=== PATIENT | male | born 1950 | race Caucasian/White ===

== ENCOUNTER → 2017-12-13 | Outpatient (CLI) | payer MEDICARE, OTHER ==
[~2017-12-13] MED LIST: LIDOCAINE 2% MDV 20 ML VIAL As Ordered
== END | disposition home or self-care (01) ==
LOC: M IRPRO 10:59
DX: Z45.2 Encounter for adjustment and management of vascular access device (principal); N18.6 End stage renal disease; Z99.2 Dependence on renal dialysis
CPT/HCPCS: 36589

== ENCOUNTER 2018-02-22 09:45 | Emergency (ER) | payer MEDICARE, OTHER ==
[2018-02-22] MEDS: DERMABOND TOPICAL SKIN ADHESIVE TOP (10:54)
== END 2018-02-22 11:12 | disposition home or self-care (01) ==
LOC: M ED 09:45
DX: S61.215A Laceration without foreign body of left ring finger without damage to nail, initial encounter (principal); W26.8XXA Contact with other sharp object(s), not elsewhere classified, initial encounter; Y92.018 Other place in single-family (private) house as the place of occurrence of the external cause; E11.9 Type 2 diabetes mellitus without complications; I12.0 Hypertensive chronic kidney disease with stage 5 chronic kidney disease or end stage renal disease; N18.6 End stage renal disease; Z99.2 Dependence on renal dialysis; Z79.899 Other long term (current) drug therapy; Z88.5 Allergy status to narcotic agent
CPT/HCPCS: 12001

== ENCOUNTER → 2018-03-11 | Outpatient (CLI) | payer MEDICARE, OTHER | LOC: M RAD 13:13 | DX: Z01.818 Encounter for other preprocedural examination (principal); N18.6 End stage renal disease | CPT/HCPCS: G0365 ==

== ENCOUNTER → 2018-07-11 | Outpatient (REF) | payer MEDICARE ==
[2018-07-11 19:22] LABS: BASO % 0.4 % (0.0-1.0); EOS # 0.4 10^3/uL (0.0-0.50); EOS % 3.5 % (0.0-3.0); HEMATOCRIT 25.4 % (42.0-52.0); HEMOGLOBIN 8.6 g/dl (13.5-17.5); IMMATURE GRANULOCYTE % 1.1 % (0-3.0); LYMPH # 0.9 10^3/uL (1.5-4.5); LYMPH % 8.2 % (24.0-44.0); MEAN CORPUSCULAR HEMOGLOBIN 30.4 pg (27.0-33.0); MEAN CORPUSCULAR HGB CONC 33.9 g/dl (32.0-36.5); MEAN CORPUSCULAR VOLUME 89.8 fl (80.0-96.0); NEUTROPHILS # 8.3 10^3/uL (1.8-7.7); NEUTROPHILS % 77.8 % (36.0-66.0); PLATELET COUNT, AUTOMATED 261 10^3/uL (150-450); RED BLOOD COUNT 2.83 10^6/uL (4.30-6.10); RED CELL DISTRIBUTION WIDTH 14.6 % (11.5-14.5); WHITE BLOOD COUNT 10.6 10^3/uL (4.0-10.0)
[2018-07-11 20:12] LABS: ESTIMATED AVERAGE GLUCOSE 192 MG/DL (60-110); HEMOGLOBIN A1c 8.3 %
[2018-07-11 20:25] LABS: ALBUMIN/GLOBULIN RATIO 1.03 (1.00-1.93); ALKALINE PHOSPHATASE 66 U/L (45-117); ALT/SGPT 24 U/L (12-78); ANION GAP 11 MEQ/L (8-16); AST/SGOT 9 U/L (7-37); BILIRUBIN,TOTAL 0.3 MG/DL (0.2-1.0); BLOOD UREA NITROGEN 96 MG/DL (7-18); CARBON DIOXIDE LEVEL 29 MEQ/L (21-32); CHLORIDE LEVEL 92 MEQ/L (98-107); CHOLESTEROL LEVEL 155 MG/DL (<200); CHOLESTEROL RISK RATIO 5.535 (<5); GLOMERULAR FILTRATION RATE 3.6 (>49); GLUCOSE, FASTING 192 MG/DL (70-100); HDL CHOLESTEROL 28 MG/DL (>40); NON-HDL-C 127 MG/DL; POTASSIUM SERUM 4.2 MEQ/L (3.5-5.1); SODIUM LEVEL 132 MEQ/L (136-145); TOTAL PROTEIN 5.9 GM/DL (6.4-8.2); TRIGLYCERIDES LEVEL 442 MG/DL (<150)
== END ==
LOC: M SFHCADAM 15:45
DX: I11.9 Hypertensive heart disease without heart failure (principal); N18.6 End stage renal disease; E11.22 Type 2 diabetes mellitus with diabetic chronic kidney disease; Z79.4 Long term (current) use of insulin; R11.2 Nausea with vomiting, unspecified; R63.4 Abnormal weight loss
CPT/HCPCS: 84443

== ENCOUNTER → 2018-09-26 | Outpatient (CLI) | payer MEDICARE ==
[~2018-09-26] MED LIST changes: +AURY1TAB; +CARV12.5; +FURO40TA2; +GLIM2TAB; +HYDR-3911; +ISOS30TA4; +LANTINJ4; -LIDOCAINE 2% MDV 20 ML VIAL As Ordered; +LOSA100T50; +NITR0.4S14; +RENATAB5; +RENV2TAB; +SIMV20TA2; +VITA50005; +[UNRECOGNIZED DRUG - CODE]
--- NOTE | 2018-09-26 18:00 | REP ---
LIMITED ABDOMINAL ULTRASOUND: 09/26/2018. Clinical history: Nausea and vomiting, evaluate biliary tree. Findings: No prior study. The liver shows mild coarsening of echotexture but is otherwise homogeneous. There is no hepatic mass or cyst. No gross intrahepatic biliary dilatation. There is no perihepatic ascites. The gallbladder is adequately filled measuring 8.2 x 5.8 x 4.9 cm. Some mild cholesterolosis suggested. I do not see pericholecystic fluid and wall thickness is 1.8 mm, normal. No stone or sludge. No sonographic Elaine's sign was defined. Common duct is 2.3 mm without filling defect in its visible portion, somewhat limited evaluation. The pancreas also was limited in evaluation due to bowel gas shadowing. Those segments seen were unremarkable. The right kidney is 12.7 x 6.4 x 5.7 cm. Cortex is echogenic compared to the liver representing some medical renal disease. There is a lower pole cyst laterally measuring 5.8 x 5.3 x 5 cm. There is no hydronephrosis. Calcified vessels in the hilus. There is trace amount of ascites around the liver. Impression: 1. Mild coarsening of the hepatic echotexture and trace fluid adjacent to the liver that may reflect evidence of chronic liver disease. 2. No hepatic mass, definite intrahepatic biliary dilatation or cyst. 3. Common duct 2.3 and mm and intact. Limited evaluation of the pancreas. 4. The gallbladder shows some cholesterolosis and normal wall thickness of 1.8 mm No stone, sludge or pericholecystic fluid. No sonographic Elaine sign. 5. Chronic renal disease noted involving the right kidney without hydronephrosis. Echogenic calcified vessels in the hilum and a lower pole lateral cyst 5.8 x 5.3 cm. Electronically Signed by Thony Dao MD 09/26/2018 06:44 P
== END ==
LOC: M RAD 09:53
PROVIDERS: ATTEND Internal Medicine Gastroenterology
DX: R11.2 Nausea with vomiting, unspecified (principal); K76.89 Other specified diseases of liver; K82.4 Cholesterolosis of gallbladder; N18.9 Chronic kidney disease, unspecified

== ENCOUNTER → 2018-09-29 | Outpatient (REF) | payer MEDICARE, OTHER | LOC: M SFHCPLAZ 19:40 | PROVIDERS: ATTEND Dermatology | DX: L57.8 Other skin changes due to chronic exposure to nonionizing radiation (principal); L82.1 Other seborrheic keratosis ==

== ENCOUNTER → 2018-11-24 | Outpatient (CLI) | payer MEDICARE, OTHER ==
--- NOTE | 2018-11-27 12:19 | SLEEPHOME ---
DATE OF PROCEDURE: 11/24/2018 ORDERED BY: Dr. Andre Diagnostic home sleep testing was performed due to concern for the obstructive sleep apnea syndrome. For testing a nocturnal T3 respiratory monitoring device was used. Continuous record was made of pulse, oxygen saturation, airflow, chest and abdominal strain and body position. 9 hours and 59 minutes of data were reviewed. There were 7 hours and 26 minutes marked as time in bed. During the interval marked time in bed, there were 568 respiratory events identified of 10 seconds in duration or greater for a respiratory event index of 76.3. The events were primarily obstructive. Baseline pulse rate 79. Pulse rate ranged 42-93. Baseline saturation 90%. Lowest oxygen saturation 69%. Testing was performed in both the supine and nonsupine positions. IMPRESSION: Abnormal home sleep testing with repetitive respiratory events and oxygen desaturations to 69% with a respiratory event index of 76.3 is consistent with the obstructive sleep apnea syndrome. RECOMMENDATIONS: The patient should be encouraged to undergo formal sleep evaluation and in laboratory pressure titration.
== END ==
LOC: M SLEEP HO 11-20 10:51
PROVIDERS: ATTEND Internal Medicine Cardiovascular Disease
DX: R06.83 Snoring (principal)

== ENCOUNTER → 2018-11-25 | Outpatient (REF) | payer MEDICARE, OTHER ==
[2018-11-25 20:25] LABS: BASO % 0.4 % (0.0-1.0); EOS # 0.4 10^3/uL (0.0-0.50); EOS % 5.2 % (0.0-3.0); HEMATOCRIT 25.3 % (42.0-52.0); HEMOGLOBIN 8.5 g/dl (13.5-17.5); LYMPH # 1.1 10^3/uL (1.5-4.5); LYMPH % 15.8 % (24.0-44.0); MEAN CORPUSCULAR HEMOGLOBIN 29.6 pg (27.0-33.0); MEAN CORPUSCULAR HGB CONC 33.6 g/dl (32.0-36.5); MEAN CORPUSCULAR VOLUME 88.2 fl (80.0-96.0); MONO % 13.4 % (0.0-5.0); NEUTROPHILS # 4.6 10^3/uL (1.8-7.7); NEUTROPHILS % 64.8 % (36.0-66.0); PLATELET COUNT, AUTOMATED 278 10^3/uL (150-450); RED BLOOD COUNT 2.87 10^6/uL (4.30-6.10); WHITE BLOOD COUNT 7.1 10^3/uL (4.0-10.0)
[2018-11-25 20:43] LABS: HEMOGLOBIN A1c 8.7 %
[2018-11-25 21:33] LABS: ALBUMIN 3.3 GM/DL (3.2-5.2); ALT/SGPT 24 U/L (12-78); BILIRUBIN,TOTAL 0.3 MG/DL (0.2-1.0); BLOOD UREA NITROGEN 92 MG/DL (7-18); CALCIUM LEVEL 8.8 MG/DL (8.8-10.2); CARBON DIOXIDE LEVEL 30 MEQ/L (21-32); CHLORIDE LEVEL 94 MEQ/L (98-107); CHOLESTEROL LEVEL 171 MG/DL (<200); CHOLESTEROL RISK RATIO 5.516 (<5); FREE T4 0.74 NG/DL (0.76-1.46); GLOMERULAR FILTRATION RATE 3.7 (>49); GLUCOSE, FASTING 207 MG/DL (70-100); HDL CHOLESTEROL 31 MG/DL (>40); NON-HDL-C 140 MG/DL; POTASSIUM SERUM 4.9 MEQ/L (3.5-5.1); SODIUM LEVEL 135 MEQ/L (136-145); TOTAL PROTEIN 6.2 GM/DL (6.4-8.2); TRIGLYCERIDES LEVEL 463 MG/DL (<150)
== END ==
LOC: M SFHCADAM 16:15
PROVIDERS: ATTEND Physician Assistant Medical
DX: E11.22 Type 2 diabetes mellitus with diabetic chronic kidney disease (principal); I11.9 Hypertensive heart disease without heart failure; R97.20 Elevated prostate specific antigen [PSA]

== ENCOUNTER → 2018-11-25 | Outpatient (CLI) | payer MEDICARE, OTHER ==
--- NOTE | 2018-11-25 16:56 | REP ---
Right hip two views: There is mild joint space narrowing. There is no osteophytic formation. There is no femoral head deformity. There is no fracture or dislocation. Localization is normal. Impression: Mild joint space narrowing compatible with early osteoarthritis. If symptoms persist or worsen, consider MRI follow up. Left hip two views: There is mild joint space narrowing. There is no osteophytic formation. Mineralization is normal. There is no fracture or dislocation. There is a calcification lateral to the acetabular roof, likely a degenerative ligamentous calcification. Impression: Mild joint space narrowing compatible with early osteoarthritis. Ligamentous degenerative calcification lateral to the acetabular roof. If symptoms persist or worsen, consider MRI follow up. Electronically Signed by Robert Chowdary MD 11/25/2018 04:48 P
== END ==
LOC: M ADAMS 16:19
PROVIDERS: ATTEND Physician Assistant Medical
DX: M16.0 Bilateral primary osteoarthritis of hip (principal); E11.22 Type 2 diabetes mellitus with diabetic chronic kidney disease; I11.9 Hypertensive heart disease without heart failure; R97.20 Elevated prostate specific antigen [PSA]; M25.551 Pain in right hip; M25.552 Pain in left hip
CPT/HCPCS: 73502; 80053; 80061; 83036; 84154; 84439; 84443; 85025; G0463

== ENCOUNTER → 2019-01-20 | Outpatient (REF) | payer MEDICARE, OTHER | LOC: M LAB REF 13:06 | PROVIDERS: ATTEND Internal Medicine Nephrology | DX: D64.9 Anemia, unspecified (principal) ==

== ENCOUNTER → 2019-03-09 | Outpatient (REF) | payer MEDICARE, OTHER ==
[~2019-03-09] MED LIST changes: +CHLO125TA PO; +IRBE300T10 PO; +LANT1000 PO; +LOPR1TAB7 PO; +ONDA4TAB6 PO; +RANI15TA PO
[2019-03-09 14:26] LABS: HEMOGLOBIN A1c 6.9 %
== END ==
LOC: M SFHCADAM 11:15
PROVIDERS: ATTEND Physician Assistant Medical
DX: E11.22 Type 2 diabetes mellitus with diabetic chronic kidney disease (principal)
CPT/HCPCS: 83036; G0463

== ENCOUNTER → 2019-03-13 | Outpatient (REF) | payer MEDICARE, OTHER | LOC: M SMT 17:05 | PROVIDERS: ATTEND Nurse Practitioner Family | DX: R97.20 Elevated prostate specific antigen [PSA] (principal) | CPT/HCPCS: 87086; G0463 ==

== ENCOUNTER 2019-03-31 12:28 | Day surgery (SDC) | payer MEDICARE, OTHER ==
[~2019-03-31] VITALS: Ht 172.7 cm; Wt 92.5 kg
[2019-03-31] MEDS: NS 1,000 ML IV ONE (12:43)
[2019-03-31] MEDS ORDERED: LIDOCAINE 2% INJ 100 MG/5 ML SDV (FOR ANES.) As Ordered ONE (14:23)
[2019-03-31] MEDS ORDERED: PROPOFOL 500 MG/50 ML VIAL As Ordered ONE (14:23)
[2019-03-31] MEDS ORDERED: fentaNYL 100 MCG/2 ML INJECTION (J3010) As Ordered ONE (14:23)
--- NOTE | 2019-03-31 14:54 | ROOR ---
Patient Name: Isidro Dooley Procedure Date: 03/31/2019 2:10 PM Date of : 1950 Age: 68 Room: [facility] Gender: Male Note Status: Finalized Procedure: Upper GI endoscopy Indications: Persistent vomiting Providers: Paulie Schaffer MD Referring MD: EVONNE Carrasquillo Requesting Provider: Medicines: Monitored Anesthesia Care Complications: No immediate complications. Procedure: Pre-Anesthesia Assessment: - Prior to the procedure, a History and Physical was performed, and patient medications and allergies were reviewed. The patient is competent. The risks and benefits of the procedure and the sedation options and risks were discussed with the patient. All questions were answered and informed consent was obtained. Patient identification and proposed procedure were verified by the physician, the nurse and the anesthesiologist in the procedure room. Mental Status Examination: alert and oriented. Airway Examination: normal oropharyngeal airway and neck mobility. Respiratory Examination: clear to auscultation. CV Examination: normal. Prophylactic Antibiotics: The patient does not require prophylactic antibiotics. Prior Anticoagulants: The patient has taken no previous anticoagulant or antiplatelet agents. ASA Grade Assessment: II - A patient with mild systemic disease. After reviewing the risks and benefits, the patient was deemed in satisfactory condition to undergo the procedure. The anesthesia plan was to use monitored anesthesia care (MAC). Immediately prior to administration of medications, the patient was re-assessed for adequacy to receive sedatives. The heart rate, respiratory rate, oxygen saturations, blood pressure, adequacy of pulmonary ventilation, and response to care were monitored throughout the procedure. The physical status of the patient was re-assessed after the procedure. The Endoscope was introduced through the mouth, and advanced to the second part of duodenum. The upper GI endoscopy was accomplished without difficulty. The patient tolerated the procedure well. Findings: The examined esophagus was normal. The Z-line was regular and was found 43 cm from the incisors. One non-bleeding superficial gastric ulcer was found in the prepyloric region of the stomach. The lesion was 20 mm in largest dimension. Biopsies were taken with a cold forceps for histology. Verification of patient identification for the specimen was done by the physician and nurse using the patient's name, date and medical record number. Estimated blood loss was minimal. Scattered moderate inflammation characterized by congestion (edema), erythema and granularity was found in the gastric antrum. Biopsies were taken with a cold forceps for Helicobacter pylori testing. No gross lesions were noted in the duodenal bulb and in the second portion of the duodenum. Biopsies for histology were taken with a cold forceps for evaluation of celiac disease. Impression: - Normal esophagus. - Z-line regular, 43 cm from the incisors. - Non-bleeding gastric ulcer. Biopsied. - Gastritis. Biopsied. - No gross lesions in the duodenal bulb and in the second portion of the duodenum. Biopsied. Recommendation: - Patient has a contact number available for emergencies. The signs and symptoms of potential delayed complications were discussed with the patient. Return to normal activities tomorrow. Written discharge instructions were provided to the patient. - Resume previous diet. - Continue present medications. - Use a proton pump inhibitor PO daily for 8 weeks. - Return to GI clinic in [facility] (address [address], [address], [place] [address]) in 4 -- 6 weeks. Please call GI clinic @ [phone] for apppointment date and time. - Return to primary care physician. Paulie Schaffer MD Paulie Schaffer MD 03/31/2019 2:54:08 PM Electronically signed by Paulie Schaffer MD Number of Addenda: 0 Note Initiated On: 03/31/2019 2:10 PM Estimated Blood Loss: Estimated blood loss was minimal.
[2019-03-31 15:00] VITALS: BP 176/79
== END 2019-03-31 15:21 | disposition home or self-care (01) ==
LOC: M OPP 12:28
PROVIDERS: ATTEND Internal Medicine Gastroenterology
DX: K25.9 Gastric ulcer, unspecified as acute or chronic, without hemorrhage or perforation (principal); K29.70 Gastritis, unspecified, without bleeding; R11.10 Vomiting, unspecified; G47.30 Sleep apnea, unspecified; E11.9 Type 2 diabetes mellitus without complications; N18.9 Chronic kidney disease, unspecified; Z99.2 Dependence on renal dialysis; Z79.4 Long term (current) use of insulin; Z79.899 Other long term (current) drug therapy; Z88.5 Allergy status to narcotic agent
CPT/HCPCS: 43239; 88305; J3010

== ENCOUNTER → 2019-04-09 | Outpatient (CLI) | payer MEDICARE, OTHER | LOC: M RAD 09:41 | PROVIDERS: ATTEND Internal Medicine Nephrology | DX: Z01.818 Encounter for other preprocedural examination (principal) ==

== ENCOUNTER 2019-10-27 15:11 | Emergency (ER) | payer MEDICARE, OTHER ==
[~2019-10-27] VITALS: Ht 172.7 cm; Wt 87.7 kg
[~2019-10-27 15:11] MED LIST changes: +Areds PO; +CVS50CAP PO; -FURO40TA2; +FURO40TA2 PO; -GLIM2TAB; +GLIM2TAB4 PO; -IRBE300T10 PO; +IRBE300T7 PO; -ISOS30TA4; +ISOS30TA4 PO; +MINO2.5T PO; -NITR0.4S14; +NITR0.4S14 SL; -RENV2TAB; +RENV2TAB PO; -SIMV20TA2; +SIMV20TA22 PO; +VELP5CHW PO; +VITA200028 PO
[2019-10-27] MEDS ORDERED: NS 1,000 ML IV ONE (15:45)
[2019-10-27] MEDS ORDERED: ONDANSETRON 4MG/2ML VIAL IV ONE (15:45)
[2019-10-27 15:51] LABS: BASO % 0.2 % (0.0-1.0); EOS # 0.1 10^3/uL (0.0-0.5); EOS % 0.8 % (0.0-3.0); HEMATOCRIT 25.8 % (42.0-52.0); HEMOGLOBIN 8.9 g/dl (13.5-17.5); LYMPH # 0.3 10^3/uL (1.5-5.0); LYMPH % 2.3 % (24.0-44.0); MEAN CORPUSCULAR HEMOGLOBIN 31.3 pg (27.0-33.0); MEAN CORPUSCULAR HGB CONC 34.5 g/dl (32.0-36.5); MEAN CORPUSCULAR VOLUME 90.8 fl (80.0-96.0); MONO # 1.2 10^3/uL (0.0-0.8); MONO % 8.5 % (0.0-5.0); NEUTROPHILS # 12.7 10^3/uL (1.5-8.5); PLATELET COUNT, AUTOMATED 220 10^3/uL (150-450); RED BLOOD COUNT 2.84 10^6/uL (4.30-6.10); WHITE BLOOD COUNT 14.6 10^3/uL (4.0-10.0)
[2019-10-27 15:55] LABS: INR 1.1; PROTHROMBIN TIME 13.9 SECONDS (11.8-14.0)
[2019-10-27 15:56] LABS: PARTIAL THROMBOPLASTIN TIME 30.7 SECONDS (25.0-38.4)
[2019-10-27 16:05] LABS: ALBUMIN 3.4 GM/DL (3.2-5.2); ALT/SGPT 21 U/L (12-78); BILIRUBIN,DIRECT 0.1 MG/DL (0.0-0.2); BILIRUBIN,TOTAL 0.4 MG/DL (0.2-1.0); C REACTIVE PROTEIN QUANTITATIV 3.13 MG/DL (0.00-0.30); CK-MB VALUE MASS 2.8 NG/ML (<3.6); CPK CREATINE PHOSPHOKINASE 70 U/L (39-308); LIPASE 129 U/L (73-393); TOTAL PROTEIN 6.6 GM/DL (6.4-8.2); TROPONIN I < 0.02 NG/ML (< 0.10)
[2019-10-27] MEDS ORDERED: ISOVUE-370 76% 100ML VIAL As Ordered ONE (16:24)
--- NOTE | 2019-10-27 16:39 | REP ---
HISTORY: Abdominal pain. The frontal view of the chest shows chronic fibrotic changes and lung field hypoexpansion. There is no free subdiaphragmatic air. There are no abnormal patchy opacities or pleural effusions. The intestinal gas pattern is nonspecific. There is no evidence of intestinal obstruction. IMPRESSION: No evidence of acute disease. Findings as described above. Electronically Signed by Patrice Mistry DO 10/27/2019 04:42 P
[2019-10-27] MEDS ORDERED: FAMO1TAB11 PO (17:07)
--- NOTE | 2019-10-27 17:21 | REPVR ---
PROCEDURE INFORMATION: Exam: CT Abdomen And Pelvis With Contrast Exam date and time: 10/27/2019 4:45 PM Age: 69 years old Clinical indication: Vomiting and other: Jaundice; Patient HX: Peritoneal dialysis, creat 12.5; Additional info: Vomiting, jaundice, eval for pancreatic mass, (+pd patient) TECHNIQUE: Imaging protocol: Computed tomography of the abdomen and pelvis with intravenous contrast. Axial, coronal and sagittal reformatted images were created and reviewed. Radiation optimization: All CT scans at this facility use at least one of these dose optimization techniques: automated exposure control; mA and/or kV adjustment per patient size (includes targeted exams where dose is matched to clinical indication); or iterative reconstruction. Contrast material: ISOVUE 370; Contrast volume: 100 ml; Contrast route: IV; COMPARISON: CT GUIDE RENAL BIOPSY, RIGHT - OUTSIDE PRIOR 09/15/2015 10:12 AM FINDINGS: Tubes, catheters and devices: Peritoneal dialysis catheter in place. Lungs: Mild linear stranding and groundglass at the lung bases, likely due to atelectasis and/or scarring. Liver: Unremarkable. Gallbladder and bile ducts: No radiodense gallstones. No biliary ductal dilatation. Pancreas: Unremarkable. Spleen: Unremarkable. Adrenals: Unremarkable. Kidneys and ureters: Bilateral renal atrophy. Bilateral simple renal cysts, measuring up to 5.4 x 5.2 cm on the right and 4.6 x 3.8 cm on the left. Indeterminate, mildly hypodense right renal lesion, measuring approximately 2.1 x 1.7 cm. No radiodense calculi. No hydronephrosis. Stomach and bowel: Scattered colonic diverticula without evidence of diverticulitis. No obstruction. No bowel wall thickening. No pneumatosis. Appendix: Findings suggestive of prior appendectomy. Intraperitoneal space: Small to moderate ascites. Vasculature: Moderate atherosclerotic disease. No aneurysm or dissection. Lymph nodes: No pathologically enlarged lymph nodes. Bladder: Mild circumferential urinary bladder wall thickening, likely secondary to underdistention and/or chronic bladder outlet obstruction. Reproductive: Enlarged prostate. Bones/joints: No acute osseous abnormality. Osteopenia. Mild degenerative changes. Soft tissues: Small, fat containing umbilical hernia. IMPRESSION: 1. No pancreatic mass identified. 2. Small to moderate ascites. 3. Indeterminate, mildly hypodense right renal lesion, measuring approximately 2.1 x 1.7 cm. Follow-up ultrasound is recommended to exclude a solid mass. 4. Enlarged prostate. Correlate with clinical exam and PSA levels. 5. Additional findings, as above. COMMENTS: Consistent with the [employer]'s Incidental Findings Committee white paper (J Am Marium Radiol 2018): Any incidental cystic renal lesion classified in this report as too small to characterize or simple appearing is likely a benign cyst. No follow-up imaging is recommended for these lesions per consensus recommendations based on imaging criteria. Electronically signed by: Romaine Camejo On 10/27/2019 17:21:33 PM
[2019-10-27] MEDS ORDERED: ONDA4TAB6 PO (17:34)
[2019-10-27 17:45] VITALS: BP 138/76
--- NOTE | 2019-10-28 14:58 | ECGEPIP ---
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
--- NOTE | 2019-10-30 06:39 | ED PDOC ---
Post-Departure Follow-Up olive siddiqui faxed formal report of ct abd/pf or fu carlosg Javed Friedman MD Oct 30, 2019 06:39
== END 2019-10-27 18:30 | disposition home or self-care (01) ==
LOC: M ED 15:11
DX: R53.1 Weakness (principal); R11.10 Vomiting, unspecified; I45.19 Other right bundle-branch block; N40.0 Benign prostatic hyperplasia without lower urinary tract symptoms; E11.9 Type 2 diabetes mellitus without complications; I10 Essential (primary) hypertension; E78.5 Hyperlipidemia, unspecified; Z79.899 Other long term (current) drug therapy; Z79.84 Long term (current) use of oral hypoglycemic drugs; Z88.5 Allergy status to narcotic agent; Z79.01 Long term (current) use of anticoagulants
CPT/HCPCS: 36415; 74021; 74177; 80047; 80076; 82550; 82553; 83605; 83690; 84484; 85025; 85610; 85730; 86140; 93005; 93041; 96361; 96374; 99285; G0463; J2405; Q9967; U0002

== ENCOUNTER → 2019-12-22 | Outpatient (REF) | payer MEDICARE, OTHER ==
[~2019-12-22] MED LIST changes: +ATOR1TAB21 PO; +DEBR6.5S4 OTIC; +FAMO1TAB11 PO; -LANTINJ4; +LANTINJ4 SC; +MECL1TAB31 PO; +METO1TAB33 PO; +PRESCAP PO; +VELT1POW PO; +VITA50005 PO; -[UNRECOGNIZED DRUG - CODE]; +[UNRECOGNIZED DRUG - CODE] PO
== END ==
LOC: M LAB REF 17:43
PROVIDERS: ATTEND Dermatology
DX: L57.0 Actinic keratosis (principal)

== ENCOUNTER 2020-01-11 10:01 | Emergency (ER) | payer MEDICARE, OTHER ==
[~2020-01-11] VITALS: Ht 172.7 cm; Wt 92.2 kg
[~2020-01-11 10:01] MED LIST changes: -DEBR6.5S4 OTIC; -MECL1TAB31 PO
[2020-01-11 10:37] LABS: BASO # 0.1 10^3/uL (0.0-0.2); BASO % 0.6 % (0.0-1.0); EOS # 0.2 10^3/uL (0.0-0.5); EOS % 2.5 % (0.0-3.0); HEMATOCRIT 32.2 % (42.0-52.0); HEMOGLOBIN 11.1 g/dl (13.5-17.5); LYMPH # 0.9 10^3/uL (1.5-5.0); LYMPH % 11.2 % (24.0-44.0); MEAN CORPUSCULAR HEMOGLOBIN 30.7 pg (27.0-33.0); MEAN CORPUSCULAR HGB CONC 34.5 g/dl (32.0-36.5); MEAN CORPUSCULAR VOLUME 89.2 fl (80.0-96.0); NEUTROPHILS # 5.6 10^3/uL (1.5-8.5); NEUTROPHILS % 72.2 % (36.0-66.0); PLATELET COUNT, AUTOMATED 278 10^3/uL (150-450); RED BLOOD COUNT 3.61 10^6/uL (4.30-6.10); WHITE BLOOD COUNT 7.7 10^3/uL (4.0-10.0)
--- NOTE | 2020-01-11 10:39 | REP ---
Clinical: Chest pain. Comparison: 12/06/2019, 10/27/2019 . Findings: Mediastinum and cardiac silhouette are normal. Trace bibasilar fibro atelectatic changes are appreciated similar to prior examinations through 10/27/2019. No further consolidation, obvious effusion, or pneumothorax. Skeletal structures are intact. Impression: Bibasilar fibroatelectatic changes similar to prior examination. Subtle superimposed acute atelectasis cannot be excluded. Electronically Signed by Manuel Sampson MD 01/11/2020 10:30 A
[2020-01-11 10:48] LABS: INR 0.96; PROTHROMBIN TIME 12.5 SECONDS (11.8-14.0)
[2020-01-11 11:21] LABS: ALBUMIN 3.4 GM/DL (3.2-5.2); ALT/SGPT 19 U/L (12-78); BILIRUBIN,DIRECT < 0.1 MG/DL (0.0-0.2); BILIRUBIN,TOTAL 0.3 MG/DL (0.2-1.0); BLOOD UREA NITROGEN 54 MG/DL (7-18); CALCIUM LEVEL 9.7 MG/DL (8.8-10.2); CARBON DIOXIDE LEVEL 30 MEQ/L (21-32); CHLORIDE LEVEL 89 MEQ/L (98-107); CK-MB VALUE MASS 3.7 NG/ML (<3.6); CPK CREATINE PHOSPHOKINASE 114 U/L (39-308); FREE T4 1.03 NG/DL (0.76-1.46); GLOMERULAR FILTRATION RATE 4.5 (>49); GLUCOSE, FASTING 145 MG/DL (70-100); LIPASE 223 U/L (73-393); MB/CK RELATIVE INDEX 3.25 (< OR =4); POTASSIUM SERUM 3.8 MEQ/L (3.5-5.1); SODIUM LEVEL 131 MEQ/L (136-145); TOTAL PROTEIN 6.2 GM/DL (6.4-8.2)
--- NOTE | 2020-01-11 11:40 | REP ---
Clinical: Dizziness. Comparison: 12/06/2019 . Findings: Age-related atrophy and microvascular ischemic changes are appreciated. The ventricles and sulci are symmetric. Adames-white differentiation is maintained. There is no evidence for acute intracranial hemorrhage, mass/mass effect, pathology or infarction. No extra-axial fluid collection. Calvarium is intact. Paranasal sinuses and mastoid air cells are clear. Impression: Age related atrophy and microvascular ischemic changes. No acute intracranial hemorrhage, infarction, or mass/mass effect. Electronically Signed by Manuel Sampson MD 01/11/2020 11:32 A
[2020-01-11] MEDS ORDERED: MECL1TAB31 PO (12:33)
[2020-01-11] MEDS ORDERED: DEBR6.5S4 OTIC (12:33)
[2020-01-11 13:17] VITALS: BP 164/74
--- NOTE | 2020-01-11 16:53 | ECGEPIP ---
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
== END 2020-01-11 13:19 | disposition home or self-care (01) ==
LOC: M ED 10:01
DX: R42 Dizziness and giddiness (principal); H61.21 Impacted cerumen, right ear; I45.19 Other right bundle-branch block; I10 Essential (primary) hypertension; N18.6 End stage renal disease; Z99.2 Dependence on renal dialysis; E78.5 Hyperlipidemia, unspecified; Z79.899 Other long term (current) drug therapy; Z79.4 Long term (current) use of insulin; Z88.5 Allergy status to narcotic agent

== ENCOUNTER → 2020-03-13 | Outpatient (CLI) | payer MEDICARE, OTHER ==
[~2020-03-13] MED LIST changes: +DEBR6.5S4 OTIC; +MECL1TAB31 PO
== END ==
LOC: M LABSMTC 10:55
PROVIDERS: ATTEND Anesthesiology
DX: Z01.812 Encounter for preprocedural laboratory examination (principal); Z20.828 Contact with and (suspected) exposure to other viral communicable diseases
CPT/HCPCS: C9803; U0003

== ENCOUNTER 2020-03-18 08:45 | Day surgery (SDC) | payer MEDICARE, OTHER ==
[~2020-03-18] VITALS: Ht 172.7 cm; Wt 89.4 kg
[~2020-03-18 08:45] MED LIST changes: +NS 1,000 ML IV ONE
[2020-03-18] MEDS ORDERED: propofoL 200 MG/20 ML VIAL As Ordered ONE (10:02)
[2020-03-18] MEDS ORDERED: LIDOCAINE 2% 100MG/5ML SDV (FOR ANES.) As Ordered ONE (10:02)
[2020-03-18] MEDS ORDERED: fentaNYL 100 MCG/2 ML INJECTION (J3010) As Ordered ONE (11:56)
[2020-03-18] MEDS ORDERED: CIPROFLOXACIN 500MG TABLET PO ONE (12:45)
[2020-03-18 12:59] VITALS: BP 147/76
--- NOTE | 2020-03-23 11:38 | ROOR ---
" Patient Name: Isidro Dooley Procedure Date: 03/18/2020 11:46 AM Date of : 1950 Age: 69 Room: [facility] Gender: Male Note Status: Finalized Procedure: Small bowel enteroscopy Indications: Acute post hemorrhagic anemia, Iron deficiency anemia secondary to chronic blood loss Providers: Paulie Schaffer MD Referring MD: EVONNE Carrasquillo Requesting Provider: Medicines: Monitored Anesthesia Care Complications: No immediate complications. Procedure: Pre-Anesthesia Assessment: - Prior to the procedure, a History and Physical was performed, and patient medications and allergies were reviewed. The patient is competent. The risks and benefits of the procedure and the sedation options and risks were discussed with the patient. All questions were answered and informed consent was obtained. Patient identification and proposed procedure were verified by the physician, the nurse and the anesthesiologist in the procedure room. Mental Status Examination: alert and oriented. Airway Examination: normal oropharyngeal airway and neck mobility. Respiratory Examination: clear to auscultation. CV Examination: normal. Prophylactic Antibiotics: The patient does not require prophylactic antibiotics. Prior Anticoagulants: The patient has taken no previous anticoagulant or antiplatelet agents. ASA Grade Assessment: III - A patient with severe systemic disease. After reviewing the risks and benefits, the patient was deemed in satisfactory condition to undergo the procedure. The anesthesia plan was to use monitored anesthesia care (MAC). Immediately prior to administration of medications, the patient was re-assessed for adequacy to receive sedatives. The heart rate, respiratory rate, oxygen saturations, blood pressure, adequacy of pulmonary ventilation, and response to care were monitored throughout the procedure. The physical status of the patient was re-assessed after the procedure. The Enteroscope was introduced through the mouth, and advanced to the second part of duodenum. The upper GI endoscopy was accomplished without difficulty. The patient tolerated the procedure well. Findings: The examined esophagus was normal. Scattered mild inflammation characterized by erythema, friability and linear erosions was found in the gastric antrum. There is no endoscopic evidence of ulceration in the gastric antrum. The examined duodenum was normal. Normal mucosa was found in the jejunum. Impression: - Normal esophagus. - Gastritis. - Normal examined duodenum. - Normal mucosa was found in the jejunum. - No specimens collected. Recommendation: - Patient has a contact number available for emergencies. The signs and symptoms of potential delayed complications were discussed with the patient. Return to normal activities tomorrow. Written discharge instructions were provided to the patient. - High fiber diet. - Continue present medications. - Recommend an oral antibiotic Ciprofloxacin 500 mg one dose today. - Check recent Lab work up done in Renal clinic ( CBC, Iron studies) |in 2 weeks|. - Telephone GI clinic in 2 weeks to review the labs done in renal clinic. - Return to primary care physician. - To visualize the small bowel, perform video capsule endoscopy if persistent symptoms or new symptoms. Paulie Schaffer MD Paulie Schaffer MD 03/18/2020 12:50:34 PM Electronically signed by Paulie Schaffer MD Number of Addenda: 0 Note Initiated On: 03/18/2020 11:46 AM Estimated Blood Loss: Estimated blood loss was minimal."
== END 2020-03-18 13:10 | disposition home or self-care (01) ==
LOC: M OPP 08:45
PROVIDERS: ATTEND Internal Medicine Gastroenterology
DX: K29.70 Gastritis, unspecified, without bleeding (principal); D62 Acute posthemorrhagic anemia; E11.9 Type 2 diabetes mellitus without complications; Z79.4 Long term (current) use of insulin; Z79.899 Other long term (current) drug therapy; Z88.5 Allergy status to narcotic agent; Z87.891 Personal history of nicotine dependence
CPT/HCPCS: 36415; 43235; 84132; J3010

== ENCOUNTER → 2020-07-14 | Outpatient (REF) | payer MEDICARE, OTHER ==
[~2020-07-14] MED LIST changes: -NS 1,000 ML IV ONE
== END ==
LOC: M LABDRWAD 15:35
PROVIDERS: ATTEND Internal Medicine Cardiovascular Disease
DX: R97.20 Elevated prostate specific antigen [PSA] (principal)

== ENCOUNTER 2020-08-25 08:11 | Emergency (ER) | payer MEDICARE, OTHER ==
[~2020-08-25] VITALS: Ht 172.7 cm; Wt 84.1 kg
[~2020-08-25 08:11] MED LIST changes: +ISOS1TAB35 PO; -ISOS30TA4 PO
--- NOTE | 2020-08-25 09:14 | REP ---
INDICATION: CHEST PAIN. COMPARISON: Comparison portable chest x-ray January 11, 2020. TECHNIQUE: Portable upright AP chest radiograph. FINDINGS: The lungs are well inflated and free of infiltrate. There is some mild linear fibrosis in the left base. Heart is not enlarged. The thoracic aorta is tortuous and calcific as before. Pulmonary vasculature is not increased.. IMPRESSION: No active disease. <Electronically signed by [place] > 08/25/20 [id number]
--- OUTSIDE RECORDS SUMMARY | 2020-08-25 09:19 | CCD ---
Author Author [facility] Organization [facility] Address Unknown Phone Unavailable Care Team Providers Care Can Stacker Name Role Phone Laureen Hutchinson Unavailable PROBLEMS Type Condition ICD9-CM Code [id number] Code Onset Dates Condition S tatus SNOMED Code Notes Problem End stage renal disease N18.6 Active 48356532 4 Problem Type 2 diabetes mellitus with diabetic chronic kidney disease E11.22 Active 77211471 Problem Dermatofibroma D23.9 Active 420974229 Problem Hypertensive heart disease, unspecified whether heart failure present I11.9 Active 68618632 Problem Elevated prostate specific antigen (PSA) R97.20 Active 779893525 Problem Dependence on renal dialysis Z99.2 Active 105 973704 Problem Hearing loss of right ear, unspecified hearing loss type H91.91 Active 272270314 Problem alf current use of insulin Z79.4 Active 773799406 Problem Seborrheic keratoses L82.1 Active 319124768 Problem 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 Active 003748639 Problem Anemia of chronic disease D63.8 Active 072865 009 Problem Tremor R25.1 Active 22824426 ALLERGIES Allergen (clinical drug ingredient) Drug/Non Drug Allergy do cumented on EMR Reaction Allergy Type Onset Date Status Codeine Phosphate(NDC Code:[address]-54) Skin crawl feeli ngs Drug Allergy Active amlodipine AmLODIPine Besylate(NDC Code:[address]-98) edema Adis g Allergy Active ENCOUNTERS from 1950 to 2020-08-02 Encounter Location Date Provider Diagnosis [address] [place] [address] 15 Jul, 2020 Mar grzegorz Talleycea Type 2 diabetes mellitus with diabetic chronic kidney disease E11.22 ; End stage renal disease N18.6 ; Hypertensive heart disease, unspecified whether heart failure present I11.9 ; Anemia of chronic disease D63.8 ; 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 and Elevated prostate specific antigen [PSA] R97.20 IMMUNIZATIONS No Information SOCIAL HISTORY Tobacco Use: Social History Observation Description Date Details (start date - stop date) Former Smoker Sex Assigned At : Social History Observation Description Sex Assigned At Unknown Education: Question Answer Notes Level of Education: Not Finished College Audit Question Answer Notes Total Score: 0 Interpretation: Alcohol Education Language: Question Answer Notes Languages spoken: Tamazight Sabianism: Question Answer Notes Sabianism 33 None Sexual Hx: Question Answer Notes Had sex in the last 12 months (vaginal, oral, or anal)? No Drug and Alcohol Question Answer Notes Total Score: 0 Interpretation: No problems reported Alcohol Screening: Question Answer Notes Did you have a drink containing alcohol in the past year? No Points 0 Interpretation Negative BMI Care Goal Follow-Up Question Answer Notes Above Normal BMI Follow-Up Dietary management educatio n, guidance, and counseling Tobacco Use: Question Answer Notes Are you a: former smoker Smoking Cessation Information Given 02/28/2018 How long has it been since you last smoked? > 10 years REASON FOR REFERRAL No Information VITAL SIGNS Weight 193 lbs Jul, Height 5'8.5" in Jul, BMI 28.92 kg/m2 Jul, Heart Rate 76 /min Jul, Respiratory Rate 18 /min Jul, Temperature 97.2 degrees Fahrenheit Jul, Oximetry 98 Jul, Blood pressure systolic 130 mm Hg Jul, Blood pressure diastolic 70 mm Hg Jul, MEDICATIONS Medication SIG (Take, Route, Frequency, Duration) Notes Start Da te End Date Status Claritin 10 MG 1 tablet Orally Once a day for 30 day(s) Oct, Active Famotidine 20 MG 1 tablet at bedtime as needed Orally Once a day for 90 days Active Renvela 800 MG 3 tablet with meals Orally Three times a day Active Lantus SoloStar 100 UNIT/ML 18 units Subcutaneous before bedtime for 30 Days Dec, Active Vitamin D (Ergocalciferol) 85117 UNIT 1 capsule Orally twice a month Active Lancets - One Touch Ultrasoft Lancets As needed Active Atorvastatin Calcium 40 MG 1 tablet Orally Once a day Active Metoprolol Succinate ER 100 MG 1 tablet Orally Once a day Active Isosorbide Mononitrate ER 30 MG 2 tablets Orally twice daily Active OneTouch Verio - In Vitro Active BD Pen Needle Jewels U/F 32G X 4 MM Active Folate 400 MCG 1 tablet Orally Once a day for 90 Active Accu-Chek FastClix Lancets - Active Irbesartan 300 MG 1 tablet Orally Once a day Active Minoxidil 10 MG 1 tablet Orally Once a day for 30 day(s) Active Velphoro 500 MG 2 tablets Orally Before meals Active Glimepiride 2 MG 2 tablets with breakfast or the first main meal of the day Orally Once a day Active PROCEDURES No Information RESULTS No Results REASON FOR VISIT 6 month/labs [id number] MEDICAL (GENERAL) HISTORY Type Description Date Medical History HTN, renovascular Medical History Hyperlipidemia Medical History DM Type 2 with CKD Medical History ESRD ? Agent [place] related per pt, started dialysis 09/01, peritoneal dialysis Medical History anemia of chronic disease Medical History VIt D def Medical History macular degeneration Medical History moderate nonprol Diabetic, r etinopathy OS>OD, Dry AMD, neovascular AMD, hypertensive retinopathy OS>OD, nuclear sclerosis OD, pseudophakia OS Medical History L shoulder OA - NCOG Medical History elevated PSA Medical History agent orange exposure Medical History 11/26/18 MMSE Medical History EZEQUIEL - Neuro Surgical History Appendectomy 2008 Surgical History Hiatal hernia repair 2013 Surgical History Temp Catheter for Hemodialysis 2017 Surgical History Catheter for in-home dialysis 2017 Surgical History tonsillectomy 1961 Surgical History EGD - gastic bx with mucosa demontrating chr inflaamation and slight surface hyperplastic features 20170830 Surgical History colonoscopy - tubular ademoma 69588262 Hospitalization History Acute anemia per pt d/t ESRD , dialysis started at that tme. 2017 Hospitalization History mumps - sterilization as a result Hospitalization History anemia 12/01 Goals Section No Information Health Concerns No Information MEDICAL EQUIPMENT No Information MENTAL STATUS No Information FUNCTIONAL STATUS No Information ASSESSMENTS Encounter Date Diagnosis Assessment Notes Treatment Notes Treatm ent Clinical Notes Jul, Type 2 diabetes mellitus wit h diabetic chronic kidney disease (ICD- 10 - E11.22) Due for repeat BW today. Jul, End stage renal disease (ICD-10 - N18.6) Jul, Hypertensive heart disease, unspecified whether heart failure present (ICD-10 - I11.9) Recent Nuc Stress, normal. Jul, Anemia of chronic disease (ICD-10 - D63.8) Due for repeat BW today. Jul, Anemia secondary to renal failure (ICD-10 - D63. 1) Jul, Elevated prostate specific antigen [PSA] (ICD-10 - R97.20) Follows with [facility]. PLAN OF TREATMENT Treatment Notes Assessment Notes Clinical Notes Type 2 diabetes mellitus with diabetic chronic kidney disease Due for repeat BW today. Hypertensive heart disease, unspecified whether heart failure present Recent Nuc Stress, normal. Anemia of chronic disease Due for repeat BW today. Elevated prostate specific antigen [PSA] Follows [facility]. Treatment Notes Test Name Order Date CBC with Differential 2020-08-02 Comprehensive Metabolic Profile (CMP) 2020-08-02 HEMOGLOBIN A1c 2020-08-02 LIPID PANEL (CARDIAC RISK) 2020-08-02 MICROALBUMIN RANDOM 2020-08-02 VITAMIN D 25-HYDROXY 2020-08-02 VITB12 & FOL 2020-08-02 Next Appt Details f/u in 3 months. Reason: Provider Name:Zan Brown, 2020-09 01:00:00 PM, [address] [facility], [address], [place], [address], Provider Name:Laureen Hutchinson, 2020-11-01 11:30:00 AM, [address], [place], [address], Insurance Providers Payer Name Payer Address Payer Phone Insured Name Patient Relati onship to Insured Coverage Start Date Coverage End Date MEDICARE Part A and B [address] [facility] [phone] KRISTIN MCCOY [facility] [address] [facility] [address] KRISTIN MCCOY
--- OUTSIDE RECORDS SUMMARY | 2020-08-25 09:19 | CCD ---
Author Author [facility] Organization [facility] Address Unknown Phone Unavailable Care Team Providers Care Yard Coordinator Name Role Phone Rubi Brownchary Unavailable PROBLEMS Type Condition ICD9-CM Code PDE23-RX Code Onset Dates Condition S tatus SNOMED Code Notes Problem End stage renal disease N18.6 Active 34446382 4 Problem Type 2 diabetes mellitus with diabetic chronic kidney disease E11.22 Active 01605701 Problem Dermatofibroma D23.9 Active 564955924 Problem Hypertensive heart disease, unspecified whether heart failure present I11.9 Active 41499349 Problem Elevated prostate specific antigen (PSA) R97.20 Active 641172742 Problem Dependence on renal dialysis Z99.2 Active 105 647438 Problem Hearing loss of right ear, unspecified hearing loss type H91.91 Active 322413195 Problem buttermaker current use of insulin Z79.4 Active 806408406 Problem Seborrheic keratoses L82.1 Active 262227071 Problem 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 Active 155631211 Problem Anemia of chronic disease D63.8 Active 858150 009 Problem Tremor R25.1 Active 47602804 ALLERGIES Allergen (clinical drug ingredient) Drug/Non Drug Allergy do cumented on EMR Reaction Allergy Type Onset Date Status Codeine Phosphate(ND Code:[address]-40) Skin crawl feeli ngs Drug Allergy Active amlodipine AmLODIPine Besylate(NDC Code:[address]-08) edema Adis g Allergy Active ENCOUNTERS from 1950 to 2020-06-05 Encounter Location Date Provider Diagnosis [facility] Dermatology [address] [facility] [address] [place] [address] 12 May, 2020 Zan Brown Nevus of back D22.5 and SK ( seborrheic keratosis) L82.1 IMMUNIZATIONS No Information SOCIAL HISTORY Tobacco Use: Social History Observation Description Date Details (start date - stop date) Former Smoker Sex Assigned At : Social History Observation Description Sex Assigned At Unknown Education: Question Answer Notes Level of Education: Not Finished College Audit Question Answer Notes Total Score: 0 Interpretation: Alcohol Education Language: Question Answer Notes Languages spoken: Japanese Protestant: Question Answer Notes Protestant 33 None Sexual Hx: Question Answer Notes [...] FOR REFERRAL No Information VITAL SIGNS Weight 196.0 lbs May, Height 5'8.5" in May, BMI 29.37 kg/m2 May, Blood pressure systolic 146 mm Hg May, Blood pressure diastolic 83 mm Hg May, MEDICATIONS Medication SIG (Take, Route, Frequency, Duration) Notes Start Da te End Date Status Lancets - One Touch Ultrasoft Lancets As needed Active Minoxidil 10 MG 1 tablet Orally Once a day for 30 day(s) Active Famotidine 20 MG 1 tablet at bedtime as needed Orally Once a day for 90 days Active Metoprolol Succinate ER 100 MG 1 tablet Orally Once a day Active OneTouch Verio - In Vitro Active Atorvastatin Calcium 20 MG 1 tablet Orally Once a day for 30 day(s) Active Vitamin D (Ergocalciferol) 37530 UNIT 1 capsule Orally weekly Active Velphoro 500 MG 2 tablets Orally Before meals Active Claritin 10 MG 1 tablet Orally Once a day for 30 day(s) Oct, Active Isosorbide Mononitrate ER 30 MG 2 tablets Orally twice daily Active Accu-Chek FastClix Lancets - Active Glimepiride 2 MG 2 tablets with breakfast or the first main meal of the day Orally Once a day Active Irbesartan 300 MG 1 tablet Orally Once a day Active Folate 400 MCG 1 tablet Orally Once a day for 90 day(s) November, Active BD Pen Needle Jewels U/F 32G X 4 MM Active Renvela 800 MG 3 tablet with meals Orally Three times a day Active Lantus SoloStar 100 UNIT/ML 18 units Subcutaneous before bedtime for 30 Days Dec, Active PROCEDURES No Information RESULTS No Results REASON FOR VISIT HARD BUMPS ,ONE ABOVE LEFT RESTORATIONIST, COUPLE SKIN TAGS MIDDLE BACK AND DIALYSIS STR AP IS IRRITATING HIM MEDICAL (GENERAL) HISTORY Type Description Date Medical History HTN, renovascular Medical History Hyperlipidemia Medical History DM Type 2 with CKD Medical History ESRD ? Agent [place] related per pt, started dialysis 09/01, peritoneal [...] [id number] Surgical History colonoscopy - tubular ademoma Hospitalization History Acute anemia per pt d/t ESRD , dialysis started at that tme. 2017 Hospitalization History mumps - sterilization as a result Hospitalization History anemia 12/01 Goals Section No Information Health Concerns No Information MEDICAL EQUIPMENT No Information MENTAL STATUS No Information FUNCTIONAL STATUS No Information ASSESSMENTS Encounter Date Diagnosis Assessment Notes Treatment Notes Treatm ent Clinical Notes May, Nevus of back (ICD-10 - D22.5) Benign, reassurance, ABCDE, photoprotection, Q 1 Y derm skin check, Q 1 M self skin check May, SK (seborrheic keratosis) (ICD-10 - L82.1) Benign, reassurance PLAN OF TREATMENT Treatment Notes Assessment Notes Clinical Notes Nevus of back Benign, reassurance, ABCDE, photoprotection, Q 1 Y derm skin check, Q 1 M self skin check SK (seborrheic keratosis) Benign, reassu varun Next Appt Details As scheduled Reason:FBSE Provider Name:Zan Brown, 2020-09 01:00:00 PM, [address] [facility], [address], [place], [address], Follow Up:As scheduledFBSE Insurance Providers Payer Name Payer Address Payer Phone Insured Name Patient Relati onship to Insured Coverage Start Date Coverage End Date MEDICARE Part A and B [address] [facility] [phone] [phone] KRISTIN MCCOY [facility] [address] [facility] [address] KRISTIN MCCOY
--- OUTSIDE RECORDS SUMMARY | 2020-08-25 09:19 | CCD ---
Author Author [facility] Organization [facility] Address Unknown Phone Unavailable Care Team Providers Care Cold Press Loader Name Role Phone Maurice BAKER Unavailable Unavailable Paul AGUIAR Unavailable Unavailable Thankachan, Reeba OBSTETRICS/GYNECOLOGY NURSE Unavailable Unavailable Thankachan, Reeba OBSTETRICS/GYNECOLOGY NURSE Unavailable Unavailable Thankachan, Reeba OBSTETRICS/GYNECOLOGY NURSE Unavailable Unavailable Thankachan, Reeba OBSTETRICS/GYNECOLOGY NURSE Unavailable Unavailable Thankachan, Reeba OBSTETRICS/GYNECOLOGY NURSE Unavailable Unavailable Thankachan, Reeba OBSTETRICS/GYNECOLOGY NURSE Unavailable Unavailable Thankachan, Reeba OBSTETRICS/GYNECOLOGY NURSE Unavailable Unavailable Thankachan, Reeba OBSTETRICS/GYNECOLOGY NURSE Unavailable Unavailable Thankachan, Reeba OBSTETRICS/GYNECOLOGY NURSE Unavailable Unavailable Thankachan, Reeba OBSTETRICS/GYNECOLOGY NURSE Unavailable Unavailable Thankachan, Reeba OBSTETRICS/GYNECOLOGY NURSE Unavailable Unavailable Thankachan, Reeba OBSTETRICS/GYNECOLOGY NURSE Unavailable Unavailable Thankachan, Reeba OBSTETRICS/GYNECOLOGY NURSE Unavailable Unavailable Thankachan, Reeba OBSTETRICS/GYNECOLOGY NURSE Unavailable Unavailable Thankachan, Reeba OBSTETRICS/GYNECOLOGY NURSE Unavailable Unavailable Thankachan, Reeba OBSTETRICS/GYNECOLOGY NURSE Unavailable Unavailable Thankachan, Reeba OBSTETRICS/GYNECOLOGY NURSE Unavailable Unavailable Thankachan, Reeba OBSTETRICS/GYNECOLOGY NURSE Unavailable Unavailable Thankachan, Reeba OBSTETRICS/GYNECOLOGY NURSE Unavailable Unavailable Thankachan, Reeba OBSTETRICS/GYNECOLOGY NURSE Unavailable Unavailable Thankachan, Reeba OBSTETRICS/GYNECOLOGY NURSE Unavailable Unavailable Thankachan, Reeba OBSTETRICS/GYNECOLOGY NURSE Unavailable Unavailable Thankachan, Reeba OBSTETRICS/GYNECOLOGY NURSE Unavailable Unavailable Thankachan, Reeba OBSTETRICS/GYNECOLOGY NURSE Unavailable Unavailable Thankachan, Reeba OBSTETRICS/GYNECOLOGY NURSE Unavailable Unavailable Thankachan, Reeba OBSTETRICS/GYNECOLOGY NURSE Unavailable Unavailable Thankachan, Reeba OBSTETRICS/GYNECOLOGY NURSE Unavailable Unavailable Thankachan, Reeba OBSTETRICS/GYNECOLOGY NURSE Unavailable Unavailable Thankachan, Reeba OBSTETRICS/GYNECOLOGY NURSE Unavailable Unavailable Thankachan, Reeba OBSTETRICS/GYNECOLOGY NURSE Unavailable Unavailable Thankachan, Reeba OBSTETRICS/GYNECOLOGY NURSE Unavailable Unavailable Thankachan, Reeba OBSTETRICS/GYNECOLOGY NURSE Unavailable Unavailable Thankachan, Reeba OBSTETRICS/GYNECOLOGY NURSE Unavailable Unavailable Thankachan, Reeba OBSTETRICS/GYNECOLOGY NURSE Unavailable Unavailable Thankachan, Reeba OBSTETRICS/GYNECOLOGY NURSE Unavailable Unavailable Thankachan, Reeba OBSTETRICS/GYNECOLOGY NURSE Unavailable Unavailable Thankachan, Reeba OBSTETRICS/GYNECOLOGY NURSE Unavailable Unavailable Thankachan, Reeba OBSTETRICS/GYNECOLOGY NURSE Unavailable Unavailable Thankachan, Reeba OBSTETRICS/GYNECOLOGY NURSE Unavailable Unavailable Thankachan, Reeba OBSTETRICS/GYNECOLOGY NURSE Unavailable Unavailable Thankachan, Reeba OBSTETRICS/GYNECOLOGY NURSE Unavailable Unavailable Thankachan, Reeba OBSTETRICS/GYNECOLOGY NURSE Unavailable Unavailable Thankachan, Reeba OBSTETRICS/GYNECOLOGY NURSE Unavailable Unavailable Thankachan, Reeba OBSTETRICS/GYNECOLOGY NURSE Unavailable Unavailable STANTON, K CATALINA MD Unavailable Unavailable STANTON, K CATALINA MD Unavailable Unavailable STANTON, K CATALINA MD Unavailable Unavailable SATNTON, K CATALINA MD Unavailable Unavailable STANTON, K CATALINA MD Unavailable Unavailable STANTON, K CATALINA MD Unavailable Unavailable STANTON, K CATALINA MD Unavailable Unavailable STANTON, K CATALINA MD Unavailable Unavailable STANTON, K CAATLINA MD Unavailable Unavailable STANTON, K CATALINA MD Unavailable Unavailable STANTON, K CATALINA MD Unavailable Unavailable STANTON, K CATALINA MD Unavailable Unavailable STANTON, K CATALINA MD Unavailable Unavailable STANTON, K CATALINA MD Unavailable Unavailable STANTON, K CATALINA MD Unavailable Unavailable STANTON, K CATALINA MD Unavailable Unavailable STANTON, K CATALINA MD Unavailable Unavailable STANTON, K CATALINA MD Unavailable Unavailable STANTON, K CATALINA MD Unavailable Unavailable STANTON, K CATALINA MD Unavailable Unavailable STANTON, K CATALINA MD Unavailable Unavailable STANTON, K CATALINA MD Unavailable Unavailable STANTON, K CATALINA MD Unavailable Unavailable STANTON, K CATALINA MD Unavailable Unavailable STANTON, K CATALINA MD Unavailable Unavailable STANTON, K CATALINA MD Unavailable Unavailable STANTON, K CATALINA MD Unavailable Unavailable STANTON, K CATALINA MD Unavailable Unavailable STANTON, K CATALINA MD Unavailable Unavailable STANTON, K CATALINA MD Unavailable Unavailable STANTON, K CATALINA MD Unavailable Unavailable STANTON, K CATALINA MD Unavailable Unavailable STANTON, K CATALINA MD Unavailable Unavailable STANTON, K CATALINA MD Unavailable Unavailable STANTON, K CATALINA MD Unavailable Unavailable STANTON, K CATALINA MD Unavailable Unavailable STANTON, K CATALINA MD Unavailable Unavailable STANTON, K CATALINA MD Unavailable Unavailable STANTON, K CATALINA MD Unavailable Unavailable STANTON, K CATALINA MD Unavailable Unavailable STANTON, K CATALINA MD Unavailable Unavailable STANTON, K CATALINA MD Unavailable Unavailable STANTON, K CATALINA MD Unavailable Unavailable STANTON, K CATALINA MD Unavailable Unavailable STANTON, K CATALINA MD Unavailable Unavailable STANTON, K CATALINA MD Unavailable Unavailable STANTON, K CATALINA MD Unavailable Unavailable STANTON, K CATALINA MD Unavailable Unavailable STANTON, K CATALINA MD Unavailable Unavailable STANTON, K CATALINA MD Unavailable Unavailable STANTON, K CATALINA MD Unavailable Unavailable STANTON, K CATALINA MD Unavailable Unavailable STANTON, K CATALINA MD Unavailable Unavailable STANTON, K CATALINA MD Unavailable Unavailable STANTON, K CATALINA MD Unavailable Unavailable STANTON, K CATALINA MD Unavailable Unavailable Re-disclosure Warning The records that you are about to access may contain information from federally-assisted alcohol or drug abuse programs. If such information is present, then the following federally mandated warning applies: This information has been disclosed to you from records protected by federal confidentiality rules (42 CFR part 2). The federal rules prohibit you from making any further disclosure of this information unless further disclosure is expressly permitted by the written consent of the person to whom it pertains or as otherwise permitted by 42 CFR part 2. A general authorization for the release of medical or other information is NOT sufficient for this purpose. The Federal rules restrict any use of the information to criminally investigate or prosecute any alcohol or drug abuse patient.The records that you are about to access may contain highly sensitive health information, the redisclosure of which is protected by Article 27-F of the [facility] Public Health law. If you continue you may have access to information: Regarding HIV / AIDS; Provided by facilities licensed or operated by the [facility] Office of Mental Health; or Provided by the [facility] Office for People With Developmental Disabilities. If such information is present, then the following [facility] mandated warning applies: This information has been disclosed to you from confidential records which are protected by state law. State law prohibits you from making any further disclosure of this information without the specific written consent of the person to whom it pertains, or as otherwise permitted by law. Any unauthorized further disclosure in violation of state law may result in a fine or senior care sentence or both. A general authorization for the release of medical or other information is NOT sufficient authorization for further disc losure. Allergies and Adverse Reactions Type Description Substance Reaction Status Data Source(s ) Drug allergy Codeine Phosphate Drug allergy Skin crawl feelings Acti ve eCW1 ([facility]) Drug allergy AmLODIPine Besylate Amlodipine edema Active eCW 1 ([facility]) DRUG INGREDI HYDRALAZINE HYDRALAZINE [facility] DRUG INGREDI AMLODIPINE AMLODIPINE [facility] Family History Family Member Name Family Member Gender Family Member Status Date o f Status Description Data Source(s) Unknown Unknown Problem MEDENT ([facility]) Unknown Unknown Problem MEDENT ([facility]) Unknown Male Problem MEDENT ([facility]) Unknown Male Problem MEDENT ([facility]) Encounters Encounter Providers Location Date Indications Data Source(s ) Outpatient Attender: Jl Simmons NP 03/23/2021 12:00: 00 AM [facility] Outpatient Attender: CATALINA EID MD 11/04/2020 12:00:00 AM [facility] Outpatient Attender: CATALINA EID MD 10/27/2020 12:00:00 AM [facility] Outpatient Attender: CATALINA EID MD 10/14/2020 12:00:00 AM [facility] Office Visit, Est Pt., Level [address] [place] [id number] 07/29/2020 12:00:00 AM EST eCW1 ([facility]) Outpatient Attender: CATALINA EID MD 07/20/2020 12:00:00 AM [facility] Outpatient Attender: CATALINA EID MD [id number] 07/19/2020 12:00:00 AM [facility] Outpatient Attender: CATALINA EID MD 06/29/2020 12:00:00 AM [facility] Office Visit, Est Pt., Level 3 PC [address] [place] [address] 05/26/2020 12:00:00 AM EST eCW1 ([facility]) Outpatient Attender: KARI AGUIAR [id number] 03/17/2020 12:00:00 AM EDT - 03/17/2020 02:43:17 PM EDT Encounter for other preprocedural examination [facility] Encounter for other preprocedural examin ation Office Visit, Est Pt., Level 2 FC [address] [place] [address] 02/01/2020 12:00:00 AM EDT eCW1 ([facility]) Unknown [address] [facility] [address] 02/01/2020 12:00:00 AM EDT eCW1 ([facility]) Unknown [address] [facility] [address] 01/04/2020 12:00:00 AM EDT eCW1 ([facility]) Outpatient Attender: CATALINA EID MD [id number] 12/29/2019 12:00:00 AM [facility] Outpatient Attender: CATALINA EID MD 12/23/2019 12:00:00 AM EDT [facility] Unknown [address] [facility] [address] 12/17/2019 12:00:00 AM EDT eCW1 ([facility]) Unknown [address] [facility] [address] 12/17/2019 12:00:00 AM EDT eCW1 ([facility]) Outpatient 12/16/2019 08:44:00 AM EDT [facility] Outpatient Referrer: JALEN BAKER 12/14/2019 12:00:00 AM E [facility] [address] [facility] [address] 12/11/2019 12:00:00 AM EDT eCW1 ([facility]) [facility] Raciel [address] [facility] [address] 12/09/2019 12:00:00 AM EDT eCW1 ([facility]) Outpatient Attender: JALEN BAKERReferrer: JALEN BAKER 12/04/2019 12:00:00 AM EDT Encounter for other preprocedural examination [facility] Encounter for other preprocedural examin ation [facility] Alex [address] [facility] [address] 12/02/2019 12:00:00 AM EDT [facility]CW1 [facility]) Outpatient 11/18/2019 01:56:00 PM EDT [facility] Alex [address] [facility] [address] 11/11/2019 12:00:00 AM EDT [facility]CW[facility] Raciel [address] [facility] [address] 11/11/2019 12:00:00 AM EDT eCW1 ([facility]) [facility] Alex [address] [facility] [address] 11/09/2019 12:00:00 AM EDT eCW1 ([facility]) [facility] Alex [address] [facility] [address] 11/03/2019 12:00:00 AM EDT [facility]CW[facility] Alex [address] [facility] [address] 11/03/2019 12:00:00 AM EDT eCW1 ([facility]) [facility] Alex [address] [facility] [address] 11/03/2019 12:00:00 AM EDT [facility] Alex [address] [facility] [address] 10/27/2019 12:00:00 AM EDT [facility]CW1 ([facility]) [facility] Alex [address] [facility] [address] 10/27/2019 12:00:00 AM EDT eCW1 ([facility]) Outpatient Attender: CATALINA EID MD 10/14/2019 12:00:00 AM [facility] Alex [address] [facility] [address] 10/06/2019 12:00:00 AM EDT [facility] Raciel [address] [facility] [address] 09/14/2019 12:00:00 AM EST eCW1 ([facility]) [facility] Alex [address] [facility] [address] 08/17/2019 12:00:00 AM EST eCW1 ([facility]) Outpatient Attender: CATALINA EID MDReferrer: JALEN BAKER [id number] 07/16/2019 12:00:00 AM EST - 07/16/2019 01:29:43 PM EST [facility] Alex [address] [facility] [address] 06/30/2019 12:00:00 AM EST eCW1 ([facility]) Medications Medication Brand Name Start Date Product Form Dose Route Admi nistrative Instructions Pharmacy Instructions Status Indications Reaction Description Data Source(s) glimepiride 4 MG Oral Tablet GLIMEPIRIDE 08/03/2020 12:00:00 AM EST t ablet 180 TAKE ONE TABLET BY MOUTH TWICE A DAY TAKE ONE TABLET BY MOUT H TWICE A DAY SOLD: 08/04/2020 [facility] 1,250 mcg (50,000 unit) 07/22/2020 12:00:00 AM EST capsule 6 TAKE 1 CAPSULE BY MOUTH EVERY 2 WEEKS TAKE 1 CAPSULE BY MOUTH EVERY 2 WEEKS SOLD: 07/25/2020 [facility] atorvastatin 40 MG Oral Tablet ATORVASTATIN CALCIUM 07/22/2020 1 2:00:00 AM EST tablet 90 TAKE ONE TABLET BY MOUTH EVERY D AY TAKE ONE TABLET BY MOUTH EVERY DAY SOLD: 07/25/2020 [facility] 400 mcg 06/28/2020 12:00:00 AM EST tablet 90 TAKE ONE TABLET BY MOUTH EVERY DAY TAKE ONE TABLET BY MOUTH EVERY DAY SOLD: 06/28/2020 [facility] 24 HR Isosorbide Mononitrate 30 MG Extended Release Or al Tablet ISOSORBIDE MONONITRATE 05/24/2020 12:00:00 AM EST tablet extended release 24 hr 180 TAKE TWO TABLETS BY MOUTH TWICE A DAY TAKE TWO TABLETS BY MOUTH TWICE A DAY SOLD: 07/06/2020 [facility] 24 HR Isosorbide Mononitrate 30 MG Extended Release Or al Tablet ISOSORBIDE MONONITRATE 05/24/2020 12:00:00 AM EST tablet extended release 24 hr 180 TAKE TWO TABLETS BY MOUTH TWICE A DAY TAKE TWO TABLETS BY MOUTH TWICE A DAY SOLD: 08/17/2020 [facility] 24 HR Isosorbide Mononitrate 30 MG Extended Release Or al Tablet ISOSORBIDE MONONITRATE 05/24/2020 12:00:00 AM EST tablet extended release 24 hr 180 TAKE TWO TABLETS BY MOUTH TWICE A DAY TAKE TWO TABLETS BY MOUTH TWICE A DAY SOLD: 05/25/2020 [facility] BLOOD SUGAR DIAGNOSTIC 05/03/2020 12:00:00 AM EDT strip 350 TEST FOUR TIMES A DAY TEST FOUR TIMES A DAY SOLD: 05/05/2020 [facility] BLOOD SUGAR DIAGNOSTIC 04/30/2020 12:00:00 AM EDT strip 100 TEST FOUR TIMES A DAY TEST FOUR TIMES A DAY SOLD: 04/30/2020 [facility] 20 mg 03/29/2020 12:00:00 AM EDT tablet 180 TAKE ONE TABLET BY MOUTH TWICE A DAY TAKE ONE TABLET BY MOUTH TWICE A DAY SOLD: 03/29/2020 [facility] 20 mg 03/29/2020 12:00:00 AM EDT tablet 180 TAKE ONE TABLET BY MOUTH TWICE A DAY TAKE ONE TABLET BY MOUTH TWICE A DAY SOLD: 07/06/2020 [facility] 100 mg 03/29/2020 12:00:00 AM EDT tablet extended release 24 hr 90 TAKE 1 TABLET BY MOUTH ONCE DAILY TAKE 1 TABLET BY MOUTH ONCE DAILY SOLD: 06/28/2020 [facility] 100 mg 03/29/2020 12:00:00 AM EDT tablet extended release 24 hr 90 TAKE 1 TABLET BY MOUTH ONCE DAILY TAKE 1 TABLET BY MOUTH ONCE DAILY SOLD: 03/29/2020 [facility] glimepiride 4 MG Oral Tablet GLIMEPIRIDE 02/18/2020 12:00:00 AM EDT ta blet 90 TAKE ONE TABLET BY MOUTH EVERY DAY TAKE ONE TABLET BY MOUTH EVERY DAY SOLD: 06/03/2020 [facility] glimepiride 4 MG Oral Tablet GLIMEPIRIDE 02/18/2020 12:00:00 AM EDT ta blet 90 TAKE ONE TABLET BY MOUTH EVERY DAY TAKE ONE TABLET BY MOUTH EVERY DAY SOLD: 02/22/2020 [facility] Famotidine 20 MG Oral Tablet FAMOTIDINE 02/02/2020 12:00:00 AM EDT tab let 90 TAKE 1 TABLET BY MOUTH AT BEDTIME NEEDED ONCE DAILY TAKE 1 TABLET BY MOUTH AT BEDTIME NEEDED ONCE DAILY SOLD: 02/03/2020 [facility] 1,250 mcg (50,000 unit) 01/30/2020 12:00:00 AM EDT capsule 12 TAKE ONE CAPSULE BY MOUTH ONCE WEEKLY TAKE ONE CAPSULE BY MOUTH ONCE WEEKLY SOLD: 05/05/2020 [facility] 1,250 mcg (50,000 unit) 01/30/2020 12:00:00 AM EDT capsule 12 TAKE ONE CAPSULE BY MOUTH ONCE WEEKLY TAKE ONE CAPSULE BY MOUTH ONCE WEEKLY SOLD: 02/03/2020 [facility] glimepiride 2 MG Oral Tablet GLIMEPIRIDE 01/26/2020 12:00:00 AM EDT t ablet 180 TAKE TWO TABLETS BY MOUTH EVERY DAY TAKE TWO TABLETS BY MOUT H EVERY DAY SOLD: 01/26/2020 [facility] atorvastatin 20 MG Oral Tablet ATORVASTATIN CALCIUM 01/25/2020 1 2:00:00 AM EDT tablet 90 TAKE ONE TABLET BY MOUTH EVERY D AY TAKE ONE TABLET BY MOUTH EVERY DAY SOLD: 01/25/2020 [facility] atorvastatin 20 MG Oral Tablet ATORVASTATIN CALCIUM 01/25/2020 1 2:00:00 AM EDT tablet 90 TAKE ONE TABLET BY MOUTH EVERY D AY TAKE ONE TABLET BY MOUTH EVERY DAY SOLD: 04/30/2020 [facility] 80 mg 01/21/2020 12:00:00 AM EDT tablet 90 TAKE ONE TABLET BY MOUTH EVERY DAY TAKE ONE TABLET BY MOUTH EVERY DAY SOLD: 05/16/2020 [facility] 80 mg 01/21/2020 12:00:00 AM EDT tablet 90 TAKE ONE TABLET BY MOUTH EVERY DAY TAKE ONE TABLET BY MOUTH EVERY DAY SOLD: 01/23/2020 [facility] 80 mg 01/21/2020 12:00:00 AM EDT tablet 90 TAKE ONE TABLET BY MOUTH EVERY DAY TAKE ONE TABLET BY MOUTH EVERY DAY SOLD: 08/17/2020 [facility] 25 mg 01/11/2020 12:00:00 AM EDT tablet 30 TAKE ONE TABLET BY MOUTH EVERY 8 HOURS TAKE ONE TABLET BY MOUTH EVERY 8 HOURS SOLD: 01/11/2020 [facility] 100 unit/mL (3 mL) 01/04/2020 12:00:00 AM EDT insulin pen 15 USE 18 UNITS BEFORE BEDTIME USE 18 UNITS BEFORE BEDTIME SOLD: 01/04/2020 [facility] 3 ML Insulin Glargine 100 UNT/ML Pen Inj eugene [Lantus] Lantus SoloStar 100 UNIT/ML Lantus SoloStar 100 UNIT/ML 01/04/2020 12:00:00 AM EDT active Lantus SoloStar 100 UNIT/ML eCW1 ([facility]) 3 ML Insulin Glargine 100 UNT/ML Pen Inj eugene [Lantus] Lantus SoloStar 100 UNIT/ML Lantus SoloStar 100 UNIT/ML 01/04/2020 12:00:00 AM EDT active Lantus SoloStar 100 UNIT/ML eCW1 ([facility]) 3 ML Insulin Glargine 100 UNT/ML Pen Inj eugene [Lantus] Lantus SoloStar 100 UNIT/ML Lantus SoloStar 100 UNIT/ML 01/04/2020 12:00:00 AM EDT active Lantus SoloStar 100 UNIT/ML eCW1 ([facility]) 3 ML Insulin Glargine 100 UNT/ML Pen Inj eugene [Lantus] Lantus SoloStar 100 UNIT/ML Lantus SoloStar 100 UNIT/ML 01/04/2020 12:00:00 AM EDT active Lantus SoloStar 100 UNIT/ML eCW1 ([facility]) 3 ML Insulin Glargine 100 UNT/ML Pen Inj eugene [Lantus] Lantus SoloStar 100 UNIT/ML Lantus SoloStar 100 UNIT/ML 01/04/2020 12:00:00 AM EDT active Lantus SoloStar 100 UNIT/ML eCW1 ([facility]) 2 % 01/01/2020 12:00:00 AM EDT ointment 22 APPLY TO DIALYSIS CATH SITE DAILY DIRECTED APPLY TO DIALYSIS CATH SITE DAILY DIRECTED SOLD: 04/19/2020 [facility] 2 % 01/01/2020 12:00:00 AM EDT ointment 22 APPLY TO DIALYSIS CATH SITE DAILY DIRECTED APPLY TO DIALYSIS CATH SITE DAILY DIRECTED SOLD: 01/02/2020 [facility] 2 % 01/01/2020 12:00:00 AM EDT ointment 22 APPLY TO DIALYSIS CATH SITE DAILY DIRECTED APPLY TO DIALYSIS CATH SITE DAILY DIRECTED SOLD: 08/04/2020 [facility] 2 % 01/01/2020 12:00:00 AM EDT ointment 22 APPLY TO DIALYSIS CATH SITE DAILY DIRECTED APPLY TO DIALYSIS CATH SITE DAILY DIRECTED SOLD: 06/13/2020 [facility] 400 mcg 12/19/2019 12:00:00 AM EDT tablet 90 TAKE ONE TABLET BY MOUTH EVERY DAY TAKE ONE TABLET BY MOUTH EVERY DAY SOLD: 03/29/2020 [facility] 400 mcg 12/19/2019 12:00:00 AM EDT tablet 90 TAKE ONE TABLET BY MOUTH EVERY DAY TAKE ONE TABLET BY MOUTH EVERY DAY SOLD: 12/19/2019 [facility] Folic Acid 0.4 MG Oral Tablet Folic Acid 400 MCG Oral Tablet (FOLVITE) Folic Acid 400 MCG Oral Tablet (FOLVITE) 12/17/2019 12:00:00 AM EDT active [facility] 2 % 12/15/2019 12:00:00 AM EDT ointment 22 APPLY TO P.D. EXIT SITE DAILY NEEDED APPLY TO P.D. EXIT SITE DAILY NEEDED SOLD: 12/16/2019 [facility] 400 mcg 12/12/2019 12:00:00 AM EDT tablet 5 TAKE ONE TABLET BY MOUTH EVERY DAY TAKE ONE TABLET BY MOUTH EVERY DAY SOLD: 12/12/2019 [facility] Folate 400 MCG Folate 400 MCG 12/11/2019 12:00:00 AM EDT 1.0 {ta blet} active Folate 400 MCG eCW1 ([facility]) Folate 400 MCG Folate 400 MCG 12/11/2019 12:00:00 AM EDT 1.0 {ta blet} active Folate 400 MCG eCW1 ([facility]) Folate 400 MCG Folate 400 MCG 12/11/2019 12:00:00 AM EDT active 1 tablet eCW1 ([facility]) Folate 400 MCG Folate 400 MCG 12/11/2019 12:00:00 AM EDT 1.0 {ta blet} active Folate 400 MCG eCW1 ([facility]) Folate 400 MCG Folate 400 MCG 12/11/2019 12:00:00 AM EDT 1.0 {ta blet} active Folate 400 MCG eCW1 ([facility]) Folate 400 MCG Folate 400 MCG 12/11/2019 12:00:00 AM EDT 1.0 {ta blet} active Folate 400 MCG eCW1 ([facility]) Folate 400 MCG Folate 400 MCG 12/11/2019 12:00:00 AM EDT 1.0 {ta blet} active Folate 400 MCG eCW1 ([facility]) 4 mg 12/10/2019 12:00:00 AM EDT tablet,disintegrating 9 0 DISSOLVE 1 TABLET UNDER THE TONGUE EVERY 6 HOURS NEEDED FOR NAUSEA DISSOLVE 1 TABLET UNDER THE TONGUE EVERY 6 HOURS NEEDED FOR NAUSEA SOLD: 12/12/2019 [facility] atorvastatin 20 MG Oral Tablet ATORVASTATIN CALCIUM 12/08/2019 1 2:00:00 AM EDT tablet 30 TAKE ONE TABLET BY MOUTH EVERY D AY TAKE ONE TABLET BY MOUTH EVERY DAY SOLD: 12/09/2019 [facility] 300 mg 11/20/2019 12:00:00 AM EDT tablet 90 TAKE ONE TABLET BY MOUTH EVERY DAY TAKE ONE TABLET BY MOUTH EVERY DAY SOLD: 03/03/2020 [facility] 300 mg 11/20/2019 12:00:00 AM EDT tablet 90 TAKE ONE TABLET BY MOUTH EVERY DAY TAKE ONE TABLET BY MOUTH EVERY DAY SOLD: 06/13/2020 [facility] 300 mg 11/20/2019 12:00:00 AM EDT tablet 90 TAKE ONE TABLET BY MOUTH EVERY DAY TAKE ONE TABLET BY MOUTH EVERY DAY SOLD: 11/21/2019 [facility] Famotidine 20 MG Oral Tablet Famotidine 20 MG Oral Tab let (PEPCID) Famotidine 20 MG Oral Tablet (PEPCID) 11/16/2019 12:00:00 AM EDT [facility] glimepiride 2 MG Oral Tablet GLIMEPIRIDE 11/10/2019 12:00:00 AM EDT ta blet 60 TAKE TWO TABLETS BY MOUTH EVERY DAY IN THE MORNING TAKE TWO TABLETS BY MOUTH EVERY DAY IN THE MORNING SOLD: 11/10/2019 [facility] 4 mg 11/05/2019 12:00:00 AM EDT tablet,disintegrating 9 0 DISSOLVE ONE TABLET ON TONGUE EVERY 6 HOURS NEEDED FOR NAUSEA DISSOLVE ONE TABLET ON TONGUE EVERY 6 HOURS NEEDED FOR NAUSEA SOLD: 11/05/2019 [facility] Loratadine 10 MG Oral Tablet [Claritin] Claritin 10 MG Samia tin 10 MG 11/03/2019 12:00:00 AM EDT 1.0 {tablet} active C laritin 10 MG eCW1 ([facility]) Loratadine 10 MG Oral Tablet [Claritin] Claritin 10 MG Samia tin 10 MG 11/03/2019 12:00:00 AM EDT 1.0 {tablet} active C laritin 10 MG eCW1 ([facility]) Loratadine 10 MG Oral Tablet [Claritin] Claritin 10 MG Samia tin 10 MG 11/03/2019 12:00:00 AM EDT active 1 table t eCW1 ([facility]) Loratadine 10 MG Oral Tablet [Claritin] Claritin 10 MG Samia tin 10 MG 11/03/2019 12:00:00 AM EDT active 1 table t eCW1 ([facility]) Loratadine 10 MG Oral Tablet [Claritin] Claritin 10 MG Samia tin 10 MG 11/03/2019 12:00:00 AM EDT 1.0 {tablet} active C laritin 10 MG eCW1 ([facility]) Loratadine 10 MG Oral Tablet [Claritin] Claritin 10 MG Samia tin 10 MG 11/03/2019 12:00:00 AM EDT 1.0 {tablet} active C laritin 10 MG eCW1 ([facility]) Loratadine 10 MG Oral Tablet [Claritin] Claritin 10 MG Samia tin 10 MG 11/03/2019 12:00:00 AM EDT 1.0 {tablet} active C laritin 10 MG eCW1 ([facility]) Loratadine 10 MG Oral Tablet [Claritin] Claritin 10 MG Samia tin 10 MG 11/03/2019 12:00:00 AM EDT 1.0 {tablet} active C laritin 10 MG eCW1 ([facility]) Loratadine 10 MG Oral Tablet [Claritin] Claritin 10 MG Samia tin 10 MG 11/03/2019 12:00:00 AM EDT 1.0 {tablet} active C laritin 10 MG eCW1 ([facility]) 4 mg 10/27/2019 12:00:00 AM EDT tablet,disintegrating 8 DISSOLVE ONE TABLET ON TONGUE EVERY 6 TO 8 HOURS NEEDED FOR NAUSEA/VOMITING DISSOLVE ONE TABLET ON TONGUE EVERY 6 TO 8 HOURS NEEDED FOR NAUSEA/VOMITING SOLD: 10/27/2019 [facility] 24 HR Isosorbide Mononitrate 30 MG Extended Release Or al Tablet ISOSORBIDE MONONITRATE 10/27/2019 12:00:00 AM EDT tablet extended release 24 hr 180 TAKE TWO TABLETS BY MOUTH TWICE A DAY TAKE TWO TABLETS BY MOUTH TWICE A DAY SOLD: 12/18/2019 [facility] 24 HR Isosorbide Mononitrate 30 MG Extended Release Or al Tablet ISOSORBIDE MONONITRATE 10/27/2019 12:00:00 AM EDT tablet extended release 24 hr 180 TAKE TWO TABLETS BY MOUTH TWICE A DAY TAKE TWO TABLETS BY MOUTH TWICE A DAY SOLD: 03/29/2020 [facility] 24 HR Isosorbide Mononitrate 30 MG Extended Release Or al Tablet ISOSORBIDE MONONITRATE 10/27/2019 12:00:00 AM EDT tablet extended release 24 hr 180 TAKE TWO TABLETS BY MOUTH TWICE A DAY TAKE TWO TABLETS BY MOUTH TWICE A DAY SOLD: 10/27/2019 [facility] 24 HR Isosorbide Mononitrate 30 MG Extended Release Or al Tablet ISOSORBIDE MONONITRATE 10/27/2019 12:00:00 AM EDT tablet extended release 24 hr 180 TAKE TWO TABLETS BY MOUTH TWICE A DAY TAKE TWO TABLETS BY MOUTH TWICE A DAY SOLD: 02/08/2020 [facility] glimepiride 2 MG Oral Tablet GLIMEPIRIDE 09/25/2019 12:00:00 AM EDT ta blet 90 TAKE ONE TABLET BY MOUTH EVERY DAY TAKE ONE TABLET BY MOUTH EVERY DAY SOLD: 09/26/2019 [facility] 2 % 09/25/2019 12:00:00 AM EDT ointment 22 APPLY TO DIALYSIS CATH SITE DAILY DIRECTED APPLY TO DIALYSIS CATH SITE DAILY DIRECTED SOLD: 09/26/2019 [facility] 2.5 mg 08/24/2019 12:00:00 AM EST tablet 120 TAKE TWO TABLETS BY MOUTH TWICE A DAY TAKE TWO TABLETS BY MOUTH TWICE A DAY SOLD: 02/08/2020 [facility] 2.5 mg 08/24/2019 12:00:00 AM EST tablet 120 TAKE TWO TABLETS BY MOUTH TWICE A DAY TAKE TWO TABLETS BY MOUTH TWICE A DAY SOLD: 05/05/2020 [facility] 2.5 mg 08/24/2019 12:00:00 AM EST tablet 120 TAKE TWO TABLETS BY MOUTH TWICE A DAY TAKE TWO TABLETS BY MOUTH TWICE A DAY SOLD: 08/07/2020 [facility] 2.5 mg 08/24/2019 12:00:00 AM EST tablet 120 TAKE TWO TABLETS BY MOUTH TWICE A DAY TAKE TWO TABLETS BY MOUTH TWICE A DAY SOLD: 08/25/2019 [facility] 2.5 mg 08/24/2019 12:00:00 AM EST tablet 120 TAKE TWO TABLETS BY MOUTH TWICE A DAY TAKE TWO TABLETS BY MOUTH TWICE A DAY SOLD: 11/21/2019 [facility] 20 mg 08/17/2019 12:00:00 AM EST tablet 90 TAKE ONE TABLET BY MOUTH AT BEDTIME NEEDED TAKE ONE TABLET BY MOUTH AT BEDTIME NEEDED SOLD: [facility] Famotidine 20 MG Oral Tablet FAMOTIDINE 08/17/2019 12:00:00 AM EST tab let 90 TAKE ONE TABLET BY MOUTH AT BEDTIME NEEDED TAKE ONE TABLET BY MOUTH AT BEDTIME NEEDED SOLD: 11/18/2019 [facility] Famotidine 20 MG Oral Tablet [Pepcid] Pepcid 20 MG Pepcid 20 MG 08/17/2019 12:00:00 AM EST active 1 tablet at bedtime as needed [facility] ([facility]) Famotidine 20 MG Oral Tablet [Pepcid] Pepcid 20 MG Pepcid 20 MG 08/17/2019 12:00:00 AM EST active 1 tablet at bedtime as needed [facility] ([facility]) 100 mg 08/15/2019 12:00:00 AM EST tablet extended release 24 hr 90 TAKE ONE TABLET BY MOUTH EVERY DAY TAKE ONE TABLET BY MOUTH EVERY DAY SOLD: 12/18/2019 [facility] 100 mg 08/15/2019 12:00:00 AM EST tablet extended release 24 hr 90 TAKE ONE TABLET BY MOUTH EVERY DAY TAKE ONE TABLET BY MOUTH EVERY DAY SOLD: 08/17/2019 [facility] 4 mg 07/01/2019 12:00:00 AM EST tablet 324 TAKE ONE TABLET BY MOUTH EVERY 6 HOURS NEEDED FOR NAUSEA TAKE ONE TABLET BY MOUTH EVERY 6 HOURS A S NEEDED FOR NAUSEA SOLD: 07/03/2019 [facility] BLOOD SUGAR DIAGNOSTIC 06/26/2019 12:00:00 AM EST strip 350 TEST FOUR TIMES A DAY TEST FOUR TIMES A DAY SOLD: 11/13/2019 [facility] BLOOD SUGAR DIAGNOSTIC 06/26/2019 12:00:00 AM EST strip 350 TEST FOUR TIMES A DAY TEST FOUR TIMES A DAY SOLD: 06/27/2019 [facility] 2 % 05/20/2019 12:00:00 AM EST ointment 22 APPL Y TO PD EXIT SITE NEEDED APPLY TO PD EXIT SITE NEEDED SOLD: 07/28/2019 [facility] 1,250 mcg (50,000 unit) 05/19/2019 12:00:00 AM EST capsule 12 TAKE ONE CAPSULE BY MOUTH ONCE WEEKLY TAKE ONE CAPSULE BY MOUTH ONCE WEEKLY SOLD: 11/18/2019 [facility] 1,250 mcg (50,000 unit) 05/19/2019 12:00:00 AM EST capsule 12 TAKE ONE CAPSULE BY MOUTH ONCE WEEKLY TAKE ONE CAPSULE BY MOUTH ONCE WEEKLY SOLD: 08/08/2019 [facility] 24 HR Isosorbide Mononitrate 30 MG Extended Release Or al Tablet ISOSORBIDE MONONITRATE 03/04/2019 12:00:00 AM EDT tablet extended release 24 hr 180 TAKE TWO TABLETS BY MOUTH TWICE A DAY TAKE TWO TABLETS BY MOUTH TWICE A DAY SOLD: 09/06/2019 [facility] 24 HR Isosorbide Mononitrate 30 MG Extended Release Or al Tablet ISOSORBIDE MONONITRATE 03/04/2019 12:00:00 AM EDT tablet extended release 24 hr 180 TAKE TWO TABLETS BY MOUTH TWICE A DAY TAKE TWO TABLETS BY MOUTH TWICE A DAY SOLD: 07/16/2019 [facility] 150 mg 01/31/2019 12:00:00 AM EDT tablet 60 TAKE ONE TABLET BY MOUTH TWICE A DAY TAKE ONE TABLET BY MOUTH TWICE A DAY SOLD: 07/01/2019 [facility] 80 mg 12/22/2018 12:00:00 AM EDT tablet 90 TAKE ONE TABLET BY MOUTH EVERY DAY TAKE ONE TABLET BY MOUTH EVERY DAY SOLD: 07/24/2019 [facility] 80 mg 12/22/2018 12:00:00 AM EDT tablet 90 TAKE ONE TABLET BY MOUTH EVERY DAY TAKE ONE TABLET BY MOUTH EVERY DAY SOLD: 10/27/2019 [facility] 2 mg 11/17/2018 12:00:00 AM EDT tablet 90 TAKE ONE TABLET BY MOUTH EVERY DAY TAKE ONE TABLET BY MOUTH EVERY DAY SOLD: 07/10/2019 [facility] 20 mg 10/27/2018 12:00:00 AM EDT tablet 90 TAKE ONE TABLET BY MOUTH EVERY DAY TAKE ONE TABLET BY MOUTH EVERY DAY SOLD: 09/06/2019 [facility] 300 mg 10/25/2018 12:00:00 AM EDT tablet 90 TAKE ONE TABLET BY MOUTH EVERY DAY TAKE ONE TABLET BY MOUTH EVERY DAY SOLD: 08/09/2019 [facility] Insurance Providers Payer name Policy type / Coverage type Policy ID Covered green party ID Covered green party's relationship to fernandez Policy Fernandez Plan Information MEDICARE [id number] SP [id number] CIGNA HE[employer]CARE [id number] SP [id number] MEDICARE A [id number] Self [id number] CIGNA U [id number] Self [id number] 501 OTHER B TRANSPLANT Self TRANSPLAN T CIGNA HEALTHCARE [id number] SP [id number] CIGNA/MVP/CONN GEN/PREFE O [id number] S [id number] MEDICARE C [id number] S [id number] OTHER B TRANSPLANT APPLICATION CONSULTANT Self TRANSPLANT APPLICATION CONSULTANT CIGNA/MVP/CONN GEN/PREFE O [id number] S [id number] CIGNA HEALTHCARE [id number] SP [id number] MEDICARE [id number] SP [id number] C62 Cigna/Conn Gen/Equicor Medigap Part B [id number] Self [id number] Medicare Natl Gov't Servi Medicare Primary [id number] Self [id number] ESRD PROGRAM [id number] SP [id number] ANSI-Commercial [id number] ANSI-Medicare Part B [id number] ANSI-Medicare Part B [id number] ANSI-Commercial [id number] ANSI-Medicare Part B [id number] ANSI-Commercial [id number] ANSI-Commercial [id number] ANSI-Medicare Part B [id number] [facility] Medicare Advantage Commercial [id number] Self [id number] [place] Primary [id number] Self [id number] [facility] [id number] SP [id number] MEDICARE [id number] SP [id number] A [facility] MEDICARE ACCESS [id number] SP [id number] ANSIMedicare Part B [id number] ANSI-Commercial [id number] [facility] Part B [id number] Self [id number] Medicare (Part B) Medicare Primary [id number] Self [id number] [facility] [employer] Commercial [id number] Self [id number] ANSI-Commercial [id number] ANSI-Medicare Part B [id number] MEDICARE [id number] A Cig Medicare Advantage Commercial [id number] Self [id number] [place] Medicare Primary [id number] Self [id number] ANSI-Commercial [id number] ANSI-Medicare Part B [id number] [facility] Ppo Medigap Part B [id number] Self [id number] Medicare (Part B) Medicare Primary [id number] Self [id number] [facility] Part B [id number] Self [id number] Medicare (Part B) Medicare Primary [id number] Self [id number] ANSI-Medicare Part B [id number] ANSI-Commercial [id number] ANSI-Commercial [id number] ANSI-Medicare Part B [id number] CIGNA HEALTHCARE [id number] SP [id number] ANSI-Commercial [id number] ANSI-Medicare Part B [id number] CIGNA HEALTHCARE [id number] SP [id number] MEDICARE [id number] SP [id number] A [employer] (pr) [facility] Part B [id number] Self [id number] [place] Primary [id number] Self [id number] ANSI-Commercial [id number] ANSI-Medicare Part B [id number] CIGNA HEALTHCARE [id number] SP [id number] CIGNA MEDICARE ACCESS [id number] SP [id number] CIGNA HEALTHCARE [id number] SP [id number] CIGNA MEDICARE ACCESS [id number] SP [id number] CIGNA HEALTHCARE [id number] SP [id number] Medicare Natl Gov't Servi Medicare Primary [id number] Self [id number] CIGNA INSURANCE [employer] [id number] SP [id number] Problems, Conditions, and Diagnoses Code Display Name Description Problem Type Effective Dates Data Source(s) Z01.818 Encounter for other preprocedural examin ation Encounter for other preprocedural examination Diagnosis 03/17/2020 09:55:27 AM T [facility] Surgeries/Procedures Procedure Description Date Indications Data Source(s) MYOCARDIAL SPECT MULTIPLE STUDIES 07/12/2020 12:00:00 AM EST CAROLYN ([facility]) CV STRS TST XERS&/OR RX CONT ECG PHYS SI&R 07/12/2020 12:00:00 AM EST CAROLYN ([facility]) TRANS CARE MGMT 7 DAY DISCH 12/11/2019 12:00:00 AM EDT eCW1 ([facility]) US ABDOMINAL REAL TIME W/IMAGE DOCUMENTATION US ABDOMEN COMPLET E [id number] Routine 12/04/2019 9:39 AM EDT Pre-transplant evaluation for kidney transplant 12/04/2019 0 1:39:41 PM EDT Pre-transplant evaluation for kidney transplant [facility] Pre-transplant evaluation for kidney tra nsplant Office Visit, Est Pt., Level 4 PC 09/14/2019 12:00:00 AM EST eCW1 ([facility]) Results ID Date Data Source [id number] 07/19/2020 10:57:52 AM EST [facility] Name Value Range Interpretation Code Description Data Josee rce(s) Supporting Document(s) Progress Note [facility] DJTLDe6oFiDAZkZh96/KQAckEREzn9OhNGbyPMd9EQajSDQgW3QtLXZ3uR2kEUU8WSpCFuYePxRiNLI2 lbm PmZwfVRxAqDNBqIjiGOsRvAYxxAcplsUYsSE6AtUQ8ACIgB07bWVNjHIDtU2GxNVPxOue+Zg2YOTXweX KhNT1DQlaL2H2bo0kROs8zvK/PZeu9fLDBigOuYFq8b0kCl63UbYcNCF6WB8HySf+Skh3/N/1Tj+JD8o uKPhPuDwjclcwz8d45q/VwiU0gjUe/91/VCzzLstT6 k05oDuESKPi++Kl3vaoCn8j6o5XYzTcwWn4ihTX/07Efv/Cyr45/tEBPHqSs05aRMd6HQCDSl/Mariaelena+/n [file] DQo= ID Date Data Source [id number] 03/17/2020 02:38:12 PM EDT [facility] Name Value Range Interpretation Code Description Data Josee rce(s) Supporting Document(s) Progress Note [facility] HNDUNm0zMmARHuZh52/ZBIsyHWUvr7KrAOnjPZp1AZyuFXLfO7HfFON1nI6rLJQ0PRnDNoFaRgPiLZGk lbm [file] RsG9WkVtPPY+TY1bPEl+Qt4Ln7UaadW7nfCxMTm2DuedYZ7SBSBUR9UOIr== ID Date Data Source [id number] 03/17/2020 02:34:00 PM EDT [facility] ([facility] Name Value Range Interpretation Code Description Data Josee rce(s) Supporting Document(s) Magnesium Level 2.6 [facility] ID Date Data Source [id number] 03/17/2020 02:34:00 PM EDT [facility] Name Value Range Interpretation Code Description Data Josee rce(s) Supporting Document(s) White Blood Count 5.5 4.3-10.9 [facility] ([facility] Platelets 223 130-400 [facility] ([facility] Hemoglobin 13.6 13.0-17.0 [facility] ([facility]) ID Date Data Source [id number] 03/17/2020 02:34:00 PM EDT [facility] ([facility] Name Value Range Interpretation Code Description Data Josee rce(s) Supporting Document(s) Calcium [Mass/volume] in Serum or Plasma 10.3 [facility] ([facility]) Chloride [Moles/volume] in Serum or Plasma 90 [facility] ([facility]) Carbon dioxide, total [Moles/volume] in Serum or Plasma 29 [facility] ([facility]) Sodium 139 [facility] ([facility] Glucose 116 70-100 [facility] Potassium [Moles/volume] in Serum or Plasma 4.8 [facility] ([facility]) Blood Urea Nitrogen 66 5-21 [facility] ([facility] Glomerular filtration rate/1.73 sq M.pre dicted [Volume Rate/Area] in Serum or Plasma by Creatinine-based formula (MDRD) Laboratory test result [facility] ([facility]) Creatinine 12.91 0.6-1.5 [facility] ([facility]) ID Date Data Source [id number] 03/13/2020 10:00:00 AM EDT [facility] Name Value Range Interpretation Code Description Data Josee rce(s) Supporting Document(s) SARS coronavirus 2 RNA [facility] This lab was ordered by [facility] and reported by [facility]. ID Date Data Source [id number] 12/29/2019 11:24:32 AM EDT [facility] Name Value Range Interpretation Code Description Data Josee rce(s) Supporting Document(s) Progress Note [facility] DADQAo4vSbQUHdGj61/AJMjgHLFrb6OzLLyxQMe6ENhdLTJrO1BvFYA5nL3dOME4NEiAQeAfWyGqCpK8 lbm [file] AgICAgICAgICAgICAgICAgICAgICAgICAgICAgICAgICAgICAgICAgICAgICAgICAgICAgICAgICANCi AgICAgICAgICAgICAgICAgICAgICAgICAgICAgICAg ICAgICAgICAgICAgICAgICAgICAgICAgICAgICAgICAgICAgICAgICAgICAgICAgICAgICAgICAgICAg ICAgICAgICANCiAgICAgICAgICAgICAgICAgICAgICAgICAgICAgICAgICAgICAgICAgICAgICAgICAg ICAgICAgICAgICAgICAgICAgICAgICAgICAgICAgIC AgICAgICAgICAgICAgICAgICANCiAgICAgICAgICAgICAgICAgICAgICAgICAgICAgICAgICAgICAgIC AgICAgICAgICAgICAgICAgICAgICAgICAgICAgICAgICAgICAgICAgICAgICAgICAgICAgICAgICAgIC ANCiAgICAgICAgICAgICAgICAgICAgICAgICAgICAg ICAgICAgICAgICAgICAgICAgICAgICAgICAgICAgICAgICAgICAgICAgICAgICAgICAgICAgICAgICAg ICAgICAgICAgICANCiAgICAgICAgICAgICAgICAgICAgICAgICAgICAgICAgICAgICAgICAgICAgICAg ICAgICAgICAgICAgICAgICAgICAgICAgICAgICAgIC AgICAgICAgICAgICAgICAgICAgICANCiAgICAgICAgICAgICAgICAgICAgICAgICAgICAgICAgICAgIC AgICAgICAgICAgICAgICAgICAgICAgICAgICAgICAgICAgICAgICAgICAgICAgICAgICAgICAgICAgIC AgICANCiAgICAgICAgICAgICAgICAgICAgICAgICAg ICAgICAgICAgICAgICAgICAgICAgICAgICAgICAgICAgICAgICAgICAgICAgICAgICAgICAgICAgICAg ICAgICAgICAgICAgICANCiAgICAgICAgICAgICAgICAgICAgICAgICAgICAgICAgICAgICAgICAgICAg ICAgICAgICAgICAgICAgICAgICAgICAgICAgICAgIC AgICAgICAgICAgICAgICAgICAgICAgICANCiAgICAgICAgICAgICAgICAgICAgICAgICAgICAgICAgIC AgICAgICAgICAgICAgICAgICAgICAgICAgICAgICAgICAgICAgICAgICAgICAgICAgICAgICAgICAgIC AgICAgICANCjw/iXRqZ4sujDYcktQ3Q5dtJp7WAg9F PG6ha7CjNRXcNMcystXfMuqOAeXeQBBiLoiOEok3KYhfJB8OhYCwB9LzQ3NdZBpvVA9CFMZbLGTuhXTo CRXcTXJeYlP8IDRtWHvvXS9QdWYvMJqbPVYqULBjQhWdJMQkIE6IBSFfE535ywSuBu9BYv0OAcSqGE3c oy0RFuEzKTTqYfgZIus3PBunVG1MmPAfpTNgIMFzXW JORaIvX5ptl5MwRkYdBIPLNIqzLR8Wc9PpxNXhOOo+Yl7NUJ4gp0IuKQanXSFmZE6zhm6KDXrYFwVgO5 UriZgsCUPrk1zyAYGmHF8llSWfTZR0UCGmoU08kLatXqRWcTdodzmcIISfTCQbLj5hKg3vSQCqARI6Va ZcMJATZI2YWPBjUQAzhNRhHRLtSSOFLH5ASWbnVAH6 STYfxxTyhZZeXAzuKZ9VQWQvpyNnJgZzFVHFKLb+Dt4MXN9rh9BmZVniDiUcEJ9xpc6BAAjCVdEaR2V3 zFQyU1K3KFjxHs0HNCNzHIJgXuEyGUTGBHrhQL2LSK0vmaW9IG8XaBLsCQKpTIFmyPLhRLl2A79eiRZl HWwpKY2VOPX+Sergey+Jf0LKIXrLLAlBVDiIhBiLNGEIa GpC6DxI8QDj7MaX2GmZM92cZypzvZbCWewEX9XLP1oLJAmXEMYYO8CzNRsrM9figReOFPzKCSVUxEaT0 5jqCRxURUvQSCkKOCwAi8PNBYuF8OlceLmvMyshzDvHUPsDQEZTK3KAEexpfDpjTXmdNydCR25wUvlTG 5GUr0HOzAyPB5lsr7IkCBsHu3VYALbTf7SPPOeLIMv BVMdDHD4NSYaIaSxWIfoATIgOJRjRPP4THGiYLCcFM5TZkDyOVSwIuH2RxGeMJZmTXWojt6YQELwLVZu WCJ5OSSpHUXtYEQfNBfiMTQaFYPaMBZ4JCYoTOGfFO1OKaBiBXYoLWG6ESRzGPEiFJWijm6OKLPjTRKc BpE2ACFfFDRrWCDwUHudOQFdWWS4QHYtOBGeBMNkCL 3GIzHpZLGgTZRhDCZaQBYwKLGrtz9OOYAeELBtOzZoODEeZEWhHSUhGYrhNATdFYX5TKBySCCzVZIcYI 7DBiHrJNArOHy0XZGdDONwGOXtjv2XZYIcXKYzQPQ4PNWyQVQlQFTfXVptLPCmVTW6BgXhNEXsLQQtVI 1IMkQcQPUsKSw6UVNlWYVlMXRlco5WNRLxZEGpMAI1 JHZaLJJzUZIqYZbtZASgNCXrBbNkDAExPVLkAY2FLkHiETSqUpK3KuNoEPWrGGFvam4HJUSuDDZtUDR3 MZWuXZAkWKEbELciEDRwIOJzJuD8ORWzWBGcJD6RXvEpWLKuYmRaWKQwZAKgXYUyzc8XVRWqBOTeQfQy TDNaQTZwLOHbQBlwTDZlUODiRROqFWNvQOTjTQ3LFu UcCZRaXmX0FHelRCPwILHabu8JRDKhRELjPUP2TfDwUNYhIGHbDQlxRTUmEXX8SOX0DIMeNQEoCP1VOz UkTBUzZhK8FLSrLWIuNQXbcn2IfJVkzExngz9UIKxZNe4AsQqhLOM4GThfTy5nlJOfHpHdLJGQBn9Qmt CaOJZzWELWXHcxUMAgVNI9GzMvEMRyGeD1YJxyQaIc LmOdXID4ObjcH7HmDYFsZbQ6YnHqWkR2SZEzQSD5S3S6TpC6QFQzVoSpZQVqY5Z8RLJ+BV6vQVf+Pg0K q9BcgsF1veOpQIsaCIpsRU2TDEZTR9LDNh== ID Date Data Source [id number] 12/04/2019 10:25:33 AM [facility] US ABDOMEN COMPLETE [id number] RESULTInt erpreted by:Andi Burton, [place] Rivas MDINDICATION: 69-year-old male with end-stage renal disease, who presents for pre-transplant sonographic evaluation.TECHNIQUE: Multiple real-time sonographic images of the abdomen were obtained. COMPARISON: There are no prior studies available for comparison.FINDINGS: The liver is normal in size, measuring 10.7 cm in craniocaudal dimension, and demonstrates homogenous echotexture, without focal mass lesions. There is no intrahepatic biliary ductal dilatation. The common duct measures 4.2 mm in diameter, which is within normal limits. There is physiologic hepatopedal flow of the main portal vein.There is a small amount of ascites.The gallbladder is without evidence of stones or sludge. The gallbladder wall measures 1.6 mm, which is within normal limits. No pericholecystic fluid is seen. The patient did not exhibit a sonographic Elaine's sign per the online communications specialist.The right kidney measures 8.9 cm , slightly atrophic in size. There is cortical thinning and diffusely increased echogenicity compatible with the known end-stage renal disease. A 1.3 x 1.4 x 1.2 cm simple cyst is present in the upper pole, and a 5.2 x 4.9 x 5.0 cm simple cyst is present in the lower pole. Other subcentimeter hypoechoic lesions are too small to adequately characterize. There is no hydronephrosis.The left kidney measures 9.2 cm, within normal limits of size. There is cortical thinning and diffusely increased echogenicity compatible with the known end-stage renal disease. A 3.7 x 3.8 x 4.6 cm simple cyst is present in the lower pole. Other subcentimeter hypoechoic lesions are too small to adequately characterize. There is no hydronephrosis.The spleen measures 11.4 cm, which is within normal limits. The echogenicity is within normal limits.The pancreas is obscured by overlying bowel gas.IMPRESSION:1. There is a small amount of ascites, primarily in the left and right upper quadrants of the abdomen.2. There are sonographic findings compatible with the known end-stage renal disease. Several simple renal cysts are present, the largest measuring 5.2 cm on the right and 4.6 cm on the left. Other subcentimeter hypoechoic lesions are too small to adequately characterize.3. No hydronephrosis.4. No evidence of cholelithiasis or acute cholecystitis.5. No evidence of biliary duct obstruction.This document has been electronically signed by Andi Burton MD on 12/04/2019 10:23 AM Name Value Range Interpretation Code Description Data Josee rce(s) Supporting Document(s) ID Date Data Source [id number] 10/27/2019 05:40:00 PM EDT [facility] Name Value Range Interpretation Code Description Data Josee rce(s) Supporting Document(s) SARS CORONAVIRUS 2 RNA [facility] This lab was ordered by [facility] and reported by [facility]. ID Date Data Source [id number] 07/16/2019 03:10:20 PM [facility] Name Value Range Interpretation Code Description Data Josee rce(s) Supporting Document(s) Progress Note [facility] [id number] [file] [id number]+LXhKnGY49K/wood milling machine operator [file] [id number]/CBB7AHmuDlddlnUqN/wood milling machine operator+4ayaOubyqZ/XYK8/WY6AGUHIGVoWQhMfAxGTfAi6edvYVMz [file] Procedure Social History Code Duration Value Status Description Data Source(s ) Smoking 07/29/2020 12:00:00 AM EST Former Smoker completed Former Smoker eCW1 ([facility]) Alcohol intake 07/19/2020 12:00:00 AM EST Lifetime non-drinker (finding) completed Lifetime non-drinker (finding) [facility] Tobacco use and exposure 07/19/2020 12:00:00 AM EST Never used co mpleted Never used [facility] Smoking 07/19/2020 12:00:00 AM EST Never smoker completed Never s [facility] Smoking 05/26/2020 12:00:00 AM EST Former Smoker completed Former Smoker eCW1 ([facility]) Smoking 02/01/2020 12:00:00 AM EDT Former Smoker completed Former Smoker eCW1 ([facility]) Smoking 02/01/2020 12:00:00 AM EDT Former Smoker completed Former Smoker eCW1 ([facility]) Alcohol intake 12/29/2019 12:00:00 AM EDT Lifetime non-drinker (finding) completed Lifetime non-drinker (finding) [facility] Smoking 12/29/2019 12:00:00 AM EDT Never smoker completed Never s [facility] Smoking 12/22/2019 12:00:00 AM EDT Former Smoker completed Former Smoker eCW1 ([facility]) Smoking 12/11/2019 12:00:00 AM EDT Former Smoker completed Former Smoker eCW1 ([facility]) Smoking 12/11/2019 12:00:00 AM EDT Former Smoker completed Former Smoker eCW1 ([facility]) Alcohol intake 07/16/2019 12:00:00 AM EST Lifetime non-drinker (finding) completed Lifetime non-drinker (finding) [facility] Smoking 07/16/2019 12:00:00 AM EST Never smoker completed Never [facility] Hospital Vital Signs ID Date Data Source UNK Name Value Range Interpretation Code Description Data Source(s) Diastolic blood pressure 70 mm[Hg] 70 mm[Hg] eCW1 ([facility]) Systolic blood pressure 130 mm[Hg] 130 mm[Hg] e CW1 ([facility]) Body temperature 97.2 [degF] 97.2 [degF] eCW1 ( [facility]) Respiratory rate 18 /min 18 /min eCW1 ([facility]) Heart rate 76 /min 76 /min eCW1 ([facility]) Body mass index (BMI) [Ratio] 28.92 kg/m2 28.92 kg/m2 W1 ([facility]) Body height [in_i] eCW1 ([facility]) Body weight 193 [lb_av] 193 [lb_av] eCW1 ([facility]) Diastolic blood pressure 83 mm[Hg] 83 mm[Hg] eCW1 ([facility]) Systolic blood pressure 146 mm[Hg] 146 mm[Hg] e CW1 ([facility]) Body mass index (BMI) [Ratio] 29.37 kg/m2 29.37 kg/m2 eCW1 ([facility]) Body height [in_i] eCW1 ([facility]) Body weight 196.0 [lb_av] 196.0 [lb_av] eCW1 (On license of [facility]) Diastolic blood pressure 80 mm[Hg] 80 mm[Hg] eCW1 ([facility]) Systolic blood pressure 138 mm[Hg] 138 mm[Hg] e CW1 ([facility]) Body temperature 97.0 [degF] 97.0 [degF] eCW1 ( [facility]) Respiratory rate 18 /min 18 /min eCW1 ([facility]) Heart rate 62 /min 62 /min eCW1 ([facility]) Body mass index (BMI) [Ratio] 31.04 kg/m2 31.04 kg/m2 eCW1 ([facility]) Body height [in_i] eCW1 ([facility]) Body weight 207.2 [lb_av] 207.2 [lb_av] eCW1 (On license of [facility]) Body weight 94.349 kg 94.349 kg [facility], [facility] Body mass index (BMI) [Ratio] 32.6 kg/m2 32.6 k g/m2 MEDENT ([facility], ) Body weight 208.00 [lb_av] 208.00 [lb_av] MEDEN T ([facility], ) Body height 67 [in_i] 67 [in_i] MEDENT ([facility], ) 5'7" Diastolic blood pressure 84 mm[Hg] 84 mm[Hg] MEDENT ([facility], ) Systolic blood pressure 168 mm[Hg] 168 mm[Hg] M EDENT ([facility], ) Diastolic blood pressure 74 mm[Hg] 74 mm[Hg] eCW1 ([facility]) Systolic blood pressure 148 mm[Hg] 148 mm[Hg] e CW1 ([facility]) Body temperature 97.3 [degF] 97.3 [degF] eCW1 ( [facility]) Respiratory rate 20 /min 20 /min eCW1 ([facility]) Heart rate 109 /min 109 /min eCW1 ([facility]) Body mass index (BMI) [Ratio] 30.86 kg/m2 30.86 kg/m2 eCW1 ([facility]) Body height [in_us] eCW1 ([facility]) Body weight Measured 206 [lb_av] 206 [lb_av] eC W1 ([facility]) Diastolic blood pressure 64 mm[Hg] 64 mm[Hg] eCW1 ([facility]) Systolic blood pressure 144 mm[Hg] 144 mm[Hg] e CW1 ([facility]) Body mass index (BMI) [Ratio] 31.55 kg/m2 31.55 kg/m2 eCW1 ([facility]) Body height [in_us] eCW1 ([facility]) Body weight Measured 210.6 [lb_av] 210.6 [lb_av ] eCW1 ([facility]) ID Date Data Source [id number] 07/16/2019 03:10:20 PM [facility] Name Value Range Interpretation Code Description Data Source(s) WEIGHT RECORDED 207 lb 207 lb [facility] Body height Measured 67.[address] [facility] Patient Treatment Plan of Care Planned Activity Planned Date Details Description Data Source (s) 3 ML Insulin Glargine 100 UNT/ML Pen Injector [Lantus] 01/04/2020 12:00:00 AM EDT eCW1 ([facility]) Folic Acid 0.4 MG Oral Tablet 12/17/2019 12:00:00 AM [facility] Folate 400 MCG 12/11/2019 12:00:00 AM EDT eCW1 ([facility]) Folate 400 MCG 12/11/2019 12:00:00 AM EDT eCW1 ([facility]) Folate 400 MCG 12/11/2019 12:00:00 AM EDT eCW1 ([facility]) Famotidine 20 MG Oral Tablet 11/16/2019 12:00:00 AM [facility] Famotidine 20 MG Oral Tablet [Pepcid] 08/17/2019 12:00:00 AM CAROL eCW1 ([facility])
--- OUTSIDE RECORDS SUMMARY | 2020-08-25 09:19 | CCD | Continuity of Care Document ---
Author Author Stress Nuclear/Reg Isidro Burton Organization Unknown Address [address], [place] [address] Phone [phone] Care Team Providers Care Operations Plant Attendant Name Role Phone Laureen Hutchinson PA-C AUTM [phone] Paulie Schaffer MD AUTM [phone] David Ortiz MD AUTM [phone] Freddy Talley MD AUTM [phone] Patrice Sanchez MD AUTM [phone] Mahamed Wilhelm MD AUTM [phone] Problems Description No Information Available Social History Type Date Description Comments Sex Unknown Tobacco Use Start: Unknown Light tobacco smoker (10 or fewe r cig/day) Started smoking in his 30's, Stopped in 2011 Smoking Status Reviewed: 10/08/18 Light tobacco smoker (10 or f ewer cig/day) Started smoking in his 30's, Stopped in 2011 ETOH Use Has consumed alcohol in the past Tobacco Use Start: Unknown Patient has never smoked Exercise Type/Frequency Snow Blows/Shovels Exercise Type/Frequency Swims twice a week Exercise Limitations Orthopedic Problem leg and hip pain Allergies, Adverse Reactions, Alerts Active Allergies Reaction Severity Comments Date Codeine skin crawls 08/26/2018 Amlodipine swelling of joints 9 Hydralazine itchy 10/08/2018 Medications Active Medications SIG Qnty Indications Ordering Provide r Date Za Allergy 180mg Tablets 1 by mouth once a day when needed Patrice Sanchez MD 04/27 Velphoro 500mg Chewtabs 2 by mouth three times a day Patrice Sanchez MD 04/27/2019 Isosorbide Mononitrate ER 30mg Tablets ER 24HR 2 by mouth twice every day David Ortiz MD 04/27/2019 Minoxidil 2.5mg Tablets 2 by mouth twice daily David Ortiz MD 04/27/2019 Renvela 2.4gm Packet 1 packet by mouth three times every day with meals David Ortiz MD 04/27/2019 Sensipar 30mg Tablets 1 by mouth daily as directed David Ortiz MD 04/27/2019 Furosemide 80mg Tablets 1 by mouth once daily 30tabs I10 Tyler Andre MD 08/26/2018 Preservision Areds Tablets 1 by mouth twice every day Unknown 08/25/2018 Vitamin D (Ergocalciferol) [id number] Capsules 1 by mouth every weekly Unknown 08/15 Simvastatin 20mg Tablets 1 by mouth every day at bedtime Unknown 08/25/2018 Ranitidine HCL 150mg Capsules 1 by mouth twice a day Unknown 08/25/2018 Ondansetron 4mg Tablets Dispers as needed no more than 4 times a day Unknown 08/25 Nitroglycerin 0.4mg Tablets Sub 1 tab sl every 5 min times 3 doses as needed chest disc U nknown 08/25/2018 Metoprolol Succinate ER 100mg Tablets ER 24HR 1 by mouth every day Unknown 019 Lantus Solostar 100U nit/ML Solution Pen-Inject as directed by primary Unknown 08/25 Irbesartan 300mg Tablets 1 by mouth every night at bedtime Unknown 08/25/2018 Glimepiride 2mg Tablets 1 by mouth every day Unknown 08/25/2018 Immunizations Description No Information Available Vital Signs Date Vital Result Comment 04/28/2019 12:14pm Weight 204.00 lb Height 67.5 inches 5'7.50" BMI (Body Mass Index) 31.5 kg/m2 10/08/2018 11:41am Weight 209.00 lb Home Weight 198lb Height 67.5 inches 5'7.50" BMI (Body Mass Index) 32.2 kg/m2 Heart Rate 76 /min BP Systolic Sitting 145 mmHg CBP Adult Cuff, Ra BP Diastolic Sitting 74 mmHg CBP Adult Cuff, Ra Results Test Acquired Date Facility Test Result H/L Range Note BMP 03/17/2020 [facility] - Calcium Ser/Plasma Mass/Vol 10.3 Sodium 139 Carbon Dioxide Ser/Plasm 29 Chloride Serum/Plasma 90 Potassium 4.8 Glucose 116 High 70-100 Blood Urea Nitrogen 66 High 5-21 Creatinine 12.91 High 0.6-1.5 G F R n/a CBC without Differential 03/17/2020 [facility] - White Blood Count 5.5 4.3-10.9 Platelets 223 130-400 Hemoglobin 13.6 13.0-17.0 Laboratory test finding 03/17/2020 [facility] ([facility])- - Magnesium Level 2.6 Procedures Date Code Description Status 07/12/2020 22669 Treadmill/Pharmacological Monito ring Completed 07/12/2020 74053 Myocardial Perfusion Spect Multi ple Completed Medical Devices Description No Information Available Encounters Description No Information Available Assessments Date Code Description Provider 07/12/2020 Z01.818 Encounter for other preprocedura l examination Stress Nuclear/Reg Treadmill 07/12/2020 R94.31 Abnormal electrocardiogram [ECG] [EKG] Stress Nuclear/Reg Treadmill Plan of Treatment 10/08/2018 - Tyler Andre MD* I10 Essential (primary) hypertension* Recommendations:* Continue irbesartan, metoprolol succinate, chlorthalidone, furosemide, isosorbide mononitrate, minoxidil at the current dosages. * I11.9 Hypertensive heart disease without heart failure* Recommendations:* Evaluation/management of systemic hypertension as above. * R06.83 Snoring* Recommendations:* Home sleep study was ordered. * All * Follow up:* Further follow-up, if any, depending upon results of cardiac testing. Functional Status Functional Condition Comment Date Status Independent with all ADL's Activ e Mental Status Description No Information Available Referrals Description No Information Available
--- OUTSIDE RECORDS SUMMARY | 2020-08-25 09:19 | CCD | Summary of Care ---
Author Author [facility] Organization [facility] Address Unknown Phone Unavailable Care Team Providers Care Management Recruiter Name Role Phone Laureen Hutchinson PCP Reason for Visit * Reason Comments Follow-up 6 month PSA Encounter Details Care Team Description Date Type Department Corey Breen MD [address] [place] [id number] Elevated PSA (Primary Dx) 07/19/2020 Telemedicine [facility] [address] [place] [phone] Allergies Comments Active Allergy Reactions Severity Noted Date Amlodipine 07/16/2019 itchy Codeine 03/10/2019 Hydralazine 07/16/2019 documented as of this encounter (statuses as of 07/19/2020) Medications End Date Status Medication Sig Dispensed Refills Start Date Active lanthanum (FOSRENOL) 1000 Chew 1,000 mg 0 MG chewable tablet by Mouth Two times daily with meals Active chlorthalidone (HYGROTON) Take 25 mg by 0 25 MG tablet mouth daily Active furosemide (LASIX) 80 MG Take 80 mg by 0 tablet mouth Two Times Daily Active glimepiride (AMARYL) 2 MG Take 2 mg by 0 tablet mouth every morning before breakfast Active irbesartan (AVAPRO) 300 Take 300 mg 0 MG tablet by mouth nightly Active isosorbide mononitrate Take 30 mg by 0 (IMDUR) 30 MG 24 hr mouth Two tablet Times Daily Active metoprolol (LOPRESSOR) Take 100 mg 0 100 MG tablet by mouth Two Times Daily Active minoxidil (LONITEN) 10 MG Take 10 mg by 0 tablet mouth Two Times Daily Active nitroglycerin (NITRODUR) Place 1 patch 0 0.4 MG/HR onto the skin daily Active ondansetron (ZOFRAN) 4 MG Take 4 mg by 0 tablet mouth every 8 (eight) hours as needed for Nausea Active ranitidine (ZANTAC) 150 Take 150 mg 0 MG tablet by mouth Two Times Daily Active Sevelamer Carbonate Take 2.4 g by 0 (RENVELA PO) mouth Three times daily Active simvastatin (ZOCOR) 20 MG Take 20 mg by 0 tablet mouth nightly Active Ergocalciferol (VITAMIN Take by mouth 0 D2 PO) Active B Nxycssm-F-Dedkq Acid Take by mouth 0 (RENAL-SHERIF PO) Active Fexofenadine HCl (WAL-FEX Take by mouth 0 ALLERGY PO) Active metoprolol (TOPROL-XL) 50 Take 100 mg 0 MG 24 hr tablet by mouth daily Active insulin glargine (LANTUS) Inject into 0 100 UNIT/ML the skin vialIndications: 6, 8, or nightly 10 units pending on BS Indications: 6, 8, or 10 units pending on BS Active Sucroferric Oxyhydroxide Chew by Mouth 0 04/27 500 MG Oral Tablet 9 Chewable (VELPHORO) Active Multiple PreserVision 0 Vitamins-Minerals AREDS-2 (OCUVITE-LUTEIN PO) Active Fexofenadine HCl 180 MG Take by mouth 0 Oral Tablet (AUGUSTO) 9 Active Insulin Glargine 100 Lantus 0 UNIT/ML Subcutaneous Solostar 9 Solution Pen-injector U-100 Insulin (LANTUS SOLOSTAR) 100 unit/mL (3 mL) subcutaneous pen Inject 30 units every day by sub-q route. Active Atorvastatin Calcium 20 Take 20 mg by 0 MG Oral Tablet (LIPITOR) mouth daily Active Famotidine 20 MG Oral 0 Tablet (PEPCID) 0 Active Folic Acid 400 MCG Oral 0 Tablet (FOLVITE) 0 documented as of this encounter (statuses as of 07/19/2020) Active Problems Problem Noted Date ESRD (end stage renal disease) Hypertension Diabetes mellitus Anemia of chronic disease Macular degeneration Elevated PSA documented as of this encounter (statuses as of 07/19/2020) Social History Date Tobacco Use Types Packs/Day Years Used Never Smoker Smokeless Tobacco: Never Used Drinks/Week oz/Week Comments Alcohol Use Never Alcohol Habits Answer Date Recorded How often do you have a drink containing alcohol? Never 07/16/2019 How many drinks containing alcohol do you have on No t asked a typical day when you are drinking? How often do you have six or more drinks on one Not asked occasion? Sex Assigned at Date Recorded Not on file Date Recorded COVID-19 Exposure Response 07/19/2020 1:03 AM EST In the last month, have you been in contact with No / Unsure someone who was confirmed or suspected to have Coronavirus / COVID-19? documented as of this encounter Last Filed Vital Signs Reading Time Taken Comments Vital Sign - - Blood Pressure - - Pulse - - Temperature - - Respiratory Rate - - Oxygen Saturation - - Inhaled Oxygen Concentration - - Weight 172.7 cm (5' 7.99") 07/19/2020 9:40 AM EST Height - - Body Mass Index documented in this encounter Progress Notes * Corey Breen MD - 07/19/2020 10:45 AM EST This is a telemedical visit. The patient was informed of the risks including sec urity breech, technological failure, inability to perform a comprehensive physic al exam which could delay or prevent an accurate diagnosis, and potential compli cations from treatment decisions rendered over a telemedical platform. The patie nt understands and consented to the use of tele-health services. CC: Elevated PSA HPI: 70 y.o. who I have been following for elevated PSA for a year now. He has had a fluctuating PSA in the 4-5 range for at least 2 to 3 years. He has elect ed to hold off on biopsies given other psychosocial stressors. He is currently undergoing dialysis for kidney failure and considering a transpl ant. He also has agent orange exposure while in the and is concerned a bout prostate cancer. PSA trend 09/2017 4.2 10/2018 5.2 11/2018 4.7 12/2019 4.2 06/2020 4.45 The past medical, surgical, allergies, social and family history were reviewed. The medication list was updated. No significant changes were appreciated from p revious visits. Physical Exam Constitutional : No distress, Awake Eyes : extraocular motions intact, no scleral icterus Cardiovascular : no cyanosis Respiratory : Breathing comfortable on room air at normal rate Musculoskeletal : normal motion of all four extremities Skin : no obvious rashes or erythema Neuro : Alert, oriented x 3, normal speech Psych : Normal mood and affect Labs: PSA trend as above Assessment: 70-year-old with elevated PSA outlined above in the setting of consi deration of transplantation and Agent [place] exposure Plan: I personally reviewed the patient's past medical, surgical, medication, a llergy, family, and social histories as well as pertinent referral/outside recor ds, documentation collected by others or provided by the patient. All objective data noted above was independently interpreted by me. Medical Decision Making: T he number and complexity of problems addressed was one stable chronic ilness. Th e amount and complexity of data reviewed and analyzed included: review of prior notes, review of test results and ordering tests. The risk of complications and/ or morbidity/mortality of patient management was L4 - Rx drug, cysto, biopsy, thayer rgery. During the course of this consultation I did review his PSA trend, transplant no faye and we elected to proceed with a biopsy. We discussed the role of transperi griffin biopsy in his situation. Given the ongoing Covid pandemic he would like to wait. Ultimately he does need a transperineal prostate biopsy and he fully is aware of this. He would like to proceed in 2 September or October pending the pandemic status. I think the best way to proceed with this is to schedule a biopsy in October with a telemed 2 weeks before to see if he wants to go through with the biopsy or not. The possibility of prostate cancer will preclude his transplant status and we will need to resolve this. This note was dictated using WineMeNow software and an attempt was made to correct any pearl restorer concerns. Please excuse any typos. This visit was done using [employer] for combined live video and audio. This is a telemedical visit. The patient was informed of the risks including sec urity breech, technological failure, inability to perform a comprehensive physic al exam which could delay or prevent an accurate diagnosis, and potential compli cations from treatment decisions rendered over a telemedical platform. The patie nt understands and consented to the use of tele-health services. documented in this encounter Plan of Treatment Care Team Description Date Type Specialty Jl Simmons, BELLO [address] [facility] [address] [place] [address] [phone] 03/23/2021 Office Visit Transplant Health Maintenance Due Date Last Done Comments MMR Vaccines (1 of 1 - 1951 Standard series) Varicella Vaccines (1 of 1951 2 - 2-dose childhood series) Pneumococcal Vaccine: 1956 Pediatrics (0 to 5 Years) and At-Risk Patients (6 to 64 Years) (1 of 3 - PCV13) DTaP,Tdap,and Td Vaccines 1959 (1 - Tdap) Hepatitis B Vaccines (1 1971 of 3 - Risk 3-dose series) Zoster Vaccines (1 of 2) 2002 Pneumococcal Vaccine: 65+ 2017 Years (1 of 1 - PPSV23) Influenza Vaccine 04/14/2020 Colon Cancer Screening 10 08/30/2027 08/30/2017 yrs Hepatitis C Screening (B. Completed 03/10/2019 [id number]) HIB Vaccines Aged Out No longer eligible based on patient's age to complete this topic Hepatitis A Vaccines Aged Out No longer eligibl e based on patient's age to complete this topic IPV Vaccines Aged Out No longer eligible based on patient's age to complete this topic documented as of this encounter Results Not on filedocumented in this encounter Visit Diagnoses Diagnosis Elevated PSA - Primary Elevated prostate specific antigen (PSA ) documented in this encounter
[2020-08-25 09:37] LABS: BASO # 0.1 10^3/uL (0.0-0.2); BASO % 0.7 % (0.0-1.0); EOS # 0.3 10^3/uL (0.0-0.5); EOS % 4.7 % (0.0-3.0); HEMATOCRIT 25.2 % (42.0-52.0); HEMOGLOBIN 8.5 g/dl (13.5-17.5); LYMPH # 0.9 10^3/uL (1.5-5.0); LYMPH % 12.9 % (24.0-44.0); MEAN CORPUSCULAR HEMOGLOBIN 31.1 pg (27.0-33.0); MEAN CORPUSCULAR HGB CONC 33.7 g/dl (32.0-36.5); MEAN CORPUSCULAR VOLUME 92.3 fl (80.0-96.0); MONO # 0.7 10^3/uL (0.0-0.8); MONO % 10.8 % (0.0-5.0); NEUTROPHILS # 4.7 10^3/uL (1.5-8.5); NEUTROPHILS % 70.2 % (36.0-66.0); PLATELET COUNT, AUTOMATED 257 10^3/uL (150-450); RED BLOOD COUNT 2.73 10^6/uL (4.30-6.10); WHITE BLOOD COUNT 6.8 10^3/uL (4.0-10.0)
[2020-08-25 09:47] LABS: INR 0.97; PROTHROMBIN TIME 13.1 SECONDS (12.5-14.3)
[2020-08-25 09:48] LABS: PARTIAL THROMBOPLASTIN TIME 30.1 SECONDS (24.2-38.5)
[2020-08-25 09:55] LABS: ERYTHROCYTE SEDIMENTATION RATE 65 mm/hr (0-20)
[2020-08-25 10:23] LABS: ALBUMIN 3.5 GM/DL (3.2-5.2); BILIRUBIN,DIRECT 0.1 MG/DL (0.0-0.2); BILIRUBIN,TOTAL 0.3 MG/DL (0.2-1.0); C REACTIVE PROTEIN QUANTITATIV 0.3 MG/DL (0.00-0.30); CALCIUM LEVEL 9.4 MG/DL (8.8-10.2); CK-MB VALUE MASS 2.3 NG/ML (<3.6); CREATININE FOR GFR 11.5 MG/DL (0.70-1.30); FREE T4 0.78 NG/DL (0.76-1.46); GLOMERULAR FILTRATION RATE 4.7 (>49); MB/CK RELATIVE INDEX 2.99 (< OR =4); POTASSIUM SERUM 4.7 MEQ/L (3.5-5.1); THYROID STIMULATING HORMONE 2.34 uIU/ML (0.358-3.740); TOTAL PROTEIN 6.3 GM/DL (6.4-8.2); TROPONIN I 0.05 NG/ML (< 0.10)
[2020-08-25 13:11] LABS: CK-MB VALUE MASS 2.9 NG/ML (<3.6); MB/CK RELATIVE INDEX 3.54 (< OR =4); TROPONIN I 0.15 NG/ML (< 0.10)
[2020-08-25] MEDS ORDERED: minoxidiL 2.5 MG TAB PO STA (15:23)
[2020-08-25] MEDS ORDERED: ISOSORBIDE MON. (IMDUR) 60 MG XR TAB PO ONE (15:45)
[2020-08-25] MEDS ORDERED: IRBESARTAN 150MG TAB PO ONE (15:45)
[2020-08-25] MEDS ORDERED: ISOSORBIDE MONONITRATE 10MG TABLET PO ONE (15:45)
[2020-08-25 16:16] LABS: CK-MB VALUE MASS 4.1 NG/ML (<3.6); TROPONIN I 0.38 NG/ML (< 0.10)
[2020-08-25 16:56] VITALS: BP 154/74
[2020-08-25] MEDS ORDERED: HEPARIN DRIP 25,000 UNITS in IV 1 EA IV SCH (16:59)
[2020-08-25] MEDS ORDERED: HEPARIN SOD (PORCINE) 5000UNITS/ML 1ML VIAL/SYRINGE IV ONE (17:00)
[2020-08-25] MEDS ORDERED: ASPIRIN 81 MG CHEW TABLET PO ONE (17:00)
[2020-08-25 17:48] LABS: RSV AMPLIFICATION NEGATIVE (NEGATIVE)
--- NOTE | 2020-08-25 19:20 | ECGEPIP ---
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
--- NOTE | 2020-08-25 19:37 | ECGEPIP ---
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
[2020-08-25 19:41] VITALS: BP 114/64
== END 2020-08-25 20:00 | disposition short-term general hospital (02) ==
LOC: EDBD 08:11 → M ED 08:11
DX: I21.4 Non-ST elevation (NSTEMI) myocardial infarction (principal); I45.19 Other right bundle-branch block; E11.9 Type 2 diabetes mellitus without complications; N18.6 End stage renal disease; E78.5 Hyperlipidemia, unspecified; K21.9 Gastro-esophageal reflux disease without esophagitis; G47.33 Obstructive sleep apnea (adult) (pediatric); Z99.2 Dependence on renal dialysis; Z79.899 Other long term (current) drug therapy; Z79.4 Long term (current) use of insulin; Z88.5 Allergy status to narcotic agent; Z87.891 Personal history of nicotine dependence
CPT/HCPCS: 36415; 71045; 80048; 80076; 82550; 82553; 84439; 84443; 84484; 85025; 85610; 85652; 85730; 86140; 87040; 87631; 93005; 93041; 94760; 96365; 96366; 99285; J1644

== ENCOUNTER 2020-09-18 16:30 | Inpatient (IN) | payer MEDICARE, OTHER ==
[~2020-09-18] VITALS: Ht 172.7 cm; Wt 92.2 kg
[2020-09-18] MEDS: LEVEMIR (INSULIN DETEMIR) 1 UNITS/0.01ML SC SCH (00:53)
[2020-09-18] MEDS: HumaLOG INSULIN (NovoLOG) PER UNIT SC SCH (00:53)
[2020-09-18] MEDS: FERROUS GLUCONATE 324 MG TAB PO SCH (02:55)
[2020-09-18] MEDS ORDERED: VELP5CHW PO (16:43)
[2020-09-18] MEDS ORDERED: CINA30TA4 PO (16:43)
[2020-09-18] MEDS ORDERED: ASPI-1 PO (16:43)
[2020-09-18] MEDS ORDERED: VELT1POW PO (16:43)
[2020-09-18] MEDS ORDERED: LOPR1TAB6 PO (16:43)
[2020-09-18] MEDS ORDERED: HEPA100I26 SQ (16:43)
--- NOTE | 2020-09-18 17:37 | REP ---
INDICATION: CHEST PAIN COMPARISON: 08/25/2020 TECHNIQUE: Portable AP view of the chest FINDINGS: Patient appears to be status post sternotomy. The cardiac silhouette is relatively normal for portable examination. Left lower lobe consolidation with scattered bilateral foci of linear platelike atelectasis (left greater than right). No obvious effusion. No pneumothorax. Free air is identified below the diaphragms and requires correlation with surgical history. Pneumomediastinum cannot be excluded. IMPRESSION: 1. Pneumomediastinum suggesting bowel perforation is suspected and correlation with possible history of recent surgery is required. 2. Scattered linear atelectasis and left lower lobe consolidation. <Electronically signed by Manuel Sampson > 09/18/20 [id number]
[2020-09-18 17:50] LABS: SPEC. GRAVITY BODY FLUIDS 1.014 (NOT ESTABLISHED)
[2020-09-18 17:50] LABS: BASO % 0.2 % (0.0-1.0); EOS # 0.1 10^3/uL (0.0-0.5); EOS % 0.5 % (0.0-3.0); HEMATOCRIT 27.7 % (42.0-52.0); HEMOGLOBIN 9.2 g/dl (13.5-17.5); LYMPH # 0.3 10^3/uL (1.5-5.0); LYMPH % 2.2 % (24.0-44.0); MEAN CORPUSCULAR HEMOGLOBIN 29.6 pg (27.0-33.0); MEAN CORPUSCULAR HGB CONC 33.2 g/dl (32.0-36.5); MEAN CORPUSCULAR VOLUME 89.1 fl (80.0-96.0); MONO # 0.8 10^3/uL (0.0-0.8); NEUTROPHILS % 91.1 % (36.0-66.0); PLATELET COUNT, AUTOMATED 285 10^3/uL (150-450); RED BLOOD COUNT 3.11 10^6/uL (4.30-6.10); WHITE BLOOD COUNT 15.3 10^3/uL (4.0-10.0)
[2020-09-18 17:59] LABS: INR 1.27; PROTHROMBIN TIME 16.2 SECONDS (12.5-14.3)
[2020-09-18 18:00] LABS: PARTIAL THROMBOPLASTIN TIME 46.5 SECONDS (24.2-38.5)
[2020-09-18 18:03] LABS: SOURCE, BODY FLUID ALBUMIN PERITONEAL
--- NOTE | 2020-09-18 18:06 | REPVR ---
PROCEDURE INFORMATION: Exam: CT Abdomen And Pelvis Without Contrast Exam date and time: 09/18/2020 5:40 PM Age: 70 years old Clinical indication: Abdominal pain; Additional info: Gen abd pain TECHNIQUE: Imaging protocol: Computed tomography of the abdomen and pelvis without contrast. Radiation optimization: All CT scans at this facility use at least one of these dose optimization techniques: automated exposure control; mA and/or kV adjustment per patient size (includes targeted exams where dose is matched to clinical indication); or iterative reconstruction. COMPARISON: CT ABD/PEL W/IV CONTRAST ONLY 10/27/2019 4:40 PM FINDINGS: Tubes, catheters and devices: Peritoneal dialysis catheter demonstrated. Lungs: Bibasilar atelectasis. Pleural spaces: Pleural thickening right lower lobe. Small left pleural effusion. Liver: There is enlargement of the left and caudate lobes of the liver as well as a lobular surface contour of the liver. Findings may indicate the presence of cirrhosis in this patient with no reported history of chronic liver disease. No focal abnormality demonstrated. Gallbladder and bile ducts: Normal. No calcified stones. No ductal dilation. Pancreas: Normal. No ductal dilation. Spleen: There is mild 3rd splenomegaly with a maximum span of 13 centimeters. No focal abnormalities demonstrated. Adrenal glands: Normal. No mass. Kidneys and ureters: Multiple bilateral simple renal cysts measuring up to 5.8 cm in the right kidney. Bilateral renal parenchymal atrophy. Stomach and bowel: There is increased feces throughout the colon consistent with constipation. Mild colonic diverticulosis with minimal pericolonic inflammation at the junction of the descending and sigmoid colon, finding which may indicate mild diverticulitis. No obvious perforation demonstrated. Appendix: No evidence of appendicitis. Intraperitoneal space: Pneumoperitoneum. Scant ascites. Vasculature: The aortoiliac vessels demonstrate moderate atherosclerotic calcification. Lymph nodes: Unremarkable. No enlarged lymph nodes. Urinary bladder: Contracted thick-walled urinary bladder. Reproductive: The prostate gland demonstrates moderate hyperplasia. Bones/joints: Moderate central spinal stenosis L2-L3, severe central spinal stenosis L3-L4 and L4-L5. Bulging annulus L5-S1. Soft tissues: There is a small air containing umbilical hernia. There is no evidence of incarceration. IMPRESSION: 1. There is enlargement of the left and caudate lobes of the liver as well as a lobular surface contour of the liver. Findings may indicate the presence of cirrhosis in this patient with no reported history of chronic liver disease. No focal abnormality demonstrated. 2. There is mild 3rd splenomegaly with a maximum span of 13 centimeters. No focal abnormalities demonstrated. 3. Multiple bilateral simple renal cysts measuring up to 5.8 cm in the right kidney. Bilateral renal parenchymal atrophy. 4. Moderate prostatic hyperplasia. 5. Pneumoperitoneum. Scant ascites. 6. There is increased feces throughout the colon consistent with constipation. 7. Mild colonic diverticulosis with minimal pericolonic inflammation at the junction of the descending and sigmoid colon, finding which may indicate mild diverticulitis. No obvious perforation demonstrated. COMMENTS: Consistent with the [employer]'s Incidental Findings Committee white paper (J [employer]iol 2018): Any incidental renal lesion less than 1 cm or classified as too small to characterize, or any incidental cystic renal lesion characterized as simple-appearing, is likely benign. No follow-up imaging is recommended for these lesions per consensus recommendations based on imaging criteria. Electronically signed by: Donny Arita On 09/18/2020 18:06:26 PM
[2020-09-18 18:14] LABS: APPEARANCE, BODY FLUID TURBID (CLEAR); SOURCE, BODY FLUID PERITONEAL
[2020-09-18 18:21] LABS: SOURCE, BODY FLUID TOT PROTEIN PERITONEAL; TOTAL PROTEIN, BODY FLUID 0.7 G/DL (NOT ESTABLISHED)
[2020-09-18 18:24] LABS: SOURCE, BODY FLUID GLUCOSE PERITONEAL
[2020-09-18 18:27] LABS: ALBUMIN 2.1 GM/DL (3.2-5.2); BILIRUBIN,DIRECT 0.1 MG/DL (0.0-0.2); BILIRUBIN,TOTAL 0.3 MG/DL (0.2-1.0); CALCIUM LEVEL 8.7 MG/DL (8.8-10.2); CREATININE FOR GFR 10.5 MG/DL (0.70-1.30); FREE T4 1.12 NG/DL (0.76-1.46); GLOMERULAR FILTRATION RATE 5.2 (>49); MB/CK RELATIVE INDEX 1.89 (< OR =4); POTASSIUM SERUM 5.4 MEQ/L (3.5-5.1); THYROID STIMULATING HORMONE 2.98 uIU/ML (0.358-3.740); TOTAL PROTEIN 5.3 GM/DL (6.4-8.2); TROPONIN I 0.04 NG/ML (< 0.10)
[2020-09-18] MEDS ORDERED: DEXTROSE 50% 50 ML SYRINGE IV PRN (19:35)
[2020-09-18] MEDS ORDERED: GLUCOSE 4GM CHEW TABLET PO PRN (19:35)
[2020-09-18] MEDS ORDERED: GLUCAGON INJ 1MG VIAL SC PRN (19:35)
[2020-09-18] MEDS ORDERED: ATOR80TA59 PO (19:36)
[2020-09-18] MEDS ORDERED: GLIM4TAB5 PO (19:36)
[2020-09-18] MEDS ORDERED: LORA-674 PO (19:38)
[2020-09-18] MEDS ORDERED: DOK1CAP7 PO (19:38)
[2020-09-18] MEDS ORDERED: FERR32TA PO (19:38)
[2020-09-18] MEDS ORDERED: OXYC1TAB23 PO (19:48)
[2020-09-18] MEDS ORDERED: MEROPENEM INJ 500 MG in IV 1 EA IV SCH (19:55)
--- NOTE | 2020-09-18 19:55 | HPEPDOC ---
[facility] Medical History & Physical Date of Admission Sep 18, 2020 Date of Service: Sep 18, 2020 History and Physical CHIEF COMPLAINT: Abdominal pain since Saturday HISTORY OF PRESENT ILLNESS: 70-year-old male with history of CAD, CABG 5 vessels recently discharged from [facility] last Saturday, presents to emergency room with acute onset of diffuse abdominal pain described as achy, not sharp without radiation, without accompanying nausea, vomiting, fever or chills, diarrhea. Patient has been constipated for the past 4 days despite being on stool softener and MiraLAX. He complains of increasing abdominal distention, bloating, and he comes for the past 3-4 days with decrease in appetite. All the eating about 25% of his food. Patient complains of a cough occasionally with white scant sputum production and increasing shortness of breath. He had taken Tylenol Extra Strength 2 tablets about 2 times a day since this pain rated at 5 out of 10, as well as OxyContin with some relief. In the emergency room, patient was afebrile but had leukocytosis of 15,000. Dialysate fluid shows leukocytosis. CT abdomen and pelvis shows. Pneumomediastinum but no signs of bowel perforation, possible mild diverticulitis. Patient was hemodynamically stable but had hyperkalemia and hyponatremia without mental status changes, headache, confusion or changes in vision. Hospitalist was asked to admit the patient for acute peritonitis secondary to peritoneal dialysis and evaluation for possible left lower lobe healthcare associated pneumonia since he was recently discharged from [facility] last Saturday. PAST MEDICAL HISTORY: End-stage renal disease on peritoneal dialysis, type 2 diabetes, gastroesophageal reflux disease, hypertension, hyperlipidemia, obstructive sleep apnea on chronic CPAP, lobular liver. mild 3rd splenomegaly with a maximum span of 13 centimeters.bilateral simple renal cysts measuring up to 5.8 cm in the right kidney. Bilateral renal parenchymal atrophy. Moderate prostatic hyperplasia. Pneumoperitoneum.constipation. colonic diverticulosis.Moderate central spinal stenosis L2-L3, severe central spinal stenosis L3-L4 and L4-L5. Bulging annulus L5-S1. umbilical hernia. PAST SURGICAL HISTORY: Hernia repair, appendectomy, peritoneal dialysis catheter SOCIAL HISTORY: Prior smoker, uses cigars for more than 15 years, quit 10 years ago. Social alcohol use. Denies recreational drug use. Lives alone primary care provider is Laureen Figueroa quality assurance qa lab analyst is Dr. Diana trujillo at [facility] renal transplant team FAMILY HISTORY: Mother in her 70. Breast cancer ALLERGIES: Please see below. REVIEW OF SYSTEMS: 10 point review of systems negative aside from positive findings on HPI HOME MEDICATIONS: Please see below. PHYSICAL EXAMINATION: VITAL SIGNS: See below GENERAL APPEARANCE: Awake, alert, oriented 3, answering questions appropriately. No pallor, icterus, use of respiratory accessory muscles. Able to speak in full sentences HEENT: Face is symmetric. Tongue is midline. No expressive or receptive aphasia. No JVD, thyromegaly, cervical lymphadenopathy, carotid bruits, stridor, moist mucous membranes CARDIOVASCULAR: S1, S2 regular rate rhythm, no murmurs, rubs or gallops. Nondisplaced point of maximal impulse no S3 LUNGS: Air entry is equal bilaterally. No scoliosis. bronchial breath sounds throughout, but Diminished breath sounds at the bases. Slight egophony at the left base. Able to speak in full sentences without conversational dyspnea. No use of respiratory accessory muscles. ABDOMEN: Positive bowel sounds, soft, diffusely tender, No rebound, guarding. Mild splenomegaly. No fluid wave peritoneal dialysis in place, without erythema, induration, crepitus around the surrounding skin. EXTREMITIES:No cyanosis, clubbing or pitting edema SKIN: Warm, dry, well perfused, pink in color LABORATORY DATA: See below. IMAGING: Exam: CT Abdomen And Pelvis Without Contrast Exam date and time: 09/18/2020 5:40 PM Age: 70 years old Clinical indication: Abdominal pain; Additional info: Gen abd pain TECHNIQUE: Imaging protocol: Computed tomography of the abdomen and pelvis without contrast. Radiation optimization: All CT scans at this facility use at least one of these dose optimization techniques: automated exposure control; mA and/or kV adjustment per patient size (includes targeted exams where dose is matched to clinical indication); or iterative reconstruction. COMPARISON: CT ABD/PEL W/IV CONTRAST ONLY 10/27/2019 4:40 PM FINDINGS: Tubes, catheters and devices: Peritoneal dialysis catheter demonstrated. Lungs: Bibasilar atelectasis. Pleural spaces: Pleural thickening right lower lobe. Small left pleural effusion. Liver: There is enlargement of the left and caudate lobes of the liver as well as a lobular surface contour of the liver. Findings may indicate the presence of cirrhosis in this patient with no reported history of chronic liver disease. No focal abnormality demonstrated. Gallbladder and bile ducts: Normal. No calcified stones. No ductal dilation. Pancreas: Normal. No ductal dilation. Spleen: There is mild 3rd splenomegaly with a maximum span of 13 centimeters. No focal abnormalities demonstrated. Adrenal glands: Normal. No mass. Kidneys and ureters: Multiple bilateral simple renal cysts measuring up to 5.8 cm in the right kidney. Bilateral renal parenchymal atrophy. Stomach and bowel: There is increased feces throughout the colon consistent with constipation. Mild colonic diverticulosis with minimal pericolonic inflammation at the junction of the descending and sigmoid colon, finding which may indicate mild diverticulitis. No obvious perforation demonstrated. Appendix: No evidence of appendicitis. Intraperitoneal space: Pneumoperitoneum. Scant ascites. Vasculature: The aortoiliac vessels demonstrate moderate atherosclerotic calcification. Lymph nodes: Unremarkable. No enlarged lymph nodes. Urinary bladder: Contracted thick-walled urinary bladder. Reproductive: The prostate gland demonstrates moderate hyperplasia. Bones/joints: Moderate central spinal stenosis L2-L3, severe central spinal stenosis L3-L4 and L4-L5. Bulging annulus L5-S1. Soft tissues: There is a small air containing umbilical hernia. There is no evidence of incarceration. IMPRESSION: 1. There is enlargement of the left and caudate lobes of the liver as well as a lobular surface contour of the liver. Findings may indicate the presence of cirrhosis in this patient with no reported history of chronic liver disease. No focal abnormality demonstrated. 2. There is mild 3rd splenomegaly with a maximum span of 13 centimeters. No focal abnormalities demonstrated. 3. Multiple bilateral simple renal cysts measuring up to 5.8 cm in the right kidney. Bilateral renal parenchymal atrophy. 4. Moderate prostatic hyperplasia. 5. Pneumoperitoneum. Scant ascites. 6. There is increased feces throughout the colon consistent with constipation. 7. Mild colonic diverticulosis with minimal pericolonic inflammation at the junction of the descending and sigmoid colon, finding which may indicate mild diverticulitis. No obvious perforation demonstrated. Portable AP view of the chest FINDINGS: Patient appears to be status post sternotomy. The cardiac silhouette is relatively normal for portable examination. Left lower lobe consolidation with scattered bilateral foci of linear platelike atelectasis (left greater than right). No obvious effusion. No pneumothorax. Free air is identified below the diaphragms and requires correlation with surgical history. Pneumomediastinum cannot be excluded. IMPRESSION: 1. Pneumomediastinum suggesting bowel perforation is suspected and correlation with possible history of recent surgery is required. 2. Scattered linear atelectasis and left lower lobe consolidation. <Electronically signed by Manuel Sampson > 09/18/20 [id number] MICROBIOLOGY: Please see below. ASSESSMENT/PLAN: 70-year-old male with history of CAD, CABG 5 vessels recently discharged from [facility] last Saturday, presents to emergency room with acute onset of diffuse abdominal pain described as achy, not sharp without radiation, without accompanying nausea, vomiting, fever or chills, diarrhea. Patient has been constipated for the past 4 days despite being on stool softener and MiraLAX. He complains of increasing abdominal distention, bloating, and he comes for the past 3-4 days with decrease in appetite. All the eating about 25% of his food. Patient complains of a cough occasionally with white scant sputum production and increasing shortness of breath. He had taken Tylenol Extra Strength 2 tablets about 2 times a day since this pain rated at 5 out of 10, as well as OxyContin with some relief. In the emergency room, patient was afebrile but had leukocytosis of 15,000. Dialysate fluid shows leukocytosis. CT abdomen and pelvis shows. Pneumomediastinum but no signs of bowel perforation, possible mild diverticulitis. Patient was hemodynamically stable but had hyperkalemia and hyponatremia without mental status changes, headache, confusion or changes in vision. Hospitalist was asked to admit the patient for acute peritonitis secondary to peritoneal dialysis and evaluation for possible left lower lobe healthcare associated pneumonia since he was recently discharged from [facility] last Saturday. Acute peritonitis secondary to peritoneal dialysis -Nephrology consulted for intraperitoneal antibiotic management. -Intraperitoneal vancomycin, gentamicin, to be managed by nephrology -Monitor for recurrent fevers, worsening abdominal pain and leukocytosis. End-stage renal disease on peritoneal dialysis -Plastics Design Engineer has been consulted for peritoneal dialysis and electrolyte management -Strict I's and O's, daily weights Pneumoperitoneum -secondary to peritoneal dialysis. -Unlikely to be bowel perforation -General surgeon, Dr. Bruno consulted Left lower lobe consolidation -rule out healthcare Associated pneumonia since the patient was recently discharged from [facility] last Saturday for CABG 5 vessels -Check CT chest without contrast. -If CT chest is convincing for a left lower lobe consolidation. Patient will be started on IV meropenem renally dosed and will check MRSA screen. -Check sputum culture, urine Legionella and urine streptococcal antigen. Blood cultures 2 -Awaiting respiratory panel results CAD, CABG 5 vessels -Discharge from [facility] on Saturday. -Obtain records -currently does not have any acute cardiac ischemic symptoms Hypertensive urgency -Secondary to abdominal pain. When necessary pain medications -Resumed on home medications. -Nitroglycerin topically if needed to control blood pressure less than 1 30 mmHg Type 2 diabetes -On consistent carbohydrate renal diet. -Insulin sliding scale with coverage. Fingersticks every before meals at bedtime and hypoglycemic protocol -Check A1c in the morning Gastroesophageal reflux disease -Asymptomatic -Resume home meds Obstructive sleep apnea on chronic CPAP -Resume CPAP at home settings Hyperkalemia -secondary to end-stage renal disease on peritoneal dialysis -Nephrology managing peritoneal dialysis needs Hyponatremia -Secondary to end-stage renal disease on peritoneal dialysis -Nephrology managing peritoneal dialysis needs -Asymptomatic without confusion, headache, changes in vision or altered mental status Anemia of chronic disease -No acute indication for RBC transfusion -Defer to nephrology for IV Venofer needed hyperlipidemia -Check lipid profile in the morning -Resume home medications lobular liver -No documented history of liver cirrhosis mild splenomegaly with a maximum span of 13 centimeters. -Chronic bilateral simple renal cysts measuring up to 5.8 cm in the right kidney. -No intervention Moderate prostatic hyperplasia. -No acute symptoms of difficulty starting or maintaining urinary stream constipation. -As needed bowel regimen colonic diverticulosis -Chronic -asymptomatic Moderate central spinal stenosis L2-L3, severe central spinal stenosis L3-L4 and L4-L5. Bulging annulus L5-S1. -Avoid nonsteroidal anti-inflammatories -No neurologic deficits umbilical hernia. -Reducible -CT abdomen and pelvis shows no incarceration -Asymptomatic Diet: Consistent carbohydrate renal diet CODE STATUS: Full code DVT prophylaxis: Compression stockings. Heparin subcutaneous. Vital Signs Vital Signs Date Time Temp Pulse Resp B/P (MAP) Pulse Ox O2 Delivery O2 Flow Rate FiO2 09/18/20 16:30 99.1 89 26 164/73 (103) 95 Room Air Laboratory Data Labs 24H Laboratory Tests 2 09/18/20 17:22: Body Fluid Specific [place] 1.014, Body Fluid WBC (Auto) 92548L, Body Fluid RBC (Auto) 10, Body Fluid Mononuclear Cells % Auto 8.0H, Fluid Polymorphonuclear Cell % Auto 92.0H, Body Fluid Glucose Source PERITONEAL, Body Fluid Glucose 1452, Body Fluid Protein Source PERITONEAL, Body Fluid Total Protein 0.7, Body Fluid Albumin Source PERITONEAL, Body Fluid Albumin 0.3, Peritoneal Fluid Source PERITONEAL, Peritoneal Fluid Color WHITE, Peritoneal Fluid Appearance TURBID 09/18/20 17:36: Immature Granulocyte % (Auto) 1.0, Neutrophils (%) (Auto) 91.1H, Lymphocytes (%) (Auto) 2.2L, Monocytes (%) (Auto) 5.0, Eosinophils (%) (Auto) 0.5, Basophils (%) (Auto) 0.2, Neutrophils # (Auto) 14.0H, Lymphocytes # (Auto) 0.3L, Monocytes # (Auto) 0.8, Eosinophils # (Auto) 0.1, Basophils # (Auto) 0.0, Nucleated Red Blood Cells % (auto) 0.0, Prothrombin Time 16.2H, Prothromb Time International Ratio 1.27, Activated Partial Thromboplast Time 46.5H, Anion Gap 11, Glomerular Filtration Rate 5.2L, Calcium Level 8.7L, Total Bilirubin 0.3, Direct Bilirubin 0.1, Aspartate Amino Transf (AST/SGOT) 19, Alanine Aminotransferase (ALT/SGPT) 6L, Alkaline Phosphatase 90, Total Creatine Kinase 53, Creatine Kinase MB 1.0, Creatine Kinase MB Relative Index 1.89, Troponin I 0.04, Total Protein 5.3L, Alb umin 2.1L, Albumin/Globulin Ratio 0.7, Lipase 41L, Thyroid Stimulating Hormone (TSH) 2.980, Free Thyroxine 1.12 CBC/BMP Laboratory Tests 09/18/20 17:36 Microbiology Microbiology 09/18/20 Gram Stain, Received Pending 09/18/20 Body Fluid Culture, Received Pending Home Medications Scheduled Aspirin (Aspirin) 325 Mg Tablet, 325 MG PO DAILY Atorvastatin Calcium (Atorvastatin Calcium) 80 Mg Tablet, 80 MG PO DAILY Cinacalcet (Sensipar) 30 Mg Tablet, 30 MG PO DAILY Docusate Sodium (Dok) 100 Mg Capsule, 100 MG PO BID Ergocalciferol (Vitamin D2) (Vitamin D2) 50,000 Units Cap, 50,000 UNITS PO Q2WK TAKES ON FRIDAYS Ferrous Gluconate (Ferrous Gluconate) 324 Mg Tablet, 324 MG PO BID Glimepiride (Glimepiride) 4 Mg Tablet, 4 MG PO BID Insulin Glargine,Hum.rec.anlog (Lantus Solostar) 100 Unit/Ml Inj, 18 UNITS SC QHS IF NEEDED DUE TO DIALYSIS Irbesartan (Irbesartan) 300 Mg Tablet, 300 MG PO DAILY Loratadine (Loratadine) 10 Mg Tablet, 10 MG PO Q2D Metoprolol Tartrate (Lopressor) 50 Mg Tablet, 50 MG PO BID Minoxidil (Minoxidil) 2.5 Mg Tablet, 5 MG PO DAILY Patiromer Calcium Sorbitex (Veltassa) 8.4 Gm Powd.pack, 8.4 GM PO DAILY Sevelamer Carbonate (Renvela) 800 Mg Tab, 800 MG PO TID WITH MEALS Sucroferric Oxyhydroxide (Velphoro) 500 Mg Tab.chew, 500 MG PO TID Vit A/Vit C/Vit E/Zinc/Copper (Preservision Areds Softgel) 1 Each Capsule, 1 CAP PO DAILY Scheduled PRN Ondansetron (Ondansetron Odt) 4 Mg Tab.rapdis, 4 MG PO Q8H PRN for nausea/vomiting Oxycodone HCl/Acetaminophen (Oxycodone-Acetaminophen 5-325) 1 Each Tablet, 1 TAB PO Q4H PRN for PAIN Miscellaneous Medications Heparin Sodium,Porcine/Pf (Heparin 1,000 Unit/10 (100/ml)) 1,000 Unit/10 Ml Syr salo, 1,000 UNIT SQ Allergies Coded Allergies: codeine (Verified Adverse Reaction, Mild, SKIN CRAWLS, 07/03/19) A-FIB/CHADSVASC A-FIB History Current/History of A-Fib/PAF?: No Current PO Anticoag Therapy: No Age/Risk Factor Scoring CHADSVASC: CHADSVASC Response (Comments) Value Age Risk Factor Age 65-74 years old 1 Gender Risk Factor Male 0 Hx of CHF No 0 Hx of HTN Yes 1 Hx of Stroke/TIA/or VTE No 0 Hx of Diabetes Yes 1 Hx of Vascular Disease No 0 Total 3 Treatment Treatment ordered: NONE HARMONY ENCISO MD Sep 18, 2020 19:19
[2020-09-18 19:56] LABS: RSV AMPLIFICATION NEGATIVE (NEGATIVE)
--- NOTE | 2020-09-18 19:59 | REPVR ---
PROCEDURE INFORMATION: Exam: CT Chest Without Contrast; Diagnostic Exam date and time: 09/18/2020 7:35 PM Age: 70 years old Clinical indication: Chest pain; Additional info: ? Lll consolidation pneumoperitoneum? TECHNIQUE: Imaging protocol: Diagnostic computed tomography of the chest without contrast. 3D rendering (Not supervised by radiologist): MIP and/or 3D reconstructed images were created by the technologist. Radiation optimization: All CT scans at this facility use at least one of these dose optimization techniques: automated exposure control; mA and/or kV adjustment per patient size (includes targeted exams where dose is matched to clinical indication); or iterative reconstruction. COMPARISON: CT Chest without contrast 04/09/2019 10:00 AM FINDINGS: Lungs: Infiltrate left lung base may represent atelectasis although an infectious etiology to be excluded clinically. Pleural spaces: Pleural thickening and minimal pleural effusion right lower lobe. Small left pleural effusion. Heart: There is severe atherosclerotic calcification of the coronary arteries. Status post CABG. Aorta: There is fusiform dilatation of the ascending thoracic aorta which measures 3.7 cm. maximally. There is no dissection or saccular component. There is moderate atherosclerosis in the thoracic aorta. Lymph nodes: Unremarkable. No enlarged lymph nodes. Intraperitoneal space: Pneumoperitoneum. Please refer to accompanying CT abdomen pelvis report. Bones/joints: Status post sternotomy. The spine demonstrates moderate degenerative changes. Soft tissues: Bilateral gynecomastia. IMPRESSION: 1. Pleural thickening and minimal pleural effusion right lower lobe. Small left pleural effusion. 2. Infiltrate left lung base may represent atelectasis although an infectious etiology to be excluded clinically. 3. There is fusiform dilatation of the ascending thoracic aorta which measures 3.7 cm. maximally. There is no dissection or saccular component. 4. Status post CABG. 5. Bilateral gynecomastia. Electronically signed by: Donny Arita On 09/18/2020 19:59:30 PM
[2020-09-18] MEDS ORDERED: MIRALAX *UNIT DOSE* 17GM PACKET PO PRN (20:00)
[2020-09-18] MEDS ORDERED: NITROGLYCERIN 2% OINT 1 GM *U/D* PKT TOP SCH (20:00)
[2020-09-18] MEDS ORDERED: ONDANSETRON 4 MG ORAL DISINTEGRATING TAB PO PRN (20:00)
[2020-09-18] MEDS: NS 1,000 ML IV SCH (20:12)
[2020-09-18] MEDS: DOCUSATE SODIUM 100MG CAPSULE PO SCH (20:20)
[2020-09-18] MEDS: PERCOCET 5MG/325MG TAB PO PRN (20:21)
[2020-09-18] MEDS: LACTOBACILLUS ACIDOPHILUS CAP (BACID) PO SCH (20:21)
[2020-09-18] MEDS: METOPROLOL TART 50 MG TAB PO SCH (20:21)
[2020-09-18] MEDS ORDERED: SUCROFERRIC OXYHYDROXIDE 500MG CHEW TAB (VELPHORO) PO SCH (21:00)
[2020-09-18] MEDS ORDERED: cloNIDine 0.1MG TABLET PO ONE (21:40)
[2020-09-18] MEDS ORDERED: minoxidiL 2.5 MG TAB PO ONE (21:40)
[2020-09-18] MEDS: HEPARIN SOD (PORCINE) 5000UNITS/ML 1ML VIAL/SYRINGE SQ SCH (22:00)
[2020-09-18] MEDS ORDERED: VANCOMYCIN 1000MG/20ML VIAL IP ONE (22:00)
[2020-09-18] MEDS ORDERED: GENTAMICIN SULF 80MG/2ML VIAL IP ONE (22:00)
[2020-09-19] VITALS (7 sets, daily range): BP systolic 122–160; BP diastolic 60–90
[2020-09-19] MEDS ORDERED: minoxidiL 2.5 MG TAB PO ONE
[2020-09-19] MEDS ORDERED: METOPROLOL TART 50 MG TAB PO ONE
[2020-09-19] MEDS ORDERED: cloNIDine 0.1MG TABLET PO ONE
[2020-09-19] MEDS: NITROGLYCERIN 2% OINT 1 GM *U/D* PKT TOP SCH ×6 (00:34→21:33)
[2020-09-19] MEDS: MEROPENEM INJ 1 GM in IV 1 EA IV SCH ×2 (02:58→21:30)
[2020-09-19] MEDS: HEPARIN SOD (PORCINE) 5000UNITS/ML 1ML VIAL/SYRINGE SQ SCH ×3 (04:55→21:32)
[2020-09-19] MEDS: PERCOCET 5MG/325MG TAB PO PRN ×2 (05:03→22:39)
[2020-09-19] MEDS: NS 1,000 ML IV SCH ×2 (05:23→16:49)
[2020-09-19 05:41] LABS: BASO % 0.3 % (0.0-1.0); EOS # 0.1 10^3/uL (0.0-0.5); EOS % 0.8 % (0.0-3.0); HEMATOCRIT 27.3 % (42.0-52.0); HEMOGLOBIN 8.8 g/dl (13.5-17.5); LYMPH # 0.4 10^3/uL (1.5-5.0); MEAN CORPUSCULAR HEMOGLOBIN 28.7 pg (27.0-33.0); MEAN CORPUSCULAR HGB CONC 32.2 g/dl (32.0-36.5); MEAN CORPUSCULAR VOLUME 88.9 fl (80.0-96.0); MONO # 0.6 10^3/uL (0.0-0.8); MONO % 4.3 % (2.0-8.0); NEUTROPHILS # 13.1 10^3/uL (1.5-8.5); NEUTROPHILS % 90.2 % (36.0-66.0); PLATELET COUNT, AUTOMATED 302 10^3/uL (150-450); RED BLOOD COUNT 3.07 10^6/uL (4.30-6.10); WHITE BLOOD COUNT 14.5 10^3/uL (4.0-10.0)
[2020-09-19 06:15] LABS: CALCIUM LEVEL 8.8 MG/DL (8.8-10.2); CHOLESTEROL RISK RATIO 4.526 (<5); CREATININE FOR GFR 10.6 MG/DL (0.70-1.30); GLOMERULAR FILTRATION RATE 5.2 (>49); MAGNESIUM LEVEL 2.5 MG/DL (1.8-2.4); POTASSIUM SERUM 5.3 MEQ/L (3.5-5.1)
[2020-09-19] MEDS: HumaLOG INSULIN (NovoLOG) PER UNIT SC SCH ×4 (07:30→21:31)
[2020-09-19 08:45] LABS: PHOSPHORUS LEVEL 6.9 MG/DL (2.5-4.9)
[2020-09-19] MEDS: METOPROLOL TART 50 MG TAB PO SCH ×2 (09:00→21:31)
[2020-09-19] MEDS: minoxidiL 2.5 MG TAB PO SCH (09:00)
[2020-09-19] MEDS: IRBESARTAN 150MG TAB PO SCH (09:00)
[2020-09-19] MEDS: LACTOBACILLUS ACIDOPHILUS CAP (BACID) PO SCH ×2 (09:07→17:40)
[2020-09-19] MEDS: SUCROFERRIC OXYHYDROXIDE 500MG CHEW TAB (VELPHORO) PO SCH ×3 (09:07→17:40)
[2020-09-19] MEDS: ASPIRIN 325 MG TAB PO SCH (09:07)
[2020-09-19] MEDS: LORATADINE 10 MG TAB PO SCH (09:07)
[2020-09-19] MEDS: OCUVITE 1 TAB PO SCH (09:07)
[2020-09-19] MEDS: PATIROMER SORBITEX CALCIUM 8.4 GM POWDER PACKET (VELTASSA) PO SCH (09:07)
[2020-09-19] MEDS: (RENVELA) SEVELAMER **CARBONate** 800 MG TAB PO SCH ×3 (09:07→17:40)
[2020-09-19] MEDS: CINACALCET 30 MG TAB (SENSIPAR) PO SCH (09:07)
[2020-09-19] MEDS: ATORVASTATIN 20 MG TAB PO SCH (09:07)
[2020-09-19] MEDS: DOCUSATE SODIUM 100MG CAPSULE PO SCH ×2 (09:08→21:31)
[2020-09-19] MEDS: FERROUS GLUCONATE 324 MG TAB PO SCH ×2 (09:08→21:31)
[2020-09-19 12:03] LABS: AMYLASE, BODY FLUID 3 U/L (NOT ESTABLISHED); SOURCE, BODY FLUID AMYLASE PERITONEAL; SOURCE, BODY FLUID LIPASE PERITONEAL
[2020-09-19] MEDS ORDERED: PIPERACILLIN/TAZOBACTAM SOD 2.25 GM in D5W MINI-BAG PLUS 50 ML IV SCH (12:35)
--- NOTE | 2020-09-19 13:19 | CR.PDOC ---
General Date of Consultation: Sep 19, [address] Mccarthy. HISTORY OF PRESENT ILLNESS: The patient is a 70-year-old male with history of CAD, CABG 5 recently discharged from [facility] 09/16/20. Patient reported to emergency department on the day of admission with some diffuse abdominal discomfort achy in nature. Denies nausea, vomiting, fevers, chills or diarrhea. He had been noticing some constipation and had been taking a stool softener and MiraLAX. He had also noticed when he did a peritoneal dialysis exchange that the peritoneal fluid was very cloudy and yellowish. After evaluation in the emergency department the patient was admitted with acute peritonitis, imaging indicated pneumoperitoneum and Gen. surgery was consulted for opinion. This morning, nursing states that with his last exchange it still appeared to be cloudy and dark yellow. ALLERGIES: Please see below. HOME MEDICATIONS: Please see below. PAST MEDICAL HISTORY: End-stage renal disease on peritoneal dialysis, type 2 diabetes, gastroesophageal reflux disease, hypertension, hyperlipidemia, obstructive sleep apnea on chronic CPAP, bilateral simple renal cysts measuring up to 5.8 cm in the right kidney. Bilateral renal parenchymal atrophy. BPH colonic diverticulosis. spinal stenosis L2-L3, severe central spinal stenosis L3-L4 and L4-L5. Bulging annulus L5-S1. umbilical hernia. PAST SURGICAL HISTORY: Hernia repair, appendectomy, peritoneal dialysis catheter CABG x 5 FAMILY HISTORY: Mother in her 70. Breast cancer SOCIAL HISTORY: former smoker REVIEW OF SYSTEMS: As noted in HPI otherwise 10 point review systems unremarkable. PHYSICAL EXAMINATION: VITAL SIGNS: Please see below. GENERAL APPEARANCE: Sitting in chair, very tired and dozing off during exam. HEENT: MMM. RESPIRATORY: Clear to auscultation. CARDIOVASCULAR: RRR ABDOMEN: Mildly distended but soft, peritoneal dialysis catheter in place with dressing. No guarding, rebound, grimacing. EXTREMITIES: No edema LABORATORY DATA: Please see below. ASSESSMENT/PLAN: Pneumoperitoneum. Antibiotics and Management of peritonitis as per nephrology. The patient is reviewed and examined as per Dr. Mccarthy. Pneumoperitonitis is possibly related to his recent surgery and peritoneal dialysis catheter. The patient has not had any bilious drainage noted with PD catheter exchanges. Will add amylase and lipase to peritoneal fluid with next exchange. No surgical prevention recommended at this time, continue to monitor. Vital Signs/I&O Vital Signs Date Time Temp Pulse Resp B/P (MAP) Pulse Ox O2 Delivery O2 Flow Rate FiO2 09/19/20 12:20 139/60 09/19/20 08:00 98.1 69 18 92 Room Air I&O- Last 24 Hours up to 6 AM 09/19/20 06:00 Intake Total 3800 ml Output Total 1305 ml Balance 2495 ml Laboratory Data Labs 24H Laboratory Tests 2 09/18/20 17:22: Body Fluid Specific [place] 1.014, Body Fluid WBC (Auto) 23720B, Body Fluid RBC (Auto) 10, Body Fluid Mononuclear Cells % Auto 8.0H, Fluid Polymorphonuclear Cell % Auto 92.0H, Body Fluid Glucose Source PERITONEAL, Body Fluid Glucose 1452, Body Fluid Protein Source PERITONEAL, Body Fluid Total Protein 0.7, Body Fluid Albumin Source PERITONEAL, Body Fluid Albumin 0.3, Peritoneal Fluid Source PERITONEAL, Peritoneal Fluid Color WHITE, Peritoneal Fluid Appearance TURBID 09/18/20 17:36: Immature Granulocyte % (Auto) 1.0, Neutrophils (%) (Auto) 91.1H, Lymphocytes (%) (Auto) 2.2L, Monocytes (%) (Auto) 5.0, Eosinophils (%) (Auto) 0.5, Basophils (%) (Auto) 0.2, Neutrophils # (Auto) 14.0H, Lymphocytes # (Auto) 0.3L, Monocytes # (Auto) 0.8, Eosinophils # (Auto) 0.1, Basophils # (Auto) 0.0, Nucleated Red Blood Cells % (auto) 0.0, Prothrombin Time 16.2H, Prothromb Time International Ratio 1.27, Activated Partial Thromboplast Time 46.5H, Anion Gap 11, Glomerular Filtration Rate 5.2L, Calcium Level 8.7L, Total Bilirubin 0.3, Direct Bilirubin 0.1, Aspartate Amino Transf (AST/SGOT) 19, Alanine Aminotransferase (ALT/SGPT) 6L, Alkaline Phosphatase 90, Total Creatine Kinase 53, Creatine Kinase MB 1.0, Creatine Kinase MB Relative Index 1.89, Troponin I 0.04, Total Protein 5.3L, Albumin 2.1L, Albumin/Globulin Ratio 0.7, Lipase 41L, Thyroid Stimulating Hormone (TSH) 2.980, Free Thyroxine 1.12 09/18/20 19:08: Coronavirus (COVID-19)(PCR) NEGATIVE, Influenza Type A (RT-PCR) NEGATIVE, Influenza Type B (RT-PCR) NEGATIVE, Respiratory Syncytial Virus (PCR) NEGATIVE 09/19/20 01:18: Bedside Glucose (Misc Panel) 80 09/19/20 05:19: Immature Granulocyte % (Auto) 1.4, Neutrophils (%) (Auto) 90.2H, Lymphocytes (%) (Auto) 3.0L, Monocytes (%) (Auto) 4.3, Eosinophils (%) (Auto) 0.8, Basophils (%) (Auto) 0.3, Neutrophils # (Auto) 13.1H, Lymphocytes # (Auto) 0.4L, Monocytes # (Auto) 0.6, Eosinophils # (Auto) 0.1, Basophils # (Auto) 0.0, Nucleated Red Blood Cells % (auto) 0.0, Anion Gap 9, Glomerular Filtration Rate 5.2L, Estimated Mean Plasma Glucose 154H, Hemoglobin A1c 7.0, Calcium Level 8.8, Phosphorus Level 6.9H, Magnesium Level 2.5H, Triglycerides Level 163H, Total Cholesterol 86, LDL Cholesterol 34, Non-HDL Cholesterol (LDL + VLDL) 67, Total HDL Cholesterol 19L, Cholesterol/HDL Ratio 4.526 09/19/20 05:30: Methicillin-Resist S.aureus DNA PCR NOT DETECTED 09/19/20 11:03: Body Fluid Amylase Source PERITONEAL, Body Fluid Amylase 3, Body Fluid Lipase Source PERITONEAL, Body Fluid Lipase < 10 09/19/20 11:33: Bedside Glucose (Misc Panel) 213H CBC/BMP Laboratory Tests 09/18/20 17:36 09/19/20 05:19 Microbiology Microbiology 09/19/20 Gram Stain - Final, Complete 09/19/20 Sputum Culture - Final, Complete 09/18/20 Blood Culture, Received Pending 09/18/20 Blood Culture, Received Pending 09/18/20 Gram Stain - Final, Resulted 09/18/20 Body Fluid Culture, Resulted Pending Allergies Coded Allergies: codeine (Verified Adverse Reaction, Mild, SKIN CRAWLS, 07/03/19) Home Medications Scheduled Amlodipine Besylate (Amlodipine Besylate) 10 Mg Tablet, 10 MG PO DAILY, (Reported) Aspirin (Aspirin EC) 81 Mg Tablet.dr, 81 MG PO DAILY, (Reported) Atorvastatin Calcium (Atorvastatin Calcium) 80 Mg Tablet, 80 MG PO DAILY, (Reported) Cinacalcet (Sensipar) 30 Mg Tablet, 30 MG PO DAILY, (Reported) Docusate Sodium (Dok) 100 Mg Capsule, 100 MG PO BID, (Reported) Ergocalciferol (Vitamin D2) (Vitamin D2) 50,000 Units Cap, 50,000 UNITS PO Q2WK, (Reported) TAKES ON FRIDAYS Ferrous Gluconate (Ferrous Gluconate) 324 Mg Tablet, 324 MG PO BID, (Reported) Glimepiride (Glimepiride) 4 Mg Tablet, 4 MG PO BID, (Reported) Insulin Glargine,Hum.rec.anlog (Lantus Solostar) 100 Unit/Ml Inj, 18 UNITS SC QHS, (Reported) IF NEEDED DUE TO DIALYSIS Irbesartan (Irbesartan) 300 Mg Tablet, 300 MG PO DAILY, (Reported) Isosorbide Mononitrate (Isosorbide Mononitrate ER) 30 Mg Tab.er.24h, 60 MG PO BID, (Reported) L.acidoph/L.bulg/B.bif/S.therm (Ave-Bid Caplet) 1 Each Tablet, 1 TAB PO BIDWM, (Reported) Levofloxacin (Levofloxacin) 500 Mg Tablet, 500 MG PO Q2D, (Reported) Linezolid (Linezolid) 600 Mg Tablet, 600 MG PO BID, (Reported) Loratadine (Loratadine) 10 Mg Tablet, 10 MG PO Q2D, (Reported) Metoprolol Tartrate (Lopressor) 50 Mg Tablet, 50 MG PO BID, (Reported) Metronidazole (Metronidazole) 500 Mg Tablet, 500 MG PO TID, (Reported) Minoxidil (Minoxidil) 2.5 Mg Tablet, 5 MG PO DAILY, (Reported) Pantoprazole Sodium (Pantoprazole Sodium) 40 Mg Tablet.dr, 40 MG PO DAILY, (Reported) Patiromer Calcium Sorbitex (Veltassa) 8.4 Gm Powd.pack, 8.4 GM PO DAILY, (Reported) Sevelamer Carbonate (Renvela) 800 Mg Tab, 800 MG PO TID, (Reported) WITH MEALS Sucralfate (Sucralfate) 1 Gm Tablet, 1 GM PO ACHS, (Reported) Vit A/Vit C/Vit E/Zinc/Copper (Preservision Areds Softgel) 1 Each Capsule, 1 CAP PO DAILY, (Reported) Scheduled PRN Oxycodone HCl/Acetaminophen (Oxycodone-Acetaminophen 5-325) 1 Each Tablet, 1 TAB PO Q4H PRN for PAIN, (Reported) Polyethylene Glycol 3350 (Polyethylene Glycol 3350) 17 Gm Powd.pack, 17 GM PO BID PRN for CONSTIPATION, (Reported) Sennosides/Docusate Sodium (Senna Plus Tablet) 1 Each Tablet, 2 TAB PO BID PRN for CONSTIPATION, (Reported) Attending Note Attending Note Patient seen and examined independently and with my physician neurology physician assistant. He was admitted overnight for peritoneal dialysis infection. Notably he just had an emergent CABG for a myocardial infarction and he has been sent home from [facility]. He also tells me that prior to having the CABG done, while he was admitted he was noted to have peritoneal dialysis infection which was treated with both IV antibiotics and peritoneal dialysis antibiotics and eventually cleared this off. I corroborated this with his daughter who is his healthcare proxy. At home he was noted to be sleepy. It was so that he forgot to drain his peritoneal dialysis for a day and when he drained this he noted this to be purulent. He is denying any abdominal pain or discomfort, nausea or vomiting. No fevers or chills being reported. On examination a separate from the fact that he falls asleep on mid sentence, he looks comfortable. He wakes up he is slightly disoriented to time but seems to be aware of his overall general condition and what has happened the past 2 or so weeks. He does not seem to be in any kind of distress. Lung sounds are relatively clear but slight shallow breathing Regular heart rate and rhythm Abdomen is round, very protuberant and distended and tympanitic to percussion. He has a PD catheter in place. No skin erythema. No incisional herniations or umbilical or groin herniations. He is nontender on palpation throughout the abdomen. Impression and plan Peritoneal dialysis infection I was asked to evaluate the patient to the fact that he had lots of pneumoperitoneum on CT on the patient with a PD catheter likewise was noted to have purulent drainage from his PT catheter. He is not exhibiting signs of severe inflammatory response syndrome nor any signs of peritonitis on my examination. There doesn't seem to be any clear focus of any abscess or inflamed bowel inside. His daughter is denying any prior history of ulcers no prior history of diverticulitis. At this point I would send some fluid sample for amylase and lipase. We can use the PD catheter as a window inside of the abdomen. No grossly bilious drainage like to proceed nor any drainage of stool- like material. If the PD fluid is negative for significant amylase or lipase probably don't have any full in the stomach or on the upper abdomen. It'll be hard to tell any holes from the colon that I would think he'll be symptomatic if he does have a perforation at the distal small bowel or the colon or the drains will eventually show some bilious material or stool-like material. I will watch him closely for now. Safia Dumont Sep 19, 2020 13:10 ANIL MCCARTHY MD Oct 10, 2020 00:39
[2020-09-19] MEDS: BISACODYL 5 MG TAB PO PRN (13:39)
[2020-09-19] MEDS: SENOKOT S TAB PO PRN (13:39)
--- NOTE | 2020-09-19 13:52 | CR ---
NEPHROLOGY CONSULTATION DATE: 09/19/2020 REQUESTING PHYSICIAN: Dr. Brielle Escalante REASON FOR CONSULTATION: Acute peritonitis in this gentleman with end-stage renal disease on peritoneal dialysis. HISTORY OF PRESENT ILLNESS: Mr. Dooley is a 70-year-old gentleman with a known history of coronary artery disease, recent CABG for 5 vessels, history of end-stage renal disease, hypertension, and diabetes. He was admitted to [facility] where he had his coronary artery bypass surgery. He continued with peritoneal dialysis during his hospital stay and was treated for a peritonitis while in the hospital. According to the Discharge Summary, his peritonitis had cleared prior to discharge. He was discharged on Saturday without our knowledge. The patient came home and he did not perform dialysis on Saturday or Saturday. On Saturday when he tried to do dialysis he drained his fluid which was very cloudy due to which he called the dialysis nurse customer service sales consultant. He was advised to come to the Emergency Room, which he did. In the Emergency Room his chest x-ray and CAT scan of abdomen and pelvis was done which did show free air in the peritoneal cavity. It was felt that this was related to his peritoneal dialysis and the director medical surgical did not feel that the patient had a perforated viscus. His peritoneal fluid showed almost 94,000 white blood cells and he had generalized abdominal pain. He was admitted last evening and treated with one dose of intraperitoneal Vancomycin, 2 grams and Gentamicin 80 mg. I have seen the patient this morning. PAST MEDICAL HISTORY: The patient's past medical history is significant for: 1. Longstanding type 2 diabetes. 2. Hypertension. 3. End-stage renal disease - currently on peritoneal dialysis. 4. History of hyperlipidemia. 5. Obstructive sleep apnea. 6. History of coronary artery disease, status post 5 vessel CABG recently. 7. History of benign prostatic hypertrophy. 8. History of spinal stenosis. 9. History of anemia. 10. Gastroesophageal reflux disease. 11. Secondary hyperparathyroidism. SURGICAL HISTORY: The patient's past surgical history is significant for: 1. Hernia repair. 2. Appendectomy. 3. Peritoneal dialysis catheter placement. 4. Now a recent CABG. FAMILY HISTORY: The patient's family history is unremarkable for this admission. PERSONAL AND SOCIAL HISTORY: The patient is . He is a reformed smoker. His alcohol intake is only social and denies any recreational drug use. HOME MEDICATIONS: 1. Aspirin 325 mg daily. 2. Atorvastatin 80 mg daily. 3. Sensipar 30 mg daily. 4. Colace 100 mg twice daily. 5. Vitamin D 50,000 units every 2 weeks. 6. Ferrous Gluconate 324 mg twice daily. 7. Glimepiride 4 mg twice daily. 8. Lantus insulin 18 units daily. 9. Irbesartan 300 mg daily. 10. Metoprolol 50 mg twice daily. 11. Minoxidil 5 mg daily. 12. Veltassa 8.4 grams daily. 13. Renvela 800 mg three times daily with meals. 14. Velphoro 500 mg three times daily. 15. Multivitamin one tablet daily. ALLERGIES: The patient has an allergy to Codeine. REVIEW OF SYSTEMS: The patient is sleepy but arousable. He falls asleep even during the conversation. He denies any fevers or chills. Ears, nose and throat are unremarkable. Cardiovascular system is significant for recent CABG. He has a known history of difficult to control hypertension. Respiratory system is significant for obstructive sleep apnea. GI system is significant for gastroesophageal reflux disease. He reports generalized abdominal pain and poor oral intake. Genitourinary system is significant for benign prostatic hypertrophy. Endocrine system is significant for secondary hyperparathyroidism in addition to diabetes. Musculoskeletal system is significant for chronic spinal stenosis and arthritis. Hematological system is significant for anemia of chronic kidney disease. Neurological system is negative for seizures or stroke. Psychosocial system is significant for some mild depression since his . PHYSICAL EXAMINATION: VITAL SIGNS: Temperature is 98 degrees Fahrenheit, heart rate is 70 per minute and respiratory rate 18 per minute, blood pressure 139/60 mm of mercury and oxygen saturation is 92% on room air. HEENT: His head is atraumatic. NECK: Supple and JVD is not abnormally elevated. Sternotomy incision is clean and the lower part is covered with a dressing. HEART: Regular. LUNGS: Clear to auscultation. ABDOMEN: Soft with generalized tenderness and bowel sounds are hypoactive. Peritoneal dialysis catheter is intact. EXTREMITIES: Without any cyanosis or clubbing. Lower extremity edema is 1+. NEUROLOGICAL: He is arousable but very sleepy. There are no focal neurological deficits. LABORATORY STUDIES: His peritoneal dialysis fluid last evening showed a white blood cell count of 93,580 with 92% neutrophils. Culture is still pending. His chemistries last evening showed sodium of 122, potassium 5.4, chloride 82, CO2 29, BUN 73 and creatinine 10.5. Glucose 146 and calcium 8.7. This morning sodium is 123 and potassium 5.3. The rest of his chemistries are essentially unchanged. PROBLEMS: 1. End-stage renal disease - The patient has been on peritoneal dialysis as an outpatient and will continue with the same for now. Five exchanges per day with 2 liters fluid will be done. 2. Peritonitis The patient seems to have severe peritonitis with very cloudy fluid and very high number of white blood cells. He was given Vancomycin and Gentamicin intraperitoneally last night and will continue with daily dose of Gentamicin 40 mg pending final culture results. I am also going to add intravenous Zosyn 2.25 grams every 8 hours pending cultures. 3. Hyponatremia probably he got discharged from the hospital with hyponatremia. He is slightly volume overloaded and we are going to change his peritoneal dialysis fluid to 2.5%. He is being treated with IV normal saline due to decreased oral intake. 4. Hyperkalemia mild hyperkalemia is likely to improve as dialysis has been resumed. He did not do any dialysis on Saturday or Saturday and even Saturday all day. 5. Hyperphosphatemia we will continue with phosphate binder and phosphorous is like to improve over the next few days with dialysis. 6. Anemia his anemia is related to recent coronary artery surgery and hospitalization. We will check his iron studies and consider giving him intravenous iron and also start with Aranesp. 7. Hypertension - The patient has difficult to control hypertension as an outpatient, however his blood pressure is somewhat low now. We will monitor closely and adjust his medications as needed. Thank you for involving me in the care of Mr. Dooley. I will follow him along with you.
--- NOTE | 2020-09-19 15:09 | IPNPDOC ---
Text Note Date of Service The patient was seen on 09/19/20. NOTE Subjective: Pt continues to have abdominal discomfort associated with nausea. No fever or chills Objective: GENERAL APPEARANCE: NAD HEENT: no scleral icterus, no JVD, EOMI CARDIOVASCULAR: S1S2 LUNGS: Diminished lung sounds bilaterally ABDOMEN: soft & mildly tender w palpation MUSCULOSKELETAL: no cyanosis, +1 lower extremity pitting edema INTEGUMENT: no generalized pallor NEUROLOGICAL: cranial nerve function from 2-12 intact intact, follows commands, speech not dysarthric Assessment and plan: Patient is 70 years old male with past history of coronary artery diseases, r ecent CABG, end-stage renal diseases on peritoneal dialysis, hypertension, type 2 diabetes presented to the hospital with abdominal pain. Patient was found to have abdominal peritonitis. Peritoneal fluid showed significant leukocytosis up to 94,000 white blood cells. Treatment with broad-spectrum antibiotics started. Peritonitis Patient developed cloudy fluid with high number of leukocytes of 94,000 Nephrology team started vancomycin and gentamicin intraperitoneally Continue meropenem End-stage renal diseases Continue peritoneal dialysis, nephrology team on board Hyponatremia Management by nephrology team Changed peritoneal dialysis fluid to 2.5% Hyperkalemia Most likely secondary to missed peritoneal dialysis Managed by peritoneal dialysis Hyperphosphatemia Continue with phosphate binder and phosphorous Pneumoperitoneum Most likely secondary to peritoneal dialysis Surgical service on consult. No indication for surgery Left lower lobe consolidation/ HCAP Patient denied cough, sputum production CT showed Pleural thickening and minimal pleural effusion right lower lobe. Small left pleural effusion. Infiltrate left lung base may represent atelectasis although an infectious etiology to be excluded clinically Meropenem empirically started Incentive spirometry CAD, CABG 5 vessels Discharge from [facility] on Saturday Continue cardioprotective medications Hypertensive urgency Resolved Type 2 diabetes Diabetes diet Insulin sliding scale Detemir 18 units daily at bedtime Glucose level under control GERD Continue PPI Obstructive sleep apnea on chronic CPAP Resume CPAP at home settings Anemia of chronic disease Secondary to end-stage renal diseases No acute indication for RBC transfusion Hyperlipidemia Continue statin mild splenomegaly with a maximum span of 13 centimeters. Chronic bilateral simple renal cysts measuring up to 5.8 cm in the right kidney. No intervention Moderate prostatic hyperplasia. No acute symptoms of difficulty starting or maintaining urinary stream constipation. As needed bowel regimen colonic diverticulosis Chronic asymptomatic Moderate central spinal stenosis L2-L3, severe central spinal stenosis L3-L4 and L4-L5. Bulging annulus L5-S1. Avoid nonsteroidal anti-inflammatories No neurologic deficits umbilical hernia. Reducible CT abdomen and pelvis shows no incarceration Asymptomatic VS,Fishbone, I+O VS, Fishbone, I+O Laboratory Tests 09/18/20 17:36 09/19/20 05:19 Vital Signs Date Time Temp Pulse Resp B/P (MAP) Pulse Ox O2 Delivery O2 Flow Rate FiO2 09/19/20 12:20 139/60 09/19/20 12:00 98.2 77 21 91 Room Air I&O- Last 24 Hours up to 6 AM 09/19/20 06:00 Intake Total 3800 ml Output Total 1305 ml Balance 2495 ml HALEIGH ORNELAS DO Sep 19, 2020 15:09
--- NOTE | 2020-09-19 15:54 | ECGEPIP ---
[facility] - ED Test Date: 2020-09-18 Pat Name: KRISTIN MCCOY Department: Room: [place] [address] Gender: Male Affiliate Marketing Coordinator: ED : 1950 Requested By: JALEN Buckner Order Number: [id number] Reading MD: Dario Trevino Measurements Intervals [place] Rate: 79 P: 41 CA: 164 QRS: -23 QRSD: 96 T: 61 QT: 358 QTc: 410 Interpretive Statements Normal sinus rhythm INCOMPLETE RIGHT BUNDLE BRANCH BLOCK SIMILAR TO 08/25/20 Electronically Signed on 09-19-2020 15:54:37 EST by Dario Trevino
[2020-09-19] MEDS: LEVEMIR (INSULIN DETEMIR) 1 UNITS/0.01ML SC SCH (21:32)
[2020-09-19] MEDS ORDERED: GENTAMICIN SULF 80MG/2ML VIAL IP ONE (22:00)
[2020-09-20] VITALS (7 sets, daily range): BP systolic 121–164; BP diastolic 56–77
[2020-09-20] MEDS: NS 1,000 ML IV SCH (03:04)
[2020-09-20 05:02] LABS: BASO % 0.2 % (0.0-1.0); EOS # 0.2 10^3/uL (0.0-0.5); HEMATOCRIT 26.9 % (42.0-52.0); HEMOGLOBIN 8.8 g/dl (13.5-17.5); LYMPH # 0.4 10^3/uL (1.5-5.0); LYMPH % 3.9 % (24.0-44.0); MEAN CORPUSCULAR HEMOGLOBIN 29.4 pg (27.0-33.0); MEAN CORPUSCULAR HGB CONC 32.7 g/dl (32.0-36.5); MONO # 0.7 10^3/uL (0.0-0.8); MONO % 6.8 % (2.0-8.0); NEUTROPHILS # 8.8 10^3/uL (1.5-8.5); NEUTROPHILS % 85.8 % (36.0-66.0); PLATELET COUNT, AUTOMATED 301 10^3/uL (150-450); RED BLOOD COUNT 2.99 10^6/uL (4.30-6.10); WHITE BLOOD COUNT 10.2 10^3/uL (4.0-10.0)
[2020-09-20 05:38] LABS: CALCIUM LEVEL 8.8 MG/DL (8.8-10.2); CREATININE FOR GFR 9.71 MG/DL (0.70-1.30); GLOMERULAR FILTRATION RATE 5.7 (>49); MAGNESIUM LEVEL 2.3 MG/DL (1.8-2.4); POTASSIUM SERUM 4.5 MEQ/L (3.5-5.1)
[2020-09-20] MEDS: NITROGLYCERIN 2% OINT 1 GM *U/D* PKT TOP SCH ×6 (06:03→21:25)
[2020-09-20] MEDS: PERCOCET 5MG/325MG TAB PO PRN ×2 (06:03→21:26)
[2020-09-20] MEDS: HEPARIN SOD (PORCINE) 5000UNITS/ML 1ML VIAL/SYRINGE SQ SCH ×3 (06:03→21:24)
[2020-09-20 07:41] LABS: SOURCE, BODY FLUID PERITONEAL DIALYSATE
[2020-09-20 07:42] LABS: APPEARANCE, BODY FLUID CLOUDY (CLEAR)
--- NOTE | 2020-09-20 08:56 | IPNPDOC ---
Text Note Date of Service The patient was seen on 09/20/20. NOTE General Surgery Dr Mccarthy. The patient is a 70-year-old male with history of CAD, CABG 5 recently discharged from [facility] 09/16/20, admitted to [facility] 09/18/20 with acute per itonitis, imaging indicated pneumoperitoneum and Gen. surgery was consulted for opinion. This morning the patient states his abdominal pain has improved. He states with his last exchange it appeared less cloudy. He does not report nausea or vomiting. Denies diarrhea. Reports flatus, has not had a bowel movement yet during admission. VITAL SIGNS: GENERAL APPEARANCE: Sitting in chair, no acute distress. Appears more awake today. HEENT: MMM. RESPIRATORY: Clear to auscultation. CARDIOVASCULAR: RRR ABDOMEN: Still mildly distended but soft, peritoneal dialysis catheter in place with dressing. No guarding, rebound, grimacing. EXTREMITIES: No edema 09/19/20 Peritoneal fluid amylase 3 and lipase less than 10. ASSESSMENT/PLAN: Pneumoperitoneum. Antibiotics and Management of peritonitis as per nephrology. The patient is reviewed and examined as per Dr. Mccarthy this morning. Pneumoperitonitis is possibly related to his recent surgery and peritoneal dialysis catheter. The patient has not had any bilious drainage noted with PD catheter exchanges. Amylase peritoneal fluid was 3 and lipase less than 10. No surgical prevention recommended at this time. General Surgery will sign off for now, reconsult if needed. VS,Fishbone, I+O VS, Fishbone, I+O Laboratory Tests 09/20/20 04:52 Vital Signs Date Time Temp Pulse Resp B/P (MAP) Pulse Ox O2 Delivery O2 Flow Rate FiO2 09/20/20 08:13 124/70 (88) 09/20/20 06:33 18 09/20/20 04:00 97.7 80 93 Room Air I&O- Last 24 Hours up to 6 AM 09/20/20 05:59 Intake Total 81875 ml Output Total 9400 ml Balance 1880 ml Safia Dumont Sep 20, 2020 08:56 ANIL MCCARTHY MD Oct 10, 2020 00:40
[2020-09-20] MEDS: DOCUSATE SODIUM 100MG CAPSULE PO SCH ×2 (09:18→21:25)
[2020-09-20] MEDS: LACTOBACILLUS ACIDOPHILUS CAP (BACID) PO SCH ×2 (09:18→17:34)
[2020-09-20] MEDS: ATORVASTATIN 20 MG TAB PO SCH (09:18)
[2020-09-20] MEDS: METOPROLOL TART 50 MG TAB PO SCH ×2 (09:19→21:25)
[2020-09-20] MEDS: CINACALCET 30 MG TAB (SENSIPAR) PO SCH (09:20)
[2020-09-20] MEDS: ASPIRIN 325 MG TAB PO SCH (09:20)
[2020-09-20] MEDS: (RENVELA) SEVELAMER **CARBONate** 800 MG TAB PO SCH ×3 (09:20→17:33)
[2020-09-20] MEDS: minoxidiL 2.5 MG TAB PO SCH (09:20)
[2020-09-20] MEDS: FERROUS GLUCONATE 324 MG TAB PO SCH ×2 (09:20→21:25)
[2020-09-20] MEDS: IRBESARTAN 150MG TAB PO SCH (09:21)
[2020-09-20] MEDS: SUCROFERRIC OXYHYDROXIDE 500MG CHEW TAB (VELPHORO) PO SCH ×3 (09:21→17:33)
[2020-09-20] MEDS: OCUVITE 1 TAB PO SCH (09:21)
[2020-09-20] MEDS: HumaLOG INSULIN (NovoLOG) PER UNIT SC SCH ×4 (09:22→20:10)
[2020-09-20] MEDS: PATIROMER SORBITEX CALCIUM 8.4 GM POWDER PACKET (VELTASSA) PO SCH (09:22)
[2020-09-20] MEDS ORDERED: HEPARIN SOD (PORCINE) 5000UNITS/ML 1ML VIAL/SYRINGE IP ONE (14:00)
--- NOTE | 2020-09-20 15:57 | IPNPDOC ---
Text Note Date of Service The patient was seen on 09/20/20. NOTE Subjective: No any acute events overnight. Patient stated that he feels better today, less abdominal pain, less cloudy peritoneal fluid. No fever. Objective: GENERAL APPEARANCE: NAD HEENT: no scleral icterus, no JVD, EOMI CARDIOVASCULAR: S1S2 LUNGS: Diminished lung sounds bilaterally ABDOMEN: soft & mildly tender w palpation MUSCULOSKELETAL: no cyanosis, +1 lower extremity pitting edema INTEGUMENT: no generalized pallor NEUROLOGICAL: cranial nerve function from 2-12 intact intact, follows commands, speech not dysarthric Assessment and plan: Patient is 70 years old male with past history of coronary artery diseases, recent CABG, end-stage renal diseases on peritoneal dialysis, hypertension, type 2 diabetes presented to the hospital with abdominal pain. Patient was found to have abdominal peritonitis. Peritoneal fluid showed significant leukocytosis up to 94,000 white blood cells. Treatment with broad-spectrum antibiotics started. Peritonitis Patient developed cloudy fluid with high number of leukocytes of 94,000 on admission Nephrology team started vancomycin and gentamicin intraperitoneally Peritoneal fluid positive for Klebsiella pneumonia Continue meropenem, gentamicin Dc vanco End-stage renal diseases Continue peritoneal dialysis, nephrology team on board Hyponatremia Management by nephrology team Slightly improved today, sodium level 125 Changed peritoneal dialysis fluid to 2.5% Hyperkalemia Most likely secondary to missed peritoneal dialysis Resolved Hyperphosphatemia Continue with phosphate binder and phosphorous Pneumoperitoneum Most likely secondary to peritoneal dialysis Surgical service on consult. No indication for surgery Left lower lobe consolidation/ HCAP Patient denied cough, sputum production CT showed Pleural thickening and minimal pleural effusion right lower lobe. Small left pleural effusion. Infiltrate left lung base may represent atelectasis although an infectious etiology to be excluded clinically Meropenem empirically started Incentive spirometry CAD, CABG 5 vessels Discharge from [facility] on Saturday Continue cardioprotective medications Hypertensive urgency Resolved Type 2 diabetes Diabetes diet Insulin sliding scale Detemir 18 units daily at bedtime Glucose level under control GERD Continue PPI Obstructive sleep apnea on chronic CPAP Resume CPAP at home settings Anemia of chronic disease Secondary to end-stage renal diseases No acute indication for RBC transfusion Hyperlipidemia Continue statin mild splenomegaly with a maximum span of 13 centimeters. Chronic bilateral simple renal cysts measuring up to 5.8 cm in the right kidney. No intervention Moderate prostatic hyperplasia. No acute symptoms of difficulty starting or maintaining urinary stream constipation. As needed bowel regimen colonic diverticulosis Chronic asymptomatic Moderate central spinal stenosis L2-L3, severe central spinal stenosis L3-L4 and L4-L5. Bulging annulus L5-S1. Avoid nonsteroidal anti-inflammatories No neurologic deficits umbilical hernia. Reducible CT abdomen and pelvis shows no incarceration Asymptomatic VS,Fishbone, I+O VS, Fishbone, I+O Laboratory Tests 09/20/20 04:52 Vital Signs Date Time Temp Pulse Resp B/P (MAP) Pulse Ox O2 Delivery O2 Flow Rate FiO2 09/20/20 12:00 98.5 67 19 125/67 (86) 90 Room Air I&O- Last 24 Hours up to 6 AM 09/20/20 06:00 Intake Total 34614 ml Output Total 28144 ml Balance 1930 ml HALEIGH ORNELAS DO Sep 20, 2020 15:57
[2020-09-20 17:24] LABS: PERCENT SATURATION 15.7 % (19.7-50.0)
[2020-09-20] MEDS: BISACODYL 5 MG TAB PO PRN (17:34)
[2020-09-20] MEDS: SENOKOT S TAB PO PRN (17:34)
--- NOTE | 2020-09-20 17:49 | IPN ---
PROGRESS NOTE DATE: 09/20/2020 SUBJECTIVE: Mr. Dooley is seen this morning on his bedside. He is feeling much better today and is sitting in the chair at the time of my visit. Nursing staff reports that peritoneal dialysis fluid is still cloudy, but much better compared to yesterday. He still has some fibrin. Patient is eating much better now and denies any vomiting or diarrhea. He has no dyspnea or chest pain. PHYSICAL EXAMINATION: VITALS: Temperature 97.8 degrees Fahrenheit, heart rate 82 per minute, respiratory rate 20 per minute, blood pressure 124/70 mmHg and oxygen saturation 90% on room air. HEENT: Head is atraumatic. Neck is supple and without JVD or thyroid enlargement. Oral mucosa is moist and healthy. LUNGS: Clear to auscultation. HEART: Sounds are regular. ABDOMEN: Distended with peritoneal dialysis fluid. Peritoneal dialysis catheter is intact and without any signs of infection. EXTREMITIES: Without any cyanosis or clubbing. Lower extremity edema is at least 1+ bilaterally. NEUROLOGIC: He is awake and much alert today compared to yesterday. He has no focal deficit. LABORATORY DATA: Today's labs show WBC 10.2, hemoglobin 8.8, hematocrit 26.9, platelets 301,000. Sodium is up to 125, potassium 4.5, chloride 86, CO2 32, BUN 68 and creatinine 9.71. Calcium level 8.8. Peritoneal fluid cell count is now down to 9,171 today with 96.8% neutrophils. PROBLEMS: 1. Peritonitis: Peritoneal fluid culture has also come back positive for Klebsiella and cell count is down to 9,177, which is significantly improved. We will continue with intravenous Meropenem and intraperitoneal gentamicin. I will not give him Vancomycin anymore. Cell count will be checked again tomorrow morning. 2. End-stage renal disease: Patient continues with peritoneal dialysis, which is functioning well so far. Five exchanges per day will be performed. 3. Hypertension: Blood pressure is well controlled on current antihypertensive medications and no changes are being made today. 4. Anemia: His anemia is multifactorial and stable. He just had open heart surgery a couple of weeks ago. We will check his iron studies and treat him accordingly with Aranesp or intravenous iron. 5. Hyponatremia: Nutritional and related to his peritonitis. Sodium level is gradually improving. His oral intake has improved and I am going to stop the I.V. fluid for now. 6. Hyperkalemia: His potassium level has corrected to normal range and no further intervention will be needed.
[2020-09-20] MEDS ORDERED: BISACODYL 10 MG SUPP PR ONE (21:00)
[2020-09-20] MEDS: LEVEMIR (INSULIN DETEMIR) 1 UNITS/0.01ML SC SCH (21:24)
[2020-09-20] MEDS: MEROPENEM INJ 1 GM in IV 1 EA IV SCH (21:24)
[2020-09-20] MEDS ORDERED: GENTAMICIN SULF 80MG/2ML VIAL IP ONE (22:00)
[2020-09-21] VITALS: BP 116/57
[2020-09-21 04:00] VITALS: BP 148/67
[2020-09-21] MEDS: NITROGLYCERIN 2% OINT 1 GM *U/D* PKT TOP SCH ×7 (04:48→23:28)
[2020-09-21] MEDS: HEPARIN SOD (PORCINE) 5000UNITS/ML 1ML VIAL/SYRINGE SQ SCH ×3 (04:48→20:57)
[2020-09-21] MEDS: PERCOCET 5MG/325MG TAB PO PRN ×3 (04:48→21:38)
[2020-09-21 05:45] LABS: BASO % 0.2 % (0.0-1.0); EOS # 0.5 10^3/uL (0.0-0.5); EOS % 4.5 % (0.0-3.0); HEMATOCRIT 26.5 % (42.0-52.0); HEMOGLOBIN 8.6 g/dl (13.5-17.5); LYMPH # 0.6 10^3/uL (1.5-5.0); LYMPH % 5.4 % (24.0-44.0); MEAN CORPUSCULAR HGB CONC 32.5 g/dl (32.0-36.5); MEAN CORPUSCULAR VOLUME 89.2 fl (80.0-96.0); MONO # 0.8 10^3/uL (0.0-0.8); MONO % 7.6 % (2.0-8.0); NEUTROPHILS # 8.3 10^3/uL (1.5-8.5); NEUTROPHILS % 80.8 % (36.0-66.0); PLATELET COUNT, AUTOMATED 335 10^3/uL (150-450); RED BLOOD COUNT 2.97 10^6/uL (4.30-6.10); WHITE BLOOD COUNT 10.3 10^3/uL (4.0-10.0)
[2020-09-21 05:58] LABS: CALCIUM LEVEL 8.7 MG/DL (8.8-10.2); CREATININE FOR GFR 9.04 MG/DL (0.70-1.30); GLOMERULAR FILTRATION RATE 6.2 (>49); MAGNESIUM LEVEL 2.2 MG/DL (1.8-2.4); POTASSIUM SERUM 4.5 MEQ/L (3.5-5.1)
[2020-09-21 06:56] LABS: APPEARANCE, BODY FLUID HAZY (CLEAR); SOURCE, BODY FLUID PERITONEAL DIALYSATE
[2020-09-21 08:00] VITALS: BP 137/66
[2020-09-21] MEDS: SUCROFERRIC OXYHYDROXIDE 500MG CHEW TAB (VELPHORO) PO SCH ×4 (08:00→18:00)
[2020-09-21] MEDS: HumaLOG INSULIN (NovoLOG) PER UNIT SC SCH ×4 (09:04→19:33)
[2020-09-21] MEDS: PATIROMER SORBITEX CALCIUM 8.4 GM POWDER PACKET (VELTASSA) PO SCH (09:04)
[2020-09-21] MEDS: OCUVITE 1 TAB PO SCH (09:05)
[2020-09-21] MEDS: ASPIRIN 325 MG TAB PO SCH (09:05)
[2020-09-21] MEDS: IRBESARTAN 150MG TAB PO SCH (09:05)
[2020-09-21] MEDS: CINACALCET 30 MG TAB (SENSIPAR) PO SCH (09:05)
[2020-09-21] MEDS: LORATADINE 10 MG TAB PO SCH (09:06)
[2020-09-21] MEDS: (RENVELA) SEVELAMER **CARBONate** 800 MG TAB PO SCH ×3 (09:06→18:00)
[2020-09-21] MEDS: FERROUS GLUCONATE 324 MG TAB PO SCH ×2 (09:06→20:55)
[2020-09-21] MEDS: DOCUSATE SODIUM 100MG CAPSULE PO SCH ×2 (09:06→20:57)
[2020-09-21] MEDS: ATORVASTATIN 20 MG TAB PO SCH (09:06)
[2020-09-21] MEDS: minoxidiL 2.5 MG TAB PO SCH (09:06)
[2020-09-21] MEDS: LACTOBACILLUS ACIDOPHILUS CAP (BACID) PO SCH ×2 (09:06→18:00)
[2020-09-21] MEDS: METOPROLOL TART 50 MG TAB PO SCH ×2 (09:07→20:56)
--- NOTE | 2020-09-21 11:48 | IPNPDOC ---
Text Note Date of Service The patient was seen on 09/21/20. NOTE Subjective: Patient stated that he feels better today, he is more alert, awake. He complains of some chest discomfort, squeezing feeling substernally, lasted for a few minutes Objective: GENERAL APPEARANCE: NAD HEENT: no scleral icterus, no JVD, EOMI CARDIOVASCULAR: S1S2 LUNGS: Diminished lung sounds bilaterally ABDOMEN: soft & mildly tender w palpation MUSCULOSKELETAL: no cyanosis, +1 lower extremity pitting edema INTEGUMENT: no generalized pallor NEUROLOGICAL: cranial nerve function from 2-12 intact intact, follows commands, speech not dysarthric Assessment and plan: Patient is 70 years old male with past history of coronary artery diseases, recent CABG, end-stage renal diseases on peritoneal dialysis, hypertension, type 2 diabetes presented to the hospital with abdominal pain. Patient was found to have abdominal peritonitis. Peritoneal fluid showed significant leukocytosis up to 94,000 white blood cells. Treatment with broad-spectrum antibiotics started. Peritonitis Patient developed cloudy fluid with high number of leukocytes of 94,000 on a dmission Nephrology team started vancomycin and gentamicin intraperitoneally Peritoneal fluid positive for Klebsiella pneumonia and Serratia Continue meropenem, gentamicin Dc vanco End-stage renal diseases Continue peritoneal dialysis, nephrology team on board Hyponatremia Management by nephrology team sodium level 123 Changed peritoneal dialysis fluid to 2.5% Hyperkalemia Most likely secondary to missed peritoneal dialysis Resolved Hyperphosphatemia Continue with phosphate binder and phosphorous Pneumoperitoneum Most likely secondary to peritoneal dialysis Surgical service on consult. No indication for surgery Left lower lobe consolidation/ HCAP Patient denied cough, sputum production CT showed Pleural thickening and minimal pleural effusion right lower lobe. Small left pleural effusion. Infiltrate left lung base may represent atelectasis although an infectious etiology to be excluded clinically Meropenem empirically started Incentive spirometry CAD, CABG 5 vessels Discharge from [facility] on Saturday Continue cardioprotective medications Today patient developed chest discomfort. We will check troponin and EKG. Continue telemetry Hypertensive urgency Resolved Type 2 diabetes Diabetes diet Insulin sliding scale Detemir 18 units daily at bedtime Glucose level under control GERD Continue PPI Obstructive sleep apnea on chronic CPAP Resume CPAP at home settings Anemia of chronic disease Secondary to end-stage renal diseases No acute indication for RBC transfusion Hyperlipidemia Continue statin mild splenomegaly with a maximum span of 13 centimeters. Chronic bilateral simple renal cysts measuring up to 5.8 cm in the right kidney. No intervention Moderate prostatic hyperplasia. No acute symptoms of difficulty starting or maintaining urinary stream constipation. As needed bowel regimen colonic diverticulosis Chronic asymptomatic Moderate central spinal stenosis L2-L3, severe central spinal stenosis L3-L4 and L4-L5. Bulging annulus L5-S1. Avoid nonsteroidal anti-inflammatories No neurologic deficits umbilical hernia. Reducible CT abdomen and pelvis shows no incarceration Asymptomatic VS,Fishbone, I+O VS, Fishbone, I+O Laboratory Tests 09/21/20 05:18 Vital Signs Date Time Temp Pulse Resp B/P (MAP) Pulse Ox O2 Delivery O2 Flow Rate FiO2 09/21/20 11:12 18 Room Air 09/21/20 09:07 77 09/21/20 09:05 137/66 09/21/20 08:00 97.6 93 I&O- Last 24 Hours up to 6 AM 09/21/20 06:00 Intake Total 09427 ml Output Total 27623 ml Balance 2760 ml HALEIGH ORNELAS Sep 21, 2020 11:48
--- NOTE | 2020-09-21 11:51 | ECGEPIP ---
[facility] Test Date: 2020-09-21 Pat Name: KRISTIN MCCOY Department: Room: [place] [address] Gender: Male [employer]: anju : [id number] Requested By: HALEIGH ORNELAS Order Number: [id number] Reading MD: Corinna Hinojosa Measurements Intervals [place] Rate: 71 P: 46 WA: 160 QRS: -14 QRSD: 98 T: 92 QT: 398 QTc: 432 Interpretive Statements Normal sinus rhythm IRBBB Left atrial enlargement Low voltage QRS NEW INLIMB LEADS // COPD PATTERN LEFT AXIS DEVIATION POSSIBLE NEW Q AVF C/W 09/18/20 Electronically Signed on 09-21-2020 11:51:11 EST by Corinna Hinojosa
[2020-09-21 16:00] VITALS: BP 137/69
[2020-09-21] MEDS ORDERED: SODIUM CHLORIDE 1 GM TAB PO ONE (16:55)
--- NOTE | 2020-09-21 17:29 | IPN ---
PROGRESS NOTE DATE: 09/21/2020 Mr. Dooley is seen this morning on his bedside. He is sitting in the chair at the time of my visit. His peritoneal dialysis is in progress. Peritoneal dialysis fluid looks much clearer, though still it is somewhat hazy. Patient denies any fever or chills. He has no vomiting or diarrhea but reports decreased appetite. PHYSICAL EXAMINATION: Temperature is 97.6 degrees Fahrenheit, heart rate 78 per minute, respiratory rate 18 per minute, blood pressure 137/66 mmHg, and oxygen saturation 93% on room air. Head is atraumatic. Neck supple, and jugular venous distention (JVD) or thyroid enlargement. Ears, nose, and throat are unremarkable. Heart exam reveals regular S1 and S2 and lungs clear to auscultation. Abdomen soft, distended with peritoneal dialysis fluid, and bowel sounds are present. Peritoneal dialysis catheter is intact. Extremities have no cyanosis or clubbing. Neurologically, he is awake and without a focal deficit. Today's labs show WBC count 10.3, hemoglobin 8.6, and hematocrit 26.5. Platelets 335. Sodium is 123, potassium 4.5, chloride 86, CO2 of 30, BUN 64, and creatinine 9.04. Glucose 137 and calcium 8.2. PROBLEMS: 1. Klebsiella peritonitis. His peritoneal fluid culture came back positive for klebsiella yesterday. He had been on intravenous meropenem and intraperitoneal gentamicin and will continue with the same. Today peritoneal fluid cell count has come down to 1786. 2. End-stage renal disease. Patient continues with peritoneal dialysis, five exchanges per day. He still seems reasonably well dialyzed. 3. Hyponatremia. His hyponatremia unfortunately is not improving. I am going to add oral sodium chloride tablets and will continue with current peritoneal dialysis prescription. 4. Anemia. His anemia is multifactorial, as patient recently had open heart surgery and probably had blood loss. He does have iron deficiency, and we will give him a dose of intravenous iron in next couple of days. 5. Hypertension. Blood pressure seems reasonably well controlled on current medications, and no changes are being made today.
[2020-09-21 20:00] VITALS: BP 142/76
[2020-09-21] MEDS: SODIUM CHLORIDE 1 GM TAB PO SCH (20:56)
[2020-09-21] MEDS: MEROPENEM INJ 1 GM in IV 1 EA IV SCH (20:57)
[2020-09-21] MEDS: LEVEMIR (INSULIN DETEMIR) 1 UNITS/0.01ML SC SCH (20:57)
[2020-09-21] MEDS ORDERED: GENTAMICIN SULF 80MG/2ML VIAL IP ONE (22:00)
[2020-09-22] VITALS (14 sets, daily range): BP systolic 113–172; BP diastolic 46–88
[2020-09-22] MEDS: NITROGLYCERIN 2% OINT 1 GM *U/D* PKT TOP SCH ×5 (03:42→21:26)
[2020-09-22] MEDS: HEPARIN SOD (PORCINE) 5000UNITS/ML 1ML VIAL/SYRINGE SQ SCH ×3 (05:01→21:26)
[2020-09-22 06:19] LABS: BASO % 0.3 % (0.0-1.0); EOS # 0.5 10^3/uL (0.0-0.5); HEMATOCRIT 31.7 % (42.0-52.0); LYMPH # 0.4 10^3/uL (1.5-5.0); LYMPH % 3.5 % (24.0-44.0); MEAN CORPUSCULAR HGB CONC 33.8 g/dl (32.0-36.5); MEAN CORPUSCULAR VOLUME 88.8 fl (80.0-96.0); MONO # 0.9 10^3/uL (0.0-0.8); MONO % 7.5 % (2.0-8.0); NEUTROPHILS # 10.3 10^3/uL (1.5-8.5); NEUTROPHILS % 83.1 % (36.0-66.0); PLATELET COUNT, AUTOMATED 403 10^3/uL (150-450); RED BLOOD COUNT 3.57 10^6/uL (4.30-6.10); WHITE BLOOD COUNT 12.4 10^3/uL (4.0-10.0)
[2020-09-22 06:25] LABS: HEMOGLOBIN 10.7 g/dl (13.5-17.5)
[2020-09-22 06:41] LABS: SOURCE, BODY FLUID PERITONEAL DIALYSATE
[2020-09-22 06:42] LABS: APPEARANCE, BODY FLUID CLOUDY (CLEAR); PERITONEAL DIALYSATE FL COLOR PALE YELLOW (COLORLESS)
[2020-09-22 06:47] LABS: CALCIUM LEVEL 8.7 MG/DL (8.8-10.2); CREATININE FOR GFR 8.77 MG/DL (0.70-1.30); GLOMERULAR FILTRATION RATE 6.5 (>49); MAGNESIUM LEVEL 2.2 MG/DL (1.8-2.4); POTASSIUM SERUM 4.2 MEQ/L (3.5-5.1)
[2020-09-22] MEDS: HumaLOG INSULIN (NovoLOG) PER UNIT SC SCH ×4 (07:18→21:00)
[2020-09-22] MEDS: SUCROFERRIC OXYHYDROXIDE 500MG CHEW TAB (VELPHORO) PO SCH ×4 (08:00→18:00)
[2020-09-22] MEDS ORDERED: ISOVUE-370 76% 100ML VIAL As Ordered ONE (08:33)
[2020-09-22] MEDS: PATIROMER SORBITEX CALCIUM 8.4 GM POWDER PACKET (VELTASSA) PO SCH (09:14)
[2020-09-22] MEDS: minoxidiL 2.5 MG TAB PO SCH (09:15)
[2020-09-22] MEDS: METOPROLOL TART 50 MG TAB PO SCH ×2 (09:15→21:25)
[2020-09-22] MEDS: ASPIRIN 325 MG TAB PO SCH (09:15)
[2020-09-22] MEDS: IRBESARTAN 150MG TAB PO SCH (09:16)
[2020-09-22] MEDS: ATORVASTATIN 20 MG TAB PO SCH (09:16)
[2020-09-22] MEDS: (RENVELA) SEVELAMER **CARBONate** 800 MG TAB PO SCH ×3 (09:16→18:00)
[2020-09-22] MEDS: CINACALCET 30 MG TAB (SENSIPAR) PO SCH (09:17)
[2020-09-22] MEDS: LACTOBACILLUS ACIDOPHILUS CAP (BACID) PO SCH ×2 (09:17→18:00)
[2020-09-22] MEDS: DOCUSATE SODIUM 100MG CAPSULE PO SCH ×2 (09:17→21:00)
[2020-09-22] MEDS: SODIUM CHLORIDE 1 GM TAB PO SCH ×3 (09:17→21:22)
[2020-09-22] MEDS: FERROUS GLUCONATE 324 MG TAB PO SCH ×2 (09:17→21:00)
[2020-09-22] MEDS: OCUVITE 1 TAB PO SCH (09:17)
[2020-09-22] MEDS ORDERED: ONDANSETRON 4MG/2ML VIAL IV SCH (10:00)
--- NOTE | 2020-09-22 10:14 | REP ---
INDICATION: Perforated viscus? peritonitis, ESRD on CAPD. COMPARISON: Comparison CT study September 18, 2020.. TECHNIQUE: Contrast dose: 100 ML of Isovue [address] technique: Helical scanning is acquired prior to and following intravenous contrast injection. 3 mm axial images re-formatted. Coronal and sagittal MPR images are provided. FINDINGS: Preliminary digital general matcher radiograph demonstrates moderate stool in the right colon and transverse colon segments. A peritoneal dialysis catheter is noted along with EKG monitoring electrodes. Prior median sternotomy. Cardiomegaly. Bilateral pleural effusions. On axial images, there are small bilateral pleural effusions confirmed, left a little larger than right. This is a new finding on the right and slightly increased on the left compared with the September 18, 2020 study. There is some compressive atelectasis in the left lower lobe which is unchanged. Lung bases are otherwise clear. The liver and spleen are normal in size homogeneous in texture. Normal adrenal glands are seen bilaterally. There are multiple bilateral renal cortical cysts. Diffuse renal cortical atrophy is seen. No hydronephrosis is noted. No abnormality is noted in the pancreas or gallbladder. The peritoneal dialysis catheter is unchanged in position coursing to the pelvic reflections. There is more ascites visible in the abdomen than was present on September 18, 2020. In addition, the amount of pneumoperitoneum has increased since the prior CT as well. The free air is predominantly accumulated along the anterior abdominal wall. There are bubbles of noncontained air within the greater omentum and in the left upper quadrant and epigastric and perigastric fat as well. No intrahepatic or portal venous gas is appreciated. There is left colonic diverticulosis. Formed stool is seen in the proximal colon with some distention of the cecum and transverse segments of the colon unchanged. There is more opaque formed stool in the distal colon. There is some mural thickening in a segment of descending colon. Adjacent to this, there is a new collection of fluid and air bubbles in the left flank consistent with a localized perforation and un contained air and fluid. This measures 5.1 x 3.5 by 6.6 cm. There is edema in the pericolonic fat adjacent to the descending colon. No other new finding. IMPRESSION: Increased pneumoperitoneum and ascites. Peritoneal dialysis catheter remains in place. There is a new fluid and air collection in the left flank adjacent to and inflamed segment of descending colon suggesting localized perforation and early abscess formation. The proximal colon remains stool filled and dilated. <Electronically signed by Los Tamez > 09/22/20 [id number]
[2020-09-22] MEDS: ONDANSETRON 4MG/2ML VIAL IV PRN (10:28)
[2020-09-22] MEDS ORDERED: ROCURONIUM BROMIDE 50 MG/5 ML VIAL As Ordered ONE (11:59)
[2020-09-22] MEDS ORDERED: propofoL 200 MG/20 ML VIAL As Ordered ONE (11:59)
[2020-09-22] MEDS ORDERED: fentaNYL 250 MCG/5 ML INJECTION (J3010) As Ordered ONE (11:59)
[2020-09-22] MEDS ORDERED: LIDOCAINE 2% 100MG/5ML SDV (FOR ANES.) As Ordered ONE (11:59)
[2020-09-22] MEDS ORDERED: MIDAZOLAM INJ 2MG/2ML VIAL (J2250 PER 1MG) As Ordered ONE (11:59)
[2020-09-22] MEDS ORDERED: ETOMIDATE INJ 20MG/10ML VIAL As Ordered ONE (11:59)
[2020-09-22] MEDS ORDERED: BUPIVACAINE HCL 0.5% 10ML VIAL As Ordered ONE (12:24)
[2020-09-22] MEDS ORDERED: BUPIVACAINE LIPOSOME/PF 1.3% 20ML VIAL (13.3MG/ML)(EXPAREL)(C9290 PER1MG) As Ordered ONE (12:24)
--- NOTE | 2020-09-22 12:51 | IPNPDOC ---
Text Note Date of Service The patient was seen on 09/22/20. NOTE Subjective: Patient stated he feels abdominal discomfort, he complains of madalyn sea. Patient described that he has been having diffuse abdominal pain 5 out of 10. Objective: GENERAL APPEARANCE: In severe distress HEENT: no scleral icterus, no JVD, EOMI CARDIOVASCULAR: S1S2 LUNGS: Diminished lung sounds bilaterally ABDOMEN: Moderately distended and tender w palpation, rebound sign positive MUSCULOSKELETAL: no cyanosis, +1 lower extremity pitting edema INTEGUMENT: no generalized pallor NEUROLOGICAL: cranial nerve function from 2-12 intact intact, follows commands, speech not dysarthric Assessment and plan: Patient is 70 years old male with past history of coronary artery diseases, recent CABG, end-stage renal diseases on peritoneal dialysis, hypertension, type 2 diabetes presented to the hospital with abdominal pain. Patient was found to have abdominal peritonitis. Peritoneal fluid showed significant leukocytosis up to 94,000 white blood cells. Treatment with broad-spectrum antibiotics started. Abdominal pain/acute abdomen Patient developed acute abdomen CT showed Increased pneumoperitoneum and ascites. Peritoneal dialysis catheter remains in place. There is a new fluid and air collection in the left flank adjacent to and inflamed segment of descending colon suggesting localized perforation and early abscess formation. The proximal colon remains stool filled and dilated. I called to Dr. Leal for evaluation and possible surgical intervention Dr. Ortiz recommended to put on HD catheter Peritonitis Patient developed cloudy fluid with high number of leukocytes of 94,000 on admission Nephrology team started vancomycin and gentamicin intraperitoneally Peritoneal fluid positive for Klebsiella pneumonia and Serratia Continue meropenem, gentamicin Dc vanco End-stage renal diseases Continue peritoneal dialysis, nephrology team on board Hyponatremia Management by nephrology team sodium level 125 Changed peritoneal dialysis fluid to 2.5% Hyperkalemia Most likely secondary to missed peritoneal dialysis Resolved Hyperphosphatemia Continue with phosphate binder and phosphorous Pneumoperitoneum see above Left lower lobe consolidation/ HCAP Patient denied cough, sputum production CT showed Pleural thickening and minimal pleural effusion right lower lobe. Small left pleural effusion. Infiltrate left lung base may represent atelectasis although an infectious etiology to be excluded clinically Meropenem empirically started Incentive spirometry CAD, CABG 5 vessels Discharge from [facility] on Saturday Continue cardioprotective medications Continue telemetry Hypertensive urgency Resolved Type 2 diabetes Diabetes diet Insulin sliding scale Detemir 18 units daily at bedtime Glucose level under control GERD Continue PPI Obstructive sleep apnea on chronic CPAP Resume CPAP at home settings Anemia of chronic disease Secondary to end-stage renal diseases No acute indication for RBC transfusion Hyperlipidemia Continue statin mild splenomegaly with a maximum span of 13 centimeters. Chronic bilateral simple renal cysts measuring up to 5.8 cm in the right kidney. No intervention Moderate prostatic hyperplasia. No acute symptoms of difficulty starting or maintaining urinary stream constipation. As needed bowel regimen colonic diverticulosis Chronic asymptomatic Moderate central spinal stenosis L2-L3, severe central spinal stenosis L3-L4 and L4-L5. Bulging annulus L5-S1. Avoid nonsteroidal anti-inflammatories No neurologic deficits umbilical hernia. Reducible CT abdomen and pelvis shows no incarceration Asymptomatic VS,Fishbone, I+O VS, Fishbone, I+O Laboratory Tests 09/22/20 06:00 Vital Signs Date Time Temp Pulse Resp B/P (MAP) Pulse Ox O2 Delivery O2 Flow Rate FiO2 09/22/20 11:40 98.3 82 18 163/76 (105) 94 Room Air I&O- Last 24 Hours up to 6 AM 09/22/20 05:59 Intake Total 03110 ml Output Total 9700 ml Balance 550 ml HALEIGH ORNELAS DO Sep 22, 2020 12:51
[2020-09-22] MEDS ORDERED: PHENYLephrine 500MCG 5ML (100MCG/ML) SYRINGE As Ordered ONE ×2 (12:52→14:25)
[2020-09-22] MEDS ORDERED: ePHEDrine SULFATE 25 MG/5 ML(5MG/ML) SYRINGE As Ordered ONE ×2 (12:52→15:20)
[2020-09-22] MEDS ORDERED: HYDROmorphone HCL 2 MG/ML 1ML VIAL (J1170) As Ordered ONE (14:10)
[2020-09-22] MEDS ORDERED: PHENYLEPHRINE 10MG/ML 1ML VIAL (J2370 PER 1) As Ordered ONE (14:30)
[2020-09-22] MEDS ORDERED: SUGAMMADEX SODIUM 500 MG/5 ML VIAL (BRIDION) As Ordered ONE (14:58)
[2020-09-22] MEDS ORDERED: ONDANSETRON 4MG/2ML VIAL As Ordered ONE (14:58)
[2020-09-22] MEDS ORDERED: BUPIVACAINE HCL 0.25% 10ML VIAL As Ordered ONE (15:40)
[2020-09-22] MEDS ORDERED: LIDOCAINE W/EPINEPHRINE 1% 20ML VIAL As Ordered ONE (15:40)
[2020-09-22] MEDS ORDERED: HEPARIN SOD (PORCINE) 5000UNITS/ML 1ML VIAL/SYRINGE As Ordered ONE ×2 (15:41→16:39)
[2020-09-22] MEDS ORDERED: METOCLOPRAMIDE INJ 10MG/2ML VIAL (J2765 PER 1) As Ordered ONE (15:44)
[2020-09-22] MEDS ORDERED: ACETAMINOPHEN 1000MG 100ML IV BTL (OFIRMEV) (J0131 PER 10MG) As Ordered ONE (16:29)
--- NOTE | 2020-09-22 16:53 | REP ---
INDICATION: RIGHT IJ PERMACATH INSERTION. COMPARISON: None. TECHNIQUE: Three views. 77.1 seconds of fluoroscopy time is reported. FINDINGS: A sequence of 3 last image hold fluoroscopically obtained spot radiographs of the chest document central venous catheter placement. IMPRESSION: Procedural imaging. <Electronically signed by Los Tamez > 09/22/20 [id number]
[2020-09-22] MEDS ORDERED: LABETALOL 100MG/20ML VIAL As Ordered ONE ×2 (17:05→17:41)
[2020-09-22] MEDS: LABETALOL 100MG/20ML VIAL IV SCH ×4 (17:42→18:37)
[2020-09-22 17:50] LABS: BASO % 0.2 % (0.0-1.0); EOS # 0.3 10^3/uL (0.0-0.5); EOS % 2.1 % (0.0-3.0); HEMATOCRIT 28.4 % (42.0-52.0); HEMOGLOBIN 9.7 g/dl (13.5-17.5); LYMPH # 0.5 10^3/uL (1.5-5.0); LYMPH % 4.2 % (24.0-44.0); MEAN CORPUSCULAR HEMOGLOBIN 29.9 pg (27.0-33.0); MEAN CORPUSCULAR HGB CONC 34.2 g/dl (32.0-36.5); MEAN CORPUSCULAR VOLUME 87.7 fl (80.0-96.0); MONO # 0.7 10^3/uL (0.0-0.8); MONO % 5.7 % (2.0-8.0); NEUTROPHILS # 10.3 10^3/uL (1.5-8.5); NEUTROPHILS % 85.6 % (36.0-66.0); PLATELET COUNT, AUTOMATED 371 10^3/uL (150-450); RED BLOOD COUNT 3.24 10^6/uL (4.30-6.10); WHITE BLOOD COUNT 12.1 10^3/uL (4.0-10.0)
--- NOTE | 2020-09-22 17:50 | REP ---
INDICATION: S/P LINE PLACEMENT COMPARISON: 09/18/2020 TECHNIQUE: Portable AP view of the chest FINDINGS: Right central venous catheter with tip in the SVC. Nasogastric tube below the diaphragm in satisfactory position. The mediastinum and cardiac silhouette are stable. Lung lo demonstrate increased interstitial markings along with small pleural effusions and left basilar atelectasis. No pneumothorax. IMPRESSION: 1. Central line and nasogastric tube in satisfactory position. 2. Left basilar atelectasis and small pleural effusions. <Electronically signed by Manuel Sampson > 09/22/20 [id number]
[2020-09-22] MEDS ORDERED: fentaNYL 100 MCG/2 ML INJECTION (J3010) As Ordered ONE (17:54)
[2020-09-22] MEDS ORDERED: oxyCODONE 5MG TAB PO PRN (17:55)
[2020-09-22] MEDS: fentaNYL 100 MCG/2 ML INJECTION (J3010) IV PRN ×4 (17:55→18:44)
[2020-09-22] MEDS ORDERED: MORPHINE 2 MG/ML 1ML VIAL (J2270) IV PRN (17:55)
[2020-09-22] MEDS ORDERED: LR 1,000 ML IV SCH (17:55)
[2020-09-22] MEDS ORDERED: ONDANSETRON 4MG/2ML VIAL IV PRN (17:55)
[2020-09-22 18:21] LABS: ALBUMIN 1.7 GM/DL (3.2-5.2); BILIRUBIN,TOTAL 0.3 MG/DL (0.2-1.0); CALCIUM LEVEL 8.8 MG/DL (8.8-10.2); CREATININE FOR GFR 8.86 MG/DL (0.70-1.30); GLOMERULAR FILTRATION RATE 6.4 (>49); POTASSIUM SERUM 4.2 MEQ/L (3.5-5.1); TOTAL PROTEIN 5.2 GM/DL (6.4-8.2)
[2020-09-22] MEDS ORDERED: MORPHINE 2 MG/ML 1ML VIAL (J2270) As Ordered ONE (18:54)
[2020-09-22] MEDS: LEVEMIR (INSULIN DETEMIR) 1 UNITS/0.01ML SC SCH (21:00)
[2020-09-22] MEDS: MEROPENEM INJ 1 GM in IV 1 EA IV SCH (21:26)
[2020-09-22] MEDS: MORPHINE 4 MG/ML 1ML VIAL/SYRINGE (J2270) IV PRN (23:22)
[2020-09-23] VITALS (13 sets, daily range): BP systolic 117–178; BP diastolic 47–86
[2020-09-23] MEDS: NITROGLYCERIN 2% OINT 1 GM *U/D* PKT TOP SCH ×6 (00:43→20:00)
[2020-09-23] MEDS: SENOKOT S TAB PO PRN (02:02)
[2020-09-23] MEDS: PERCOCET 5MG/325MG TAB PO PRN ×2 (02:03→02:43)
[2020-09-23] MEDS: MORPHINE 4 MG/ML 1ML VIAL/SYRINGE (J2270) IV PRN (02:39)
[2020-09-23] MEDS ORDERED: hydrALAZINE 20MG/ML 1ML VIAL (J0360 PER 20MG) IV PRN ×2 (03:05→10:25)
--- NOTE | 2020-09-23 04:42 | ROOPDOC ---
[facility] Report Of Operation Report of Operation DATE OF PROCEDURE: 09/22/20 PREPROCEDURE DIAGNOSES: perforated viscus. POSTPROCEDURE DIAGNOSES: perforated diverticulitis at sigmoid colon/descending colon. PROCEDURE: Exploratory Laparotomy, Sigmoid Colectomy, Mike's pouch and formation of end colostomy, removal of peritoneal dialysis catheter, placement of right Internal Jugular tunneled hemodialysis catheter. SURGEON: Domingo Bruno MD INVERTEBRATE PALEONTOLOGIST: ANESTHESIA: General Anesthesia. ESTIMATED BLOOD LOSS: Approximately 100 mL. COMPLICATIONS: none. REMARKS: 70 M about 3 weeks post 5 vessel CABG, admitted for pd catheter infection 4 days ago. On admission had pneumoperitoneum but no signs of peritonitis, initially treated with both peritoneal dialysis antibiotics and IV antibiotics and initially seems to be improving and clearing up the infection, overnight was having more pain localized over the left lower quadrant area and on repeat CT shows what looks like a perforation at the sigmoid colon suspicious for perforated diverticulitis, persistent pneumoperitoneum. On exam most tender with guarding at the left lower quadrant area. The dialysate was not clearly purulent or bilious or stool-appearing and was actually clearing up from initial presentation. With this findings and persistent pneumoperitoneum and using abdominal pain I brought him to the operating room for abdominal exploration. PROCEDURE NOTE: Contained perforation and inflammation of segment of colon involving the junction of the descending colon and sigmoid colon with a small amount of contained stool and purulent fluid in between the wall of the colon and the left abdominal wall. The peritoneal dialysis catheter was removed and the tip sent for culture. Resection of the involved portion of the colon was done. The rectal pouch staple line was sutured with 2-0 Prolene to reinforce it for later identification. End colostomy performed. A new right IJ tunneled hemodialysis catheter was placed under ultrasound guidance and fluoroscopy. Postoperative chest x-ray was checked and no pneumoperitoneum and adequate placement noted.. DESCRIPTION OF PROCEDURE: Patient has been receiving meropenem every 24 hours for the initially presumed PD catheter peritonitis as well as an initially intraperitoneal vancomycin. He was brought to the operating room, placed supine on the procedure table both arms placed on an arm board. TEDs and sequential compression boots placed on both lower extremities were DVT prophylaxis. Gen. endotracheal anesthesia started. Anesthesia placed a nasogastric tube. A Stewart catheter was placed and a small amount of clear urine is noted. His abdomen is then widely prepped and draped in the usual sterile fashion with the peritoneal dialysis catheter included with the prep.We paused for a surgical timeout using both pre- incision safety checklist to verify correct patient, procedure site and additional clinical information prior to beginning the procedure I marked potential colostomy placements observing the patient's abdominal contour on both right and left sides prior to making the abdominal incision. Vertical midline incision was then started above the umbilicus going down towards the pubis. The incision then deepened through to the subcutaneous tissue which has thick on the lower abdomen with some evidence of anasarca. The trans- fascial cuff portion of the peritoneal dialysis catheter was encountered and this was circumferentially released from surrounding tissue. A separate incision from the skin exit site of the peritoneal dialysis catheter which is located above and to the left of the umbilicus is then created and the subcutaneous cuff portion of the peritoneal dialysis catheter was released from surrounding tissue. The PD catheter was then removed. The tip was sent for cultures. We then opened up the fascia under direct vision and entered the abdomen. The fascial incision was enlarged throughout the whole of the skin incision. I subsequently enlarged the incision both superiorly and inferiorly for proper visualization of intra-abdominal structures. On entry to the abdomen, serous sanguinous fluid consistent with the dialysate was encountered and suctioned off. There was no purulent fluid, succus or stool that was encountered. The Bookwalter self-retain ing retractor was placed for adequate exposure. The small bowel was free floating and this was exteriorized. The portion of the left colon towards the descending and sigmoid colon junction was noted to be swollen and thickened covered with exudate. This was initially adhered to the left anterior abdominal wall. I used my hand to break this apart and a small amount of stool and purulent fluid was encountered. This was suctioned off. The distal portion of the sigmoid colon and its course to the upper rectum is not involved. I lifted this portion up and created a window at the mesentery with the LigaSure device. A contour TA stapler was then used to transect the colon at this area. I estimate this to be close to the transition between the sigmoid colon and rectum. There might be a small portion of the sigmoid colon and left. The staple line was examined and noted to be intact. I reinforced the rectal stump staple line with a running suture of 2-0 Prolene leaving long ends behind for later on identification of the stump. I then worked on freeing up the mesentery transecting the mesocolon midway at the mesentery to avoid injury to the ureter. The inflamed portion of the colon mesentery was divided and the lateral and medial attachments of the descending colon mesentery was released with both blunt and sharp dissection. The superior rectal artery was encountered and divided with the LigaSure device. I continued releasing the descending colon retroperitoneal attachments away most of by blunt dissection to allow for e xteriorization of the colon towards the midline. I believe they reached up towards but not fully at the splenic flexure. Once the colon was able to be mobilized towards the midline incision that shows a healthy area of the descending colon to transect. The mesentery was cleared off and a second firing of the contour TA stapler was performed to fully transect the inflow portion of the colon. This was passed off as a specimen. I then tested the length of the colon to the previously marked area for colostomy to the left and just above the umbilicus. I continued the release of the descending colon until I had enough length to go through the area of the colostomy site. Portion of the skin and subcutaneous tissue was then taken at the colostomy site. Rest of the subcutaneous tissue was cleared off. The anterior fascia was opened up vertically, the rectus muscles split with blunt dissection the posterior sheath opened up to create an opening for the colostomy enough to accommodate 2 fingers. The end of the descending colon was passed through the abdominal wall at the colostomy site. This was bulky but seems that the release was enough to create a colostomy without undue tension. The abdomen was then irrigated thoroughly with about 3 L of warm saline. I ran the small bowel from ligament of Treitz to the terminal ileum. There is a small portion of the ileum that had some secondary deposits of exudates where it was close to the involved portion of the colon this was cleared off. Rest of the bowel appears healthy. Patient already had a prior appendectomy. The colon was examined both visually and palpated. The nasogastric tube was positioned at the mid body of the stomach. The upper portions of the abdomen including around the liver and spleen was irrigated. A 19 Hiren drain was threaded through the right lower quadrant abdominal wall and placed behind the rectal stump. The abdominal contents were placed in their anatomic position including the omentum to cover the bowels. The posterior fascia and peritoneum was closed loosely with #1 Vicryl in a running fashion. The anterior fascia was closed with a double loop PDS to close the incision. The subcutaneous tissue was irrigated and then the skin closed loosely with river. The drain was sutured in place with 2-0 silk. Telfa bahman were placed in between the river at the midline skin incision. This was covered with a clean towel and I proceeded with maturing the colostomy. The epiploic appendages were thinned out. The colon wall was actually a bit narrow after cleaning out the thick epiploic fat tissue. The colon stump was opened up along the staple line and matured in a Megan fashion. It was bulky at the antimesenteric portion. The colon appears healthy. I checked the course of the colostomy and this was straight through to the fascia to the fascial opening appears mildly tight. Postoperative gauze dressing stent placed at the incision and around the drain. The ostomy appliance was trimmed to proper size and placed. We used 1-3/4 sized ostomy appliance. We then undraped to prepare him for placement of a hemodialysis catheter. With a new and fresh sterile set up, he was repositioned to access the right neck. The right side of the neck past the midline and the chest was prepped and draped in the usual sterile fashion. I re-scrubbed and donned fresh sterile gown and gloves. I used an ultrasound to locate the internal jugular vein. This seems to compress easily. He was placed on a mild Trendelenburg position. We used the C-arm to tract the proper location and length of the dialysis catheter from the internal jugular vein insertion site. I chose a 19 cm permacath. Under ultrasound guidance to the internal jugular vein was cannulated and guidewire threaded. About 5 cm from the entry I made a separate incision below the clavicle and subcutaneously tunneled the permacath to the skin incision site over the neck. Using modified Seldinger technique the subcutaneous and fascial tract was enlarged with the fascial dilator. The dilator and peel-away sheath was then threaded over the wire under fluoroscopic guidance. The catheter was then threaded as we opened up the peel-away sheath and positioned into the SVC atrial junction. The position of the tip in the course of the catheter was examined. As a small kink between the transition of the neck and the subcutaneous tunnel which was straightened out by pulling on the catheter. The catheter was tested and both ports were noted to be adequately flushing and aspirating. 1.6 mL self heparin 100 units per mL was then left at the hub. The catheter was secured to the skin and a chlorhexidine containing dressing was placed at the exit site. The neck at the neck was closed with 4-0 Vicryl in the subcutaneous subcuticular fashion a Steri-Strip placed. Patient was receiving a small amount of Rc-Synephrine during surgery. On arousal and waking up this was discontinued. He was actually mildly hypertensive on waking up. He was awakened, extubated and brought to recovery room in stable condition. In the recovery room postoperative chest x-ray was checked and no pneumothorax and adequate placement and course of the catheter is noted. DOMINGO BRUNO MD Sep 23, 2020 04:42
[2020-09-23] MEDS: HEPARIN SOD (PORCINE) 5000UNITS/ML 1ML VIAL/SYRINGE SQ SCH ×3 (05:06→22:32)
[2020-09-23 05:45] LABS: BASO # 0.1 10^3/uL (0.0-0.2); BASO % 0.4 % (0.0-1.0); EOS # 0.6 10^3/uL (0.0-0.5); EOS % 4.4 % (0.0-3.0); HEMATOCRIT 27.6 % (42.0-52.0); HEMOGLOBIN 9.3 g/dl (13.5-17.5); LYMPH # 0.5 10^3/uL (1.5-5.0); MEAN CORPUSCULAR HEMOGLOBIN 29.7 pg (27.0-33.0); MEAN CORPUSCULAR HGB CONC 33.7 g/dl (32.0-36.5); MEAN CORPUSCULAR VOLUME 88.2 fl (80.0-96.0); MONO # 0.9 10^3/uL (0.0-0.8); MONO % 6.9 % (2.0-8.0); NEUTROPHILS # 11.2 10^3/uL (1.5-8.5); NEUTROPHILS % 82.2 % (36.0-66.0); PLATELET COUNT, AUTOMATED 360 10^3/uL (150-450); RED BLOOD COUNT 3.13 10^6/uL (4.30-6.10); WHITE BLOOD COUNT 13.6 10^3/uL (4.0-10.0)
[2020-09-23 06:10] LABS: BLOOD UREA NITROGEN 65 MG/DL (7-18); CALCIUM LEVEL 8.3 MG/DL (8.8-10.2); CARBON DIOXIDE LEVEL 32 MEQ/L (21-32); CHLORIDE LEVEL 86 MEQ/L (98-107); CREATININE FOR GFR 9.88 MG/DL (0.70-1.30); GLOMERULAR FILTRATION RATE 5.6 (>49); GLUCOSE, FASTING 120 MG/DL (70-100); MAGNESIUM LEVEL 2.2 MG/DL (1.8-2.4); POTASSIUM SERUM 4.6 MEQ/L (3.5-5.1); SODIUM LEVEL 128 MEQ/L (136-145)
[2020-09-23] MEDS: HumaLOG INSULIN (NovoLOG) PER UNIT SC SCH ×4 (07:30→20:53)
[2020-09-23] MEDS: (RENVELA) SEVELAMER **CARBONate** 800 MG TAB PO SCH (08:00)
--- NOTE | 2020-09-23 08:12 | IPN ---
NEPHROLOGY PROGRESS NOTE DATE: 09/22/2020 SUBJECTIVE: Mr. Dooley is seen this morning at his bedside. I reviewed his lab work leaf blender today, and peritoneal fluid cell count which has been improving went up to 8,231 from 1,786 yesterday. I ordered a stat CAT scan of his abdomen and pelvis without and with IV contrast. I have reviewed the CAT scan and noticed increased free air and suspected perforated viscus. There was also some inflamed segment of descending colon suggesting abscess and diverticulitis. Now I have seen the patient at his bedside. He is complaining of right lower abdominal pain. He has continued with antibiotics and has been afebrile. OBJECTIVE: PHYSICAL EXAMINATION: VITAL SIGNS: Temperature 98.3 degrees Fahrenheit, heart rate 82 per minute, respiratory rate 18 per minute, blood pressure 143/74 mm of mercury and oxygen saturation 94% on room air. HEENT: His head is atraumatic. NECK: Supple and without JVD or thyroid enlargement. HEART: Regular. LUNGS: Clear to auscultation. ABDOMEN: Distended with peritoneal fluid and tenderness has increased. EXTREMITIES: Without any cyanosis or clubbing. NEUROLOGICAL: Without any focal deficits. LABORATORY STUDIES: Today's labs show increase in the peritoneal fluid cell count, up to 8,231. His sodium is 124, potassium 4.2, CO2 30, BUN 56 and creatinine 8.77, glucose 86 and calcium 8.7. White blood cell count is 12.1, hemoglobin 9.7 and hematocrit 28.4. PROBLEMS: 1. Peritonitis with possible perforated viscus I suspect that he has diverticulitis with diverticular abscess. I have discussed with the Hospitalist and recommended an urgent surgical evaluation for possible laparotomy. I have ordered to stop is peritoneal dialysis and drain his peritoneal fluid. I have discussed with the patient and explained to him that he will be switched to hemodialysis, as he will not be able to continue with peritoneal dialysis at this point. 2. Diverticulitis and peritonitis the patient should continue with antibiotics to cover for gram negative rods. He is going to have a laparotomy done for possible diverticular abscess. 3. End-stage renal disease - The patient has been on peritoneal dialysis and will not be able to continue it any further due to ruptured diverticulum and possible diverticular abscess. We will switch him to hemodialysis. I have recommended that surgery should place a permacath today while the patient is in the O.R. 4. Hypertension - blood pressure has been very well controlled on current medications, and his blood pressure will need to be monitored for adjustment in meds. 5. Anemia his anemia has been stable and we will continue to monitor closely. No urgent need for a transfusion at this time. MICHAEL
[2020-09-23 09:07] LABS: ABG BASE EXCESS 6.9 (-2.0-2.0); ABG HCO3 31.9 MEQ/L (22.0-26.0); ABG O2 SATURATION 92.7 % (95.0-99.0); ABG PARTIAL PRESSURE CO2 47.1 mmHg (35.0-45.0); ABG PARTIAL PRESSURE O2 64.2 mmHg (75.0-100.0); ABG STANDARD HCO3 30.6 MEQ/L (22.0-26.0); ABG TOTAL CO2 33.3 MEQ/L (23.0-31.0); ABG pH (ARTERIAL) 7.448 UNITS (7.350-7.450)
[2020-09-23] MEDS: LABETALOL 100MG/20ML VIAL IV SCH (09:19)
[2020-09-23] MEDS: SODIUM CHLORIDE 1 GM TAB PO SCH (09:20)
[2020-09-23] MEDS: ASPIRIN 325 MG TAB PO SCH (09:20)
[2020-09-23] MEDS: FERROUS GLUCONATE 324 MG TAB PO SCH ×2 (09:20→21:02)
[2020-09-23] MEDS: IRBESARTAN 150MG TAB PO SCH (09:21)
[2020-09-23] MEDS: ATORVASTATIN 20 MG TAB PO SCH (09:21)
[2020-09-23] MEDS: minoxidiL 2.5 MG TAB PO SCH (09:22)
[2020-09-23] MEDS: OCUVITE 1 TAB PO SCH (09:22)
[2020-09-23] MEDS: METOPROLOL TART 50 MG TAB PO SCH ×2 (09:22→20:52)
[2020-09-23] MEDS: LACTOBACILLUS ACIDOPHILUS CAP (BACID) PO SCH ×2 (09:22→17:25)
[2020-09-23] MEDS: PATIROMER SORBITEX CALCIUM 8.4 GM POWDER PACKET (VELTASSA) PO SCH (09:23)
[2020-09-23] MEDS: LORATADINE 10 MG TAB PO SCH (09:23)
[2020-09-23] MEDS: DOCUSATE SODIUM 100MG CAPSULE PO SCH ×2 (09:23→21:02)
[2020-09-23] MEDS: SUCROFERRIC OXYHYDROXIDE 500MG CHEW TAB (VELPHORO) PO SCH ×4 (09:28→17:26)
--- NOTE | 2020-09-23 10:36 | IPNPDOC ---
Text Note Date of Service The patient was seen on 09/23/20. NOTE Subjective: Patient of the morning was mildly confused, later in the morning his mental status improved. Patient continues to complain of abdominal pain 11/21, colostomy in place, colostomy bag empty. Objective: GENERAL APPEARANCE: In mild distress HEENT: no scleral icterus, no JVD, EOMI CARDIOVASCULAR: S1S2 LUNGS: Diminished lung sounds bilaterally ABDOMEN: Moderately distended and mildly tender w palpation MUSCULOSKELETAL: no cyanosis, +1 lower extremity pitting edema INTEGUMENT: no generalized pallor NEUROLOGICAL: cranial nerve function from 2-12 intact intact, follows commands, speech not dysarthric Assessment and plan: Patient is 70 years old male with past history of coronary artery diseases, recent CABG, end-stage renal diseases on peritoneal dialysis, hypertension, type 2 diabetes presented to the hospital with abdominal pain. Patient was found to have abdominal peritonitis. Peritoneal fluid showed significant leukocytosis up to 94,000 white blood cells. Treatment with broad-spectrum antibiotics started. Abdominal pain/acute abdomen resolved Patient developed acute abdomen on 09/22/20 CT showed Increased pneumoperitoneum and ascites. Peritoneal dialysis catheter remains in place. There is a new fluid and air collection in the left flank adjacent to and inflamed segment of descending colon suggesting localized perforation and early abscess formation. The proximal colon remains stool filled and dilated. Patient was found to have perforated diverticula Dr. Leal did bowel resection and place colostomy on 09/22/20. Continue nothing by mouth except meds Continue broad-spectrum antibiotics Peritonitis Patient developed cloudy fluid with high number of leukocytes of 94,000 on admission Nephrology team started vancomycin and gentamicin intraperitoneally Peritoneal fluid positive for Klebsiella pneumonia and Serratia Continue meropenem, gentamicin Dc vanco After bowel resection for continue broad spectrum antibiotics End-stage renal diseases peritoneal dialysis has been changed to hemodialysis, nephrology team on board Hyponatremia Management by nephrology team sodium level 128 Hyperkalemia Most likely secondary to missed peritoneal dialysis Resolved Hyperphosphatemia Continue with phosphate binder and phosphorous Pneumoperitoneum see above Left lower lobe consolidation/ HCAP Patient denied cough, sputum production CT showed Pleural thickening and minimal pleural effusion right lower lobe. Small left pleural effusion. Infiltrate left lung base may represent atelectasis although an infectious etiology to be excluded clinically Meropenem empirically started Incentive spirometry Patient does not have cough and sputum production today CAD, CABG 5 vessels Discharge from [facility] on Saturday Continue cardioprotective medications Continue telemetry Hypertensive urgency Resolved Type 2 diabetes Insulin sliding scale Detemir 18 units daily at bedtime Glucose level under control Blood glucose level every 6 hours GERD Continue PPI Obstructive sleep apnea on chronic CPAP Resume CPAP at home settings Anemia of chronic disease Secondary to end-stage renal diseases No acute indication for RBC transfusion Hyperlipidemia Continue statin mild splenomegaly with a maximum span of 13 centimeters. Chronic bilateral simple renal cysts measuring up to 5.8 cm in the right kidney. No intervention Moderate prostatic hyperplasia. No acute symptoms of difficulty starting or maintaining urinary stream constipation. As needed bowel regimen colonic diverticulosis Chronic See above Moderate central spinal stenosis L2-L3, severe central spinal stenosis L3-L4 and L4-L5. Bulging annulus L5-S1. Avoid nonsteroidal anti-inflammatories No neurologic deficits umbilical hernia. Reducible CT abdomen and pelvis shows no incarceration Asymptomatic VS,Fishbone, I+O VS, Fishbone, I+O Laboratory Tests 09/22/20 17:31 09/23/20 04:59 Vital Signs Date Time Temp Pulse Resp B/P (MAP) Pulse Ox O2 Delivery O2 Flow Rate FiO2 09/23/20 09:23 182/78 09/23/20 06:00 95 20 96 09/23/20 04:00 98.3 09/23/20 04:00 2.0 09/23/20 03:20 Nasal Cannula I&O- Last 24 Hours up to 6 AM 09/23/20 06:00 Intake Total 4065 ml Output Total 6145 ml Balance -2080 ml HALEIGH ORNELAS DO Sep 23, 2020 10:35
[2020-09-23] MEDS: CINACALCET 30 MG TAB (SENSIPAR) PO SCH (13:09)
[2020-09-23] MEDS: DARBEPOETIN 100 MCG/0.5 ML *DIALYSIS* SYRINGE (J0882) IV SCH (15:36)
--- NOTE | 2020-09-23 16:19 | IPN ---
NEPHROLOGY PROGRESS NOTE DATE: 09/23/2020 SUBJECTIVE: Mr. Dooley is seen this morning on his bedside in the Intensive Care Unit. He was noticed to have ruptured diverticulum with a lot of free intraperitoneal air yesterday and was taken to OR by Dr. Bruno. His peritoneal dialysis was stopped prior to that and peritoneal fluid was drained. He underwent bowel resection and now has a colostomy in the left lower quadrant. His peritoneal dialysis catheter has been removed and a Permacath was placed yesterday in the right internal jugular vein for hemodialysis. Patient is uncomfortable and he is moaning. PHYSICAL EXAMINATION: Temperature is 98.3 degrees Fahrenheit, heart rate 98 per minute and respiratory rate 20 per minute. Blood pressure 154/47 mmHg earlier this morning and now 182/78 mmHg. Oxygen saturation is 96%. Head: Atraumatic. Neck: Supple and JVD not abnormally elevated. A new Permacath is present in the right internal jugular vein. Heart: Sounds are regular and without a pericardial friction rub. Lungs: Clear to auscultation. Abdomen: With new colostomy in the left lower quadrant. Surgical wound is covered with dressing in the midline. He has a BREE-drain on the right lower quadrant. Bowel sounds are not audible at present. Extremities: Without any cyanosis or clubbing. Neurologically: He is awake, alert and able to answer questions appropriately. LABORATORY DATA: Today's labs show WBC count 13.6, hemoglobin 9.3 and hematocrit 27.6. Sodium 128, potassium 4.6, CO2 32, BUN 65, creatinine 9.88, glucose 120 and calcium 8.3. PROBLEMS/PLAN: 1. Peritonitis due to ruptured diverticulum with diverticular abscess: Patient already had Mike done yesterday with colostomy and bowel resection. He is currently afebrile and continues with intravenous antibiotics including meropenem. Gentamicin that was being given intraperitoneally has been now stopped. 2. End-stage renal disease: Patient was on peritoneal dialysis until yesterday. He is now going to be on hemodialysis due to diverticular rupture and need for abdominal surgery and removal of peritoneal catheter. 3. Hypertension: Blood pressure slightly high due to pain. I recommend to continue with current anti-hypertensive medications. 4. Hyponatremia: His hyponatremia is gradually improving. It is likely to be corrected with hemodialysis now. We were giving him oral sodium chloride tablets when he was on peritoneal dialysis and I am going to stop that. 5. Coronary artery disease status post recent CABG: Patient is doing well from the cardiac standpoint. He remains on beta-brady and aspirin. 6. Anemia: At present his anemia is stable and we will monitor closely. We will manage this with hemodialysis. He will be given Aranesp 100 mcg once a week for now.
[2020-09-23 17:12] LABS: HEPATITIS B SURFACE ANTIGEN NEGATIVE (NEGATIVE)
[2020-09-23] MEDS: ACETAMINOPHEN TAB 650MG DOSE (2X325MG) PO PRN (17:41)
[2020-09-23] MEDS: ONDANSETRON 4MG/2ML VIAL IV PRN (19:17)
[2020-09-23] MEDS: LEVEMIR (INSULIN DETEMIR) 1 UNITS/0.01ML SC SCH (20:52)
[2020-09-23] MEDS: MEROPENEM INJ 1 GM in IV 1 EA IV SCH (22:32)
[2020-09-24] VITALS: BP 127/63
[2020-09-24 04:00] VITALS: BP 116/58
[2020-09-24] MEDS: NITROGLYCERIN 2% OINT 1 GM *U/D* PKT TOP SCH ×6 (04:00→20:00)
[2020-09-24 05:18] LABS: BASO # 0.1 10^3/uL (0.0-0.2); BASO % 0.5 % (0.0-1.0); EOS # 0.3 10^3/uL (0.0-0.5); EOS % 2.1 % (0.0-3.0); HEMATOCRIT 28.8 % (42.0-52.0); HEMOGLOBIN 9.1 g/dl (13.5-17.5); LYMPH # 0.6 10^3/uL (1.5-5.0); MEAN CORPUSCULAR HGB CONC 31.6 g/dl (32.0-36.5); MEAN CORPUSCULAR VOLUME 91.7 fl (80.0-96.0); MONO # 1.1 10^3/uL (0.0-0.8); MONO % 7.7 % (2.0-8.0); NEUTROPHILS % 80.9 % (36.0-66.0); PLATELET COUNT, AUTOMATED 401 10^3/uL (150-450); RED BLOOD COUNT 3.14 10^6/uL (4.30-6.10); WHITE BLOOD COUNT 13.6 10^3/uL (4.0-10.0)
[2020-09-24 05:48] LABS: CALCIUM LEVEL 9.6 MG/DL (8.8-10.2); CREATININE FOR GFR 7.16 MG/DL (0.70-1.30); GLOMERULAR FILTRATION RATE 8.2 (>49); MAGNESIUM LEVEL 2.5 MG/DL (1.8-2.4); POTASSIUM SERUM 4.4 MEQ/L (3.5-5.1)
[2020-09-24] MEDS: HEPARIN SOD (PORCINE) 5000UNITS/ML 1ML VIAL/SYRINGE SQ SCH ×3 (05:54→21:02)
[2020-09-24 08:00] VITALS: BP 136/65
[2020-09-24] MEDS: DOCUSATE SODIUM 100MG CAPSULE PO SCH ×2 (09:00→21:01)
[2020-09-24] MEDS: ASPIRIN 325 MG TAB PO SCH (09:00)
[2020-09-24] MEDS: FERROUS GLUCONATE 324 MG TAB PO SCH ×2 (09:00→21:01)
[2020-09-24] MEDS: SUCROFERRIC OXYHYDROXIDE 500MG CHEW TAB (VELPHORO) PO SCH ×3 (09:00→18:28)
[2020-09-24] MEDS: ATORVASTATIN 20 MG TAB PO SCH (09:00)
[2020-09-24] MEDS: LACTOBACILLUS ACIDOPHILUS CAP (BACID) PO SCH ×2 (09:00→18:28)
[2020-09-24] MEDS: METOPROLOL TART 50 MG TAB PO SCH ×2 (09:00→21:00)
[2020-09-24] MEDS: OCUVITE 1 TAB PO SCH (09:01)
[2020-09-24] MEDS: IRBESARTAN 150MG TAB PO SCH (09:01)
[2020-09-24] MEDS: PATIROMER SORBITEX CALCIUM 8.4 GM POWDER PACKET (VELTASSA) PO SCH (09:01)
[2020-09-24] MEDS: CINACALCET 30 MG TAB (SENSIPAR) PO SCH (09:01)
[2020-09-24] MEDS: minoxidiL 2.5 MG TAB PO SCH (09:01)
[2020-09-24] MEDS: HumaLOG INSULIN (NovoLOG) PER UNIT SC SCH ×4 (09:02→21:00)
--- NOTE | 2020-09-24 10:05 | IPNPDOC ---
Text Note Date of Service The patient was seen on 09/24/20. NOTE Subjective: No any acute events overnight. Patient in the morning was sitting on the bed asking wheelchair. Patient seems mildly confused in the morning. Objective: GENERAL APPEARANCE: Slightly confused male HEENT: no scleral icterus, no JVD, EOMI CARDIOVASCULAR: S1S2 LUNGS: Diminished lung sounds bilaterally ABDOMEN: Moderately distended and mildly tender w palpation, colostomy in place MUSCULOSKELETAL: no cyanosis, +1 lower extremity pitting edema INTEGUMENT: no generalized pallor NEUROLOGICAL: cranial nerve function from 2-12 intact intact, follows commands, speech not dysarthric Assessment and plan: Patient is 70 years old male with past history of coronary artery diseases, recent CABG, end-stage renal diseases on peritoneal dialysis, hypertension, type 2 diabetes presented to the hospital with abdominal pain. Patient was found to have abdominal peritonitis. Peritoneal fluid showed significant leukocytosis up to 94,000 white blood cells. Treatment with broad-spectrum antibiotics started. Abdominal pain/acute abdomen resolved Patient developed acute abdomen on 09/22/20 CT showed Increased pneumoperitoneum and ascites. Peritoneal dialysis catheter remains in place. There is a new fluid and air collection in the left flank adjacent to and inflamed segment of descending colon suggesting localized perforation and early abscess formation. The proximal colon remains stool filled and dilated. Patient was found to have perforated diverticula Dr. Leal did bowel resection and place colostomy on 09/22/20. Continue nothing by mouth except meds Continue broad-spectrum antibiotics Surgical team follows him Peritoneal fluid from 09/22/20 negative Peritonitis Patient developed cloudy fluid with high number of leukocytes of 94,000 on admi ssion Nephrology team started vancomycin and gentamicin intraperitoneally Peritoneal fluid positive for Klebsiella pneumonia and Serratia Continue meropenem, gentamicin was discontinued by nephrology team Amari florentino After bowel resection we continue meropenem End-stage renal diseases peritoneal dialysis has been changed to hemodialysis, nephrology team on board Hyponatremia Management by nephrology team Resolved today Hyperkalemia Most likely secondary to missed peritoneal dialysis Resolved Hyperphosphatemia Continue with phosphate binder and phosphorous Pneumoperitoneum see above Left lower lobe consolidation/ HCAP Patient denied cough, sputum production CT showed Pleural thickening and minimal pleural effusion right lower lobe. Small left pleural effusion. Infiltrate left lung base may represent atelectasis although an infectious etiology to be excluded clinically Meropenem empirically started Continue Incentive spirometry Patient does not have cough and sputum production CAD, CABG 5 vessels Discharge from [facility] on Saturday Continue cardioprotective medications Continue telemetry Hypertensive urgency Resolved Type 2 diabetes Insulin sliding scale Detemir 18 units daily at bedtime Glucose level under control Blood glucose level every 6 hours GERD Continue PPI Obstructive sleep apnea on chronic CPAP Resume CPAP at home settings Anemia of chronic disease Secondary to end-stage renal diseases No acute indication for RBC transfusion Hyperlipidemia Continue statin mild splenomegaly with a maximum span of 13 centimeters. Chronic bilateral simple renal cysts measuring up to 5.8 cm in the right kidney. No intervention Moderate prostatic hyperplasia. No acute symptoms of difficulty starting or maintaining urinary stream constipation. As needed bowel regimen colonic diverticulosis Chronic See above Moderate central spinal stenosis L2-L3, severe central spinal stenosis L3-L4 and L4-L5. Bulging annulus L5-S1. Avoid nonsteroidal anti-inflammatories No neurologic deficits umbilical hernia. Reducible CT abdomen and pelvis shows no incarceration Asymptomatic VS,Fishbone, I+O VS, Fishbone, I+O Laboratory Tests 09/24/20 05:07 Vital Signs Date Time Temp Pulse Resp B/P (MAP) Pulse Ox O2 Delivery O2 Flow Rate FiO2 09/24/20 09:02 136/65 09/24/20 09:00 101 09/24/20 08:00 97.3 9 98 Nasal Cannula 2.0 I&O- Last 24 Hours up to 6 AM 09/24/20 06:00 Intake Total 245 ml Output Total 5195 ml Balance -4950 ml HALEIGH ORNELAS DO Sep 24, 2020 10:05
[2020-09-24 12:00] VITALS: BP 115/55
[2020-09-24] MEDS: D5W/0.9% SODIUM CHLORIDE 1,000 ML IV SCH (14:00)
[2020-09-24 16:00] VITALS: BP 109/76
[2020-09-24 20:00] VITALS: BP 117/68
[2020-09-24] MEDS: LEVEMIR (INSULIN DETEMIR) 1 UNITS/0.01ML SC SCH (21:00)
[2020-09-24] MEDS: MEROPENEM INJ 1 GM in IV 1 EA IV SCH (21:01)
[2020-09-24] MEDS: ACETAMINOPHEN TAB 650MG DOSE (2X325MG) PO PRN (21:01)
[2020-09-25] VITALS: BP 146/70
[2020-09-25] MEDS: NITROGLYCERIN 2% OINT 1 GM *U/D* PKT TOP SCH ×6 (00:55→20:45)
[2020-09-25 04:00] VITALS: BP 113/72
[2020-09-25 05:18] LABS: BASO # 0.1 10^3/uL (0.0-0.2); BASO % 0.6 % (0.0-1.0); EOS # 0.6 10^3/uL (0.0-0.5); EOS % 5.7 % (0.0-3.0); HEMATOCRIT 26.6 % (42.0-52.0); HEMOGLOBIN 8.3 g/dl (13.5-17.5); LYMPH # 0.7 10^3/uL (1.5-5.0); LYMPH % 7.2 % (24.0-44.0); MEAN CORPUSCULAR HGB CONC 31.2 g/dl (32.0-36.5); MONO % 9.3 % (2.0-8.0); NEUTROPHILS # 7.5 10^3/uL (1.5-8.5); NEUTROPHILS % 72.5 % (36.0-66.0); PLATELET COUNT, AUTOMATED 410 10^3/uL (150-450); RED BLOOD COUNT 2.86 10^6/uL (4.30-6.10); WHITE BLOOD COUNT 10.3 10^3/uL (4.0-10.0)
[2020-09-25] MEDS: HEPARIN SOD (PORCINE) 5000UNITS/ML 1ML VIAL/SYRINGE SQ SCH ×3 (05:42→20:42)
[2020-09-25 05:45] LABS: CALCIUM LEVEL 8.9 MG/DL (8.8-10.2); CREATININE FOR GFR 9.09 MG/DL (0.70-1.30); GLOMERULAR FILTRATION RATE 6.2 (>49); MAGNESIUM LEVEL 2.9 MG/DL (1.8-2.4); POTASSIUM SERUM 3.9 MEQ/L (3.5-5.1)
[2020-09-25 08:00] VITALS: BP 158/65
[2020-09-25] MEDS: D5W/0.9% SODIUM CHLORIDE 1,000 ML IV SCH (08:23)
--- NOTE | 2020-09-25 09:52 | IPN ---
PROGRESS NOTE DATE: 09/24/2020 SUBJECTIVE: The patient was seen and examined at the bedside today morning. He is afebrile, hemodynamically stable. He was dialyzed yesterday. He tolerated the hemodialysis procedure well. 1.5 liter of fluid was removed. The patient still has NG tube attached to suctioning. He is currently not on any IV fluid hydration. He reports that he is feeling very thirsty and he was requesting ice chips. OBJECTIVE: Vital signs: Temperature is 97.3 degrees Fahrenheit, blood pressure 117/68, pulse is 92, respiratory rate of 21, saturating 97% on room air. Intake and output: There is no urine output recorded. Ultrafiltration with hemodialysis was 1.5 liters. Gastric drainage is 1.2 liters so far. Weight in the bed scale is 90.7 kg. PHYSICAL EXAMINATION: The patient is awake, alert and oriented x3, sitting up on the sofa, in no apparent distress. Head and neck examination: Extraocular muscles intact. Pupils equally round and reactive to light. Mucous membranes are dry. Neck is supple. He has an NG tube attached to suctioning. Cardiovascular: S1, S1, regular rate. No edema of the bilateral lower extremities. Respiratory: Chest is clear to auscultation bilaterally. Bilateral equal air entry. No rales or rhonchi. Abdomen: Soft. Colostomy was noted. A Emerson-Cash (BREE) drain was also noted. Musculoskeletal: No clubbing or stenosis. Pulses are 2+. 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 Power is 5/5 in all extremities. Arterial venous (AV) access: He has a right internal jugular (IJ) tunnel hemodialysis catheter. LABORATORY REVIEW: Complete blood count (CBC) showed a WBC of 13.6, hemoglobin 9.1, platelets are 401. Basic metabolic panel (BMP) showed sodium 137, potassium 4.4, chloride 93, bicarbonate 34, BUN 43, creatinine is 7.1. Calcium 9.6, magnesium 2.5. CURRENT INPATIENT MEDICATIONS: The patient's medications were all reviewed by myself. I have started the patient on D5 normal saline at 60 ml an hour. He was getting IV meropenem, which has been stopped now. No other significant change in the medications today. ASSESSMENT AND PLAN: 1. End-stage renal disease. The patient has been switched to hemodialysis now. Last hemodialysis was done yesterday. Next hemodialysis will be done on Saturday. 2. Peritonitis secondary to diverticular abscess. Status post colostomy. IV antibiotics, day 7, finished today. The rest of the management is per surgical team. 3. Anemia and end-stage renal disease. The patient is currently on Aranesp with dialysis. Hemoglobin level is slightly suboptimal, but stable. 4. Secondary hyperparathyroidism. Continue current dose of Sensipar 30 mg by mouth daily. 5. Hypertension. Blood pressure is controlled. Continue current dose of hydralazine, irbesartan and minoxidil.
[2020-09-25] MEDS: HumaLOG INSULIN (NovoLOG) PER UNIT SC SCH ×4 (10:16→20:32)
[2020-09-25] MEDS: OCUVITE 1 TAB PO SCH (10:16)
[2020-09-25] MEDS: METOPROLOL TART 50 MG TAB PO SCH ×2 (10:17→20:43)
[2020-09-25] MEDS: CINACALCET 30 MG TAB (SENSIPAR) PO SCH (10:17)
[2020-09-25] MEDS: ATORVASTATIN 20 MG TAB PO SCH (10:17)
[2020-09-25] MEDS: minoxidiL 2.5 MG TAB PO SCH (10:17)
[2020-09-25] MEDS: DOCUSATE SODIUM 100MG CAPSULE PO SCH ×2 (10:17→20:43)
[2020-09-25] MEDS: IRBESARTAN 150MG TAB PO SCH (10:17)
[2020-09-25] MEDS: LORATADINE 10 MG TAB PO SCH (10:17)
[2020-09-25] MEDS: FERROUS GLUCONATE 324 MG TAB PO SCH ×2 (10:18→20:43)
[2020-09-25] MEDS: SUCROFERRIC OXYHYDROXIDE 500MG CHEW TAB (VELPHORO) PO SCH ×3 (10:18→16:53)
[2020-09-25] MEDS: ASPIRIN 325 MG TAB PO SCH (10:18)
[2020-09-25 12:00] VITALS: BP 135/65
[2020-09-25] MEDS: LACTOBACILLUS ACIDOPHILUS CAP (BACID) PO SCH ×2 (12:55→16:53)
--- NOTE | 2020-09-25 14:53 | IPN ---
PROGRESS NOTE DATE: 09/25/2020 The patient seems to be doing well. He had his nasogastric (NG) clamped yesterday, with checking residuals, really did not have much residuals each time they were checked. Has some minimal distention but notices that his ostomy is still putting out stool. He has been afebrile, his white count is still elevated but down from yesterday to 10.3. Unfortunately, I anticipate this may be partially dilutional given his hematocrit dropped a little bit as well, but in any case, he is doing well, very comfortable, sitting at the bedside. His dressings are clean and dry. IMPRESSION/PLAN: 1. Status post sigmoid colectomy and colostomy. Making some good, slow progress. Discontinue nasogastric (NG) tube, start him on a clear liquid diet, will see how he does with this, but I would not be surprised if he is able to be advanced to a regular diet tomorrow. From a general surgery standpoint, will need to have ostomy education prior to discharge and may even benefit from home health at some point. Once again, he will need to make some strides over the next several days prior to discharge.
--- NOTE | 2020-09-25 15:12 | IPNPDOC ---
Text Note Date of Service The patient was seen on 09/25/20. NOTE Subjective: No any acute events overnight. Patient stated that he feels better in the morning. NG tube was removed by surgical team, clear liquid started Objective: GENERAL APPEARANCE: Slightly confused male HEENT: no scleral icterus, no JVD, EOMI CARDIOVASCULAR: S1S2 LUNGS: Diminished lung sounds bilaterally ABDOMEN: Moderately distended and mildly tender w palpation, colostomy in place MUSCULOSKELETAL: no cyanosis, +1 lower extremity pitting edema INTEGUMENT: no generalized pallor NEUROLOGICAL: cranial nerve function from 2-12 intact intact, follows commands, speech not dysarthric Assessment and plan: Patient is 70 years old male with past history of coronary artery diseases, recent CABG, end-stage renal diseases on peritoneal dialysis, hypertension, type 2 diabetes presented to the hospital with abdominal pain. Patient was found to have abdominal peritonitis. Peritoneal fluid showed significant leukocytosis up to 94,000 white blood cells. Treatment with broad-spectrum antibiotics started. Abdominal pain/acute abdomen resolved Patient developed acute abdomen on 09/22/20 CT showed Increased pneumoperitoneum and ascites. Peritoneal dialysis catheter remains in place. There is a new fluid and air collection in the left flank adjacent to and inflamed segment of descending colon suggesting localized perforation and early abscess formation. The proximal colon remains stool filled and dilated. Patient was found to have perforated diverticula Dr. Leal did bowel resection and place colostomy on 09/22/20. Peritoneal fluid from 09/22/20 negative On 09/25/20 NG tube was removed, clear liquid started. Patient tolerates it well Peritonitis Patient developed cloudy fluid with high number of leukocytes of 94,000 on admission Nephrology team started vancomycin and gentamicin intraperitoneally Peritoneal fluid positive for Klebsiella pneumonia and Serratia We continue meropenem, gentamicin was discontinued by nephrology team Amari florentino continue meropenem On 09/25/20 leukocytosis 10.3, improved. End-stage renal diseases peritoneal dialysis has been changed to hemodialysis, nephrology team on board Hyponatremia Management by nephrology team Resolved Hyperkalemia Most likely secondary to missed peritoneal dialysis Resolved Hyperphosphatemia Continue with phosphate binder and phosphorous Pneumoperitoneum see above Left lower lobe consolidation/ HCAP Patient denied cough, sputum production CT showed Pleural thickening and minimal pleural effusion right lower lobe. Small left pleural effusion. Infiltrate left lung base may represent atelectasis although an infectious etiology to be excluded clinically Meropenem empirically started Continue Incentive spirometry Patient does not have cough and sputum production CAD, CABG 5 vessels Few days prior to this admission patient was discharged from [facility] Continue cardioprotective medications Continue telemetry Hypertensive urgency Resolved Type 2 diabetes Insulin sliding scale Detemir 18 units daily at bedtime Glucose level under control Blood glucose level every 6 hours GERD Continue PPI Obstructive sleep apnea on chronic CPAP Resume CPAP at home settings Anemia of chronic disease Secondary to end-stage renal diseases No acute indication for RBC transfusion Hyperlipidemia Continue statin mild splenomegaly with a maximum span of 13 centimeters. Chronic bilateral simple renal cysts measuring up to 5.8 cm in the right kidney. No intervention Moderate prostatic hyperplasia. No acute symptoms of difficulty starting or maintaining urinary stream constipation. As needed bowel regimen colonic diverticulosis Chronic See above Moderate central spinal stenosis L2-L3, severe central spinal stenosis L3-L4 and L4-L5. Bulging annulus L5-S1. Avoid nonsteroidal anti-inflammatories No neurologic deficits umbilical hernia. Reducible CT abdomen and pelvis shows no incarceration Asymptomatic VS,Fishbone, I+O VS, Fishbone, I+O Laboratory Tests 09/25/20 05:02 Vital Signs Date Time Temp Pulse Resp B/P (MAP) Pulse Ox O2 Delivery O2 Flow Rate FiO2 09/25/20 12:56 135/65 09/25/20 12:00 96.8 73 17 97 Room Air 09/25/20 04:00 2.0 I&O- Last 24 Hours up to 6 AM 09/25/20 06:00 Intake Total 840 ml Output Total 120 ml Balance 720 ml HALEIGH ORNELAS DO Sep 25, 2020 15:12
[2020-09-25 16:00] VITALS: BP 139/67
[2020-09-25] MEDS: traMADol 50 MG TAB PO PRN (16:54)
[2020-09-25 20:00] VITALS: BP 145/68
[2020-09-25] MEDS: LEVEMIR (INSULIN DETEMIR) 1 UNITS/0.01ML SC SCH (21:02)
[2020-09-26] VITALS (7 sets, daily range): BP systolic 107–161; BP diastolic 55–80
[2020-09-26] MEDS: NITROGLYCERIN 2% OINT 1 GM *U/D* PKT TOP SCH ×7 (00:11→23:54)
[2020-09-26] MEDS: HEPARIN SOD (PORCINE) 5000UNITS/ML 1ML VIAL/SYRINGE SQ SCH ×3 (06:16→21:01)
--- NOTE | 2020-09-26 07:21 | IPN ---
PROGRESS NOTE DATE: 09/25/2020 SUBJECTIVE: The patient was seen and examined at the bedside today morning. He is afebrile, hemodynamically stable. He reports that his NG-tube has been clamped today. He is eating the ice chips. He has not started drinking liquids yet. He denies any other complaints at this time. OBJECTIVE: VITAL SIGNS: Temperature is 97.7 degrees Fahrenheit, blood pressure is 145/68, pulse is 77, respiratory rate is 16, saturating 96% on room air. INTAKE AND OUTPUT: Urine output is not recorded. BREE drain output is 75 ml. There is no more NGT drainage being done. Weight on the bed scale is 89.5 kg. GENERAL: Patient is awake, alert and oriented x3, sitting up on the sofa in no apparent distress. HEAD AND NECK: Extraocular muscles intact. Pupils equally round and reactive to light. He has right IJ tunneled hemodialysis catheter. CARDIOVASCULAR: S1 and S2 regular rate. No edema of the bilateral lower extremities. RESPIRATORY: Chest is clear to auscultation bilaterally. Bilateral equal air entry. No rales or rhonchi. ABDOMEN: Soft, positive bowel sounds. Left lower quadrant colostomy was noted. MUSCULOSKELETAL: No clubbing or cyanosis. Pulses were 2+. 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 Power is 5/5 in all extremities. LABORATORY DATA: CBC showed a WBC of 10.3, hemoglobin is 8.3, platelets are 410,000. BNP showed a sodium of 136, potassium 3.9, chloride 92, bicarbonate 39, BUN 56, creatinine is 9.09. CURRENT INPATIENT MEDICATIONS: Patient's medications were all reviewed by myself. No significant change in the medications today as compared with yesterday. ASSESSMENT AND PLAN: 1. Endstage renal disease. Patient will be dialyzed tomorrow morning as per his regular schedule. 2. Anemia and endstage renal disease, hemoglobin level is 8.3 which is slightly suboptimal. He is already receiving Aranesp for dialysis. Transfuse p.r.n. for a hemoglobin less than 8. 3. Secondary hyperparathyroidism. Continue Sensipar 30 mg p.o. daily. 4. Hypertension. Continue current antihypertensive regimen. Blood pressure is controlled. 5. Status post sigmoid colectomy and colostomy. Patient is making progress. His NG-tube is clamped and as per surgical note it will be removed and the patient will be advanced to a liquid diet.
[2020-09-26] MEDS ORDERED: SODIUM CHLORIDE 0.9% 1000ML IV PRN (07:25)
[2020-09-26] MEDS: HumaLOG INSULIN (NovoLOG) PER UNIT SC SCH ×4 (07:30→21:00)
[2020-09-26] MEDS ORDERED: SLF 3 ML SYR IV PRN (07:50)
[2020-09-26] MEDS: SUCROFERRIC OXYHYDROXIDE 500MG CHEW TAB (VELPHORO) PO SCH ×3 (08:00→17:17)
[2020-09-26] MEDS: LACTOBACILLUS ACIDOPHILUS CAP (BACID) PO SCH ×2 (08:00→13:21)
--- NOTE | 2020-09-26 11:39 | IPNPDOC ---
Text Note Date of Service The patient was seen on 09/26/20. NOTE Patient seen and examined in the dialysis area. He is undergoing dialysis. The dialysis nurse reports the permacath to be working better than Saturday think when she first tried to use it. Patient reports feeling better, mild to moderate incisional pain. Denies any nausea. His colostomy is working. Vital signs. He is hemodynamically stable and MAXIMUM TEMPERATURE 97.6. CURRENT TEMPERATURE 96.0 BP 158/80, pulse rate 71, respiratory rate 16, pulse oximetry 97% at 2 L nasal cannula Examination Patient undergoing dialysis looks comfortable He is more awake today, answers questions appropriately, oriented Lungs clear anteriorly bilaterally Abdomen minimally distended, soft. Midline incision is clean dry and intact. Dressing is dry. BREE drain with light pink serosanguineous fluid. Colostomy is working Mildly tender at the midline incision Impression and plan Perforated diverticulitis status post sigmoid colon resection and colostomy Agree with advancing diet. Continue antibiotics to cover for 14 days Ostomy teaching Ambulate End-stage renal disease. He is switched to hemodialysis. Permacath noted to be working VS,Fishbone, I+O VS, Fishbone, I+O Vital Signs Date Time Temp Pulse Resp B/P (MAP) Pulse Ox O2 Delivery O2 Flow Rate FiO2 09/26/20 07:18 96.0 71 16 158/80 (106) 97 09/26/20 04:10 2.0 09/25/20 20:00 Room Air I&O- Last 24 Hours up to 6 AM 09/26/20 05:59 Intake Total 1200 ml Output Total 225 ml Balance 975 ml ANIL MCCARTHY MD Sep 26, 2020 11:39
[2020-09-26 12:45] LABS: BASO # 0.1 10^3/uL (0.0-0.2); BASO % 0.8 % (0.0-1.0); EOS # 0.4 10^3/uL (0.0-0.5); EOS % 3.9 % (0.0-3.0); HEMATOCRIT 28.7 % (42.0-52.0); HEMOGLOBIN 9.2 g/dl (13.5-17.5); LYMPH # 0.7 10^3/uL (1.5-5.0); LYMPH % 6.8 % (24.0-44.0); MEAN CORPUSCULAR HEMOGLOBIN 29.4 pg (27.0-33.0); MEAN CORPUSCULAR HGB CONC 32.1 g/dl (32.0-36.5); MEAN CORPUSCULAR VOLUME 91.7 fl (80.0-96.0); MONO # 0.8 10^3/uL (0.0-0.8); MONO % 8.3 % (2.0-8.0); NEUTROPHILS # 7.5 10^3/uL (1.5-8.5); NEUTROPHILS % 75.5 % (36.0-66.0); PLATELET COUNT, AUTOMATED 437 10^3/uL (150-450); RED BLOOD COUNT 3.13 10^6/uL (4.30-6.10)
[2020-09-26] MEDS: IRBESARTAN 150MG TAB PO SCH (13:19)
[2020-09-26] MEDS: ATORVASTATIN 20 MG TAB PO SCH (13:19)
[2020-09-26] MEDS: ASPIRIN 325 MG TAB PO SCH (13:20)
[2020-09-26] MEDS: CINACALCET 30 MG TAB (SENSIPAR) PO SCH (13:20)
[2020-09-26] MEDS: minoxidiL 2.5 MG TAB PO SCH (13:21)
[2020-09-26] MEDS: OCUVITE 1 TAB PO SCH (13:21)
[2020-09-26] MEDS: DOCUSATE SODIUM 100MG CAPSULE PO SCH ×2 (13:21→21:03)
[2020-09-26] MEDS: FERROUS GLUCONATE 324 MG TAB PO SCH ×2 (13:22→21:03)
[2020-09-26] MEDS: METOPROLOL TART 50 MG TAB PO SCH ×2 (13:22→21:00)
[2020-09-26] MEDS: ACETAMINOPHEN TAB 650MG DOSE (2X325MG) PO PRN (13:26)
[2020-09-26 13:59] LABS: BILIRUBIN,TOTAL 0.2 MG/DL (0.2-1.0); CREATININE FOR GFR 4.63 MG/DL (0.70-1.30); GLOMERULAR FILTRATION RATE 13.5 (>49); MAGNESIUM LEVEL 2.2 MG/DL (1.8-2.4); POTASSIUM SERUM 3.8 MEQ/L (3.5-5.1); TOTAL PROTEIN 5.1 GM/DL (6.4-8.2)
[2020-09-26] MEDS: SLF 3 ML SYR IV SCH ×2 (14:00→21:20)
--- NOTE | 2020-09-26 15:54 | IPNPDOC ---
Text Note Date of Service The patient was seen on 09/26/20. NOTE Subjective: Patient developed one episode of hypoglycemia overnight with glucose level of 32. Patient stated that he has a good appetite. Patient tolerated clear liquid diet well. Objective: GENERAL APPEARANCE: Slightly confused male HEENT: no scleral icterus, no JVD, EOMI CARDIOVASCULAR: S1S2 LUNGS: Diminished lung sounds bilaterally ABDOMEN: Moderately distended and mildly tender w palpation, colostomy in place, BREE drain with light pink serosanguineous fluid MUSCULOSKELETAL: no cyanosis, +1 lower extremity pitting edema INTEGUMENT: no generalized pallor NEUROLOGICAL: cranial nerve function from 2-12 intact intact, follows commands, speech not dysarthric Assessment and plan: Patient is 70 years old male with past history of coronary artery diseases, recent CABG, end-stage renal diseases on peritoneal dialysis, hypertension, type 2 diabetes presented to the hospital with abdominal pain. Patient was found to have abdominal peritonitis. Peritoneal fluid showed significant leukocytosis up to 94,000 white blood cells. Treatment with broad-spectrum antibiotics started. Abdominal pain/acute abdomen resolved Patient developed acute abdomen on 09/22/20 CT showed Increased pneumoperitoneum and ascites. Peritoneal dialysis catheter remains in place. There is a new fluid and air collection in the left flank adjacent to and inflamed segment of descending colon suggesting localized perforation and early abscess formation. The proximal colon remains stool peri led and dilated. Patient was found to have perforated diverticula Dr. Leal did bowel resection and place colostomy on 09/22/20. Peritoneal fluid from 09/22/20 negative On 09/25/20 NG tube was removed, clear liquid started. Patient tolerates it well On 09/26/20 diet was upgraded to diabetes diet Peritonitis Patient developed cloudy fluid with high number of leukocytes of 94,000 on admission Nephrology team started vancomycin and gentamicin intraperitoneally Peritoneal fluid positive for Klebsiella pneumonia and Serratia We continue meropenem, gentamicin was discontinued by nephrology team Amari florentino continue meropenem On 09/25/20 leukocytosis 10.3, improved. On 09/26/20 leukocytosis 10 End-stage renal diseases peritoneal dialysis has been changed to hemodialysis, nephrology team on board. Today in the morning patient has dialysis Hyponatremia Management by nephrology team Resolved Hyperkalemia Most likely secondary to missed peritoneal dialysis Resolved Hyperphosphatemia Continue with phosphate binder and phosphorous Pneumoperitoneum see above Left lower lobe consolidation/ HCAP Patient denied cough, sputum production CT showed Pleural thickening and minimal pleural effusion right lower lobe. Small left pleural effusion. Infiltrate left lung base may represent atelectasis although an infectious etiology to be excluded clinically Meropenem empirically started Continue Incentive spirometry Patient does not have cough and sputum production CAD, CABG 5 vessels Few days prior to this admission patient was discharged from [facility] Continue cardioprotective medications Continue telemetry Hypertensive urgency Resolved Type 2 diabetes Insulin sliding scale. Due to previous episodes of hypoglycemia I changed 18 units of detemir 15 units Detemir 15units daily at bedtime Glucose level under control GERD Continue PPI Obstructive sleep apnea on chronic CPAP Resume CPAP at home settings Anemia of chronic disease Secondary to end-stage renal diseases No acute indication for RBC transfusion Hyperlipidemia Continue statin mild splenomegaly with a maximum span of 13 centimeters. Chronic bilateral simple renal cysts measuring up to 5.8 cm in the right kidney. No intervention Moderate prostatic hyperplasia. No acute symptoms of difficulty starting or maintaining urinary stream constipation. As needed bowel regimen colonic diverticulosis Chronic See above Moderate central spinal stenosis L2-L3, severe central spinal stenosis L3-L4 and L4-L5. Bulging annulus L5-S1. Avoid nonsteroidal anti-inflammatories No neurologic deficits umbilical hernia. Reducible CT abdomen and pelvis shows no incarceration Asymptomatic VS,Fishbone, I+O VS, Fishbone, I+O Laboratory Tests 09/26/20 12:33 Vital Signs Date Time Temp Pulse Resp B/P (MAP) Pulse Ox O2 Delivery O2 Flow Rate FiO2 09/26/20 13:22 86 160/74 09/26/20 12:58 96.8 19 97 09/26/20 04:10 2.0 09/25/20 20:00 Room Air I&O- Last 24 Hours up to 6 AM 09/26/20 06:00 Intake Total 840 ml Output Total 225 ml Balance 615 ml HALEIGH ORNELAS DO Sep 26, 2020 15:54
[2020-09-26] MEDS: LEVEMIR (INSULIN DETEMIR) 1 UNITS/0.01ML SC SCH (21:00)
[2020-09-26] MEDS: PERCOCET 5MG/325MG TAB PO PRN (21:04)
--- NOTE | 2020-09-26 23:51 | IPN ---
NEPHROLOGY PROGRESS NOTE DATE: 09/26/2020 SUBJECTIVE: Patient was seen and examined at the bedside today morning during hemodialysis procedure. He is tolerating the hemodialysis procedure well. His NG tube has been removed and he is tolerating the liquid diet now. OBJECTIVE: VITAL SIGNS: Temperature 97.6 degrees Fahrenheit, blood pressure 107/55, pulse 79, respiratory rate 17, sating 97% on nasal cannula at 2 liters. INTAKE/OUTPUT: Urine output is not recorded. His stool output is 2 liters. Weight in the bed scale is 94.3 kg. PHYSICAL EXAMINATION: GENERAL: Patient is awake, alert, oriented x3, lying in bed getting hemodialysis done. HEAD AND NECK: Extraocular muscles intact. Pupils equally round and reactive to light. Mucous membranes are moist. Neck is supple. He has a right IJ tunneled hemodialysis catheter. RESPIRATORY: Chest is clear to auscultation bilaterally. Bilateral equal air entry. No rales or rhonchi. CARDIOVASCULAR: S1, S2, regular rate. No edema of the bilateral lower extremities. ABDOMEN: Soft, positive bowel sounds. Left lower quadrant colostomy was noted. MUSCULOSKELETAL: No clubbing or cyanosis. 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 Power is 5/5 in all upper extremities. LAB REVIEW: CBC showed WBC 10, hemoglobin 9.2, platelets 437,000. BMP showed sodium 136, potassium 3.8, chloride 97, bicarb 34, BUN 25, creatinine 4.6. CURRENT INPATIENT MEDICATIONS: Patient's medications were all reviewed by myself. I.V. fluids have been stopped now. Insulin Levemir dose has been decreased to 15 units. No other significant change in the medications today. ASSESSMENT AND PLAN: 1. End-stage renal disease: Patient has been switched to hemodialysis because of recent colostomy. Continue three times a week hemodialysis for now. 2. Anemia and end-stage renal disease: Continue Aranesp with dialysis. Hemoglobin level is stable and improving. 3. Hypertension: Continue current antihypertensive regimen. 4. Status post sigmoid colectomy and colostomy: NG tube has been removed. Patient is currently tolerating liquid diet.
[2020-09-27] VITALS (12 sets, daily range): BP systolic 117–169; BP diastolic 58–87
[2020-09-27] MEDS: NITROGLYCERIN 2% OINT 1 GM *U/D* PKT TOP SCH ×5 (04:00→19:39)
[2020-09-27] MEDS: SLF 3 ML SYR IV SCH ×3 (05:48→20:59)
[2020-09-27] MEDS: HEPARIN SOD (PORCINE) 5000UNITS/ML 1ML VIAL/SYRINGE SQ SCH (05:48)
[2020-09-27 05:55] LABS: BASO # 0.1 10^3/uL (0.0-0.2); BASO % 0.5 % (0.0-1.0); EOS # 0.6 10^3/uL (0.0-0.5); EOS % 5.2 % (0.0-3.0); HEMATOCRIT 24.3 % (42.0-52.0); HEMOGLOBIN 7.7 g/dl (13.5-17.5); LYMPH # 0.6 10^3/uL (1.5-5.0); LYMPH % 5.6 % (24.0-44.0); MEAN CORPUSCULAR HEMOGLOBIN 29.3 pg (27.0-33.0); MEAN CORPUSCULAR HGB CONC 31.7 g/dl (32.0-36.5); MEAN CORPUSCULAR VOLUME 92.4 fl (80.0-96.0); MONO # 0.8 10^3/uL (0.0-0.8); NEUTROPHILS # 8.7 10^3/uL (1.5-8.5); NEUTROPHILS % 77.7 % (36.0-66.0); PLATELET COUNT, AUTOMATED 423 10^3/uL (150-450); RED BLOOD COUNT 2.63 10^6/uL (4.30-6.10); WHITE BLOOD COUNT 11.1 10^3/uL (4.0-10.0)
[2020-09-27 06:29] LABS: ALBUMIN 1.7 GM/DL (3.2-5.2); BILIRUBIN,TOTAL 0.3 MG/DL (0.2-1.0); CALCIUM LEVEL 7.9 MG/DL (8.8-10.2); CREATININE FOR GFR 6.19 MG/DL (0.70-1.30); GLOMERULAR FILTRATION RATE 9.7 (>49); MAGNESIUM LEVEL 2.3 MG/DL (1.8-2.4); POTASSIUM SERUM 4.5 MEQ/L (3.5-5.1); TOTAL PROTEIN 4.5 GM/DL (6.4-8.2)
[2020-09-27] MEDS ORDERED: MEROPENEM INJ 1 GM in IV 1 EA IV SCH (07:30)
[2020-09-27] MEDS: IRBESARTAN 150MG TAB PO SCH (09:03)
[2020-09-27] MEDS: minoxidiL 2.5 MG TAB PO SCH (09:03)
[2020-09-27] MEDS: LORATADINE 10 MG TAB PO SCH (09:03)
[2020-09-27] MEDS: FERROUS GLUCONATE 324 MG TAB PO SCH ×2 (09:03→20:59)
[2020-09-27] MEDS: LACTOBACILLUS ACIDOPHILUS CAP (BACID) PO SCH ×2 (09:04→18:40)
[2020-09-27] MEDS: METOPROLOL TART 50 MG TAB PO SCH ×3 (09:04→20:59)
[2020-09-27] MEDS: OCUVITE 1 TAB PO SCH (09:04)
[2020-09-27] MEDS: DOCUSATE SODIUM 100MG CAPSULE PO SCH ×2 (09:04→20:59)
[2020-09-27] MEDS: CINACALCET 30 MG TAB (SENSIPAR) PO SCH (09:04)
[2020-09-27] MEDS: ASPIRIN 325 MG TAB PO SCH (09:05)
[2020-09-27] MEDS: ATORVASTATIN 20 MG TAB PO SCH (09:05)
[2020-09-27] MEDS: SUCROFERRIC OXYHYDROXIDE 500MG CHEW TAB (VELPHORO) PO SCH ×3 (09:06→18:40)
[2020-09-27] MEDS: HumaLOG INSULIN (NovoLOG) PER UNIT SC SCH ×4 (09:06→20:53)
[2020-09-27] MEDS: MEROPENEM INJ 500 MG in IV 1 EA IV SCH ×2 (09:06→21:00)
[2020-09-27 10:39] LABS: C REACTIVE PROTEIN QUANTITATIV 7.17 MG/DL (0.00-0.30)
--- NOTE | 2020-09-27 10:44 | IPNPDOC ---
Text Note Date of Service The patient was seen on 09/27/20. NOTE Subjective: No acute events overnight. Patient stated that his appetite is poor. No fever, no chills Objective: GENERAL APPEARANCE: Slightly confused male HEENT: no scleral icterus, no JVD, EOMI CARDIOVASCULAR: S1S2 LUNGS: Diminished lung sounds bilaterally ABDOMEN: Moderately distended and mildly tender w palpation, colostomy in place, BREE drain with light pink serosanguineous fluid MUSCULOSKELETAL: no cyanosis, +1 lower extremity pitting edema INTEGUMENT: no generalized pallor NEUROLOGICAL: cranial nerve function from 2-12 intact intact, follows commands, speech not dysarthric Assessment and plan: Patient is 70 years old male with past history of coronary artery diseases, recent CABG, end-stage renal diseases on peritoneal dialysis, hypertension, type 2 diabetes presented to the hospital with abdominal pain. Patient was found to have abdominal peritonitis. Peritoneal fluid showed significant leukocytosis up to 94,000 white blood cells. Treatment with broad-spectrum antibiotics started. Abdominal pain/acute abdomen resolved Patient developed acute abdomen on 09/22/20 CT showed Increased pneumoperitoneum and ascites. Peritoneal dialysis catheter remains in place. There is a new fluid and air collection in the left flank adjacent to and inflamed segment of descending colon suggesting localized perforation and early abscess formation. The proximal colon remains stool filled and dilated. Patient was found to have perforated diverticula Dr. Leal did bowel resection and place colostomy on 09/22/20. Peritoneal fluid from 09/22/20 negative On 09/25/20 NG tube was removed, clear liquid started. Patient tolerates it well On 09/26/20 diet was upgraded to diabetes diet on 09/27/20 Hemoglobin dropped to 7.7. I will check stool for occult blood Peritonitis Patient developed cloudy fluid with high number of leukocytes of 94,000 on admission Nephrology team started vancomycin and gentamicin intraperitoneally Peritoneal fluid positive for Klebsiella pneumonia and Serratia We continue meropenem, gentamicin was discontinued by nephrology team Amari florentino continue meropenem. Surgical team recommended to continue antibiotics for 2 weeks On 09/25/20 leukocytosis 10.3, improved. On 09/26/20 leukocytosis 10 End-stage renal diseases peritoneal dialysis has been changed to hemodialysis, nephrology team on board. Today in the morning patient has dialysis Hyponatremia Management by nephrology team Hyperkalemia Most likely secondary to missed peritoneal dialysis Resolved Hyperphosphatemia Continue with phosphate binder and phosphorous Pneumoperitoneum see above Left lower lobe consolidation/ HCAP Patient denied cough, sputum production CT showed Pleural thickening and minimal pleural effusion right lower lobe. Small left pleural effusion. Infiltrate left lung base may represent atelectasis although an infectious etiology to be excluded clinically Meropenem empirically started Continue Incentive spirometry Patient completed the course of antibiotics for pneumonia CAD, CABG 5 vessels Few days prior to this admission patient was discharged from [facility] Continue cardioprotective medications Continue telemetry Hypertensive urgency Resolved Type 2 diabetes Insulin sliding scale. Due to previous episodes of hypoglycemia I changed 18 units of detemir 15 units Detemir 15units daily at bedtime Glucose level under control GERD Continue PPI Obstructive sleep apnea on chronic CPAP Resume CPAP at home settings Anemia of chronic disease Secondary to end-stage renal diseases Hemoglobin today talked to 7.7. I will give 2 units of blood. We'll check stool for occult blood We will decreased full dose of aspirin 81 mg. PPI Hyperlipidemia Continue statin mild splenomegaly with a maximum span of 13 centimeters. Chronic bilateral simple renal cysts measuring up to 5.8 cm in the right kidney. No intervention Moderate prostatic hyperplasia. No acute symptoms of difficulty starting or maintaining urinary stream constipation. As needed bowel regimen colonic diverticulosis Chronic See above Moderate central spinal stenosis L2-L3, severe central spinal stenosis L3-L4 and L4-L5. Bulging annulus L5-S1. Avoid nonsteroidal anti-inflammatories No neurologic deficits umbilical hernia. Reducible CT abdomen and pelvis shows no incarceration Asymptomatic VS,Fishbone, I+O VS, Fishbone, I+O Laboratory Tests 09/26/20 12:33 09/27/20 05:09 Vital Signs Date Time Temp Pulse Resp B/P (MAP) Pulse Ox O2 Delivery O2 Flow Rate FiO2 09/27/20 10:05 2.0 09/27/20 09:05 154/58 09/27/20 09:04 100 09/27/20 08:00 97.3 18 96 Nasal Cannula I&O- Last 24 Hours up to 6 AM 09/27/20 06:00 Intake Total 1465 ml Output Total 4075 ml Balance -2610 ml HALEIGH ORNELAS DO Sep 27, 2020 10:43
[2020-09-27] MEDS: PANTOPRAZOLE 40MG VIAL (C9113 PER 1) IV SCH (13:15)
[2020-09-27] MEDS: SUCRALFATE 1 GM TAB PO SCH ×2 (14:02→20:59)
[2020-09-27] MEDS: LEVEMIR (INSULIN DETEMIR) 1 UNITS/0.01ML SC SCH (20:53)
[2020-09-28] VITALS (15 sets, daily range): BP systolic 137–166; BP diastolic 63–85; O2SAT 93–99
[2020-09-28] MEDS: NITROGLYCERIN 2% OINT 1 GM *U/D* PKT TOP SCH ×6 (00:30→21:18)
--- NOTE | 2020-09-28 01:56 | IPN ---
NEPHROLOGY PROGRESS NOTE DATE: 09/27/2020 SUBJECTIVE: The patient was seen and examined at the bedside today morning. Patient was dialyzed yesterday. He tolerated the hemodialysis procedure well and 1.5 liter of fluid was removed. Patient's hemoglobin has significantly dropped from 9.2 to 7.7 today. He is also having melanotic stool output in the colostomy. OBJECTIVE: VITAL SIGNS: Temperature 98 degrees Fahrenheit, blood pressure 129/69, pulse 91, respiratory rate 19, saturating 98% on nasal cannula at 2 liters. INTAKE AND OUTPUT: Urine output is not recorded. Stool output is 150 mL. Weight on the bed scale is not available. PHYSICAL EXAMINATION: GENERAL: Patient is awake, alert and oriented x3, sitting up on the sofa in no apparent distress. HEAD AND NECK: Patient has conjunctival pallor and pallor in the tongue as well. Mucous membranes are moist. Neck is supple. There is no JVD. A right IJ tunneled hemodialysis catheter was noted. CARDIOVASCULAR: S1, S2, regular rate. No edema of the bilateral lower extremities. RESPIRATORY: Chest is clear to auscultation bilaterally. Bilateral equal air entry. No rales or rhonchi. ABDOMEN: Soft, positive bowel sounds. Left lower quadrant colostomy was noted. Melanotic stools in the colostomy were noted as well. MUSCULOSKELETAL: No clubbing or cyanosis. Pulses are 2+. LOG ROLLER: No focal deficit. Power is 5/5 in all extremities. LABORATORY DATA: CBC showed WBC 11.1, hemoglobin 7.7, platelets 423,000. BMP showed sodium 132, potassium 4.5, chloride 94, bicarb 31, BUN 45, creatinine 6.1. Calcium 7.9, magnesium 2.3. Albumin 1.7. CURRENT INPATIENT MEDICATIONS: Patient's medications were all reviewed by myself. He has been started on Meropenem 500 mg I.V. every 12 hours. Aspirin has been decreased to 81 mg p.o. daily starting tomorrow morning. Subcutaneous Heparin has been stopped. One unit of PRBC transfusion has been ordered. Patient has also been started on Carafate with meals. ASSESSMENT AND PLAN: 1. End-stage renal disease: Patient was dialyzed yesterday. Next hemodialysis would be done tomorrow morning. 2. Anemia with melena: Heparin has been stopped. Aspirin dose has been decreased. Patient has been started on Protonix and Carafate. One unit of PRBC transfusion has been ordered. 3. Status post sigmoid colectomy and colostomy: Patient is tolerating the diet. He is currently on consistent carb diet now. Because of leukocytosis, he has been started again on I.V. Meropenem. 4. Hypertension: Blood pressure is controlled with the current regimen.
[2020-09-28] MEDS: SUCRALFATE 1 GM TAB PO SCH ×4 (04:51→21:18)
[2020-09-28] MEDS: SLF 3 ML SYR IV SCH ×3 (04:52→21:18)
[2020-09-28 06:06] LABS: BASO # 0.1 10^3/uL (0.0-0.2); EOS # 0.6 10^3/uL (0.0-0.5); EOS % 4.3 % (0.0-3.0); HEMATOCRIT 27.9 % (42.0-52.0); HEMOGLOBIN 9.1 g/dl (13.5-17.5); LYMPH # 0.9 10^3/uL (1.5-5.0); LYMPH % 6.7 % (24.0-44.0); MEAN CORPUSCULAR HGB CONC 32.6 g/dl (32.0-36.5); MEAN CORPUSCULAR VOLUME 88.9 fl (80.0-96.0); MONO # 1.1 10^3/uL (0.0-0.8); MONO % 8.3 % (2.0-8.0); NEUTROPHILS # 9.6 10^3/uL (1.5-8.5); NEUTROPHILS % 75.2 % (36.0-66.0); PLATELET COUNT, AUTOMATED 357 10^3/uL (150-450); RED BLOOD COUNT 3.14 10^6/uL (4.30-6.10); WHITE BLOOD COUNT 12.8 10^3/uL (4.0-10.0)
[2020-09-28 06:36] LABS: ALBUMIN 1.9 GM/DL (3.2-5.2); BILIRUBIN,TOTAL 0.3 MG/DL (0.2-1.0); CALCIUM LEVEL 8.2 MG/DL (8.8-10.2); CREATININE FOR GFR 7.43 MG/DL (0.70-1.30); GLOMERULAR FILTRATION RATE 7.8 (>49); MAGNESIUM LEVEL 2.3 MG/DL (1.8-2.4); POTASSIUM SERUM 4.7 MEQ/L (3.5-5.1); TOTAL PROTEIN 4.5 GM/DL (6.4-8.2)
[2020-09-28] MEDS: ONDANSETRON 4MG/2ML VIAL IV PRN (06:53)
[2020-09-28] MEDS: PANTOPRAZOLE 40MG VIAL (C9113 PER 1) IV SCH (08:10)
[2020-09-28] MEDS: HumaLOG INSULIN (NovoLOG) PER UNIT SC SCH ×4 (08:10→21:00)
[2020-09-28] MEDS: MEROPENEM INJ 500 MG in IV 1 EA IV SCH (08:10)
[2020-09-28] MEDS: CINACALCET 30 MG TAB (SENSIPAR) PO SCH (08:11)
[2020-09-28] MEDS: ATORVASTATIN 20 MG TAB PO SCH (08:11)
[2020-09-28] MEDS: ASPIRIN 81MG ENTERIC TABLET PO SCH (08:11)
[2020-09-28] MEDS: FERROUS GLUCONATE 324 MG TAB PO SCH ×2 (08:11→21:17)
[2020-09-28] MEDS: SUCROFERRIC OXYHYDROXIDE 500MG CHEW TAB (VELPHORO) PO SCH ×3 (08:11→17:59)
[2020-09-28] MEDS: METOPROLOL TART 50 MG TAB PO SCH ×2 (08:11→21:18)
[2020-09-28] MEDS: DOCUSATE SODIUM 100MG CAPSULE PO SCH ×2 (08:12→21:17)
[2020-09-28] MEDS: LACTOBACILLUS ACIDOPHILUS CAP (BACID) PO SCH ×2 (08:12→17:58)
[2020-09-28] MEDS: IRBESARTAN 150MG TAB PO SCH (08:14)
[2020-09-28] MEDS: ACETAMINOPHEN TAB 650MG DOSE (2X325MG) PO PRN (11:54)
[2020-09-28] MEDS: OCUVITE 1 TAB PO SCH (11:54)
[2020-09-28] MEDS: minoxidiL 2.5 MG TAB PO SCH (11:55)
--- NOTE | 2020-09-28 13:13 | IPNPDOC ---
Text Note Date of Service The patient was seen on 09/28/20. NOTE Subjective: Patient stated that he is doing better today. No fever overnight, no chest pain or palpitations Objective: GENERAL APPEARANCE:NAD HEENT: no scleral icterus, no JVD, EOMI CARDIOVASCULAR: S1S2 LUNGS: Diminished lung sounds bilaterally ABDOMEN: Moderately distended and mildly tender w palpation, colostomy in place MUSCULOSKELETAL: no cyanosis, +1 lower extremity pitting edema INTEGUMENT: no generalized pallor NEUROLOGICAL: cranial nerve function from 2-12 intact intact, follows commands, speech not dysarthric Assessment and plan: Patient is 70 years old male with past history of coronary artery diseases, recent CABG, end-stage renal diseases on peritoneal dialysis, hypertension, type 2 diabetes presented to the hospital with abdominal pain. Patient was found to have abdominal peritonitis. Peritoneal fluid showed significant leukocytosis up to 94,000 white blood cells. Treatment with broad-spectrum antibiotics started. Abdominal pain/acute abdomen resolved Patient developed acute abdomen on 09/22/20 CT showed Increased pneumoperitoneum and ascites. Peritoneal dialysis catheter remains in place. There is a new fluid and air collection in the left flank adjacent to and inflamed segment of descending colon suggesting localized perforation and early abscess formation. The proximal colon remains stool filled and dilated. Patient was found to have perforated diverticula Dr. Leal did bowel resection and place colostomy on 09/22/20. Peritoneal fluid from 09/22/20 negative On 09/25/20 NG tube was removed, clear liquid started. Patient tolerates it well On 09/26/20 diet was upgraded to diabetes diet on 09/27/20 Hemoglobin dropped to 7.7. Await stool for occult blood. Patient received 2 units of blood transfusion Hemoglobin 9.1 on 09/28/20. Peritonitis Patient developed cloudy fluid with high number of leukocytes of 94,000 on admission Nephrology team started vancomycin and gentamicin intraperitoneally Peritoneal fluid positive for Klebsiella pneumonia and Serratia We continue meropenem, gentamicin was discontinued by nephrology team Amari florentino continue meropenem. Surgical team recommended to continue antibiotics for 2 weeks On 09/25/20 leukocytosis 10.3, improved. On 09/26/20 leukocytosis 10 On white blood count 12.8. No fever. Procalcitonin 2.5. Blood culture ordered. Will check chest x-ray End-stage renal diseases peritoneal dialysis has been changed to hemodialysis, nephrology team on board. Hyponatremia Management by nephrology team Hyperkalemia Most likely secondary to missed peritoneal dialysis Resolved Hyperphosphatemia Continue with phosphate binder and phosphorous Pneumoperitoneum see above Left lower lobe consolidation/ HCAP Patient denied cough, sputum production CT showed Pleural thickening and minimal pleural effusion right lower lobe. Small left pleural effusion. Infiltrate left lung base may represent atelectasis although an infectious etiology to be excluded clinically Meropenem empirically started Continue Incentive spirometry Patient completed the course of antibiotics for pneumonia CAD, CABG 5 vessels Few days prior to this admission patient was discharged from [facility] Continue cardioprotective medications Continue telemetry Hypertensive urgency Resolved Type 2 diabetes Insulin sliding scale. Due to previous episodes of hypoglycemia I changed 18 units of detemir 15 units Detemir 15units daily at bedtime Glucose level under control GERD Continue PPI Obstructive sleep apnea on chronic CPAP Resume CPAP at home settings Anemia of chronic disease Secondary to end-stage renal diseases We decreased full dose of aspirin to 81 mg. PPI, Carafate Hyperlipidemia Continue statin mild splenomegaly with a maximum span of 13 centimeters. Chronic bilateral simple renal cysts measuring up to 5.8 cm in the right kidney. No intervention Moderate prostatic hyperplasia. No acute symptoms of difficulty starting or maintaining urinary stream constipation. As needed bowel regimen colonic diverticulosis Chronic See above Moderate central spinal stenosis L2-L3, severe central spinal stenosis L3-L4 and L4-L5. Bulging annulus L5-S1. Avoid nonsteroidal anti-inflammatories No neurologic deficits umbilical hernia. Reducible CT abdomen and pelvis shows no incarceration VS,Fishbone, I+O VS, Fishbone, I+O Laboratory Tests 09/28/20 05:19 Vital Signs Date Time Temp Pulse Resp B/P (MAP) Pulse Ox O2 Delivery O2 Flow Rate FiO2 09/28/20 11:55 139/66 09/28/20 08:11 91 09/28/20 08:00 2.0 09/28/20 04:00 97.6 17 96 Nasal Cannula 09/27/20 17:30 96 I&O- Last 24 Hours up to 6 AM 09/28/20 06:00 Intake Total 1980 ml Output Total 880 ml Balance 1100 ml HALEIGH ORNELAS DO Sep 28, 2020 13:13
--- NOTE | 2020-09-28 13:38 | REP ---
INDICATION: PNA. COMPARISON: Comparison chest x-ray 22 September 2020.. TECHNIQUE: Single sitting AP radiograph of the chest. FINDINGS: Patient is status post prior median sternotomy. A right-sided tunnel catheter is seen in place with its tip in the expected location of the superior vena cava. Monitoring electrodes are seen. Heart size is borderline unchanged. There is pleural opacity bilaterally suggesting small bilateral effusions, left probably greater than right. There is perihilar platelike atelectasis on the left. Some fissural thickening is seen on the right. Is no definite focal infiltrate. IMPRESSION: Findings consistent with small pleural effusions left more than right. Left perihilar platelike atelectasis. Borderline heart size. <Electronically signed by [place] > 09/28/20 [id number]
[2020-09-28] MEDS ORDERED: VANCOMYCIN HCL 1,000 MG, VIAL MATE ADAPTER 1 EACH in NS 250 ML IV ONE (15:00)
[2020-09-28] MEDS ORDERED: VANCOMYCIN HCL 750 MG, VIAL MATE ADAPTER 1 EACH in NS 250 ML IV ONE (16:00)
[2020-09-28] MEDS: traMADol 50 MG TAB PO PRN (18:53)
[2020-09-28] MEDS: LEVEMIR (INSULIN DETEMIR) 1 UNITS/0.01ML SC SCH (21:00)
[2020-09-28] MEDS: PERCOCET 5MG/325MG TAB PO PRN (21:17)
[2020-09-29] VITALS (15 sets, daily range): BP systolic 137–153; BP diastolic 68–84; O2SAT 95–100
[2020-09-29] MEDS: NITROGLYCERIN 2% OINT 1 GM *U/D* PKT TOP SCH ×6 (00:25→21:04)
[2020-09-29] MEDS: SLF 3 ML SYR IV SCH ×3 (05:01→21:05)
[2020-09-29] MEDS: SUCRALFATE SUSP 1GM/10ML UD PO SCH ×3 (05:45→21:05)
[2020-09-29 06:08] LABS: BASO # 0.1 10^3/uL (0.0-0.2); BASO % 0.8 % (0.0-1.0); EOS # 0.6 10^3/uL (0.0-0.5); EOS % 4.7 % (0.0-3.0); HEMATOCRIT 28.5 % (42.0-52.0); HEMOGLOBIN 9.3 g/dl (13.5-17.5); LYMPH # 0.7 10^3/uL (1.5-5.0); MEAN CORPUSCULAR HEMOGLOBIN 28.6 pg (27.0-33.0); MEAN CORPUSCULAR HGB CONC 32.6 g/dl (32.0-36.5); MEAN CORPUSCULAR VOLUME 87.7 fl (80.0-96.0); MONO # 1.1 10^3/uL (0.0-0.8); NEUTROPHILS # 9.3 10^3/uL (1.5-8.5); PLATELET COUNT, AUTOMATED 346 10^3/uL (150-450); RED BLOOD COUNT 3.25 10^6/uL (4.30-6.10); WHITE BLOOD COUNT 12.2 10^3/uL (4.0-10.0)
[2020-09-29 06:49] LABS: ALBUMIN 1.9 GM/DL (3.2-5.2); BILIRUBIN,TOTAL 0.5 MG/DL (0.2-1.0); CALCIUM LEVEL 8.1 MG/DL (8.8-10.2); CREATININE FOR GFR 4.72 MG/DL (0.70-1.30); GLOMERULAR FILTRATION RATE 13.2 (>49); MAGNESIUM LEVEL 2.1 MG/DL (1.8-2.4); POTASSIUM SERUM 4.1 MEQ/L (3.5-5.1); VANCOMYCIN RANDOM 32.6 UG/ML
[2020-09-29] MEDS: HumaLOG INSULIN (NovoLOG) PER UNIT SC SCH ×4 (07:24→21:00)
[2020-09-29] MEDS: DOCUSATE SODIUM 100MG CAPSULE PO SCH ×2 (08:39→21:04)
[2020-09-29] MEDS: ATORVASTATIN 20 MG TAB PO SCH (08:39)
[2020-09-29] MEDS: LORATADINE 10 MG TAB PO SCH (08:39)
[2020-09-29] MEDS: OCUVITE 1 TAB PO SCH (08:40)
[2020-09-29] MEDS: SUCROFERRIC OXYHYDROXIDE 500MG CHEW TAB (VELPHORO) PO SCH ×3 (08:40→18:29)
[2020-09-29] MEDS: IRBESARTAN 150MG TAB PO SCH (08:41)
[2020-09-29] MEDS: ASPIRIN 81MG ENTERIC TABLET PO SCH (08:41)
[2020-09-29] MEDS: minoxidiL 2.5 MG TAB PO SCH (08:41)
[2020-09-29] MEDS: LACTOBACILLUS ACIDOPHILUS CAP (BACID) PO SCH ×2 (08:41→18:29)
[2020-09-29] MEDS: FERROUS GLUCONATE 324 MG TAB PO SCH ×2 (08:41→21:04)
[2020-09-29] MEDS: PANTOPRAZOLE 40MG VIAL (C9113 PER 1) IV SCH (08:42)
[2020-09-29] MEDS: METOPROLOL TART 50 MG TAB PO SCH ×2 (08:42→21:04)
[2020-09-29] MEDS: MEROPENEM INJ 500 MG in IV 1 EA IV SCH (09:00)
[2020-09-29] MEDS: CINACALCET 30 MG TAB (SENSIPAR) PO SCH (09:08)
[2020-09-29] MEDS ORDERED: VANCOMYCIN HCL 1,000 MG, VIAL MATE ADAPTER 1 EACH in NS 250 ML IV SCH (12:05)
--- NOTE | 2020-09-29 12:58 | IPNPDOC ---
Text Note Date of Service The patient was seen on 09/29/20. NOTE Gen. surgery. Dr. Mccarthy Denies any nausea or vomiting. Reports abdominal pain has been controlled. He has had stool in the ostomy bag, has been dark in color. [facility] has been working for dialysis. Afebrile. Heart rate 91, respiratory rate 18, blood pressure 146/70, 99% 2 L nasal cannula He is resting in bed, alert and oriented. Lungs clear anteriorly bilaterally Abdomen is still minimally distended, soft. Surgical incision clean dry and intact, no drainage. Dressing is dry. BREE drain with clear fluid. Ostomy is pink WBC 12.2, hemoglobin 9.3, platelets 346 Impression and plan Perforated diverticulitis status post sigmoid colon resection and colostomy as per Dr. Mccarthy 09/22/20. Plan to discontinue BREE drain today. Tolerating regular diet. Plan to continue antibiotics to cover for 14 days Continue with with Ostomy teaching Encourage ambulation The patient would like to shower, we have advised the patient he can wrap the ostomy area and his PermCath area with plastics so that it stays dry during a shower. End-stage renal disease. Currently hemodialysis as per nephrology. [facility] is functioning for dialysis. VS,Fishbone, I+O VS, Fishbone, I+O Laboratory Tests 09/29/20 05:18 Vital Signs Date Time Temp Pulse Resp B/P (MAP) Pulse Ox O2 Delivery O2 Flow Rate FiO2 09/29/20 11:36 97.8 75 18 153/70 (97) 94 Nasal Cannula 2.0 09/27/20 17:30 96 I&O- Last 24 Hours up to 6 AM 09/29/20 06:00 Intake Total 1755 ml Output Total 2870 ml Balance -1115 ml Safia Dumont Sep 29, 2020 12:58 ANIL MCCARTHY MD Oct 10, 2020 00:49
--- NOTE | 2020-09-29 13:53 | IPNPDOC ---
Text Note Date of Service The patient was seen on 09/29/20. NOTE Subjective: No any acute events overnight. Patient developed good progress in physical therapy, he was able to walk 100 feet. Objective: GENERAL APPEARANCE:NAD HEENT: no scleral icterus, no JVD, EOMI CARDIOVASCULAR: S1S2 LUNGS: Diminished lung sounds bilaterally ABDOMEN: Moderately distended and mildly tender w palpation, colostomy in place MUSCULOSKELETAL: no cyanosis, +1 lower extremity pitting edema INTEGUMENT: no generalized pallor NEUROLOGICAL: cranial nerve function from 2-12 intact intact, follows commands, speech not dysarthric Assessment and plan: Patient is 70 years old male with past history of coronary artery diseases, recent CABG, end-stage renal diseases on peritoneal dialysis, hypertension, type 2 diabetes presented to the hospital with abdominal pain. Patient was found to have abdominal peritonitis. Peritoneal fluid showed significant leukocytosis up to 94,000 white blood cells. Treatment with broad-spectrum antibiotics started. Abdominal pain/acute abdomen resolved Patient developed acute abdomen on 09/22/20 CT showed Increased pneumoperitoneum and ascites. Peritoneal dialysis catheter remains in place. There is a new fluid and air collection in the left flank adjacent to and inflamed segment of descending colon suggesting localized perforation and early abscess formation. The proximal colon remains stool filled and dilated. Patient was found to have perforated diverticula Dr. Leal did bowel resection and place colostomy on 09/22/20. Peritoneal fluid from 09/22/20 negative On 09/25/20 NG tube was removed, clear liquid started. Patient tolerates it well On 09/26/20 diet was upgraded to diabetes diet on 09/27/20 Hemoglobin dropped to 7.7. Await stool for occult blood. Patient received 2 units of blood transfusion Hemoglobin 9.1 on 09/28/20. On 09/29/20 hemoglobin 9.3. Stool positive for blood Continue treatment with PPI, Carafate, H&H every 6 hours Peritonitis Patient developed cloudy fluid with high number of leukocytes of 94,000 on admission Nephrology team started vancomycin and gentamicin intraperitoneally Peritoneal fluid positive for Klebsiella pneumonia and Serratia We continue meropenem, gentamicin was discontinued by nephrology team Amari florentino continue meropenem. Surgical team recommended to continue antibiotics for 2 weeks On 09/25/20 leukocytosis 10.3, improved. On 09/26/20 leukocytosis 10 On 09/28/20 white blood count 12.8. No fever. Procalcitonin 2.5. Will check chest x-ray 09/29/20 leukocytosis 12.2. Repeat blood culture negative End-stage renal diseases peritoneal dialysis has been changed to hemodialysis, nephrology team on board. Hyponatremia Management by nephrology team Hyperkalemia Most likely secondary to missed peritoneal dialysis Resolved Hyperphosphatemia Continue with phosphate binder and phosphorous Pneumoperitoneum see above Left lower lobe consolidation/ HCAP Patient denied cough, sputum production CT showed Pleural thickening and minimal pleural effusion right lower lobe. Small left pleural effusion. Infiltrate left lung base may represent atelectasis although an infectious etiology to be excluded clinically Meropenem empirically started Continue Incentive spirometry Patient completed the course of antibiotics for pneumonia CAD, CABG 5 vessels Few days prior to this admission patient was discharged from [facility] Continue cardioprotective medications Continue telemetry Hypertensive urgency Resolved Type 2 diabetes Insulin sliding scale. Due to previous episodes of hypoglycemia I changed 18 units of detemir 15 units Detemir 15 units daily at bedtime Glucose level under control GERD Continue PPI Obstructive sleep apnea on chronic CPAP Resume CPAP at home settings Anemia of chronic disease Secondary to end-stage renal diseases We decreased full dose of aspirin to 81 mg. PPI, Carafate Hyperlipidemia Continue statin mild splenomegaly with a maximum span of 13 centimeters. Chronic bilateral simple renal cysts measuring up to 5.8 cm in the right kidney. No intervention Moderate prostatic hyperplasia. No acute symptoms of difficulty starting or maintaining urinary stream constipation. As needed bowel regimen colonic diverticulosis Chronic See above Moderate central spinal stenosis L2-L3, severe central spinal stenosis L3-L4 and L4-L5. Bulging annulus L5-S1. Avoid nonsteroidal anti-inflammatories No neurologic deficits umbilical hernia. Reducible CT abdomen and pelvis shows no incarceration VS,Fishbone, I+O VS, Fishbone, I+O Laboratory Tests 09/29/20 05:18 Vital Signs Date Time Temp Pulse Resp B/P (MAP) Pulse Ox O2 Delivery O2 Flow Rate FiO2 09/29/20 11:36 97.8 75 18 153/70 (97) 94 Nasal Cannula 2.0 09/27/20 17:30 96 I&O- Last 24 Hours up to 6 AM 09/29/20 05:59 Intake Total 1435 ml Output Total 2960 ml Balance -1525 ml HALEIGH ORNELAS DO Sep 29, 2020 13:53
[2020-09-29] MEDS: **VANCO AFTER HD** MISC XX SCH (16:00)
--- NOTE | 2020-09-29 16:46 | IPN ---
NEPHROLOGY PROGRESS NOTE DATE: 09/28/2020 SUBJECTIVE: The patient was seen and examined at the bedside today morning during hemodialysis procedure. He is tolerating the hemodialysis procedure well. He denies any active complaints at this time. OBJECTIVE: VITAL SIGNS: Temperature 98.1 degrees Fahrenheit, blood pressure 147/70, pulse 85, respiratory rate 19, saturating 98% on room air. INTAKE AND OUTPUT: BREE drain output is 620 mL. Urine output is not recorded. Weight in the bed scale is 91.2 kg. PHYSICAL EXAMINATION: GENERAL: Patient is awake, alert and oriented x3, lying in bed in no apparent distress. HEAD AND NECK: Extraocular muscles intact. Pupils equally round and reactive to light. Neck is supple. He has a right IJ tunneled hemodialysis catheter. CARDIOVASCULAR: S1, S2, regular rate. Trace edema of bilateral lower extremities. RESPIRATORY: Chest is clear to auscultation bilaterally. Bilateral equal air entry. No rales or rhonchi. ABDOMEN: Soft, positive bowel sounds. Left lower quadrant colostomy was noted. MUSCULOSKELETAL: No clubbing or cyanosis. Pulses are 2+. ROUTE SALES DRIVER: No focal deficit. Power is 5/5 in all extremities. LABORATORY DATA: CBC showed WBC 12.8, hemoglobin 9.1, platelets 357,000. BMP showed sodium 128, potassium 4.7, chloride 92, bicarb 29, BUN 65, creatinine 7.4. CURRENT INPATIENT MEDICATIONS: Patient's medications were all reviewed by myself. He was started on Meropenem yesterday, and I have adjusted the dose to 500 mg I.V. daily. I have also added Vancomycin with dialysis. ASSESSMENT AND PLAN: 1. End-stage renal disease: Patient is being dialyzed according to his schedule. Ultrafiltration goal will be at least 2 liters as tolerated by his blood pressure. 2. Anemia with melena: Patient was given PRBC transfusion. He is also on Protonix and Carafate now. Hemoglobin level is stable. 3. Status post sigmoid colectomy and colostomy: Patient is on oral diet. He continues to be on I.V. antibiotics for leukocytosis. 4. Hypertension: Continue current antihypertensive regimen.
[2020-09-29] MEDS: LEVEMIR (INSULIN DETEMIR) 1 UNITS/0.01ML SC SCH (21:00)
[2020-09-29] MEDS: PERCOCET 5MG/325MG TAB PO PRN (21:05)
[2020-09-30] VITALS (14 sets, daily range): BP systolic 122–165; BP diastolic 58–79; O2SAT 95–100
[2020-09-30] MEDS: NITROGLYCERIN 2% OINT 1 GM *U/D* PKT TOP SCH ×7 (04:14→23:56)
[2020-09-30] MEDS: SLF 3 ML SYR IV SCH ×3 (05:40→21:16)
[2020-09-30] MEDS: SUCRALFATE SUSP 1GM/10ML UD PO SCH ×3 (05:54→21:14)
[2020-09-30] MEDS: ACETAMINOPHEN TAB 650MG DOSE (2X325MG) PO PRN (05:57)
--- NOTE | 2020-09-30 06:10 | IPN ---
PROGRESS NOTE DATE: 09/29/2020 SUBJECTIVE: The patient was seen and examined at the bedside today morning. He is afebrile, hemodynamically stable. He was dialyzed yesterday. He tolerated the hemodialysis procedure well. OBJECTIVE: Vital signs: Temperature is 98 degrees Fahrenheit, blood pressure 141/70, pulse is 86, respiratory rate of 20, saturating 95% on nasal canula at 2 liters. Intake and output: There is no urine output recorded. BREE drain is 280 ml. Weight in the bed scale is 93.1 kg. PHYSICAL EXAMINATION: General: The patient is awake, alert and oriented x3, sitting up in the bed in no apparent distress. Head and neck examination: Extraocular muscles are intact. Pupils equally round and reactive to light. Mucous membranes are moist. Neck is supple. There is no jugular venous distention (JVD). Cardiovascular: S1, S2 regular rate. 2+ edema of the bilateral lower extremities. Respiratory: Chest is clear to auscultation bilaterally. Bilateral equal air entry. No rales or rhonchi. Abdomen: Soft. Positive bowel sounds. Left lower quadrant colostomy was noted. Musculoskeletal: No clubbing or cyanosis. Pulses are 2+. SUPERVISOR OF COMMUNICATIONS: No focal deficit. Power is 5/5 in all extremities. LABORATORY REVIEW: Complete blood count (CBC) showed a WBC of 12.2, hemoglobin 9.3, platelets are 346. Basic metabolic panel (BMP) showed sodium 130, potassium 4.1, chloride 95, bicarbonate 30, BUN 33, creatinine is 4.7, calcium is 8.1, magnesium is 2.1. CURRENT INPATIENT MEDICATIONS: The patient's medications were all reviewed by myself. He continues to be on IV vancomycin and meropenem. No significant change in the medication. ASSESSMENT AND PLAN: 1. End-stage renal disease. The patient was dialyzed yesterday. Next hemodialysis will be done tomorrow morning. 2. Anemia and end-stage renal disease. Hemoglobin level is slightly better today. It is 9.3. Continue current dose of Aranesp. 3. Hypertension. Continue current dose of amlodipine, irbesartan and metoprolol with minoxidil. 4. Status post sigmoid colectomy and colostomy. The patient is on meropenem and IV vancomycin. He is tolerating the diet.
[2020-09-30] MEDS: MEROPENEM INJ 500 MG in IV 1 EA IV SCH (06:32)
[2020-09-30] MEDS: ASPIRIN 81MG ENTERIC TABLET PO SCH ×2 (06:33→08:23)
[2020-09-30 07:14] LABS: BASO # 0.1 10^3/uL (0.0-0.2); BASO % 0.8 % (0.0-1.0); EOS # 0.9 10^3/uL (0.0-0.5); EOS % 6.7 % (0.0-3.0); HEMATOCRIT 25.6 % (42.0-52.0); HEMOGLOBIN 8.8 g/dl (13.5-17.5); LYMPH # 0.7 10^3/uL (1.5-5.0); LYMPH % 5.6 % (24.0-44.0); MEAN CORPUSCULAR HEMOGLOBIN 29.8 pg (27.0-33.0); MEAN CORPUSCULAR HGB CONC 34.4 g/dl (32.0-36.5); MEAN CORPUSCULAR VOLUME 86.8 fl (80.0-96.0); MONO # 1.2 10^3/uL (0.0-0.8); MONO % 8.8 % (2.0-8.0); NEUTROPHILS % 75.2 % (36.0-66.0); PLATELET COUNT, AUTOMATED 334 10^3/uL (150-450); RED BLOOD COUNT 2.95 10^6/uL (4.30-6.10); WHITE BLOOD COUNT 13.3 10^3/uL (4.0-10.0)
[2020-09-30 07:38] LABS: ALBUMIN 1.9 GM/DL (3.2-5.2); BILIRUBIN,TOTAL 0.3 MG/DL (0.2-1.0); CALCIUM LEVEL 8.4 MG/DL (8.8-10.2); CREATININE FOR GFR 6.35 MG/DL (0.70-1.30); GLOMERULAR FILTRATION RATE 9.4 (>49); MAGNESIUM LEVEL 2.3 MG/DL (1.8-2.4); POTASSIUM SERUM 4.2 MEQ/L (3.5-5.1); TOTAL PROTEIN 5.1 GM/DL (6.4-8.2)
[2020-09-30] MEDS: SUCROFERRIC OXYHYDROXIDE 500MG CHEW TAB (VELPHORO) PO SCH ×3 (08:20→18:28)
[2020-09-30] MEDS: HumaLOG INSULIN (NovoLOG) PER UNIT SC SCH ×4 (08:20→21:00)
[2020-09-30] MEDS: PANTOPRAZOLE 40MG VIAL (C9113 PER 1) IV SCH (08:20)
[2020-09-30] MEDS: LACTOBACILLUS ACIDOPHILUS CAP (BACID) PO SCH ×2 (08:22→18:28)
[2020-09-30] MEDS: DOCUSATE SODIUM 100MG CAPSULE PO SCH ×2 (08:22→21:12)
[2020-09-30] MEDS: IRBESARTAN 150MG TAB PO SCH (08:23)
[2020-09-30] MEDS: minoxidiL 2.5 MG TAB PO SCH (08:24)
[2020-09-30] MEDS: OCUVITE 1 TAB PO SCH (08:24)
[2020-09-30] MEDS: METOPROLOL TART 50 MG TAB PO SCH ×2 (08:24→21:00)
[2020-09-30] MEDS: CINACALCET 30 MG TAB (SENSIPAR) PO SCH (08:24)
[2020-09-30] MEDS: FERROUS GLUCONATE 324 MG TAB PO SCH ×2 (08:25→21:12)
[2020-09-30] MEDS: ATORVASTATIN 20 MG TAB PO SCH (08:25)
--- NOTE | 2020-09-30 09:56 | REP ---
INDICATION: post op with decresed stool output. Perforated diverticulitis status post sigmoid colon resection and colostomy. September 22, 2020. COMPARISON: Comparison chest x-ray September 28, 2020. Comparison CT abdomen pelvis findings September 22, 2020.. TECHNIQUE: Three views including upright chest and abdomen views. FINDINGS: Upright chest radiograph demonstrates median sternotomy wires. Monitoring electrodes are seen. A tunnel catheter is noted in place via the right side with its tip in the expected location of superior vena cava. There is no evidence of free subdiaphragmatic air. There is blunting of the pleural angles bilaterally indicating small bilateral effusions. Mild cardiomegaly. Supine and erect views of the abdomen demonstrate left lower quadrant colostomy ring and mid line post laparotomy river. There is air and stool in a nondistended colon. A few air-filled nondilated loops of small bowel are seen. There are calcific densities in the left mid pelvis. IMPRESSION: No evidence of free intraperitoneal air. Left lower quadrant colostomy. Bowel gas pattern is unremarkable. Small bilateral pleural effusions.. <Electronically signed by [place] Tamez > 09/30/20 [id number]
--- NOTE | 2020-09-30 10:45 | IPNPDOC ---
Text Note Date of Service The patient was seen on 09/30/20. NOTE Subjective: Patient continues to have good progress in physical therapy. No f ever overnight. Nurses reported that it was brownish stool in the colostomy bag. Patient complains of dizziness after Percocet administration. Percocet was discontinued Objective: GENERAL APPEARANCE:NAD HEENT: no scleral icterus, no JVD, EOMI CARDIOVASCULAR: S1S2 LUNGS: Diminished lung sounds bilaterally ABDOMEN: Moderately distended and mildly tender w palpation, colostomy in place MUSCULOSKELETAL: no cyanosis, +1 lower extremity pitting edema INTEGUMENT: no generalized pallor NEUROLOGICAL: cranial nerve function from 2-12 intact intact, follows commands, speech not dysarthric Assessment and plan: Patient is 70 years old male with past history of coronary artery diseases, recent CABG, end-stage renal diseases on peritoneal dialysis, hypertension, type 2 diabetes presented to the hospital with abdominal pain. Patient was found to have abdominal peritonitis. Peritoneal fluid showed significant leukocytosis up to 94,000 white blood cells. Treatment with broad-spectrum antibiotics started. Abdominal pain/acute abdomen resolved Patient developed acute abdomen on 09/22/20 CT showed Increased pneumoperitoneum and ascites. Peritoneal dialysis catheter remains in place. There is a new fluid and air collection in the left flank adjacent to and inflamed segment of descending colon suggesting localized perforation and early abscess formation. The proximal colon remains stool fill ed and dilated. Patient was found to have perforated diverticula Dr. Leal did bowel resection and place colostomy on 09/22/20. Peritoneal fluid from 09/22/20 negative On 09/25/20 NG tube was removed, clear liquid started. Patient tolerates it well On 09/26/20 diet was upgraded to diabetes diet on 09/27/20 Hemoglobin dropped to 7.7. Await stool for occult blood. Patient received 2 units of blood transfusion Hemoglobin 9.1 on 09/28/20. On 09/29/20 hemoglobin 9.3. Stool positive for blood Continue treatment with PPI, Carafate, H&H every 6 hours On 09/30/20 hemoglobin 8.8. Continue to monitor Peritonitis Patient developed cloudy fluid with high number of leukocytes of 94,000 on admission Nephrology team started vancomycin and gentamicin intraperitoneally Peritoneal fluid positive for Klebsiella pneumonia and Serratia We continue meropenem, gentamicin was discontinued by nephrology team Amari florentino continue meropenem. Surgical team recommended to continue antibiotics for 2 weeks On 09/25/20 leukocytosis 10.3, improved. On 09/26/20 leukocytosis 10 On 09/28/20 white blood count 12.8. No fever. Procalcitonin 2.5. Will check chest x-ray 09/29/20 leukocytosis 12.2. Repeat blood culture negative On 09/30/20 leukocytosis of 13.3, abdominal x-ray showed No evidence of free intraperitoneal air. Left lower quadrant colostomy. Bowel gas pattern is unremarkable. Small bilateral pleural effusions. Vancomycin IV was added yesterday. End-stage renal diseases peritoneal dialysis has been changed to hemodialysis, nephrology team on board. Hyponatremia Management by nephrology team Hyperkalemia Most likely secondary to missed peritoneal dialysis Resolved Hyperphosphatemia Continue with phosphate binder and phosphorous Pneumoperitoneum see above Left lower lobe consolidation/ HCAP Patient denied cough, sputum production CT showed Pleural thickening and minimal pleural effusion right lower lobe. Small left pleural effusion. Infiltrate left lung base may represent atelectasis although an infectious etiology to be excluded clinically Meropenem empirically started Continue Incentive spirometry Patient completed the course of antibiotics for pneumonia Continue incentive spirometer CAD, CABG 5 vessels Few days prior to this admission patient was discharged from [facility] al Continue cardioprotective medications Continue telemetry Hypertensive urgency Resolved Type 2 diabetes Insulin sliding scale. Due to previous episodes of hypoglycemia I changed 18 units of detemir 15 units Detemir 15 units daily at bedtime Glucose level under control GERD Continue PPI Obstructive sleep apnea on chronic CPAP Resume CPAP at home settings Anemia of chronic disease Secondary to end-stage renal diseases We decreased full dose of aspirin to 81 mg. PPI, Carafate Hyperlipidemia Continue statin mild splenomegaly with a maximum span of 13 centimeters. Chronic bilateral simple renal cysts measuring up to 5.8 cm in the right kidney. No intervention Moderate prostatic hyperplasia. No acute symptoms of difficulty starting or maintaining urinary stream constipation. As needed bowel regimen colonic diverticulosis Chronic See above Moderate central spinal stenosis L2-L3, severe central spinal stenosis L3-L4 and L4-L5. Bulging annulus L5-S1. / Chronic back pain Avoid nonsteroidal anti-inflammatories No neurologic deficits Patient complains of dizziness after Percocet administration. Percocet was discontinued Tramadol for severe pain umbilical hernia. Reducible CT abdomen and pelvis shows no incarceration VS,Fishbone, I+O VS, Fishbone, I+O Laboratory Tests 09/30/20 07:06 Vital Signs Date Time Temp Pulse Resp B/P (MAP) Pulse Ox O2 Delivery O2 Flow Rate FiO2 09/30/20 08:26 159/71 09/30/20 08:24 85 09/30/20 06:00 96 Nasal Cannula 2.0 09/30/20 04:00 97.7 18 09/27/20 17:30 96 I&O- Last 24 Hours up to 6 AM 09/30/20 05:59 Intake Total 1100 ml Output Total 180 ml Balance 920 ml HALEIGH ORNELAS DO Sep 30, 2020 10:45
[2020-09-30] MEDS: DARBEPOETIN 100 MCG/0.5 ML *DIALYSIS* SYRINGE (J0882) IV SCH (11:08)
--- NOTE | 2020-09-30 11:34 | IPNPDOC ---
Text Note Date of Service The patient was seen on 09/30/20. NOTE Gen. surgery. Dr. Mccarthy Denies any nausea or vomiting. Reports abdominal pain has been controlled. He has had brown liquid in the ostomy bag. [facility] has been working for dialysis. Afebrile. Heart rate 83, respiratory rate 18, blood pressure 160/79, 99% 2 L nasal cannula He is resting in bed, alert and oriented. Lungs clear anteriorly bilaterally Abdomen is still minimally distended, but soft. Surgical incision clean dry and intact, no drainage. Dressing is dry. Ostomy is pink. WBC 13.3, hemoglobin 8.8, platelets 334 Impression and plan Perforated diverticulitis status post sigmoid colon resection and colostomy as per Dr. Mccarthy 09/22/20. Tolerating regular diet. So far some brown liquid in the ostomy bag but not a lot of output noted in the ostomy bag, discussed with Dr. Mccarthy. Abdominal x-ray requested. Plan to continue antibiotics to cover for 14 days Continue with with Ostomy teaching Encourage ambulation End-stage renal disease. Currently hemodialysis as per nephrology. [facility] is functioning for dialysis. VS,Fishbone, I+O VS, Fishbone, I+O Laboratory Tests 09/30/20 07:06 Vital Signs Date Time Temp Pulse Resp B/P (MAP) Pulse Ox O2 Delivery O2 Flow Rate FiO2 09/30/20 08:26 159/71 09/30/20 08:24 85 09/30/20 08:00 98.7 18 99 Nasal Cannula 2.0 09/27/20 17:30 96 I&O- Last 24 Hours up to 6 AM 09/30/20 06:00 Intake Total 780 ml Output Total 100 ml Balance 680 ml Safia Dumont Sep 30, 2020 11:34 ANIL MCCARTHY MD Oct 10, 2020 00:45
[2020-09-30] MEDS: traMADol 50 MG TAB PO PRN ×2 (12:41→18:31)
[2020-09-30] MEDS: **VANCO AFTER HD** MISC XX SCH (16:00)
[2020-09-30] MEDS: LEVEMIR (INSULIN DETEMIR) 1 UNITS/0.01ML SC SCH (21:15)
[2020-09-30] MEDS ORDERED: IRON SUCROSE 100MG 5ML VIAL (J1756 PER 1MG) IV SCH (22:05)
[2020-10-01] MEDS: ONDANSETRON 4MG/2ML VIAL IV PRN (02:40)
[2020-10-01] MEDS: traMADol 50 MG TAB PO PRN ×2 (02:41→21:27)
[2020-10-01] MEDS: NITROGLYCERIN 2% OINT 1 GM *U/D* PKT TOP SCH ×5 (04:00→19:49)
[2020-10-01] MEDS: SUCRALFATE SUSP 1GM/10ML UD PO SCH ×3 (05:18→21:27)
[2020-10-01] MEDS: SLF 3 ML SYR IV SCH ×3 (05:19→21:27)
[2020-10-01 06:00] VITALS: BP 143/72
[2020-10-01 07:02] LABS: BASO # 0.1 10^3/uL (0.0-0.2); BASO % 1.2 % (0.0-1.0); EOS # 0.5 10^3/uL (0.0-0.5); HEMATOCRIT 26.2 % (42.0-52.0); HEMOGLOBIN 8.7 g/dl (13.5-17.5); LYMPH # 0.8 10^3/uL (1.5-5.0); LYMPH % 6.4 % (24.0-44.0); MEAN CORPUSCULAR HEMOGLOBIN 29.4 pg (27.0-33.0); MEAN CORPUSCULAR HGB CONC 33.2 g/dl (32.0-36.5); MEAN CORPUSCULAR VOLUME 88.5 fl (80.0-96.0); MONO # 1.5 10^3/uL (0.0-0.8); MONO % 12.2 % (2.0-8.0); NEUTROPHILS # 8.7 10^3/uL (1.5-8.5); PLATELET COUNT, AUTOMATED 373 10^3/uL (150-450); RED BLOOD COUNT 2.96 10^6/uL (4.30-6.10)
[2020-10-01 07:24] LABS: WHITE BLOOD COUNT 11.9 10^3/uL (4.0-10.0)
[2020-10-01 07:29] LABS: BILIRUBIN,TOTAL 0.2 MG/DL (0.2-1.0); CALCIUM LEVEL 8.3 MG/DL (8.8-10.2); CREATININE FOR GFR 4.58 MG/DL (0.70-1.30); GLOMERULAR FILTRATION RATE 13.7 (>49); MAGNESIUM LEVEL 2.1 MG/DL (1.8-2.4); POTASSIUM SERUM 3.7 MEQ/L (3.5-5.1); TOTAL PROTEIN 5.3 GM/DL (6.4-8.2)
[2020-10-01] MEDS: minoxidiL 2.5 MG TAB PO SCH (08:26)
[2020-10-01] MEDS: PANTOPRAZOLE 40MG VIAL (C9113 PER 1) IV SCH (08:27)
[2020-10-01] MEDS: IRBESARTAN 150MG TAB PO SCH (08:27)
[2020-10-01] MEDS: ASPIRIN 81MG ENTERIC TABLET PO SCH (08:27)
[2020-10-01] MEDS: LACTOBACILLUS ACIDOPHILUS CAP (BACID) PO SCH ×2 (08:28→17:27)
[2020-10-01] MEDS: CINACALCET 30 MG TAB (SENSIPAR) PO SCH (08:28)
[2020-10-01] MEDS: METOPROLOL TART 50 MG TAB PO SCH ×2 (08:28→21:26)
[2020-10-01] MEDS: OCUVITE 1 TAB PO SCH (08:28)
[2020-10-01] MEDS: FERROUS GLUCONATE 324 MG TAB PO SCH ×2 (08:28→21:25)
[2020-10-01] MEDS: DOCUSATE SODIUM 100MG CAPSULE PO SCH ×2 (08:28→21:25)
[2020-10-01] MEDS: LORATADINE 10 MG TAB PO SCH (08:28)
[2020-10-01] MEDS: HumaLOG INSULIN (NovoLOG) PER UNIT SC SCH ×4 (08:29→21:00)
[2020-10-01] MEDS: ATORVASTATIN 20 MG TAB PO SCH (08:29)
[2020-10-01] MEDS: SUCROFERRIC OXYHYDROXIDE 500MG CHEW TAB (VELPHORO) PO SCH ×3 (08:31→17:26)
--- NOTE | 2020-10-01 09:16 | IPN ---
NEPHROLOGY PROGRESS NOTE DATE: 09/30/2020 SUBJECTIVE: The patient was seen and examined at the bedside today morning. He is afebrile, hemodynamically stable. He has mild persistent leukocytosis, but he denies any fevers. OBJECTIVE: VITAL SIGNS: Temperature 98.1 degrees Fahrenheit, blood pressure 122/59, pulse 89, respiratory rate 18, saturating 98% on room air. INTAKE AND OUTPUT: There is no urine output recorded. Weight in the bed scale is 92.2 kg. PHYSICAL EXAMINATION: GENERAL: Patient is awake, alert and oriented x3, sitting up in the bed in no apparent distress. HEAD AND NECK: Extraocular muscles intact. Pupils equally round and reactive to light. Mucous membranes are moist. Neck is supple. There is no JVD. CARDIOVASCULAR: S1, S2, regular rate. 1+ edema of bilateral lower extremities. RESPIRATORY: Chest is clear to auscultation bilaterally. Bilateral equal air entry. No rales or rhonchi. ABDOMEN: Soft, positive bowel sounds. Left lower quadrant colostomy was noted. MUSCULOSKELETAL: No clubbing or cyanosis. Pulses are 2+. CORE SETTER: No focal deficit. Power is 5/5 in all extremities. LABORATORY DATA: CBC showed WBC 13.3, hemoglobin 8.8, platelets 334,000. BMP showed sodium 127, potassium 4.2, chloride 92, bicarb 29, BUN 43, creatinine 6.3. Calcium 8.4. Albumin 1.9. CURRENT INPATIENT MEDICATIONS: Patient's medications were all reviewed by myself. He continues to be on I. V. Vancomycin and Meropenem. Oxycodone has been stopped. No other significant change in the medications today. ASSESSMENT AND PLAN: 1. End-stage renal disease: Patient will be dialyzed today. Ultrafiltration goal will be 2.5 to 3 liters. 2. Anemia and end-stage renal disease: Continue current dose of Aranesp. 3. Hypertension: Continue Irbesartan, Amlodipine, Metoprolol and Minoxidil. 4. Sigmoid colectomy and colostomy and leukocytosis: Patient is on Vancomycin and Meropenem. He had abscess secondary to colonic diverticulosis. Clinically he is improving.
--- NOTE | 2020-10-01 10:29 | IPN ---
PROGRESS NOTE DATE: 10/01/2020 SUBJECTIVE: Cody feels about the same as yesterday. No shortness of breath, fever, chills or abdominal pain. PHYSICAL EXAMINATION: VITAL SIGNS: Stable, afebrile. LUNGS: Clear. HEART: Regular rhythm. ABDOMEN: Soft, nontender. EXTREMITIES: Trace peripheral edema. LABORATORY DATA: White count 11.9, hemoglobin 8.7, platelets 373,000. Sodium 134, potassium 3.7, BUN 23, creatinine 4.5. Blood sugars are around 100 to 150. IMPRESSION: 1. Peritonitis: Continue current treatment, seems to be responding to this. 2. End-stage renal disease: Continue peritoneal dialysis. 3. Hospital associated pneumonia: Clinically improved, he has finished antibiotic therapy for this. 4. Coronary artery disease: Recent CABG x5, no sign of any acute coronary events. 5. Diabetes: Well controlled on basal insulin with sliding scale, prone to hypoglycemia. 6. Chronic kidney disease with secondary anemia: Daily CBCs have been ordered.
--- NOTE | 2020-10-01 11:44 | IPNPDOC ---
Text Note Date of Service The patient was seen on 10/01/20. NOTE Denies any nausea or vomiting. Reports abdominal pain has been controlled. His ostomy is working and has stopped leaking. VSSAF NAD ABD - minimally distended, soft incision clean dry and intact, no drainage Ostomy is pink and patent labs - below A) 70y/o male s/p Perforated diverticulitis with sigmoid colon resection and colostomy P) regular diet. antibiotics Continue with with Ostomy teaching Encourage ambulation d/c planning Elroy Molina DO VS,Dwayne, I+O VS, rEane, I+O Laboratory Tests 10/01/20 06:30 Vital Signs Date Time Temp Pulse Resp B/P (MAP) Pulse Ox O2 Delivery O2 Flow Rate FiO2 10/01/20 08:28 74 10/01/20 08:26 118/52 10/01/20 06:00 98.0 18 94 Nasal Cannula 2.0 09/27/20 17:30 96 I&O- Last 24 Hours up to 6 AM 10/01/20 06:00 Intake Total 1020 ml Output Total 2500 ml Balance -1480 ml ZEV MOLINA DO Oct 01, 2020 11:44
[2020-10-01 14:00] VITALS: BP 140/74
[2020-10-01] MEDS: **VANCO AFTER HD** MISC XX SCH (16:00)
[2020-10-01] MEDS: MEROPENEM INJ 500 MG in IV 1 EA IV SCH (17:28)
[2020-10-01] MEDS: LEVEMIR (INSULIN DETEMIR) 1 UNITS/0.01ML SC SCH (21:00)
[2020-10-01 22:00] VITALS: BP 155/81
--- NOTE | 2020-10-01 22:19 | IPN ---
NEPHROLOGY PROGRESS NOTE DATE: 10/01/2020 SUBJECTIVE: Patient was seen and examined at the bedside today morning. He is afebrile, hemodynamically stable. He was dialyzed yesterday, and 2.5 liters of fluid was removed. Leukocytosis is slowly getting better. He continues to be on I.V. antibiotics. OBJECTIVE: VITAL SIGNS: Temperature 98.8 degrees Fahrenheit, blood pressure 140/74, pulse 92, respiratory rate 18, saturating 94% on room air. INTAKE AND OUTPUT: There is no urine output recorded. Ultrafiltration was 2.5 liters. Weight in the bed scale was 92.2 kg yesterday. PHYSICAL EXAMINATION: GENERAL: Patient is awake, alert and oriented x3, lying in bed in no apparent distress. HEAD AND NECK: Extraocular muscles intact. Pupils equally round and reactive to light. Neck is supple. He has a right IJ tunneled hemodialysis catheter. CARDIOVASCULAR: S1, S2, regular rate. 2+ edema of bilateral lower extremities. RESPIRATORY: Chest is clear to auscultation bilaterally. Bilateral equal air entry. No rales or rhonchi. ABDOMEN: Soft, positive bowel sounds, nontender. Left lower quadrant colostomy was noted. Midline laparotomy scar is healing. MUSCULOSKELETAL: No clubbing or cyanosis. Pulses are 2+. CLINICAL RESEARCH PHYSICIAN: No focal deficit. Power is 5/5 in all extremities. LABORATORY DATA: CBC showed WBC 11.9, hemoglobin 8.7, platelets 373,000. BMP showed sodium 134, potassium 3.7, chloride 98, bicarb 31, BUN 23, creatinine 4.5. CURRENT INPATIENT MEDICATIONS: Patient's medications were all reviewed by myself. He continues to be on I. V. Vancomycin and Meropenem. Vancomycin is on hold at this time because his level was 32 yesterday. No other significant change in the medications today as compared with yesterday. ASSESSMENT AND PLAN: 1. End-stage renal disease: Patient was dialyzed yesterday. Next hemodialysis will be done on Saturday. 2. Anemia and end-stage renal disease: If hemoglobin is slightly suboptimal, continue current dose of Aranesp. If hemoglobin stays below 10, then Aranesp dose will be increased. Transfuse p.r.n. for hemoglobin below 8. 3. Hypertension: Blood pressure is controlled with Metoprolol, Minoxidil, Amlodipine and Irbesartan. 4. Sigmoid colectomy and colostomy: Leukocytosis is getting better. Vancomycin is on hold because of high trough levels. Continue Meropenem. 5. Secondary hyperparathyroidism: Continue current dose of Sensipar and continue Velphoro with meals.
[2020-10-02] MEDS: NITROGLYCERIN 2% OINT 1 GM *U/D* PKT TOP SCH ×7 (03:52→23:46)
[2020-10-02] MEDS: SLF 3 ML SYR IV SCH ×3 (05:20→21:34)
[2020-10-02] MEDS: SUCRALFATE SUSP 1GM/10ML UD PO SCH ×3 (05:20→21:34)
[2020-10-02 06:00] VITALS: BP 147/76
[2020-10-02 07:27] LABS: BASO # 0.2 10^3/uL (0.0-0.2); BASO % 1.5 % (0.0-1.0); EOS # 0.6 10^3/uL (0.0-0.5); EOS % 5.6 % (0.0-3.0); HEMATOCRIT 24.5 % (42.0-52.0); HEMOGLOBIN 8.2 g/dl (13.5-17.5); LYMPH # 0.8 10^3/uL (1.5-5.0); LYMPH % 7.2 % (24.0-44.0); MEAN CORPUSCULAR HEMOGLOBIN 29.8 pg (27.0-33.0); MEAN CORPUSCULAR HGB CONC 33.5 g/dl (32.0-36.5); MEAN CORPUSCULAR VOLUME 89.1 fl (80.0-96.0); MONO # 1.5 10^3/uL (0.0-0.8); MONO % 13.6 % (2.0-8.0); NEUTROPHILS # 7.4 10^3/uL (1.5-8.5); NEUTROPHILS % 68.4 % (36.0-66.0); PLATELET COUNT, AUTOMATED 369 10^3/uL (150-450); RED BLOOD COUNT 2.75 10^6/uL (4.30-6.10)
[2020-10-02 07:30] LABS: WHITE BLOOD COUNT 10.8 10^3/uL (4.0-10.0)
[2020-10-02] MEDS: HumaLOG INSULIN (NovoLOG) PER UNIT SC SCH ×4 (07:30→20:41)
[2020-10-02 07:50] LABS: ALBUMIN 1.9 GM/DL (3.2-5.2); BILIRUBIN,TOTAL 0.2 MG/DL (0.2-1.0); CREATININE FOR GFR 5.92 MG/DL (0.70-1.30); GLOMERULAR FILTRATION RATE 10.2 (>49); MAGNESIUM LEVEL 2.2 MG/DL (1.8-2.4); POTASSIUM SERUM 4.3 MEQ/L (3.5-5.1); TOTAL PROTEIN 4.5 GM/DL (6.4-8.2)
[2020-10-02] MEDS: SUCROFERRIC OXYHYDROXIDE 500MG CHEW TAB (VELPHORO) PO SCH ×3 (08:35→18:11)
[2020-10-02] MEDS: FERROUS GLUCONATE 324 MG TAB PO SCH ×2 (08:35→20:39)
[2020-10-02] MEDS: LACTOBACILLUS ACIDOPHILUS CAP (BACID) PO SCH ×2 (08:35→18:11)
[2020-10-02] MEDS: minoxidiL 2.5 MG TAB PO SCH (08:37)
[2020-10-02] MEDS: ASPIRIN 81MG ENTERIC TABLET PO SCH (08:37)
[2020-10-02] MEDS: DOCUSATE SODIUM 100MG CAPSULE PO SCH ×2 (08:37→20:40)
[2020-10-02] MEDS: IRBESARTAN 150MG TAB PO SCH (08:39)
[2020-10-02] MEDS: ATORVASTATIN 20 MG TAB PO SCH (08:43)
[2020-10-02] MEDS: METOPROLOL TART 50 MG TAB PO SCH ×2 (08:43→20:40)
[2020-10-02] MEDS: OCUVITE 1 TAB PO SCH (08:44)
[2020-10-02] MEDS: PANTOPRAZOLE 40MG VIAL (C9113 PER 1) IV SCH (08:44)
[2020-10-02] MEDS: CINACALCET 30 MG TAB (SENSIPAR) PO SCH (09:00)
--- NOTE | 2020-10-02 10:22 | IPNPDOC ---
Text Note Date of Service The patient was seen on 10/02/20. NOTE Denies any nausea or vomiting. Reports abdominal pain has been controlled. His ostomy is working. He is not moving around much because staff told him they don't have the resources to walk with him. VSSAF NAD ABD - minimally distended, soft incision clean dry and intact, no drainage Ostomy is pink and patent labs - below A) 70y/o male s/p Perforated diverticulitis with sigmoid colon resection and colostomy P) regular diet. antibiotics Continue with with Ostomy teaching Encourage ambulation PT d/c planning Elroy Molina DO VS,Dwayne, I+O VS, Dwayne, I+O Laboratory Tests 10/02/20 06:36 Vital Signs Date Time Temp Pulse Resp B/P (MAP) Pulse Ox O2 Delivery O2 Flow Rate FiO2 10/02/20 08:43 74 147/76 10/02/20 06:00 97.5 18 95 Room Air 10/01/20 06:00 2.0 09/27/20 17:30 96 I&O- Last 24 Hours up to 6 AM 10/02/20 06:00 Intake Total 930 ml Balance 930 ml ZEV MOLINA DO Oct 02, 2020 10:22
--- NOTE | 2020-10-02 13:44 | IPN ---
PROGRESS NOTE DATE: 10/02/2020 SUBJECTIVE: No change in Isidro's status today. No chest pain or shortness of breath. PHYSICAL EXAMINATION: VITAL SIGNS: Stable. Blood pressure 147/76. LUNGS: Clear. HEART: Regular rate and rhythm. ABDOMEN: Soft, nontender. EXTREMITIES: No peripheral edema. LABORATORY DATA: Complete blood count (CBC), comprehensive metabolic panel (CMP) and basic metabolic panel (BMP) look stable. Potassium is 4.3. White count is 10.8. Blood sugars have been a low of 79. IMPRESSION: 1. Peritonitis. Continue meropenem and vancomycin. 2. End-stage renal disease. Being managed by nephrology. 3. Anemia associated with end-stage renal disease. Receives Aranesp at the time of dialysis. On ferrous gluconate for iron support. 4. Diabetes. Becoming hypoglycemic. I am reducing his basal insulin dose from 15 to 8 units at bedtime. 5. Hypertension. Blood pressure is well-controlled.
[2020-10-02 14:00] VITALS: BP 130/67
[2020-10-02] MEDS: **VANCO AFTER HD** MISC XX SCH (16:00)
[2020-10-02] MEDS: MEROPENEM INJ 500 MG in IV 1 EA IV SCH (17:00)
--- NOTE | 2020-10-02 18:15 | IPN ---
NEPHROLOGY PROGRESS NOTE DATE: 10/02/2020 SUBJECTIVE: Patient was seen and examined at the bedside today morning. He is afebrile, hemodynamically stable. He does not have any active complaints at this time. OBJECTIVE: VITAL SIGNS: Temperature 97.3 degrees Fahrenheit, blood pressure 130/67, pulse 83, respiratory rate 18, saturating 90% on room air. INTAKE AND OUTPUT: There is no urine output recorded. Weight in the bed scale is not available. PHYSICAL EXAMINATION: GENERAL: Patient is awake, alert, oriented times three, laying in bed, no apparent distress. HEAD AND NECK EXAM: Extraocular muscles intact. Pupils equally round and reactive to light. Mucous membranes are moist. Neck is supple. There is no jugular venous distention (JVD). He has a tunneled hemodialysis catheter. CARDIOVASCULAR: S1, S2. Regular rate. There is 2+ edema of the lower extremities. RESPIRATORY: Chest is clear to auscultation bilaterally. Bilateral equal air entry. No rales or rhonchi. ABDOMEN: Soft. Left lower colostomy was noted. . MUSCULOSKELETAL: Edema 2+ of the lower extremities. CENTRAL NERVOUS SYSTEM (PHOTO INTERN): No focal deficits. Power is 5/5 in all extremities. LABORATORY REVIEW: CBC showed a WBC 10.8, hemoglobin 8.2, platelets 369. BMP showed sodium 133, potassium 4.3, chloride 96, bicarbonate 31, BUN 28, creatinine 5.9. CURRENT INPATIENT MEDICATIONS: Patient's medications were all reviewed by myself. He continues to be on meropenem and vancomycin. ASSESSMENT AND PLAN: 1. End-stage renal disease. Patient will be dialyzed tomorrow morning. I will try to remove at least 3 kg of fluid as tolerated by blood pressure. 2. Anemia in end-stage renal disease. Hemoglobin level is still suboptimal. Continue Aranesp and Venofer with dialysis. 3. Hypertension. Continue current dose of metoprolol, minoxidil, amlodipine and irbesartan. Minoxidil dose will be slowly weaned off because of lower extremity edema. 4. Sigmoid colectomy and colostomy. Continue vancomycin and meropenem at this time. 5. Secondary hyperparathyroidism. Continue Sensipar and Velphoro.
[2020-10-02] MEDS: LEVEMIR (INSULIN DETEMIR) 1 UNITS/0.01ML SC SCH (20:41)
[2020-10-02] MEDS: traMADol 50 MG TAB PO PRN (20:42)
[2020-10-02 22:00] VITALS: BP 134/66
[2020-10-03] MEDS: NITROGLYCERIN 2% OINT 1 GM *U/D* PKT TOP SCH ×5 (04:00→20:31)
[2020-10-03 06:00] VITALS: BP 141/72
[2020-10-03] MEDS: SUCRALFATE SUSP 1GM/10ML UD PO SCH ×3 (06:01→21:55)
[2020-10-03] MEDS: DOCUSATE SODIUM 100MG CAPSULE PO SCH ×2 (06:02→20:30)
[2020-10-03] MEDS: SLF 3 ML SYR IV SCH ×3 (06:02→20:32)
[2020-10-03] MEDS: OCUVITE 1 TAB PO SCH (06:03)
[2020-10-03] MEDS: LORATADINE 10 MG TAB PO SCH (06:03)
[2020-10-03] MEDS: ATORVASTATIN 20 MG TAB PO SCH (06:04)
[2020-10-03] MEDS: ASPIRIN 81MG ENTERIC TABLET PO SCH (06:04)
[2020-10-03] MEDS: FERROUS GLUCONATE 324 MG TAB PO SCH ×2 (06:05→20:29)
[2020-10-03] MEDS: IRBESARTAN 150MG TAB PO SCH (06:07)
[2020-10-03] MEDS: minoxidiL 2.5 MG TAB PO SCH (06:08)
[2020-10-03] MEDS: METOPROLOL TART 50 MG TAB PO SCH ×2 (06:09→20:30)
[2020-10-03 06:57] LABS: BASO # 0.1 10^3/uL (0.0-0.2); BASO % 1.2 % (0.0-1.0); EOS # 0.6 10^3/uL (0.0-0.5); EOS % 4.8 % (0.0-3.0); HEMATOCRIT 27.4 % (42.0-52.0); HEMOGLOBIN 8.9 g/dl (13.5-17.5); LYMPH # 0.8 10^3/uL (1.5-5.0); LYMPH % 6.4 % (24.0-44.0); MEAN CORPUSCULAR HGB CONC 32.5 g/dl (32.0-36.5); MEAN CORPUSCULAR VOLUME 89.3 fl (80.0-96.0); MONO # 1.4 10^3/uL (0.0-0.8); MONO % 11.6 % (2.0-8.0); NEUTROPHILS # 8.6 10^3/uL (1.5-8.5); NEUTROPHILS % 73.6 % (36.0-66.0); PLATELET COUNT, AUTOMATED 441 10^3/uL (150-450); RED BLOOD COUNT 3.07 10^6/uL (4.30-6.10); WHITE BLOOD COUNT 11.7 10^3/uL (4.0-10.0)
[2020-10-03 07:14] LABS: ALBUMIN 2.1 GM/DL (3.2-5.2); BILIRUBIN,TOTAL 0.3 MG/DL (0.2-1.0); CALCIUM LEVEL 8.6 MG/DL (8.8-10.2); CREATININE FOR GFR 7.14 MG/DL (0.70-1.30); GLOMERULAR FILTRATION RATE 8.2 (>49); MAGNESIUM LEVEL 2.2 MG/DL (1.8-2.4); POTASSIUM SERUM 4.6 MEQ/L (3.5-5.1); VANCOMYCIN LEVEL TROUGH 19.8 UG/ML (10.0-20.0)
[2020-10-03] MEDS: HumaLOG INSULIN (NovoLOG) PER UNIT SC SCH ×4 (07:23→19:55)
[2020-10-03] MEDS: CINACALCET 30 MG TAB (SENSIPAR) PO SCH (08:14)
[2020-10-03] MEDS: SUCROFERRIC OXYHYDROXIDE 500MG CHEW TAB (VELPHORO) PO SCH ×3 (08:14→18:16)
[2020-10-03] MEDS: LACTOBACILLUS ACIDOPHILUS CAP (BACID) PO SCH ×2 (08:14→17:10)
[2020-10-03] MEDS: PANTOPRAZOLE 40MG VIAL (C9113 PER 1) IV SCH (08:14)
[2020-10-03] MEDS: traMADol 50 MG TAB PO PRN (08:45)
[2020-10-03] MEDS ORDERED: SODIUM CHLORIDE 0.9% 1000ML IV PRN (08:50)
--- NOTE | 2020-10-03 10:32 | IPN ---
PROGRESS NOTE DATE: 10/03/2020 SUBJECTIVE: Isidro is seen [facility], really no change in his status. Appreciate Nephrology's input, Dr. Ag saw him yesterday, managing his anemia and his endstage renal disease, weaning his Minoxidil due to lower extremity edema. The patient is being treated for peritonitis with meropenem and Vancomycin, making slow progress with this. OBJECTIVE: VITAL SIGNS: Afebrile. Vital signs are stable. LUNGS: Clear. HEART: Regular rate and rhythm. ABDOMEN: Soft, nontender. No peripheral edema. LABORATORY DATA: White count is 11.7, hemoglobin 8.9, platelets 440, sodium 129, potassium is 4.6. Vancomycin peaks and troughs have been followed. Blood sugars are improved. No more hypoglycemia on reduced dose of insulin. ASSESSMENT: 1. Peritonitis, continue his current treatment plan. 2. Endstage renal disease, per nephrology. 3. Anemia, per nephrology. 4. Diabetes, blood sugars are improved with reduced dose of basal insulin. 5. Hypertension, Minoxidil is being weaned in the face of his lower extremity edema.
--- NOTE | 2020-10-03 12:37 | IPN ---
INPATIENT PROGRESS NOTE DATE: 10/03/2020 SUBJECTIVE: Mr. Dooley is seen and examined this morning at the bedside about to start working with the physical therapist. He is also due for dialysis later this afternoon. He reports his pain is adequately controlled. Stool to the ostomy appears melanotic, but the patient is receiving both I.V. and oral iron. PHYSICAL EXAMINATION: Vital signs: Temperature 97.8, pulse 78, respiratory rate 16, blood pressure 141/72, saturating 94% on room air. Intake yesterday was 1 liter. Weight on the bed scale today is not recorded. Goal dialysis fluid removal is 2.5 liters. General: Patient is seen awake, alert, oriented, lying in bed in no apparent distress working with the physical therapy therapist. HEENT: Extraocular muscles are intact. Tongue is moist. Neck: Supple. Jugular veins are not elevated. Heart: Sounds are regular S1 and S2. There is 1+ leg edema bilaterally, but more prominent on the right leg. Lungs: Clear to auscultation, no crackle or rale. Abdomen: There is an ostomy present in the left lower quadrant with blackish liquid stool and gas in the bag. There is also dressings on the belly. Chest: There is a tunneled dialysis catheter in the right chest wall. Neurologic: He is oriented times 3, interactive and at baseline mentation. Psychiatric: Appropriate mood and affect. LABORATORY DATA: Labs today: White count 11.7, hemoglobin 8.9, platelets 441. Sodium 129, potassium 4.6. INPATIENT MEDICATIONS: He continues on meropenem and Vancomycin. His remainder of medications are unchanged as compared to yesterday. PROBLEMS/PLAN: 1. End-stage renal disease: Now on hemodialysis. Patient has mild hypervolemia on exam. He is being dialyzed this afternoon with goal fluid removal of at least 3 kg. I am going to add a 2 liter fluid restriction to his diet. His mild hyponatremia will improve with dialysis and fluid removal. 2. Perforated diverticulitis with sigmoid colon resection and colostomy creation and discontinuation of peritoneal dialysis: Patient continues with vancomycin and meropenem and is followed by the surgery service and working with physical therapy. Stool in the bag is melanotic; however, patient is on oral iron. 3. Anemia in end-stage renal disease with iron deficiency: Hemoglobin is suboptimal, but stable at 8.9 and he continues on Aranesp along with oral and I.V. iron. He is also on Protonix 40 mg I.V. daily for GI protection. 4. Diastolic congestive heart failure: Echocardiogram August, reviewed with grade 1 diastolic dysfunction. Patient has notable leg edema. Fluid restriction is being added; 3 kg to be removed with dialysis today. 5. Hypertension: Blood pressures are well controlled and he is on a multi-drug regimen including amlodipine, irbesartan, metoprolol, minoxidil. 6. Hypervolemic hyponatremia: It will improve with dialysis, fluid removal and fluid restriction.
[2020-10-03 15:00] VITALS: BP 133/67
[2020-10-03] MEDS: **VANCO AFTER HD** MISC XX SCH (15:59)
[2020-10-03] MEDS: MEROPENEM INJ 500 MG in IV 1 EA IV SCH (17:09)
[2020-10-03] MEDS: LEVEMIR (INSULIN DETEMIR) 1 UNITS/0.01ML SC SCH (20:31)
[2020-10-03 22:00] VITALS: BP 136/63
[2020-10-04] MEDS: NITROGLYCERIN 2% OINT 1 GM *U/D* PKT TOP SCH ×6 (03:18→20:00)
[2020-10-04] MEDS: SUCRALFATE SUSP 1GM/10ML UD PO SCH ×3 (05:04→21:24)
[2020-10-04] MEDS: SLF 3 ML SYR IV SCH (05:04)
[2020-10-04 06:00] VITALS: BP 147/69
[2020-10-04 06:14] LABS: HEMATOCRIT 25.6 % (42.0-52.0); HEMOGLOBIN 8.4 g/dl (13.5-17.5); MEAN CORPUSCULAR HEMOGLOBIN 29.4 pg (27.0-33.0); MEAN CORPUSCULAR HGB CONC 32.8 g/dl (32.0-36.5); MEAN CORPUSCULAR VOLUME 89.5 fl (80.0-96.0); PLATELET COUNT, AUTOMATED 449 10^3/uL (150-450); RED BLOOD COUNT 2.86 10^6/uL (4.30-6.10); WHITE BLOOD COUNT 10.6 10^3/uL (4.0-10.0)
[2020-10-04 06:40] LABS: CALCIUM LEVEL 8.2 MG/DL (8.8-10.2); CREATININE FOR GFR 4.87 MG/DL (0.70-1.30); GLOMERULAR FILTRATION RATE 12.7 (>49); PHOSPHORUS LEVEL 2.4 MG/DL (2.5-4.9); POTASSIUM SERUM 4.1 MEQ/L (3.5-5.1)
[2020-10-04] MEDS: HumaLOG INSULIN (NovoLOG) PER UNIT SC SCH ×4 (07:30→20:03)
[2020-10-04] MEDS: PANTOPRAZOLE 40MG VIAL (C9113 PER 1) IV SCH (08:57)
[2020-10-04] MEDS: ASPIRIN 81MG ENTERIC TABLET PO SCH (08:58)
[2020-10-04] MEDS: OCUVITE 1 TAB PO SCH (08:58)
[2020-10-04] MEDS: ATORVASTATIN 20 MG TAB PO SCH (08:58)
[2020-10-04] MEDS: SUCROFERRIC OXYHYDROXIDE 500MG CHEW TAB (VELPHORO) PO SCH ×3 (08:58→17:25)
[2020-10-04] MEDS: CINACALCET 30 MG TAB (SENSIPAR) PO SCH (08:59)
[2020-10-04] MEDS: LACTOBACILLUS ACIDOPHILUS CAP (BACID) PO SCH ×2 (08:59→17:25)
[2020-10-04] MEDS: minoxidiL 2.5 MG TAB PO SCH (08:59)
[2020-10-04] MEDS: METOPROLOL TART 50 MG TAB PO SCH ×2 (09:00→20:03)
[2020-10-04] MEDS: FERROUS GLUCONATE 324 MG TAB PO SCH ×2 (09:00→21:25)
[2020-10-04] MEDS: DOCUSATE SODIUM 100MG CAPSULE PO SCH ×2 (09:00→21:25)
[2020-10-04] MEDS: IRBESARTAN 150MG TAB PO SCH (09:00)
[2020-10-04] MEDS ORDERED: DARBEPOETIN 100 MCG/0.5 ML *DIALYSIS* SYRINGE (J0882) IV SCH (09:15)
--- NOTE | 2020-10-04 10:46 | IPNPDOC ---
Text Note Date of Service The patient was seen on 10/04/20. NOTE Subjective: Patient is a 70-year-old male with a PMHx of CAD s/p CABG, ESRD on PD (now HD), HTN, DM2, who presented to the emergency room with complaint of abdominal pain was initially being treated for peritonitis, and was subsequently found to have perforated diverticulitis. Patient has been admitted to the hospitalist service for further evaluation and treatment. Nephrology and general surgery were called on consultation. Patient was seen and examined at the bedside. Patient was seen working with physical therapy reports that he is doing well. Denies any nausea, vomiting, chest pain, shortness of breath, palpitations, abdominal pain, constipation or diarrhea. Objective: Vitals (See below) General: Sitting up in chair, appears comfortable, AAOx3 HEENT: NC, AT CVS: +S1S2 Lungs: Fair air entry b/l, no wheezing, rales or rhonchi Abdomen: Soft, nondistended and nontender Extremities: 2+ edema bilaterally, - Calf tenderness Assessment and plan: s/p Abdominal pain - likely 2/2 peritonitis 2/2 perforated diverticulitis - Patient is currently hemodynamically stable and afebrile - Patient reports his abdominal pain has resolved; physical without any tenderness - Peritoneal fluid culture 09/18: Klebsiella pneumonia, Serratia marcescens, bifidobacterium species - Will DC Vancomycin and Meropenem; Will start Levofloxacin and Flagyl PO - General surgery on consultation ESRD on HD - s/p Peritoneal dialysis; has been started on hemodialysis - Nephrology on consultation Normocytic anemia - Hg remains stable - c/w Iron supplantation CAD s/p CABG x 5 vessel - Recently completed at [facility] - c/w Atorvastatin, ASA 81, Metoprolol, Irbesartan DM2 - c/w ISS and Levemir DLP - c/w Atorvastatin and ASA 81 HTN - BP well controlled - c/w Amlodipine, Minoxidil, Metoprolol, Irbesartan EZEQUIEL - Allow home CPAP use Chronic back pain - Moderate central spinal stenosis L2-L3, severe central spinal stenosis L3-L4 and L4-L5. Bulging annulus L5-S1 - c/w Tramadol PRN GERD - c/w Carafate and Protonix DVT prophylaxis - c/w TEDs/Sequentials Disposition: - Transition to ALC status today - Awaiting for dialysis setup as an outpatient VS,Dwayne, I+O VS, Dwayne, I+O Laboratory Tests 10/04/20 05:49 Vital Signs Date Time Temp Pulse Resp B/P (MAP) Pulse Ox O2 Delivery O2 Flow Rate FiO2 10/04/20 09:00 82 10/04/20 08:59 143/68 10/04/20 06:00 98.3 18 95 Room Air 10/01/20 06:00 2.0 I&O- Last 24 Hours up to 6 AM 10/04/20 06:00 Intake Total 740 ml Output Total 2600 ml Balance -1860 ml FAWN KOWALSKI MD Oct 04, 2020 10:46
--- NOTE | 2020-10-04 13:06 | IPN ---
PROGRESS NOTE DATE: 10/04/2020 SUBJECTIVE: Patient seen and examined this morning at the bedside. He denies any complaints. He was dialyzed yesterday with 2.5 liters of fluid removed. He is having significant output to the ostomy and had overflow of the ostomy bag. VITAL SIGNS: Temperature 98.3, pulse 81, respiratory rate 18, blood pressure 147/69, saturating 95% on room air. Intake yesterday was not fully recorded. Urine output yesterday was 200. Dialysis removed 2500. Weight in the bed scale is not recorded. GENERAL: Patient is seen lying bed, awake, alert, oriented, comfortable in no apparent distress. Extraocular muscles are intact. Tongue is moist. Neck is supple. Jugular veins are mildly elevated. HEART: Sounds are regular, S1, S2. There is a tunneled hemodialysis catheter in the right chest wall. There is 1+ leg edema bilaterally LUNGS: Clear to auscultation. No crackle or rale. He is seen comfortable on room air. ABDOMEN: Soft. There are dressings, and there is an ostomy in the left lower quadrant. The back is filled with stool and indeed is overflowing with stool on his blankets, sheets, and gown. NEUROLOGIC: He is oriented times three, interactive at baseline mentation. PSYCHIATRIC: Appropriate mood and affect. Today's laboratory studies show a white count 10.6, hemoglobin 8.4, platelets 449. Sodium 137, potassium 4.1, glucose 60, phosphorus 2.4, albumin 2.0. INPATIENT MEDICATIONS: I increased his Aranesp to 200 mcg with dialysis. I note he is off meropenem and vancomycin now. He was started on Flagyl 500 mg by mouth every 8 hours. His Protonix was changed to oral formulation. His intravenous (IV) morphine was discontinued. Remainder of medications is unchanged as compared to yesterday. PROBLEMS: 1. End-stage renal disease, now on hemodialysis. Patient was dialyzed yesterday with 2.5 liters of fluid removed. He is mildly hypervolemic on exam. I added a fluid restriction to the diet. Next dialysis will be on Saturday. 2. Perforated diverticulitis, status post sigmoid colon resection and colostomy creation and discontinuation of peritoneal dialysis. His antibiotics were adjusted by the primary service. He is now on levofloxacin and Flagyl. General surgery is following. He is tolerating diet. He wants to transition back to peritoneal dialysis down the road. 3. Anemia and end-stage renal disease with iron deficiency. Hemoglobin is suboptimal. I increased the dose of Aranesp to 200 mcg. He also continues on oral Protonix and is on IV and oral iron. 4. Diastolic congestive heart failure. Patient has mild peripheral edema. He is on a fluid restriction. We are removing between 2-3 kg with each dialysis treatment. 5. Hypertension. Blood pressures are well controlled, and he is on a multidrug regimen, including amlodipine, irbesartan, metoprolol, and minoxidil. 6. Hypervolemic hyponatremia. It has improved with dialysis and fluid removal. 7. Insulin-dependent diabetes mellitus. Insulin is adjusted by the primary service. I note glucose was on only 60 on chemistry this morning.
[2020-10-04] MEDS: metroNIDAZOLE (FLAGYL) 500MG TABLET PO SCH ×2 (15:08→21:24)
[2020-10-04] MEDS ORDERED: LevoFLOXacin 500 MG TABLET PO SCH (16:00)
[2020-10-04] MEDS: traMADol 50 MG TAB PO PRN (17:27)
[2020-10-04] MEDS: LEVEMIR (INSULIN DETEMIR) 1 UNITS/0.01ML SC SCH (21:24)
[2020-10-05] MEDS: NITROGLYCERIN 2% OINT 1 GM *U/D* PKT TOP SCH ×6 (03:59→21:16)
[2020-10-05 06:00] VITALS: BP 146/73
[2020-10-05 06:05] LABS: HEMATOCRIT 24.2 % (42.0-52.0); HEMOGLOBIN 7.9 g/dl (13.5-17.5); MEAN CORPUSCULAR HEMOGLOBIN 29.5 pg (27.0-33.0); MEAN CORPUSCULAR HGB CONC 32.6 g/dl (32.0-36.5); MEAN CORPUSCULAR VOLUME 90.3 fl (80.0-96.0); PLATELET COUNT, AUTOMATED 434 10^3/uL (150-450); RED BLOOD COUNT 2.68 10^6/uL (4.30-6.10); WHITE BLOOD COUNT 10.2 10^3/uL (4.0-10.0)
[2020-10-05] MEDS: IRBESARTAN 150MG TAB PO SCH (06:23)
[2020-10-05] MEDS: ASPIRIN 81MG ENTERIC TABLET PO SCH (06:23)
[2020-10-05] MEDS: minoxidiL 2.5 MG TAB PO SCH (06:24)
[2020-10-05] MEDS: OCUVITE 1 TAB PO SCH (06:24)
[2020-10-05] MEDS: ATORVASTATIN 20 MG TAB PO SCH (06:24)
[2020-10-05] MEDS: DOCUSATE SODIUM 100MG CAPSULE PO SCH ×2 (06:25→21:15)
[2020-10-05] MEDS: FERROUS GLUCONATE 324 MG TAB PO SCH ×2 (06:25→21:15)
[2020-10-05] MEDS: metroNIDAZOLE (FLAGYL) 500MG TABLET PO SCH ×3 (06:25→21:15)
[2020-10-05] MEDS: METOPROLOL TART 50 MG TAB PO SCH ×2 (06:25→21:15)
[2020-10-05] MEDS: SUCRALFATE SUSP 1GM/10ML UD PO SCH ×3 (06:25→21:15)
[2020-10-05 06:29] LABS: CALCIUM LEVEL 8.3 MG/DL (8.8-10.2); CREATININE FOR GFR 6.5 MG/DL (0.70-1.30); GLOMERULAR FILTRATION RATE 9.1 (>49); PHOSPHORUS LEVEL 2.3 MG/DL (2.5-4.9); POTASSIUM SERUM 4.3 MEQ/L (3.5-5.1)
[2020-10-05] MEDS: LORATADINE 10 MG TAB PO SCH (06:33)
[2020-10-05] MEDS: HumaLOG INSULIN (NovoLOG) PER UNIT SC SCH ×4 (07:30→21:00)
[2020-10-05] MEDS ORDERED: SODIUM CHLORIDE 0.9% 1000ML IV PRN (07:45)
[2020-10-05] MEDS ORDERED: IRON SUCROSE 100MG 5ML VIAL (J1756 PER 1MG) IV SCH (08:00)
[2020-10-05] MEDS: CINACALCET 30 MG TAB (SENSIPAR) PO SCH (08:04)
[2020-10-05] MEDS: PANTOPRAZOLE 40MG TAB (PROTONIX) PO SCH (08:04)
[2020-10-05] MEDS: LACTOBACILLUS ACIDOPHILUS CAP (BACID) PO SCH ×2 (08:04→18:37)
[2020-10-05] MEDS: SUCROFERRIC OXYHYDROXIDE 500MG CHEW TAB (VELPHORO) PO SCH (08:04)
[2020-10-05] MEDS: traMADol 50 MG TAB PO PRN (08:08)
[2020-10-05 10:00] VITALS: BP 124/69
[2020-10-05 10:15] VITALS: BP 99/87
[2020-10-05 10:30] VITALS: BP 112/75
[2020-10-05 10:45] VITALS: BP 126/61
[2020-10-05 11:00] VITALS: BP 118/68
--- NOTE | 2020-10-05 12:11 | IPN ---
INPATIENT PROGRESS NOTE DATE: 10/04/2020 SUBJECTIVE: Patient is seen and examined this morning in the Hemodialysis Unit receiving his maintenance treatment. His hemoglobin down trended to 7.9 so he is getting 1 unit of packed red blood cells with dialysis today. He offers no complaints, denies any shortness of breath, abdominal pain. He has been working with physical therapy. He is anxious to get back home. PHYSICAL EXAMINATION: Temperature 97.9, pulse 71, respiratory rate 16, blood pressure 118/68, saturating well on room air/94% on room air. Intake yesterday was 1 liter. Goal dialysis fluid removal is 2.5-3 kg as tolerated by hemodynamics. General: Patient is seen awake, alert, oriented, receiving his treatment in no apparent distress. HEENT: Extraocular muscles are intact. Tongue is moist. Neck: Supple. Jugular veins are mildly elevated. Heart: Sounds are regular S1 and S2. There is a tunneled hemodialysis catheter in the right chest wall. There is 1+ leg edema bilaterally. Lungs: Clear to auscultation, no crackle or rale. He is comfortable on room air. Abdomen: Soft. There is an ostomy in the left lower quadrant and there is gas and stool in the bag. Neurologic: He is oriented times 3, interactive and at baseline mentation. Psychiatric: Appropriate mood and affect. LABORATORY DATA: Laboratory studies: Sodium 132, potassium 4.3, bicarbonate 30. Albumin 2. Hemoglobin 7.9. INPATIENT MEDICATIONS: He continues on Venofer with dialysis and the order is renewed and his remainder of medications are unchanged as compared to yesterday. PROBLEMS/PLAN: 1. End-stage renal disease: Now on hemodialysis on a Saturday, Saturday, Saturday schedule. Patient is pending outpatient hemodialysis arrangement. He is being dialyzed today with goal fluid removal of 2.5-3 kg of fluid. He is mildly hypervolemic on exam. He is also receiving 1 unit PRBC with today's dialysis treatment and he remains on a fluid restriction. 2. Anemia related to end-stage renal disease with iron deficiency and recent post-operative state: Hemoglobin is down to 7.9. Aranesp was recently increased to 200 mcg. He also continues on oral Protonix and is on I.V. and oral iron and I gave 1 unit of packed red blood cells with his dialysis today. 3. Perforated diverticulitis status post sigmoid colon resection and colostomy creation and discontinuation of peritoneal dialysis: His antibiotics are adjusted by the primary service. He is now on Levaquin and Flagyl and general surgery is following and patient is tolerating diet. 4. Diastolic congestive heart failure with mild exacerbation: Continue fluid restriction. We are removing between 2-3 kg with each hemodialysis treatment. 5. Hypertension: Blood pressures are well controlled and he is on a multi-drug regimen including amlodipine, irbesartan, metoprolol and minoxidil. 6. Hypervolemic hyponatremia: It is due to mild fluid overload and end-stage renal disease. It will improve with dialysis and fluid removal. 7. Secondary hyperparathyroidism of renal origin: His phosphorus level has been on the low side and it is likely due to the fact that he is now taking Carafate along with Velphoro. I will hold the Velphoro for now.
[2020-10-05] MEDS: LINEZOLID 600MG TABLET (ZYVOX) PO SCH ×2 (14:42→22:03)
[2020-10-05] MEDS: LEVEMIR (INSULIN DETEMIR) 1 UNITS/0.01ML SC SCH (21:00)
[2020-10-06] MEDS: NITROGLYCERIN 2% OINT 1 GM *U/D* PKT TOP SCH ×4 (00:08→12:00)
[2020-10-06] MEDS: SUCRALFATE SUSP 1GM/10ML UD PO SCH (05:20)
[2020-10-06] MEDS: metroNIDAZOLE (FLAGYL) 500MG TABLET PO SCH (05:20)
[2020-10-06 06:00] VITALS: BP 165/84
[2020-10-06 06:31] LABS: HEMATOCRIT 28.6 % (42.0-52.0); HEMOGLOBIN 9.1 g/dl (13.5-17.5); MEAN CORPUSCULAR HEMOGLOBIN 28.9 pg (27.0-33.0); MEAN CORPUSCULAR HGB CONC 31.8 g/dl (32.0-36.5); MEAN CORPUSCULAR VOLUME 90.8 fl (80.0-96.0); PLATELET COUNT, AUTOMATED 431 10^3/uL (150-450); RED BLOOD COUNT 3.15 10^6/uL (4.30-6.10); WHITE BLOOD COUNT 8.9 10^3/uL (4.0-10.0)
[2020-10-06 06:48] LABS: ALBUMIN 2.2 GM/DL (3.2-5.2); CALCIUM LEVEL 8.9 MG/DL (8.8-10.2); CREATININE FOR GFR 4.51 MG/DL (0.70-1.30); GLOMERULAR FILTRATION RATE 13.9 (>49); PHOSPHORUS LEVEL 2.5 MG/DL (2.5-4.9); POTASSIUM SERUM 4.5 MEQ/L (3.5-5.1)
[2020-10-06] MEDS: HumaLOG INSULIN (NovoLOG) PER UNIT SC SCH ×2 (07:30→12:00)
[2020-10-06 08:14] VITALS: BP 154/79
[2020-10-06] MEDS: IRBESARTAN 150MG TAB PO SCH (08:14)
[2020-10-06] MEDS: CINACALCET 30 MG TAB (SENSIPAR) PO SCH (08:14)
[2020-10-06] MEDS: DOCUSATE SODIUM 100MG CAPSULE PO SCH (08:14)
[2020-10-06] MEDS: minoxidiL 2.5 MG TAB PO SCH (08:14)
[2020-10-06] MEDS: OCUVITE 1 TAB PO SCH (08:14)
[2020-10-06] MEDS: ASPIRIN 81MG ENTERIC TABLET PO SCH (08:14)
[2020-10-06] MEDS: PANTOPRAZOLE 40MG TAB (PROTONIX) PO SCH (08:14)
[2020-10-06] MEDS: LINEZOLID 600MG TABLET (ZYVOX) PO SCH (08:14)
[2020-10-06] MEDS: METOPROLOL TART 50 MG TAB PO SCH (08:15)
[2020-10-06] MEDS: LACTOBACILLUS ACIDOPHILUS CAP (BACID) PO SCH (08:15)
[2020-10-06] MEDS: ATORVASTATIN 20 MG TAB PO SCH (08:15)
[2020-10-06] MEDS: FERROUS GLUCONATE 324 MG TAB PO SCH (08:15)
[2020-10-06] MEDS ORDERED: RISATAB3 PO (09:20)
[2020-10-06] MEDS ORDERED: SUCR1ORA PO (09:20)
[2020-10-06] MEDS ORDERED: AMLO1TAB25 PO (09:20)
[2020-10-06] MEDS ORDERED: SENN-52 PO (09:20)
[2020-10-06] MEDS ORDERED: ASPI-551 PO (09:20)
[2020-10-06] MEDS ORDERED: LEVO500T3 PO (09:20)
[2020-10-06] MEDS ORDERED: PANT40TA29 PO (09:20)
[2020-10-06] MEDS ORDERED: FLAG500T PO (09:20)
[2020-10-06] MEDS ORDERED: POLY17PO18 PO (09:20)
[2020-10-06] MEDS ORDERED: LINE1TAB6 PO (09:20)
--- NOTE | 2020-10-06 11:04 | DS.PDOC ---
Discharge Summary General Date of Admission Sep 18, 2020 at 19:04 Date of Discharge 10/06/2020 Discharge Summary PROCEDURES PERFORMED DURING STAY: 09/22/2020 Dr. Bruno had performed; - Exploratory Laparotomy - Sigmoid Colectomy - Mike's pouch and formation of end colostomy - Removal of peritoneal dialysis catheter - Placement of right Internal Jugular tunneled hemodialysis catheter ADMITTING DIAGNOSES / DISCHARGE DIAGNOSES: s/p Abdominal pain - likely 2/2 peritonitis 2/2 perforated diverticulitis ESRD on HD Normocytic anemia CAD s/p CABG x 5 vessel DM2 DLP HTN EZEQUIEL Chronic back pain GERD DVT prophylaxis COMPLICATIONS/CHIEF COMPLAINT: Abdominal pain HISTORY OF PRESENT ILLNESS: Patient is a 70-year-old male with a PMHx of CAD s/p CABG, ESRD on PD (now HD), HTN, DM2, who presented to the emergency room with complaint of abdominal pain was initially being treated for peritonitis, and was subsequently found to have perforated diverticulitis. [facility] and treatment. Nephrology and general surgery were called on consultation. HOSPITAL COURSE: s/p Abdominal pain - likely 2/2 peritonitis 2/2 perforated diverticulitis - Remains hemodynamically stable and afebrile - Physical does not reveal any abdominal tenderness - s/p Leukocytosis - Peritoneal fluid culture 09/18: Klebsiella pneumonia, Serratia marcescens, bifidobacterium species - Abdominal culture 09/22: Vancomycin-resistant Enterococcus faecalis - s/p surgical intervention 09/22/2020 - s/p Vancomycin and Meropenem; c/w Levofloxacin, Flagyl, Linezolid - Gen. surgery on consultation - Will have outpatient follow-up with general surgery and primary care provider within the next 7 days ESRD on HD - s/p Peritoneal dialysis; has been started on hemodialysis - Nephrology on consultation Normocytic anemia - s/p 3 units PRBC - c/w Iron supplantation CAD s/p CABG x 5 vessel - Recently completed at [facility] - c/w Atorvastatin, ASA 81, Metoprolol, Irbesartan DM2 - c/w ISS and Levemir DLP - c/w Atorvastatin and ASA 81 HTN - BP well controlled - c/w Amlodipine, Minoxidil, Metoprolol, Irbesartan EZEQUIEL - Allow home CPAP use Chronic back pain - Moderate central spinal stenosis L2-L3, severe central spinal stenosis L3-L4 and L4-L5. Bulging annulus L5-S1 - c/w Tramadol PRN GERD - c/w Carafate and Protonix DVT prophylaxis - c/w TEDs/Sequentials DISCHARGE MEDICATIONS: Please see below. ALLERGIES: Please see below. PHYSICAL EXAMINATION ON DISCHARGE: Vitals (See below) General: Patient is sitting up at the edge of the bed, appears to be comfortable without any acute distress, is awake, alert and oriented 3 HEENT: Normocephalic and atraumatic CVS: +S1S2 Lungs: Fair air entry b/l, auscultation does not reveal any crackles, wheezing or rhonchi Abdomen: Abdomen remains soft without any appreciated distention or tenderness Extremities: Lower extremities still reveal 1+ pitting edema LABORATORY DATA: Please see below ACTIVITY: [As tolerated]. DISCHARGE PLAN: Follow-up with primary care provider, general surgery, nephrology within the next 7 days Remain compliant with treatment plan and medications Return to the ER if you experience any problems DISPOSITION: Home with services DISCHARGE CONDITION: [Stable]. TIME SPENT ON DISCHARGE: 35 minutes. Vital Signs/I&Os Vital Signs Date Time Temp Pulse Resp B/P (MAP) Pulse Ox O2 Delivery O2 Flow Rate FiO2 10/06/20 08:15 88 10/06/20 08:14 154/79 10/06/20 06:00 97.1 20 98 Room Air 10/05/20 11:00 2.0 I&O- Last 24 Hours up to 6 AM 10/06/20 06:00 Intake Total 1510 ml Output Total 3000 ml Balance -1490 ml Laboratory Data Labs 24H Laboratory Tests 2 10/05/20 13:23: Bedside Glucose (Misc Panel) 82 10/05/20 17:53: Bedside Glucose (Misc Panel) 114 10/05/20 22:00: Bedside Glucose (Misc Panel) 135H 10/06/20 05:48: Nucleated Red Blood Cells % (auto) 0.0, Anion Gap 5L, Glomerular Filtration Rate 13.9L, Calcium Level 8.9, Phosphorus Level 2.5, Albumin 2.2L CBC/BMP Laboratory Tests 10/06/20 05:48 FSBS Laboratory Tests Test 10/05/20 13:23 10/05/20 17:53 10/05/20 22:00 Range/Units Bedside Glucose (Misc Panel) 82 114 135 80-115 MG/DL Microbiology Microbiology 09/29/20 Stool Occult Blood ([place]) - Final, Complete 09/28/20 Blood Culture - Final, Complete NO GROWTH AFTER 5 DAYS 09/28/20 Blood Culture - Final, Complete NO GROWTH AFTER 5 DAYS Discharge Medications Scheduled Amlodipine Besylate (Amlodipine Besylate) 10 Mg Tablet, 10 MG PO DAILY Aspirin (Aspirin EC) 81 Mg Tablet.dr, 81 MG PO QAM Atorvastatin Calcium (Atorvastatin Calcium) 80 Mg Tablet, 80 MG PO DAILY, (Reported) Cinacalcet (Sensipar) 30 Mg Tablet, 30 MG PO DAILY, (Reported) Docusate Sodium (Dok) 100 Mg Capsule, 100 MG PO BID, (Reported) Ergocalciferol (Vitamin D2) (Vitamin D2) 50,000 Units Cap, 50,000 UNITS PO Q2WK, (Reported) TAKES ON FRIDAYS Ferrous Gluconate (Ferrous Gluconate) 324 Mg Tablet, 324 MG PO BID, (Reported) Glimepiride (Glimepiride) 4 Mg Tablet, 4 MG PO BID, (Reported) Insulin Glargine,Hum.rec.anlog (Lantus Solostar) 100 Unit/Ml Inj, 18 UNITS SC QHS, (Reported) IF NEEDED DUE TO DIALYSIS Irbesartan (Irbesartan) 300 Mg Tablet, 300 MG PO DAILY, (Reported) L.acidoph/L.bulg/B.bif/S.therm (Ave-Bid Caplet) 1 Each Tablet, 1 EA PO BIDWM Levofloxacin (Levofloxacin) 500 Mg Tablet, 500 MG PO Q48H Linezolid (Linezolid) 600 Mg Tablet, 600 MG PO BID Loratadine (Loratadine) 10 Mg Tablet, 10 MG PO Q2D, (Reported) Metoprolol Tartrate (Lopressor) 50 Mg Tablet, 50 MG PO BID, (Reported) Metronidazole (Flagyl) 500 Mg Tablet, 500 MG PO TID Minoxidil (Minoxidil) 2.5 Mg Tablet, 5 MG PO DAILY, (Reported) Pantoprazole Sodium (Pantoprazole Sodium) 40 Mg Tablet.dr, 40 MG PO DAILY Patiromer Calcium Sorbitex (Veltassa) 8.4 Gm Powd.pack, 8.4 GM PO DAILY, (Reported) Sevelamer Carbonate (Renvela) 800 Mg Tab, 800 MG PO TID, (Reported) WITH MEALS Sucralfate (Sucralfate) 1 Gm/10 Ml Oral.susp, 1 GM PO ACHS Sucroferric Oxyhydroxide (Velphoro) 500 Mg Tab.chew, 500 MG PO TID, (Reported) Vit A/Vit C/Vit E/Zinc/Copper (Preservision Areds Softgel) 1 Each Capsule, 1 CAP PO DAILY, (Reported) Scheduled PRN Oxycodone HCl/Acetaminophen (Oxycodone-Acetaminophen 5-325) 1 Each Tablet, 1 TAB PO Q4H PRN for PAIN, (Reported) Polyethylene Glycol 3350 (Polyethylene Glycol 3350) 17 Gm Powd.pack, 1 PKT PO BIDP PRN for CONSTIPATION Sennosides/Docusate Sodium (Senna Plus Tablet) 1 Each Tablet, 2 TAB PO BIDP PRN for CONSTIPATION Allergies Coded Allergies: codeine (Verified Adverse Reaction, Mild, SKIN CRAWLS, 07/03/19) FAWN KOWALSKI MD Oct 06, 2020 11:04
--- NOTE | 2020-10-06 13:04 | IPN ---
PROGRESS NOTE DATE: 10/06/2020 Mr. Dooley is seen this morning on his bedside. He is feeling better but still very weak and tired. He has not been eating well, as hospital food does not taste well. He denies any dyspnea or chest pain. Patient has been on hemodialysis and was dialyzed yesterday. His colostomy is functioning well. PHYSICAL EXAMINATION: Temperature 97 degrees Fahrenheit, heart rate 88 per minute, respiratory rate 20 per minute, blood pressure 154/79 mmHg, and oxygen saturation 98% on room air. He is pale looking but not in any acute distress. His head is atraumatic. Neck supple and without jugular venous distention (JVD) or thyroid enlargement. Hemodialysis catheter on right upper chest is intact without any bleeding or drainage. Heart sounds are regular and lungs sound clear to auscultation. Abdomen soft, and colostomy is functioning. Bowel sounds are normal. Extremities without any cyanosis or clubbing. Lower extremity edema is at least 1+ bilaterally. Neurologically, he is awake and at his baseline mentation without a focal deficit. Today's labs show a WBC count 8.9, hemoglobin 9.1, hematocrit 28.6, platelets 431. Sodium 134, potassium 4.5, CO2 of 30, BUN 16, creatinine 4.51. Calcium 8.9 and phosphorus 2.5. PROBLEMS: 1. End-stage renal disease. Patient is now on hemodialysis since his peritoneal catheter was removed due to peritonitis and perforated viscus. He will continue with outpatient hemodialysis after discharge and is due for next dialysis tomorrow. 2. Anemia. His anemia has improved with transfusion of 1 unit of packed red blood cells (RBC). We will continue to manage his anemia as an outpatient with intravenous iron and Mircera in outpatient dialysis clinic. 3. Hypertension. Blood pressure seems reasonably well controlled. He has chronically difficult to control hypertension. Patient will continue with current antihypertensive medications, and we will make adjustments as needed. 4. Diverticulitis with diverticular abscess, status post colon resection and colostomy. Patient is doing well, and he understands that he will have to manage his colostomy, and he feels comfortable with it. DISPOSITION: Patient is hoping to go home today. From a renal standpoint, he seems to be stable as long as he has been cleared by home safety evaluation.
--- NOTE | 2020-10-10 00:44 | IPNPDOC ---
Text Note Date of Service The patient was seen on 09/23/20. NOTE Overnight patient started to have abdominal pain and he had a repeat CT abdomen and pelvis that was done early this morning shows increasing pneumoperitoneum also more obvious infectious process related to the left colon/sigmoid colon consistent with what most likely is a perforated diverticulitis. On my examination he clearly has more tenderness more in the left side than on the right. With a more notable guarding on deep palpation He looks to be more awake than he was a previous days also. He is alert and oriented still has some discrepancy with time and dates. Breathing is not labored, clear to auscultation bilaterally Slightly tachycardic, regular rhythm Abdomen remains moderately distended and tympanitic to percussion. Left-sided tenderness is noted Impression and plan Perforated diverticulitis It looks like he has a perforated diverticulitis with a more prominent focus of inflammation on the left side and repeat CT and he is more symptomatic from this. I discussed with him the need for surgery, most likely sigmoid colon resection and removal of his PD catheter. At the same time will place a hemodialysis catheter for him. I also called his daughter to let her know what is happening. Consent was obtained. We'll proceed to surgery once the operating room is available. VS,Dwayne, I+O VS, Dwayne, I+O Laboratory Tests 09/22/20 06:00 09/22/20 17:31 Vital Signs Date Time Temp Pulse Resp B/P (MAP) Pulse Ox O2 Delivery O2 Flow Rate FiO2 09/23/20 03:20 90 14 176/65 97 Nasal Cannula 2.0 09/23/20 00:00 98.1 I&O- Last 24 Hours up to 6 AM 09/23/20 06:00 Intake Total 4065 ml Output Total 5565 ml Balance -1500 ml AINL MCCARTHY MD Sep 23, 2020 03:56
--- NOTE | 2020-10-10 00:49 | IPNPDOC ---
Text Note Date of Service The patient was seen on 09/24/20. NOTE Patient is seen in the intensive care unit. He underwent exploratory laparotomy, sigmoid colon resection, end colostomy as well as removal of his PD catheter and placement of hemodialysis catheter yesterday. He has been hemodynamically stable postoperatively. Patient is awake, reports he is comfortable. He seems to be oriented and answers questions appropriately No jugular venous distention Lung sounds are clear to auscultation bilaterally Regular heart rate and rhythm, non-tachycardic Abdomen is round, mildly distended, soft. Midline incisions covered with a dry sterile gauze without much staining. Left-sided colostomy is swollen but otherwise has some thin liquid stool on that not much gas No significant extremity edema Impression and plan Postop day 1 after sigmoid colon resection, colostomy, removal of PD catheter, placement of hemodialysis catheter Will remove the a line today Keep the nasogastric tube in place for now and observe its output for today. If not much output would consider removing this over the weekend Would keep in the ICU today. Patient is for hemodialysis today. VS,Erane, I+O VS, Erane, I+O Laboratory Tests 09/24/20 05:07 Vital Signs Date Time Temp Pulse Resp B/P (MAP) Pulse Ox O2 Delivery O2 Flow Rate FiO2 09/24/20 04:00 97.4 100 18 116/58 (77) 100 Room Air 09/24/20 00:00 2.0 I&O- Last 24 Hours up to 6 AM 09/24/20 06:00 Intake Total 195 ml Output Total 3435 ml Balance -3240 ml ANIL MCCARTHY MD Sep 24, 2020 07:32
== END 2020-10-06 13:09 | disposition home health service (06) | DRG 329 ==
LOC: M ED 16:30 → EEVIPCON 19:04 → M ED INP 19:04 → ENRESERV 21:03 → M PCU 09-19 00:46 → M RR INP 09-22 17:53 → M ICU 09-22 17:58 → M PCU 09-23 17:02 → M MSPAV 09-30 15:32
PROVIDERS: ADMIT General Practice; ATTEND Internal Medicine
PROC: 0DBL0ZZ Excision of Transverse Colon, Open Approach (ICD-10-PCS; 2020-09-22)
PROC: 0D1M0J4 Bypass Descending Colon to Cutaneous with Synthetic Substitute, Open Approach (ICD-10-PCS; 2020-09-22)
PROC: 0JH63XZ Insertion of Tunneled Vascular Access Device into Chest Subcutaneous Tissue and Fascia, Percutaneous Approach (ICD-10-PCS; 2020-09-22)
PROC: 02HV33Z Insertion of Infusion Device into Superior Vena Cava, Percutaneous Approach (ICD-10-PCS; 2020-09-22)
PROC: 0DBN0ZZ Excision of Sigmoid Colon, Open Approach (ICD-10-PCS; principal; 2020-09-22 10:54)
PROC: 0WPG03Z Removal of Infusion Device from Peritoneal Cavity, Open Approach (ICD-10-PCS; 2020-09-22 10:54)
PROC: 5A1D70Z Performance of Urinary Filtration, Intermittent, Less than 6 Hours Per Day (ICD-10-PCS; 2020-09-26)
PROC: 30233N1 Transfusion of Nonautologous Red Blood Cells into Peripheral Vein, Percutaneous Approach (ICD-10-PCS; 2020-09-27)
DX: K57.20 Diverticulitis of large intestine with perforation and abscess without bleeding (principal); N18.6 End stage renal disease; J18.9 Pneumonia, unspecified organism; I13.2 Hypertensive heart and chronic kidney disease with heart failure and with stage 5 chronic kidney disease, or end stage renal disease; E87.1 Hypo-osmolality and hyponatremia; N25.81 Secondary hyperparathyroidism of renal origin; I50.32 Chronic diastolic (congestive) heart failure; I25.10 Atherosclerotic heart disease of native coronary artery without angina pectoris; E11.22 Type 2 diabetes mellitus with diabetic chronic kidney disease; E87.5 Hyperkalemia; D63.1 Anemia in chronic kidney disease; M48.061 Spinal stenosis, lumbar region without neurogenic claudication; K21.9 Gastro-esophageal reflux disease without esophagitis; E78.5 Hyperlipidemia, unspecified; B96.1 Klebsiella pneumoniae [K. pneumoniae] as the cause of diseases classified elsewhere; K42.9 Umbilical hernia without obstruction or gangrene; I16.0 Hypertensive urgency; G47.33 Obstructive sleep apnea (adult) (pediatric); N40.0 Benign prostatic hyperplasia without lower urinary tract symptoms; N28.1 Cyst of kidney, acquired; E11.649 Type 2 diabetes mellitus with hypoglycemia without coma; E83.39 Other disorders of phosphorus metabolism; K59.00 Constipation, unspecified; Z87.891 Personal history of nicotine dependence; Z79.82 Long term (current) use of aspirin; Z79.4 Long term (current) use of insulin; Z79.899 Other long term (current) drug therapy; Z88.5 Allergy status to narcotic agent; Z20.822 Contact with and (suspected) exposure to COVID-19; Z99.2 Dependence on renal dialysis; Y95 Nosocomial condition

== ENCOUNTER 2020-10-08 10:39 | Inpatient (IN) | payer MEDICARE, OTHER ==
[~2020-10-08] VITALS: Ht 172.7 cm; Wt 89.4 kg
[~2020-10-08 10:39] MED LIST changes: +AMLO1TAB25 PO; +ASPI-1 PO; +ASPI-551 PO; +ATOR80TA59 PO; +CINA30TA4 PO; +DOK1CAP7 PO; +FERR32TA PO; +FLAG500T PO; +GLIM4TAB5 PO; +HEPA100I26 SQ; +LEVO500T3 PO; +LINE1TAB6 PO; +LOPR1TAB6 PO; +LORA-674 PO; +OXYC1TAB23 PO; +PANT40TA29 PO; +POLY17PO18 PO; +RISATAB3 PO; +SENN-52 PO; +SUCR1ORA PO
[2020-10-08] MEDS ORDERED: DEXTROSE 50% 50 ML SYRINGE IV STA (11:25)
[2020-10-08 11:37] LABS: BASO % 0.3 % (0.0-1.0); EOS % 0.2 % (0.0-3.0); LYMPH # 0.3 10^3/uL (1.5-5.0); MEAN CORPUSCULAR HEMOGLOBIN 29.4 pg (27.0-33.0); MEAN CORPUSCULAR HGB CONC 32.4 g/dl (32.0-36.5); MEAN CORPUSCULAR VOLUME 90.9 fl (80.0-96.0); MONO # 0.6 10^3/uL (0.0-0.8); MONO % 4.7 % (2.0-8.0); NEUTROPHILS # 11.4 10^3/uL (1.5-8.5); NEUTROPHILS % 92.3 % (36.0-66.0); PLATELET COUNT, AUTOMATED 450 10^3/uL (150-450); RED BLOOD COUNT 3.74 10^6/uL (4.30-6.10); WHITE BLOOD COUNT 12.3 10^3/uL (4.0-10.0)
[2020-10-08 11:42] LABS: ALBUMIN 2.5 GM/DL (3.2-5.2); BILIRUBIN,DIRECT 0.1 MG/DL (0.0-0.2); BILIRUBIN,TOTAL 0.3 MG/DL (0.2-1.0); CALCIUM LEVEL 8.8 MG/DL (8.8-10.2); CREATININE FOR GFR 4.54 MG/DL (0.70-1.30); GLOMERULAR FILTRATION RATE 13.8 (>49); POTASSIUM SERUM 3.8 MEQ/L (3.5-5.1); TOTAL PROTEIN 5.7 GM/DL (6.4-8.2)
[2020-10-08] MEDS ORDERED: ISOVUE-370 76% 100ML VIAL As Ordered ONE (11:55)
[2020-10-08 12:23] LABS: RSV AMPLIFICATION NEGATIVE (NEGATIVE)
--- NOTE | 2020-10-08 12:24 | REP ---
INDICATION: RESPIRATORY DISTRESS, BILATERAL PEDAL EDEMA. COMPARISON: Comparison chest x-ray September 30, 2020. TECHNIQUE: Portable upright AP chest radiograph. FINDINGS: A right-sided tunneled central venous catheter is noted in place unchanged. Prior study median sternotomy wires are seen along with EKG electrodes. Cardiomegaly is observed unchanged. There is blunting of the pleural angles bilaterally, left greater than right. Pulmonary vasculature is cephalized and interstitial markings are slightly prominent. No focal infiltrate.. IMPRESSION: CHF pattern with vascular congestion and mild interstitial edema. Small bilateral effusions, left greater than right.. <Electronically signed by Los Tamez > 10/08/20 [id number]
--- NOTE | 2020-10-08 12:43 | REP ---
INDICATION: ABDOMINAL PAIN. Status post sigmoid colon resection and colostomy on September 23 2020 for perforated diverticulitis. Patient had been on peritoneal dialysis. COMPARISON: Comparison CT study September 22, 2020.. TECHNIQUE: Helical scanning was acquired and 4 mm axial images are re-formatted. Coronal and sagittal MPR images were generated and reviewed. The contrast enhancement dose is 100 mL of intravenous Isovue 370. FINDINGS: Digital preliminary physical security engineer radiograph demonstrates a left lower quadrant colostomy and some midline skin river. Bowel gas pattern is unremarkable. There is evidence of left pleural effusion. Cardiomegaly. On axial CT images, there are small bilateral pleural effusions, left larger than right. There is minimal diffuse ascites in the upper abdomen. Some fluid is seen along the pericolic gutters again minimal with some small mild ascites between bowel loops in the mid abdomen. There is only minimal free fluid in the pelvic or facet reflections. There is a more localized fluid collection in the left flank along the descending colon where prior study showed the perforated abscess. This collection has enhancing slightly thickened margins consistent with an abscess. Its dimensions are 4.5 x 3.9 by 8.9 cm. No other walled off collection is seen. Left lower quadrant colostomy is unremarkable. No evidence of free intraperitoneal air. There is some mural thickening of the descending colon and diffuse edema pattern throughout the abdominal fat is present which may reflect peritoneal inflammation. The upper abdomen shows the liver and spleen, pancreas and gallbladder to be unremarkable. Multiple cortical cysts are seen in the kidneys which are atrophic. IMPRESSION: Mild diffuse ascites. Some edema throughout the abdominal fat may reflect diffuse peritonitis. There is a loculated fluid collection in the left flank consistent with a peritoneal abscess. 4.5 x 3.9 x 8.9 cm. No evidence of free air. Left lower quadrant colostomy. No evidence of bowel obstruction. <Electronically signed by Los Tamez > 10/08/20 [id number]
[2020-10-08] MEDS ORDERED: LINEZOLID 600 MG in IV 1 EA IV ONE (12:55)
[2020-10-08] MEDS ORDERED: ACETAMINOPHEN TAB 650MG DOSE (2X325MG) PO ONE (13:25)
--- NOTE | 2020-10-08 13:26 | HPEPDOC ---
[facility] Medical History & Physical Date of Admission Oct 08, 2020 Date of Service: Oct 08, 2020 Attending Physician: Jeanna Andino MD History and Physical CHIEF COMPLAINT: Increased abdominal pain HISTORY OF PRESENT ILLNESS: Patient is a 70-year-old male with past medical history of recent perforated diverticulitis status post exploratory laparotomy with sigmoid colectomy and formation of end colostomy 09/22/2020 (hospitalization ), CAD status post CABG , end-stage renal disease on hemodialysis, diabetes type 2, GERD, hypertension, hyperlipidemia, EZEQUIEL on CPAP who presented to [facility] emergency room with the chief complaint of low blood sugar and increased abdominal pain over the past 48 hours. Patient had a recent hospitalization mentioned above after perforated diverticulitis requiring surgery, sigmoid colectomy information of end colostomy. At that time the patient was also taken off of peritoneal dialysis due to infected her 20 at her and peritonitis. He was transitioned to hemodialysis that hospitalization as well as being followed by nephrology closely. The patient's blood sugar at home was low according to his daughter in the 50s, despite giving apple juice, glucose tabs, soda. The patient did well 24 hours after his discharge on 10/06/2020; however, early this a.m. he began experiencing severe lower quadrant pain, localized to the left upper and lower, suprapubic areas. Pain is 8/10, throbbing, constant, worsened by movement. He also complains of increased chills, lethargy, weakness and has had an overall poor appetite since discharge. He denies nausea/vomiting, increased output from colostomy bag, chest pain, shortness of breath. He has been co mpliant with all medications since discharge. Due to low blood sugar and new increased abdominal pain compared to discharge the patient's daughter brought him into the ER for further evaluation In the emergency room vital signs showed temperature 99.7101 Fahrenheit, pulse 249018, blood pressure 671724/91-93, 94% on room air. WBC 12.3, pH 7.451, creatinine 4.54. Blood cultures were collected. CT of the abdomen and pelvis showed mild diffuse ascites, diffuse peritonitis, peritoneal abscess 4.5 x 3.9 x 8.9 cm. This abscess was increased in size compared to prior seen on CT abd/pelvis from 09/22/20 where it measured 5.1 x 3.5 x 6.6 cm. pain was not controlled with Tylenol alone. ECG showed normal sinus rhythm. He was given 600 mg of IV Zyvox. The patient was admitted to hospitalist service with surgery consulted for abdominal peritonitis, peritoneal abscess, sepsis. REVIEW OF SYSTEMS: Neg except for what is mentioned above PAST MEDICAL HISTORY: End-stage renal disease on HD, DM type II , GERD, HTN, HLD, EZEQUIEL on chronic CPAP, lobular liver, mild 3rd splenomegaly with a maximum span of 13 centimeters, bilateral simple renal cysts measuring up to 5.8 cm in the right kidney, B/l re nal parenchymal atrophy, Moderate prostatic hyperplasia, constipation, colonic diverticulosis, Moderate central spinal stenosis L2-L3, severe central spinal stenosis L3-L4 and L4-L5, bulging annulus L5-S1, umbilical hernia. PAST SURGICAL HISTORY: Recent exploratory laparotomy, sigmoid colectomy, Mike's pouch and formation of end colostomy, removal of peritoneal dialysis catheter, placement of dialysis catheter right chest on 09/22/20 CABG 08/2020 Hernia repair appendectomy peritoneal dialysis catheter placement SOCIAL HISTORY: Prior smoker, uses cigars for more than 15 years, quit 10 years ago. Social alcohol use. Denies recreational drug use. Lives alone primary care provider is Laureen Figueroa molecular genetic pathologist is Dr. Diana trujillo at [facility] renal transplant team FAMILY HISTORY: Mother in her 70. Breast cancer ALLERGIES: Please see below. HOME MEDICATIONS: Please see below. PHYSICAL EXAMINATION: VS: 99.7101 F, pulse 622649 bpm, BP 665716/91-93, 94% on RA CONSTITUTIONAL: Appears uncomfortable, in bed AAO x 3 EYES: PERRLA, EOM intact HENT, MOUTH: Normocephalic, atraumatic, moist mucous membranes NECK: SUPPLE, no JVD, no lymphadenopathy, no carotid bruit CV: Regular rate and rhythm, S1S2 normal, no murmurs/rubs/gallops CHEST: Right side chest dialysis catheter in place , area around appears clean. RESPIRATORY: Clear to auscultation bilaterally, no rales/rhonchi/wheezes GI: Colostomy bag in LLQ, stoma appears pink, healthy,liquid stool in bag. Tenderness on palpation of LUQ, LLQ, suprapubic and periumbilcal areas 5-8/10 on pain scale. BS positive in 4 quadrants, soft, , nondistended, mild guarding, no organomegaly : Deferred MUSCULOSKELETAL: Normal ROM. No cyanosis, clubbing, swelling, joint deformity, +2 pitting lower extremity edema up to thighs INTEGUMENTARY: large substernal scar on chest, well healing with multiple scabs. Large vertical incision in abdomen, healing well, river in place. Intact, no rashes, no lesions, no erythema NEUROLOGIC: Cranial Nerves II-XII are intact, no focal deficits PSYCHIATRIC: Mood and affect are normal LABORATORY DATA: Please see below MICROBIOLOGY: 09/22/20: + peritoneal dialysis catheter with E. faecium (sensitive to zyvox) 09/22/20: VRE + abd culture (sensitive to zyvox) 09/18/20: peritoneal fluid cx + for Klebsiella pneumoniae, serratia and bifido bacterium (sensitive to levofloxacin) BCx and UA this admission pending IMAGING: CXR: CHF pattern with vascular congestion and mild interstitial edema. Small bilateral effusions, left greater than right. CT abd/pelvis 10/08/20: Mild diffuse ascites. Some edema throughout the abdominal fat may reflect diffuse peritonitis. There is a loculated fluid collection in the left flank consistent with a peritoneal abscess. 4.5 x 3.9 x 8.9 cm. No evidence of free air. Left lower quadrant colostomy. No evidence of bowel obstruction. CT abd/pelvis 09/22/20 (from prior admisssion): Increased pneumoperitoneum and ascites. Peritoneal dialysis catheter remains in place. There is a new fluid and air collection in the left flank adjacent to and inflamed segment of descending colon suggesting localized perforation and early abscess formation, 5.1 x 3.5 by 6.6 cm. The proximal colon remains stool filled and dilated. ASSESSMENT: 70-year-old male with past medical history of recent perforated diverticulitis status post exploratory laparotomy with sigmoid colectomy and formation of end colostomy 09/22/2020 (hospitalization ), CAD status post CABG , ESRD on hemodialysis, diabetes type 2, GERD, hypertension, hyperlipidemia, EZEQUIEL on CPAP admitted to hospitalist service with surgery consulted for abdominal peritonitis, peritoneal abscess, sepsis. PLAN: Peritoneal abscess (4.5 x 3.9 x 8.9 cm), ? peritonitis with sepsis -S/p recent hospitalization for perforated diverticulitis s/p ex lap, sigmoid colectomy and colostomy placement complicated by peritonitis. -Febrile, tachycardia, abd pain, WBC 12.3. LA wnl -CT abd/pelvis this admission is above -Micro from last admission above -F/u new BCx, UA -C/w Levofloxacin, Flagyl, Linezolid, morphine for pain control, tylenol IV PRN. Add probiotic when taking PO -NPO until cleared by surgery -General surgery consulted (Dr. Krueger) with ID to consult after the weekend. -Tele Hypoglycemia likely 2/2 to sepsis and decreased Po intake -Hx of DM type II on glimiperide, lantus HS at home -BS 50's at home, 59 upon arrival to ER despite treatment -Improvement with dextrose here -F/u FS Q4H, can add D5W at low rate if needed. -Holding all antihyperglyemic medications Hypertensive urgency likely 2/2 to uncontrolled pain, discomfort and possible fluid overload -BP 191-204/91-93 -Holding PO meds and avoiding fluids currently -IV hydralazine PRN -Can resume home meds Amlodipine, Minoxidil, Metoprolol, Irbesartan when cleared by surgery to take PO Pleural effusion on CXR -CXR: CHF pattern with vascular congestion and mild interstitial edema. Small bilateral effusions, left greater than right. -Currently 92-93% on RA. Currently denies SOB, chest pain -Likely Hx of CHF with known CAD s/p CABG and s/s of fluid overload. -Monitor closely -Fluid management with nephrology, HD ESRD on HD -Cr 4.54 -Increased lower ext edema/swelling -Nephrology on consultation FADUMO -S/p 3 units PRBC last admission -C/w Iron supplantation when taking PO -Daily CBC CAD s/p CABG x 5 vessel -Recently completed at [facility] -C/w Atorvastatin, ASA 81, Metoprolol, Irbesartan when taking PO DLP -c/w Atorvastatin and ASA 81 when taking PO EZEQUIEL -Allow home CPAP use Chronic back pain - Moderate central spinal stenosis L2-L3, severe central spinal stenosis L3-L4 and L4-L5. Bulging annulus L5-S1 - c/w Tramadol PRN GERD -PPI IV . Start sucralfate when taking PO DVT prophylaxis -TEDs/Sequentials. Holding AC for now until surgery evaluates. If no surgery, start on heparin SC DISPOSITION: Admitted under inpatient status to hospitalist team. Surgery consulted to see, consulted ID to see after the weekend. Vital Signs Vital Signs Date Time Temp Pulse Resp B/P (MAP) Pulse Ox O2 Delivery O2 Flow Rate FiO2 10/08/20 13:15 101.0 109 182/96 (124) 91 10/08/20 11:42 Room Air 10/08/20 10:51 22 Laboratory Data Labs 24H Laboratory Tests 2 10/08/20 10:53: Bedside Glucose (Misc Panel) 59L 10/08/20 11:16: Immature Granulocyte % (Auto) 0.5, Neutrophils (%) (Auto) 92.3H, Lymphocytes (%) (Auto) 2.0L, Monocytes (%) (Auto) 4.7, Eosinophils (%) (Auto) 0.2, Basophils (%) (Auto) 0.3, Neutrophils # (Auto) 11.4H, Lymphocytes # (Auto) 0.3L, Monocytes # (Auto) 0.6, Eosinophils # (Auto) 0.0, Basophils # (Auto) 0.0, Nucleated Red Blood Cells % (auto) 0.0, Anion Gap 4L, Glomerular Filtration Rate 13.8L, Lactic Acid Level 1.9, Calcium Level 8.8, Total Bilirubin 0.3, Direct Bilirubin 0.1, Aspartate Amino Transf (AST/SGOT) 22, Alanine Aminotransferase (ALT/SGPT) 15, Alkaline Phosphatase 122H, Total Protein 5.7L, Albumin 2.5L, Albumin/Globulin Ratio 0.8, Lipase 203 10/08/20 11:41: Coronavirus (COVID-19)(PCR) NEGATIVE, Influenza Type A (RT-PCR) NEGATIVE, Influenza Type B (RT-PCR) NEGATIVE, Respiratory Syncytial Virus (PCR) NEGATIVE 10/08/20 12:13: Bedside Glucose (Misc Panel) 132H 10/08/20 12:41: POC pH (Misc Panel) 7.451H, POC Base Excess (Misc Panel) 8.0H, POC Saturated Percent O2 (Misc) 89L, POC pO2 (Misc Panel) 55.0L, POC pCO2 (Misc Panel) 45.8H, POC HCO3 (Misc Panel) 31.9H, POC Total CO2 (Misc Panel) 33.0H 10/08/20 13:18: Bedside Glucose (Misc Panel) 120H CBC/BMP Laboratory Tests 10/08/20 11:16 Microbiology Microbiology 10/08/20 Blood Culture, Received Pending 10/08/20 Blood Culture, Received Pending Home Medications Scheduled Amlodipine Besylate (Amlodipine Besylate) 10 Mg Tablet, 10 MG PO DAILY Aspirin (Aspirin EC) 81 Mg Tablet.dr, 81 MG PO QAM Atorvastatin Calcium (Atorvastatin Calcium) 80 Mg Tablet, 80 MG PO DAILY Cinacalcet (Sensipar) 30 Mg Tablet, 30 MG PO DAILY Docusate Sodium (Dok) 100 Mg Capsule, 100 MG PO BID Ergocalciferol (Vitamin D2) (Vitamin D2) 50,000 Units Cap, 50,000 UNITS PO Q2WK TAKES ON FRIDAYS Ferrous Gluconate (Ferrous Gluconate) 324 Mg Tablet, 324 MG PO BID Glimepiride (Glimepiride) 4 Mg Tablet, 4 MG PO BID Insulin Glargine,Hum.rec.anlog (Lantus Solostar) 100 Unit/Ml Inj, 18 UNITS SC QHS IF NEEDED DUE TO DIALYSIS Irbesartan (Irbesartan) 300 Mg Tablet, 300 MG PO DAILY L.acidoph/L.bulg/B.bif/S.therm (Ave-Bid Caplet) 1 Each Tablet, 1 EA PO BIDWM Levofloxacin (Levofloxacin) 500 Mg Tablet, 500 MG PO Q48H Linezolid (Linezolid) 600 Mg Tablet, 600 MG PO BID Loratadine (Loratadine) 10 Mg Tablet, 10 MG PO Q2D Metoprolol Tartrate (Lopressor) 50 Mg Tablet, 50 MG PO BID Metronidazole (Flagyl) 500 Mg Tablet, 500 MG PO TID Minoxidil (Minoxidil) 2.5 Mg Tablet, 5 MG PO DAILY Pantoprazole Sodium (Pantoprazole Sodium) 40 Mg Tablet.dr, 40 MG PO DAILY Patiromer Calcium Sorbitex (Veltassa) 8.4 Gm Powd.pack, 8.4 GM PO DAILY Sevelamer Carbonate (Renvela) 800 Mg Tab, 800 MG PO TID WITH MEALS Sucralfate (Sucralfate) 1 Gm/10 Ml Oral.susp, 1 GM PO ACHS Sucroferric Oxyhydroxide (Velphoro) 500 Mg Tab.chew, 500 MG PO TID Vit A/Vit C/Vit E/Zinc/Copper (Preservision Areds Softgel) 1 Each Capsule, 1 CAP PO DAILY Scheduled PRN Oxycodone HCl/Acetaminophen (Oxycodone-Acetaminophen 5-325) 1 Each Tablet, 1 TAB PO Q4H PRN for PAIN Polyethylene Glycol 3350 (Polyethylene Glycol 3350) 17 Gm Powd.pack, 1 PKT PO BIDP PRN for CONSTIPATION Sennosides/Docusate Sodium (Senna Plus Tablet) 1 Each Tablet, 2 TAB PO BIDP PRN for CONSTIPATION Allergies Coded Allergies: codeine (Verified Adverse Reaction, Mild, SKIN CRAWLS, 07/03/19) A-FIB/CHADSVASC A-FIB History Current/History of A-Fib/PAF?: No Current PO Anticoag Therapy: No Age/Risk Factor Scoring CHADSVASC: CHADSVASC Response (Comments) Value Age Risk Factor Age 65-74 years old 1 Gender Risk Factor Male 0 Hx of CHF Yes 1 Hx of HTN Yes 1 Hx of Stroke/TIA/or VTE No 0 Hx of Diabetes Yes 1 Hx of Vascular Disease No 0 Total 4 Treatment Treatment ordered: NONE Other anticoagulant ordered: teds, scd Jeanna Andino MD Oct 08, 2020 13:26
[2020-10-08] MEDS ORDERED: GLUCOSE 4GM CHEW TABLET PO PRN (14:00)
[2020-10-08] MEDS ORDERED: SENN-52 PO (14:30)
[2020-10-08] MEDS ORDERED: POLY1POW38 PO (14:30)
[2020-10-08] MEDS ORDERED: SUCR1TAB56 PO (14:30)
[2020-10-08] MEDS ORDERED: RISATAB3 PO (14:30)
[2020-10-08] MEDS ORDERED: LEVO500T3 PO (14:30)
[2020-10-08] MEDS ORDERED: LINE1TAB6 PO (14:30)
[2020-10-08] MEDS ORDERED: AMLO1TAB25 PO (14:30)
[2020-10-08] MEDS ORDERED: METR-265 PO (14:30)
[2020-10-08] MEDS ORDERED: ISOS1TAB35 PO (14:30)
[2020-10-08] MEDS ORDERED: PANT-23 PO (14:30)
[2020-10-08] MEDS ORDERED: ASPI81TA26 PO (14:30)
[2020-10-08] MEDS ORDERED: hydrALAZINE 20MG/ML 1ML VIAL (J0360 PER 20MG) IV PRN (14:50)
[2020-10-08 15:00] VITALS: BP 132/60
[2020-10-08] MEDS ORDERED: LevoFLOXacin IV 500 MG in IV 1 EA IV ONE (15:00)
[2020-10-08] MEDS: metroNIDAZOLE 500 MG in IV 1 EA IV SCH ×2 (15:00→21:55)
[2020-10-08] MEDS: PANTOPRAZOLE 40MG VIAL (C9113 PER 1) IV SCH (16:09)
[2020-10-08 20:00] VITALS: BP 130/66
[2020-10-08] MEDS: DEXTROSE 50% 50 ML SYRINGE IV PRN ×2 (21:55→22:57)
[2020-10-08] MEDS: MORPHINE 2 MG/ML 1ML VIAL (J2270) IV PRN (23:31)
[2020-10-09] VITALS (10 sets, daily range): BP systolic 137–168; BP diastolic 64–77
[2020-10-09] MEDS: DEXTROSE 50% 50 ML SYRINGE IV PRN ×3 (00:24→08:59)
[2020-10-09] MEDS: GLUCAGON INJ 1MG VIAL SC PRN ×2 (00:40→05:22)
[2020-10-09] MEDS: D10W/0.45% SODIUM CHLORIDE 1,000 ML IV SCH (01:08)
[2020-10-09] MEDS: LINEZOLID 600 MG in IV 1 EA IV SCH ×2 (01:08→13:18)
[2020-10-09] MEDS: metroNIDAZOLE 500 MG in IV 1 EA IV SCH ×3 (05:51→21:53)
[2020-10-09 06:27] LABS: HEMATOCRIT 27.2 % (42.0-52.0); MEAN CORPUSCULAR HEMOGLOBIN 29.2 pg (27.0-33.0); MEAN CORPUSCULAR VOLUME 91.3 fl (80.0-96.0); RED BLOOD COUNT 2.98 10^6/uL (4.30-6.10); WHITE BLOOD COUNT 15.2 10^3/uL (4.0-10.0)
[2020-10-09 06:28] LABS: HEMOGLOBIN 8.7 g/dl (13.5-17.5); PLATELET COUNT, AUTOMATED 315 10^3/uL (150-450)
--- NOTE | 2020-10-09 06:49 | IPNPDOC ---
Text Note Date of Service The patient was seen on 10/09/20. NOTE Overnight the patient was having having symptomatic hypoglycemia despite frequent d50 pushes so I we had to start D10w/ 0.45% at 20ml/H (bc he has ESRD and is not due for dialysis until Saturday) despite this he continued to have hypoglycemia and required accuchecks q1H so we will transfer him to ICU for frequent accuchecks VS,Dwayne, I+O VS, Erane, I+O Laboratory Tests 10/08/20 11:16 10/09/20 05:55 Vital Signs Date Time Temp Pulse Resp B/P (MAP) Pulse Ox O2 Delivery O2 Flow Rate FiO2 10/09/20 04:00 98.9 97 20 166/74 (104) 96 Room Air I&O- Last 24 Hours up to 6 AM 10/09/20 06:00 Intake Total 200 ml Output Total 125 ml Balance 75 ml KRISTEL PADILLA MD Oct 09, 2020 06:49
[2020-10-09 06:52] LABS: ALBUMIN 1.8 GM/DL (3.2-5.2); BILIRUBIN,TOTAL 0.3 MG/DL (0.2-1.0); CALCIUM LEVEL 8.2 MG/DL (8.8-10.2); CREATININE FOR GFR 5.55 MG/DL (0.70-1.30); GLOMERULAR FILTRATION RATE 10.9 (>49); POTASSIUM SERUM 4.2 MEQ/L (3.5-5.1); TOTAL PROTEIN 4.4 GM/DL (6.4-8.2)
--- NOTE | 2020-10-09 07:33 | ECGEPIP ---
[facility] - ED Test Date: 2020-10-08 Pat Name: KRISTIN MCCOY Department: Room: - Gender: Male Teaching Aide: tc : 1950 Requested By: Dario Mcmahan Order Number: [id number] Reading MD: Bisi Bedolla Measurements Intervals [place] Rate: 106 P: 24 [place]: 140 QRS: -38 QRSD: 84 T: 85 QT: 352 QTc: 467 Interpretive Statements Sinus tachycardia Possible Left atrial enlargement Left axis deviation Low voltage QRS NSTTW abnormalities decreased rate 09/21/20 Electronically Signed on 10-09-2020 7:33:30 EDT by Bisi Bedolla
--- NOTE | 2020-10-09 12:40 | IPNPDOC ---
Date Seen The patient was seen on 10/09/20. Progress Note SUBJECTIVE: Hypoglycemic overnight, was difficult to keep BS elevated on PCU. Moved to ICU and started on D10WNS IVFs. Discussed case with surgery, no surgical need currently but recommending drainage of abscess 10/10/20. Advancing diet today. WBC slightly increased, afebrile. OBJECTIVE: PHYSICAL EXAMINATION: VS:: Please see below. CONSTITUTIONAL: resting in bed, NAD, AAO x 3 EYES: PERRLA, EOM intact HENT, MOUTH: Normocephalic, atraumatic, moist mucous membranes NECK: SUPPLE, no JVD, no lymphadenopathy, no carotid bruit CV: Regular rate and rhythm, S1S2 normal, no murmurs/rubs/gallops CHEST: Right side chest dialysis catheter in place , area around appears clean. RESPIRATORY: Clear to auscultation bilaterally, no rales/rhonchi/wheezes GI: Colostomy bag in LLQ, stoma appears pink, healthy,liquid stool in bag. Tenderness on palpation of LUQ, LLQ, suprapubic and periumbilcal areas 3-4/10 on pain scale. BS positive in 4 quadrants, soft, , nondistended, mild guarding, no organomegaly : Deferred MUSCULOSKELETAL: Normal ROM. No cyanosis, clubbing, swelling, joint deformity, +2 pitting lower extremity edema up to thighs INTEGUMENTARY: large substernal scar on chest, well healing with multiple scabs. Large vertical incision in abdomen, healing well, river in place. Intact, no rashes, no lesions, no erythema NEUROLOGIC: Cranial Nerves II-XII are intact, no focal deficits PSYCHIATRIC: Mood and affect are normal LABORATORY DATA: Please see below MICROBIOLOGY: 09/22/20: + peritoneal dialysis catheter with E. faecium (sensitive to zyvox) 09/22/20: VRE + abd culture (sensitive to zyvox) 09/18/20: peritoneal fluid cx + for Klebsiella pneumoniae, serratia and bifidobac terium (sensitive to levofloxacin) BCx NG to date UA ordered IMAGING: CXR: CHF pattern with vascular congestion and mild interstitial edema. Small bilateral effusions, left greater than right. CT abd/pelvis 10/08/20: Mild diffuse ascites. Some edema throughout the abdominal fat may reflect diffuse peritonitis. There is a loculated fluid collection in the left flank consistent with a peritoneal abscess. 4.5 x 3.9 x 8.9 cm. No evidence of free air. Left lower quadrant colostomy. No evidence of bowel obstruction. CT abd/pelvis 09/22/20 (from prior admisssion): Increased pneumoperitoneum and ascites. Peritoneal dialysis catheter remains in place. There is a new fluid and air collection in the left flank adjacent to and inflamed segment of descending colon suggesting localized perforation and early abscess formation, 5.1 x 3.5 by 6.6 cm. The proximal colon remains stool filled and dilated. ASSESSMENT: 70-year-old male with past medical history of recent perforated diverticulitis status post exploratory laparotomy with sigmoid colectomy and formation of end colostomy 09/22/2020 (hospitalization ), CAD status post CABG , ESRD on hemodialysis, diabetes type 2, GERD, hypertension, hyperlipidemia, EZEQUIEL on CPAP admitted to hospitalist service with surgery consulted for abdominal peritonitis, peritoneal abscess, sepsis. PLAN: Peritoneal abscess (4.5 x 3.9 x 8.9 cm), ? peritonitis with sepsis -S/p recent hospitalization for perforated diverticulitis s/p ex lap, sigmoid colectomy and colostomy placement complicated by peritonitis. -Afebrile since admission, improving tachycardia, abd pain still present, WBC 15K. LA wnl -CT abd/pelvis this admission is above -Micro from last admission above -F/u BCx -Per surgery, no surgery at this time. Recommending CT guided drainage of abscess. F/u Cx. Can advance diet per Dr. Krueger. -C/w Levofloxacin, Flagyl, Linezolid, morphine for pain control -General surgery consulted (Dr. Krueger) with ID to consult after the weekend. -Tele Hypoglycemia likely 2/2 to sepsis and decreased PO intake -Hx of DM type II on glimiperide, lantus HS at home -BS 34 this AM -On [id number], CLD and advance as tolerated per surgery -FS -Holding all antihyperglyemic medications HTN, resolved urgency -BP better controlled -Holding PO meds while we are just starting CLD -Can resume home meds Amlodipine, Minoxidil, Metoprolol, Irbesartan if does well with diet Pleural effusion on CXR -CXR: CHF pattern with vascular congestion and mild interstitial edema. Small bilateral effusions, left greater than right. -Currently 92-93% on RA. Currently denies SOB, chest pain -Likely Hx of CHF with known CAD s/p CABG and s/s of fluid overload. -Monitor closely -Fluid management with nephrology, HD ESRD on HD -Cr 4.54 -Increased lower ext edema/swelling -Nephrology on consultation FADUMO -S/p 3 units PRBC last admission -C/w Iron supplantation when taking PO -Daily CBC CAD s/p CABG x 5 vessel -Recently completed at [facility] -C/w Atorvastatin, ASA 81, Metoprolol, Irbesartan when taking PO DLP -c/w Atorvastatin and ASA 81 when taking PO EZEQUIEL -Allow home CPAP use Chronic back pain - Moderate central spinal stenosis L2-L3, severe central spinal stenosis L3-L4 and L4-L5. Bulging annulus L5-S1 - c/w Tramadol PRN GERD -PPI IV . Holding sucralfate PO another day DVT prophylaxis -TEDs/Sequentials. Heparin SC DISPOSITION: No surgical need at this time, surgery to follow. Inpatient in ICU currently, ID consulted to see 10/10/20. TOTAL AMOUNT OF ICU TIME SPENT CARING FOR PATIENT : 40 mins VS, I&O, 24H, [facility] Vital Signs/I&O Vital Signs Date Time Temp Pulse Resp B/P (MAP) Pulse Ox O2 Delivery O2 Flow Rate FiO2 10/09/20 08:00 99.8 96 16 155/70 (98) 92 Nasal Cannula 2.0 I&O- Last 24 Hours up to 6 AM 10/09/20 06:00 Intake Total 200 ml Output Total 125 ml Balance 75 ml Laboratory Data 24H LABS Laboratory Tests 2 10/08/20 12:13: Bedside Glucose (Misc Panel) 132H 10/08/20 12:41: POC pH (Misc Panel) 7.451H, POC Base Excess (Misc Panel) 8.0H, POC Saturated Percent O2 (Misc) 89L, POC pO2 (Misc Panel) 55.0L, POC pCO2 (Misc Panel) 45.8H, POC HCO3 (Misc Panel) 31.9H, POC Total CO2 (Misc Panel) 33.0H 10/08/20 13:18: Bedside Glucose (Misc Panel) 120H 10/08/20 14:19: Bedside Glucose (Misc Panel) 140H 10/08/20 15:00: Bedside Glucose (Misc Panel) 136H 10/08/20 19:05: Bedside Glucose (Misc Panel) 75L 10/08/20 21:26: Bedside Glucose (Misc Panel) 36*L 10/08/20 21:51: Bedside Glucose (Misc Panel) 103 10/08/20 22:50: Bedside Glucose (Misc Panel) 67L 10/08/20 23:22: Bedside Glucose (Misc Panel) 114 10/09/20 00:14: Bedside Glucose (Misc Panel) 65L 10/09/20 01:12: Bedside Glucose (Misc Panel) 115 10/09/20 02:56: Bedside Glucose (Misc Panel) 84 10/09/20 05:06: Bedside Glucose (Misc Panel) 34*L 10/09/20 05:47: Bedside Glucose (Misc Panel) 127H 10/09/20 05:55: Nucleated Red Blood Cells % (auto) 0.0, Anion Gap 4L, Glomerular Filtration Rate 10.9L, Calcium Level 8.2L, Total Bilirubin 0.3, Aspartate Amino Transf (AST/S GOT) 13, Alanine Aminotransferase (ALT/SGPT) 9L, Alkaline Phosphatase 89, Total Protein 4.4#L, Albumin 1.8#L, Albumin/Globulin Ratio 0.7 10/09/20 06:52: Bedside Glucose (Misc Panel) 97 10/09/20 08:02: Bedside Glucose (Misc Panel) 60L 10/09/20 08:42: Lactic Acid Level 0.9 10/09/20 08:52: Bedside Glucose (Misc Panel) 49L 10/09/20 09:56: Bedside Glucose (Misc Panel) 99 10/09/20 11:04: Bedside Glucose (Misc Panel) 98 CBC/BMP Laboratory Tests 10/09/20 05:55 Microbiology Microbiology 10/08/20 Blood Culture, Received Pending 10/08/20 Blood Culture - Preliminary, Resulted No growth after 24 hours . All specim... Current Medications Current Medications Medications (Trade) Dose Ordered Sig/Rafita Route PRN Reason Start Time Stop Time Status Last Admin Dose Admin Dextrose (Dextrose 50%) 25 ml ASDIRECTED PRN IV SEE LABEL COMMENTS 10/08/20 14:00 10/09/20 08:59 Dextrose (Dextrose 50%) 25 ml STAT STAT IV 10/08/20 11:25 10/08/20 11:28 DC 10/08/20 11:40 Dextrose/Sodium Chloride 1,000 ml @ 50 mls/hr Q20H IV 10/09/20 00:25 10/09/20 01:08 Glucagon (Glucagon) 1 mg ASDIRECTED PRN SC SEE LABEL COMMENTS 10/08/20 14:00 10/09/20 05:22 Glucose (Glucose) 16 GM ASDIRECTED PRN PO SEE LABEL COMMENTS 10/08/20 14:00 Home Med (Med Rec Complete!) ASDIRECTED XX 10/08/20 14:30 10/08/20 14:35 DC Hydralazine HCl (Apresoline) 10 mg Q6HP PRN IV SEE PROTOCOL 10/08/20 14:50 Levofloxacin 250 mg/IV Miscellaneous Supplies 50 ml @ 50 mls/hr Q48H IV 10/10/20 15:00 Linezolid 600 mg/ IV Miscellaneous Supplies 300 ml @ 150 mls/hr Q12H IV 10/09/20 01:00 10/09/20 01:08 Metronidazole 500 mg/IV Miscellaneous Supplies 100 ml @ 100 mls/hr Q8H IV 10/08/20 14:00 10/09/20 05:51 Morphine Sulfate (Morphine Sulfate Inj) 1 mg Q4H PRN IV MODERATE PAIN (PS 5-7) 10/08/20 13:20 10/08/20 23:31 Morphine Sulfate (Morphine Sulfate Inj) 2 mg Q6H PRN IV SEVERE PAIN (PS 8-10) 10/08/20 13:20 Pantoprazole Sodium (Protonix) 40 mg Q24H IV 10/08/20 14:00 10/08/20 16:09 Allergies Coded Allergies: codeine (Verified Adverse Reaction, Mild, SKIN CRAWLS, 07/03/19) Jeanna Andino MD Oct 09, 2020 12:40
[2020-10-09] MEDS: PANTOPRAZOLE 40MG VIAL (C9113 PER 1) IV SCH (13:17)
[2020-10-09] MEDS: MORPHINE 2 MG/ML 1ML VIAL (J2270) IV PRN ×2 (16:11→20:47)
--- NOTE | 2020-10-09 17:13 | CR ---
NEPHROLOGY CONSULTATION DATE: 10/09/2020 REQUESTING PHYSICIAN: Jeanna Andino M.D. REASON FOR CONSULTATION: To assist in the management of end-stage renal disease. HISTORY OF PRESENT ILLNESS: Mr. Dooley is a 70-year-old gentleman with a history of end-stage renal disease, hypertension and diabetes. He was recently admitted to [facility] with peritonitis and was noticed to have perforated viscus. He underwent colostomy and colon resection. He was just discharged a couple of days ago and had one outpatient dialysis. He presented to the emergency room yesterday with recurrent hypoglycemia and increased abdominal pain. A CAT scan showed increased intraabdominal fluid collection. Patient was admitted last evening and nephrology consultation was requested. He is seen this morning in the intensive care unit. PAST MEDICAL HISTORY: Significant for: 1. Longstanding diabetes. 2. Hypertension. 3. Coronary artery disease with recent coronary artery bypass graft (CABG). 4. History of end-stage renal disease now on hemodialysis while he was previously on peritoneal dialysis. 5. History of obstructive sleep apnea. 6. Hyperlipidemia. 7. Gastroesophageal reflux disease. 8. Anemia. 9. Recent bowel resection due to diverticular abscess and status post colostomy. 10. History of spinal stenosis. 11. History of benign prostatic hypertrophy (BPH). PAST SURGICAL HISTORY: Significant for: 1. Recent sigmoid colectomy and colostomy. 2. Removal of peritoneal dialysis catheter and placement of a permanent hemodialysis catheter. 3. Five vessel coronary artery bypass surgery in August of this year. 4. History of hernia repair. 5. Appendectomy. 6. Peritoneal dialysis catheter placement. PERSONAL AND SOCIAL HISTORY: Patient is . He quit smoking and denies any alcohol or drug use. FAMILY HISTORY: Unremarkable for this admission. There is no family history for end-stage renal disease. MEDICATIONS: His home medications include: - amlodipine 10 mg daily - aspirin 81 mg daily - atorvastatin 80 mg daily - Sensipar 30 mg daily - Colace 100 mg twice a day - vitamin D 50,000 units every two weeks - ferrous gluconate 324 mg twice a day - glimepiride 4 mg twice a day - Lantus insulin 18 units daily - irbesartan 300 mg daily - levofloxacin 500 mg every 48 hours - Zyvox 600 mg twice a day - metoprolol 50 mg twice a day - metronidazole 500 mg three times a day - minoxidil 2.5 mg daily - pantoprazole 40 mg daily - Renvela 800 mg three times a day - Carafate 1 gram four times a day - Velphoro 500 mg three times a day - oxycodone as needed for pain ALLERGIES: Patient has allergies to CODEINE. REVIEW OF SYSTEMS: GENERAL: He is feeling very weak. He denies any fever or chills. He had recurrent hypoglycemia at home which he could not correct. EARS, NOSE AND THROAT: Unremarkable. CARDIOVASCULAR SYSTEM: Significant for recent coronary artery bypass surgery. He has leg edema but denies any chest pain or dyspnea at present. RESPIRATORY SYSTEM: Significant for obstructive sleep apnea. He denies any hemoptysis or cough. GASTROINTESTINAL (GI) SYSTEM: Significant for recent history of ruptured diverticulum and status post partial colectomy and colostomy. GENITOURINARY () SYSTEM: Significant for benign prostatic hypertrophy (BPH). He denies any dysuria or hematuria. ENDOCRINE SYSTEM: Significant for type 2 diabetes and secondary hyperparathyroidism. HEMATOLOGICAL SYSTEM: Significant for anemia of end-stage renal disease. PSYCHOSOCIAL SYSTEM: Significant for mild anxiety and depression. NEUROLOGICAL SYSTEM: Negative for seizures or stroke. SKIN: Negative for rash or ulcers. PHYSICAL EXAMINATION: Patient is laying in the bed without any acute distress. He looks somewhat pale, but not in any acute distress. Temperature 99.3 degrees Fahrenheit, heart rate 96 per minute, respiratory rate 20 per minute, blood pressure 137/64 mmHg, oxygen saturation 98% on 2 liters oxygen. HEAD: Atraumatic. NECK: Supple and jugular venous distention (JVD) is difficult to assess. There is a hemodialysis catheter in right internal jugular vein. HEART SOUNDS: Somewhat tachycardic, but without a pericardial friction rub. LUNGS: Slightly diminished breath sounds at the bases. ABDOMEN: Soft and colostomy is functioning. There is minimal tenderness in left lower quadrant. Bowel sounds are normal. EXTREMITIES: Without any cyanosis or clubbing. He has edema on legs bilaterally. NEUROLOGIC: He is awake, alert and at his baseline mentation. LABORATORY DATA: WBC 15.2, hemoglobin 8.7, hematocrit 27.2, platelets 315. Sodium 133, potassium 4.2, chloride 98, CO2 31, BUN 18, creatinine 5.55, glucose 122, calcium 8.2. Lactic acid level is 0.9. Total protein 4.4 and albumin 1.8. IMAGING DATA: CAT scan of abdomen and pelvis done in the emergency room yesterday showed slight increase in the fluid collection in the left flank consistent with peritoneal abscess. This is now 4.9 x 8.9 x 3.9 cm in size. His chest x-ray was consistent with small bilateral pleural effusions, left greater than the right and vascular congestion. PROBLEMS: 1. Abdominal pain and intraabdominal fluid collection. Most likely this is a result of his recent peritonitis and diverticular abscess. He is afebrile, but his leukocytosis is increased. Patient has already been seen by surgery and there is a plan for ultrasound-guided drainage of the fluid collection, which can likely happen on Saturday. 2. End-stage renal disease. Patient was dialyzed on Saturday as an outpatient and he will be scheduled for next dialysis tomorrow. At present, his electrolytes are stable and volume status is well-compensated, even though his chest x-ray did show some pulmonary vascular congestion. Patient is oxygenating very well with just 2 liters of oxygen. We will plan dialysis tomorrow and try to remove about 2-3 liters of fluid as tolerated. 3. Congestive heart failure. Most likely, he had increased oral intake at home, as he has not been eating well. Patient will need to follow fluid restriction of 1500 mL per day. We will try to remove about 2-3 liters of fluid with dialysis tomorrow. 4. Hypertension. Blood pressure is much better and he is on his usual antihypertensive medications. In fact, his medications are currently on hold and I would like to keep them on hold until after dialysis tomorrow while we try to remove fluid. 5. Anemia. His anemia did get worse since admission. There is no active bleeding. We will recheck his CBC tomorrow and consider transfusion if needed. 6. Recurrent hypoglycemia. His blood sugars have improved. He is on full liquid diet right now. His insulin has been on hold. Thank you for involving me in the care of Mr. Dooley. I will follow him along with you.
[2020-10-10] VITALS (20 sets, daily range): BP systolic 127–193; BP diastolic 60–99
[2020-10-10] MEDS: LINEZOLID 600 MG in IV 1 EA IV SCH ×2 (00:21→13:00)
[2020-10-10] MEDS: D10W/0.45% SODIUM CHLORIDE 1,000 ML IV SCH ×2 (00:22→12:58)
[2020-10-10] MEDS: MORPHINE 2 MG/ML 1ML VIAL (J2270) IV PRN ×3 (04:10→18:26)
[2020-10-10 04:43] LABS: HEMATOCRIT 25.1 % (42.0-52.0); HEMOGLOBIN 8.2 g/dl (13.5-17.5); MEAN CORPUSCULAR HEMOGLOBIN 29.2 pg (27.0-33.0); MEAN CORPUSCULAR HGB CONC 32.7 g/dl (32.0-36.5); MEAN CORPUSCULAR VOLUME 89.3 fl (80.0-96.0); PLATELET COUNT, AUTOMATED 279 10^3/uL (150-450); RED BLOOD COUNT 2.81 10^6/uL (4.30-6.10); WHITE BLOOD COUNT 16.2 10^3/uL (4.0-10.0)
--- NOTE | 2020-10-10 04:54 | IPN ---
PROGRESS NOTE DATE: 10/09/2020 SUBJECTIVE: The patient was admitted yesterday with some left sided abdominal pain and a CT scan of the abdomen which showed some free fluid in the upper abdomen and bilateral pleural effusions. There was also a fairly localized fluid collection just lateral to the colostomy with a suggestion of an enhancing rim consistent with a small abscess. He was admitted by the Hospitalist and started on antibiotics. He has been moved into the Intensive Care Unit for closer management of his blood sugar which was trending too low last evening. Vital signs shows that he has had a low-grade temperature last evening up to 100.1. His pulse is in the 90s to low 100s and his blood pressure is acceptable although slightly elevated. Intake and output: Yesterday he had 200 ml in. He is taking some liquids today. OBJECTIVE: The patient is somewhat more alert today and seems oriented. He denies any pain at rest. Heart exam shows a regular rhythm. The lungs show good bilateral breath sounds. The abdomen does seem to have a fluid wave in the upper abdomen. Most of the abdomen is nontender but there is some tenderness on palpation of the left lateral abdomen and left flank about at the level of the colostomy. LABORATORY DATA: Laboratory studies shows a white count of 15,000, hemoglobin 9, hematocrit 27 and a platelet count of 315,000. Chemistry profile showed a sodium of 133, potassium of 4.2, chloride 98, CO2 31, BUN 18, creatinine of 5.5 and a glucose of 122. Protein is 4.4 with an albumin of 1.8. IMPRESSION: Patient is doing better with stabilization of his blood sugars which had dipped as low as 34 very early this morning. He appears somewhat more alert. He remains tender in the lateral aspect of the left abdomen with a CT suggesting an abscess. RECOMMENDATIONS: At this point, I would continue his antibiotics. A percutaneous drainage of this area would be appropriate. MICHAEL
[2020-10-10 05:12] LABS: ALBUMIN 1.8 GM/DL (3.2-5.2); BILIRUBIN,TOTAL 0.3 MG/DL (0.2-1.0); CALCIUM LEVEL 8.1 MG/DL (8.8-10.2); CREATININE FOR GFR 6.64 MG/DL (0.70-1.30); GLOMERULAR FILTRATION RATE 8.9 (>49); POTASSIUM SERUM 4.5 MEQ/L (3.5-5.1); TOTAL PROTEIN 4.4 GM/DL (6.4-8.2)
[2020-10-10] MEDS: metroNIDAZOLE 500 MG in IV 1 EA IV SCH ×2 (05:55→15:04)
[2020-10-10] MEDS ORDERED: ONDANSETRON 4MG/2ML VIAL As Ordered ONE (10:49)
--- NOTE | 2020-10-10 12:17 | IPNPDOC ---
Date Seen The patient was seen on 10/10/20. Progress Note SUBJECTIVE: Hypoglycemia slightly improved; however, increased D10 today. CT guided drainage of abscess to be done today, f/u cultures. Multiple episodes of nausea with vomiting. Abd gum rolling machine tender. WBC slightly worsened. Afebrile. OBJECTIVE: PHYSICAL EXAMINATION: VS:: Please see below. CONSTITUTIONAL: lethargic, in bed, NAD, AAO x 3 EYES: PERRLA, EOM intact HENT, MOUTH: Normocephalic, atraumatic, moist mucous membranes NECK: SUPPLE, no JVD, no lymphadenopathy, no carotid bruit CV: Regular rate and rhythm, S1S2 normal, no murmurs/rubs/gallops CHEST: Right side chest dialysis catheter in place , area around appears clean. RESPIRATORY: Clear to auscultation bilaterally, no rales/rhonchi/wheezes GI: Colostomy bag in LLQ, stoma appears pink, healthy,liquid stool in bag. Tenderness on palpation of LUQ, LLQ, suprapubic and periumbilcal areas 5/10 on pain scale. BS positive in 4 quadrants, mild distension, mild guarding, no organomegaly : Deferred MUSCULOSKELETAL: Normal ROM. No cyanosis, clubbing, swelling, joint deformity, +2 pitting lower extremity edema up to thighs INTEGUMENTARY: large substernal scar on chest, well healing with multiple scabs. Large vertical incision in abdomen, healing well, river in place. Intact, no rashes, no lesions, no erythema NEUROLOGIC: Cranial Nerves II-XII are intact, no focal deficits PSYCHIATRIC: Mood and affect are normal LABORATORY DATA: Please see below MICROBIOLOGY: 09/22/20: + peritoneal dialysis catheter with E. faecium (sensitive to zyvox) 09/22/20: VRE + abd culture (sensitive to zyvox) 09/18/20: peritoneal fluid cx + for Klebsiella pneumoniae, serratia and bifidobacterium (sensitive to levofloxacin) BCx NG to date UA ordered but he does not normally make a lot of urine IMAGING: CXR: CHF pattern with vascular congestion and mild interstitial edema. Small bilateral effusions, left greater than right. CT abd/pelvis 10/08/20: Mild diffuse ascites. Some edema throughout the abdominal fat may reflect diff use peritonitis. There is a loculated fluid collection in the left flank consistent with a peritoneal abscess. 4.5 x 3.9 x 8.9 cm. No evidence of free air. Left lower quadrant colostomy. No evidence of bowel obstruction. CT abd/pelvis 09/22/20 (from prior admisssion): Increased pneumoperitoneum and ascites. Peritoneal dialysis catheter remains in place. There is a new fluid and air collection in the left flank adjacent to and inflamed segment of descending colon suggesting localized perforation and early abscess formation, 5.1 x 3.5 by 6.6 cm. The proximal colon remains stool filled and dilated. ASSESSMENT: 70-year-old male with past medical history of recent perforated diverticulitis status post exploratory laparotomy with sigmoid colectomy and formation of end colostomy 09/22/2020 (hospitalization ), CAD status post CABG , ESRD on hemodialysis, diabetes type 2, GERD, hypertension, hyperlipidemia, EZEQUIEL on CPAP admitted to hospitalist service with surgery consul faith for abdominal peritonitis, peritoneal abscess, sepsis. PLAN: Peritoneal abscess (4.5 x 3.9 x 8.9 cm), ? peritonitis with sepsis -S/p recent hospitalization for perforated diverticulitis s/p ex lap, sigmoid colectomy and colostomy placement complicated by peritonitis. -WBC incr to 16.2 despite abx coverage, afebrile, abd pain, LA wnl -CT abd/pelvis this admission is above -Micro from last admission above -BCx this admission NG to date -Per surgery, no surgery at this time. -Going for CT guided drainage of abscess this afternoon, f/u Cx. -Not eating much, keeping on CLD for now with nausea -C/w Levofloxacin, Flagyl, Linezolid, morphine for pain control, zofran PRN -General surgery consulted (Dr. Krueger) , ID consulted to see ej -Tele Hypoglycemia likely 2/2 to sepsis and decreased PO intake -Hx of DM type II on glimiperide, lantus HS at home -BS 62-80 on avg -Decreased appetite, + nausea -While on CLD, c/w D10 which was increased today to 70 cc/hr. C/w dextrose p ushes PRN HTN, resolved urgency -BP 150-170 -Holding PO meds as he n/v -Can resume Amlodipine today, if keeps down can consider reintroducing other meds over time (Minoxidil, Metoprolol, Irbesartan ) Pleural effusion on CXR -CXR: CHF pattern with vascular congestion and mild interstitial edema. Small bilateral effusions, left greater than right. -Currently 92-93% on RA. Currently denies SOB, chest pain -Likely Hx of CHF with known CAD s/p CABG and s/s of fluid overload. -Monitor closely -Fluid management with nephrology, HD ESRD on HD -Cr 6.64 -Increased lower ext edema/swelling -To take off 2.5 L today at HD -Nephrology on consultation FADUMO -S/p 3 units PRBC last admission -C/w Iron supplantation when taking PO -Daily CBC CAD s/p CABG x 5 vessel -Recently completed at [facility] -C/w Atorvastatin, ASA 81, imdur, CCB. Holding Metoprolol,Irbesartan DLP -c/w Atorvastatin and ASA 81 EZEQUIEL -Allow home CPAP use Chronic back pain - Moderate central spinal stenosis L2-L3, severe central spinal stenosis L3-L4 and L4-L5. Bulging annulus L5-S1 - morphine IV for pain GERD -PPI IV. Restarted sucralfate PO DVT prophylaxis -TEDs/Sequentials. Heparin SC DISPOSITION: No surgical need at this time, surgery to follow. Inpatient in ICU currently, ID consulted to see 10/10/20. TOTAL AMOUNT OF ICU TIME SPENT CARING FOR PATIENT : 40 mins VS, I&O, 24H, Fishbone Vital Signs/I&O Vital Signs Date Time Temp Pulse Resp B/P (MAP) Pulse Ox O2 Delivery O2 Flow Rate FiO2 10/10/20 08:31 20 98 Nasal Cannula 2.0 10/10/20 08:21 164/73 10/10/20 08:00 99.0 92 I&O- Last 24 Hours up to 6 AM 10/10/20 06:00 Intake Total 1860 ml Output Total 240 ml Balance 1620 ml Laboratory Data 24H LABS Laboratory Tests 2 10/09/20 12:07: Bedside Glucose (Misc Panel) 100 10/09/20 13:04: Bedside Glucose (Misc Panel) 91 10/09/20 13:54: Bedside Glucose (Misc Panel) 93 10/09/20 15:09: Bedside Glucose (Misc Panel) 88 10/09/20 16:32: Bedside Glucose (Misc Panel) 115 10/09/20 18:01: Bedside Glucose (Misc Panel) 90 10/09/20 19:57: Bedside Glucose (Misc Panel) 86 10/09/20 21:57: Bedside Glucose (Misc Panel) 78L 10/10/20 00:14: Bedside Glucose (Misc Panel) 125H 10/10/20 01:57: Bedside Glucose (Misc Panel) 72L 10/10/20 03:55: Bedside Glucose (Misc Panel) 62L 10/10/20 04:24: Nucleated Red Blood Cells % (auto) 0.0, Anion Gap 4L, Glomerular Filtration Rate 8.9L, Calcium Level 8.1L, Total Bilirubin 0.3, Aspartate Amino Transf (AST/SGOT) 11, Alanine Aminotransferase (ALT/SGPT) 9L, Alkaline Phosphatase 91, Total Protein 4.4L, Albumin 1.8L, Albumin/Globulin Ratio 0.7 10/10/20 06:01: Bedside Glucose (Misc Panel) 87 10/10/20 07:34: Bedside Glucose (Misc Panel) 70L 10/10/20 08:22: Lactic Acid Level 1.1 10/10/20 10:12: Bedside Glucose (Misc Panel) 76L 10/10/20 12:02: Bedside Glucose (Misc Panel) 98 CBC/BMP Laboratory Tests 10/10/20 04:24 Microbiology Microbiology 10/08/20 Blood Culture - Preliminary, Resulted No growth after 24 hours . All specim... 10/08/20 Blood Culture - Preliminary, Resulted No Growth after 48 hours. All Specime... Current Medications Current Medications Medications (Trade) Dose Ordered Sig/Rafita Route PRN Reason Start Time Stop Time Status Last Admin Dose Admin Dextrose (Dextrose 50%) 25 ml ASDIRECTED PRN IV SEE LABEL COMMENTS 10/08/20 14:00 10/09/20 08:59 Dextrose (Dextrose 50%) 25 ml STAT STAT IV 10/08/20 11:25 10/08/20 11:28 DC 10/08/20 11:40 Dextrose/Sodium Chloride 1,000 ml @ 50 mls/hr Q20H IV 10/09/20 00:25 10/10/20 08:08 DC 10/10/20 00:22 Dextrose/Sodium Chloride 1,000 ml @ 70 mls/hr [id number] IV 10/10/20 09:00 Glucagon (Glucagon) 1 mg ASDIRECTED PRN SC SEE LABEL COMMENTS 10/08/20 14:00 10/09/20 05:22 Glucose (Glucose) 16 GM ASDIRECTED PRN PO SEE LABEL COMMENTS 10/08/20 14:00 Home Med (Med Rec Complete!) ASDIRECTED XX 10/08/20 14:30 10/08/20 14:35 DC Hydralazine HCl (Apresoline) 10 mg Q6HP PRN IV SEE PROTOCOL 10/08/20 14:50 10/10/20 00:07 Levofloxacin 250 mg/IV Miscellaneous Supplies 50 ml @ 50 mls/hr Q48H IV 10/10/20 15:00 Linezolid 600 mg/ IV Miscellaneous Supplies 300 ml @ 150 mls/hr Q12H IV 10/09/20 01:00 10/10/20 00:21 Metronidazole 500 mg/IV Miscellaneous Supplies 100 ml @ 100 mls/hr Q8H IV 10/08/20 14:00 10/10/20 05:55 Morphine Sulfate (Morphine Sulfate Inj) 1 mg Q4H PRN IV MODERATE PAIN (PS 5-7) 10/08/20 13:20 10/09/20 20:47 Morphine Sulfate (Morphine Sulfate Inj) 2 mg Q6H PRN IV SEVERE PAIN (PS 8-10) 10/08/20 13:20 10/10/20 08:21 Ondansetron HCl (ZOFRAN INJection) 4 mg Q8HP PRN IV NAUSEA OR VOMITING 10/10/20 10:45 Pantoprazole Sodium (Protonix) 40 mg Q24H IV 10/08/20 14:00 10/09/20 13:17 Allergies Coded Allergies: codeine (Verified Adverse Reaction, Mild, SKIN CRAWLS, 07/03/19) Jeanna Andino MD Oct 10, 2020 12:17
--- NOTE | 2020-10-10 12:18 | IPNPDOC ---
Text Note Date of Service The patient was seen on 10/10/20. NOTE Gen. surgery. Dr. Krueger The patient is a 70-year-old male hospitalized from 09/18-10/06/20 with peritonitis and perforated diverticulitis status post exploratory laparotomy with sigmoid colectomy and formation of end colostomy 09/22/[address] Bruno. During that admission was taken off peritoneal dialysis and placed on hemodialysis, using PermCath for dialysis access. The patient was admitted 10/08/[address] with abdominal pain with CT abdomen showing some free fluid in the upper abdomen and bilateral pleural effusions. There was a localized fluid collection just lateral to the colostomy with suggestion of small abscess. Tmax 99.3 Heart rate 92, respiratory rate 20, blood pressure 172/85, 97% 2 L nasal cannula. General. Awake and alert, NAD. S1 and S2 regular rate and rhythm. Lungs clear anteriorly. Abdomen. Soft, mildly distended, colostomy with stool. Mild tenderness in the left upper quadrant but no guarding, rebound. WBC 16.2 compared with 15.2 yesterday. Hemoglobin 8.2 decreased slightly. Platelets 279. Assessment/plan Perforated diverticulitis status post exploratory laparotomy with sigmoid colectomy and formation of end colostomy 09/22/[address] Bruno. Surgical sites are C/D/I. river are still in place. There is no surrounding erythema, no drainage. Output noted from colostomy. Localized fluid collection just lateral to the colostomy with suggestion of small abscess. Plan is for IR drainage of the fluid collection today. IV Levaquin/Linezolid Hemodialysis as per nephrology. Using PermCath for using HD access. VS,Fishbone, I+O VS, Fishbone, I+O Laboratory Tests 10/10/20 04:24 Vital Signs Date Time Temp Pulse Resp B/P (MAP) Pulse Ox O2 Delivery O2 Flow Rate FiO2 10/10/20 08:31 20 98 Nasal Cannula 2.0 10/10/20 08:21 164/73 10/10/20 08:00 99.0 92 I&O- Last 24 Hours up to 6 AM 10/10/20 06:00 Intake Total 1860 ml Output Total 240 ml Balance 1620 ml Attending Note Attending Note Excellent note by Safia. Awaiting percutaneous drainage of possible abscess lateral to colostomy. Safia Dumont Oct 10, 2020 12:18 Isidro Krueger Oct 11, 2020 22:33
[2020-10-10] MEDS: ONDANSETRON 4MG/2ML VIAL IV PRN (13:03)
[2020-10-10] MEDS ORDERED: SODIUM BICARBONATE 8.4% INJ 50MEQ 50 ML VIAL As Ordered ONE (13:33)
[2020-10-10] MEDS ORDERED: LIDOCAINE 1% MDV 20ML VIAL As Ordered ONE (13:33)
--- NOTE | 2020-10-10 13:52 | IPN ---
NEPOLOGY PROGRESS NOTE DATE: 10/10/2020 SUBJECTIVE: Mr. Dooley is seen this morning during hemodialysis. He continues to have recurrent hypoglycemia and is currently on intravenous (IV) fluid with D5W. Nursing staff also gave him candy during dialysis due to hypoglycemia. He is complaining of some nausea, but denies any dyspnea or chest pain. He is going to have his intraabdominal fluid collection drained this afternoon under CT guidance. PHYSICAL EXAMINATION: Temperature 99 degrees Fahrenheit, heart rate 92 per minute, respiratory rate 20 per minute, blood pressure 164/73 mmHg, oxygen saturation 98%. HEAD: Atraumatic. NECK: Supple and jugular venous distention (JVD) not abnormally elevated. Hemodialysis catheter in right internal jugular vein is intact HEART SOUNDS: Regular. LUNGS: Slightly diminished breath sounds at bases. ABDOMEN: Soft and colostomy is present. Bowel sounds are normal. EXTREMITIES: Without any cyanosis or clubbing. There is at least 1+ edema on both legs. LABORATORY DATA: Today's labs show WBC 6.2, hemoglobin 8.2, hematocrit 25.1. Sodium 131, potassium 4.5, BUN 24, creatinine 6.64. Lactic acid 1.1. PROBLEMS: 1. End-stage renal disease. Patient is being dialyzed and he is tolerating dialysis treatment very well. 2. Hypervolemia/congestive heart failure. His volume status is slightly decompensated. He is also receiving intravenous (IV) fluid at 70 mL/hour. We are going to remove about 3 liters of fluid today with dialysis. 3. Hyponatremia. This is mild and related to end-stage renal disease and IV fluids given. We will remove 3 liters of fluid in dialysis and will likely correct his hyponatremia. 4. Recurrent hypoglycemia. Most likely related to intraabdominal infection. Patient remains on D5W intravenously and not receiving any insulin at present. I hope that after his infection clears, his hypoglycemia will reverse quickly. 5. Anemia. His anemia did get worse. We will continue to watch and transfuse as needed. There is no emergent indication for transfusion as yet. 6. Hypertension. Blood pressure is well-controlled and likely to improve after dialysis. Continue with current antihypertensive medications.
[2020-10-10] MEDS ORDERED: LevoFLOXacin IV 250 MG in IV 1 EA IV SCH (15:00)
[2020-10-10] MEDS: SUCRALFATE 1 GM TAB PO SCH ×3 (15:01→20:12)
[2020-10-10] MEDS: ATORVASTATIN 20 MG TAB PO SCH (15:03)
[2020-10-10] MEDS: ASPIRIN 81MG ENTERIC TABLET PO SCH (15:03)
[2020-10-10] MEDS: DOCUSATE SODIUM 100MG CAPSULE PO SCH ×2 (15:03→20:12)
[2020-10-10] MEDS: PANTOPRAZOLE 40MG VIAL (C9113 PER 1) IV SCH (15:04)
--- NOTE | 2020-10-10 15:18 | REP ---
INDICATION: PERITONEAL ABSCESS DRAIN COMPARISON: None. TECHNIQUE: The procedure was performed by Kayley Tran [facility], under the direct supervision of Dr. Tamez The risks and benefits of the procedure were explained to the patient and an informed consent was obtained both verbally and written. Directly prior to the start of the procedure a formal time-out was completed in the procedure room. The abscess in the left lower quadrant was localized using ultrasound guidance. The skin was prepped and draped in a sterile fashion. Twenty ML of buffered lidocaine was used as a local anesthetic. FINDINGS: Under ultrasound guidance a 10 Icelandic pigtail catheter was inserted and advanced into the complex appearing abscess. Approximately 2 mL of fluid was aspirated. The pigtail catheter was sutured into place, a sterile dressing was applied, and the catheter was attached to a drainage bag. The patient tolerated the procedure well and there were no immediate complications. After the appropriate amount of monitored convalescence, the patient was discharged from the department. IMPRESSION: Ten Icelandic pigtail catheter placement into left lower quadrant abscess under ultrasound guidance. <Electronically signed by Kayley Tran > 10/10/20 1500 <Electronically signed by Los Tamez > 10/10/20 1511
[2020-10-10] MEDS: PIPERACILLIN/TAZOBACTAM SOD 4.5 GM in D5W MINI-BAG PLUS 50 ML IV SCH (17:36)
[2020-10-10] MEDS: LACTOBACILLUS ACIDOPHILUS CAP (BACID) PO SCH (18:16)
[2020-10-10] MEDS: ISOSORBIDE MON. (IMDUR) 30 MG XR TAB PO SCH (20:12)
[2020-10-11] VITALS (28 sets, daily range): BP systolic 125–162; BP diastolic 59–79
[2020-10-11] MEDS: MORPHINE 2 MG/ML 1ML VIAL (J2270) IV PRN ×2 (00:39→05:56)
[2020-10-11] MEDS: LINEZOLID 600 MG in IV 1 EA IV SCH ×2 (00:41→12:23)
[2020-10-11] MEDS: PIPERACILLIN/TAZOBACTAM SOD 4.5 GM in D5W MINI-BAG PLUS 50 ML IV SCH ×2 (04:31→17:43)
[2020-10-11] MEDS: D10W/0.45% SODIUM CHLORIDE 1,000 ML IV SCH (04:31)
[2020-10-11 05:11] LABS: HEMATOCRIT 22.9 % (42.0-52.0); HEMOGLOBIN 7.4 g/dl (13.5-17.5); MEAN CORPUSCULAR HGB CONC 32.3 g/dl (32.0-36.5); MEAN CORPUSCULAR VOLUME 89.8 fl (80.0-96.0); PLATELET COUNT, AUTOMATED 265 10^3/uL (150-450); RED BLOOD COUNT 2.55 10^6/uL (4.30-6.10); WHITE BLOOD COUNT 11.4 10^3/uL (4.0-10.0)
[2020-10-11 05:36] LABS: ALBUMIN 1.7 GM/DL (3.2-5.2); BILIRUBIN,TOTAL 0.2 MG/DL (0.2-1.0); CREATININE FOR GFR 4.51 MG/DL (0.70-1.30); GLOMERULAR FILTRATION RATE 13.9 (>49); POTASSIUM SERUM 4.5 MEQ/L (3.5-5.1); TOTAL PROTEIN 4.2 GM/DL (6.4-8.2)
[2020-10-11] MEDS: SUCRALFATE 1 GM TAB PO SCH ×4 (07:27→20:03)
[2020-10-11] MEDS: LACTOBACILLUS ACIDOPHILUS CAP (BACID) PO SCH ×2 (07:27→17:44)
--- NOTE | 2020-10-11 08:12 | REP ---
INDICATION: incr RR, fluid overload. COMPARISON: Comparison chest x-ray October 08, 2020. TECHNIQUE: Portable upright AP chest radiograph. FINDINGS: A right-sided internal jugular tunneled catheter is seen with its tip in the expected location of the superior vena cava. Patient is status post prior median sternotomy. Monitoring electrodes are present. Heart remains mildly enlarged. There is pleural opacity at the left base obscuring left hemidiaphragm and blunting left lateral pleural angle. Some fissural fluid is visible on the left. There is slight blunting of the right lateral pleural angle unchanged. Pulmonary vasculature is cephalized. No definite infiltrate.. IMPRESSION: CHF pattern essentially unchanged.. <Electronically signed by Los Tamez > 10/11/20 [id number]
--- NOTE | 2020-10-11 08:22 | CR ---
INFECTIOUS DISEASE CONSULTATION DATE: 10/10/2020 REQUESTING PHYSICIAN: Jeanna Andino MD CHIEF REASON FOR CONSULTATION: Increasing leukocytosis in the setting of peritoneal abscess. HISTORY OF PRESENT ILLNESS: Isidro is a very pleasant 70-year-old male with notable past medical history of peritonitis on peritoneal dialysis and who subsequently suffered a perforated bowel from diverticulitis and underwent an exploratory laparotomy with sigmoid colectomy and formation of end colostomy on 09/22/20 (hospitalized at [facility] from 09/18-10/06/20) and switched from peritoneal dialysis to hemodialysis, who presented to the [facility] ED on the morning of 10/08 with a chief complaint of increasing left lower quadrant abdominal pain and low blood sugars. The patient had just been discharged from the hospital on , 10/06 and the first 24 hours, he had had no issues. He woke up on the morning of 10/08 with severe left lower quadrant abdominal and suprapubic pain with fever, chills and reported home blood sugars in the 50s despite having juice and glucose tabs. The patient was hospitalized earlier this month after the aforementioned peritonitis with subsequent perforated bowel secondary to diverticulitis requiring the ex lap and a sigmoid colectomy. During that admission, he was switched from peritoneal dialysis over to hemodialysis and had positive peritoneal fluid culture on 09/18 for Klebsiella, Serratia, and Bifidobacterium species, as well as positive abdominal and peritoneal dialysis catheter cultures for Enterococcus faecium VRE. The patient was treated with IV Meropenem from 09/18- 09/24, and again from 09/27-09/29. He also received one day of Zosyn on 09/29, as well as Linezolid from 10/05-10/06. Upon discharge, the patient was to continue with oral Linezolid b.i.d. 600 mg. Upon presentation for this admission, he was febrile with a temperature of 101 with a T max of 101.0, tachycardic, hypertensive, and had leukocytosis. A CT of the abdomen and pelvis in the ED showed a mild amount of diffuse ascites and peritonitis and a slight increase in size of his peritoneal abscess (this admission it measured at 8.9 cm x 3.9 cm x 4.5 cm, where it was measured at 6.6 cm x 3.5 cm x 5.[address] 09/22). He was in sinus tachycardia at the time of presentation, was given 600 mg of IV Zyvox and subsequently was admitted for sepsis secondary to peritoneal abscess and general surgery was consulted. Upon examination this afternoon by the infectious disease service, the patient had just returned from a CT-guided abscess drain of the peritoneal abscess. On speaking with nursing, only 2 mL were removed during the drain; there remains a pigtail catheter in place for further draining. The patient also underwent hemodialysis today and 3 liters were removed. Overall, patient feels fatigued from the recent procedures and had some mild intermittent nausea with some dry heaving early this morning, otherwise he denies any current or overnight fever, chills, night sweats, chest pain, palpitations, shortness of breath, pleuritic chest pain, cough, significant abdominal pain, new lumps or bumps, or easy bruising or bleeding. PAST MEDICAL HISTORY: 1. Peritonitis with peritoneal abscess and perforated diverticulitis status post 09/22/20 sigmoid colectomy with formation of end colostomy. 2. Coronary artery disease, status post August, CABG (quintuple bypass surgery) at [facility]. 3. End-stage renal disease on hemodialysis. 4. Obstructive sleep apnea on chronic CPAP. 5. Hypertension. 6. Insulin dependent diabetes mellitus type 2. 7. Lobular liver. 8. Hyperlipidemia. 9. GERD. 10. Mild splenomegaly with the maximum span of 13 cm. 11. Bilateral simple renal cyst (measured up to 5.8 cm in the right kidney). 12. Bilateral renal parenchymal atrophy. 13. Colonic diverticulosis. 14. Moderate prostatic hyperplasia. 15. Moderate spinal stenosis, L2-L3. 16. Constipation. 17. Severe central spinal stenosis of L3-L4 and L4-L5. 18. Bulging annulus at L5-S1. 19. Umbilical hernia. PAST SURGICAL HISTORY: 1. 09/22/20, exploratory laparotomy with sigmoid colectomy and formation of end colostomy with a Mike's pouch. 2. Removal of peritoneal dialysis catheter and placement of hemodialysis catheter on 09/22/20. 3. Quintuple bypass surgery, August, at [facility]. 4. Peritoneal dialysis catheter placed in 2017. 5. Appendectomy. 6. Hernia repair. 7. 10/10/20, peritoneal abcess CT-guided peritoneal abscess drained. SOCIAL HISTORY: The patient is a , his in 2019 for pancreatic cancer. His daughter is up in the area currently assisting with his care at home. His daughter is his only child. 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 He is also former after serving in the [employer]. His primary care provider is Laureen Hutchinson and he follows as an outpatient with nephrology (Dr. Hernandez) and cardiology (Dr. Tyler Andre). Apparently he is also currently following with the [facility] renal transplant team. He is a former smoker, having quit ten years ago after smoking cigars for around 15 years. He reports social alcohol use but no significant history of heavy alcohol use. He denies any illicit drug history. FAMILY HISTORY: Mother in her 70s with breast cancer. ALLERGIES: CODEINE, MILD REACTION VERIFIED IN June, MANIFESTING WITH SKIN CURLS. HOME MEDICATIONS: 1. Linezolid 600 mg p.o. b.i.d. 2. Amlodipine 10 mg p.o. daily. 3. 81 mg of aspirin p.o. daily. 4. Atorvastatin 80 mg p.o. daily. 5. Sensipar and cinacalcet 30 mg p.o. daily. 6. Glimepiride 4 mg p.o. b.i.d. 7. 18 units of insulin glargine subcutaneously every night. 8. Irbesartan 300 mg tablet p.o. daily. 9. Levofloxacin 500 mg p.o. every two days. 10. Loratadine 10 mg p.o. every two days. 11. Metoprolol tartrate 50 mg p.o. b.i.d. 12. Metronidazole 500 mg p.o. t.i.d. 13. Minoxidil 5 mg p.o. daily. 14. Oxycodone-acetaminophen 5/325 p.o. one tab every four hours p.r.n. for pain. 15. Veltassa 8.4 mg p.o. daily. 16. Pantoprazole 40 mg p.o. daily. 17. Polyethylene glycol 17 gm p.o. b.i.d. p.r.n. constipation. 18. 100 mg p.o. b.i.d. of docusate. 19. Vitamin D2/ergocalciferol 50,000 units p.o. every two weeks on Fridays. 20. Ferrous gluconate 324 mg p.o. b.i.d. 21. Senna Plus tablet 2 mg p.o. b.i.d. p.r.n. constipation. 22. Renvela 800 mg p.o. t.i.d. with meals. 23. Sucralfate 1 gm p.o. before meals and at night. 24. Multivitamin capsule. REVIEW OF SYSTEMS: Constitutional: Overall somewhat tired, but denies fever, chills, night sweats. HEENT: Denies blurry vision, double vision, dysphagia, odynophagia. Cardiovascular: Denies chest pain, chest pressure, or palpitations. Respiratory: Denies shortness of breath, pleuritic chest pain, productive cough. Gastrointestinal: Reports some intermittent mild nausea with some dry heaving this morning. Otherwise his abdominal pain has improved since admission. He denies any blood in his colostomy bag. Extremities: Reports chronic right lower extremity swelling. PHYSICAL EXAMINATION: VITALS: Temperature of 99.3, heart rate of 99, respiratory rate of 20, blood pressure 158/74, SPO2 of 94% on room air, BMI of 29.9. GENERAL: Feeling somewhat fatigued, gentleman lying upright in bed. Just returned from abscess drained. No acute distress. Alert and oriented x3. HEENT: Normocephalic, atraumatic. Noninjected, anicteric sclerae. Conjunctival pallor. The patient's face is pale appearing. There is no pharyngeal erythema or exudate and mucous membranes are moist. NECK: Supple, trachea midline. No lymphadenopathy appreciated. CHEST: There is a hemodialysis tunneled catheter present in the right upper chest. There is a pigtail catheter emanating from a dressing over the left posterior flank with a scant amount of sanguineous discharge. No chest wall tenderness. There is a roughly 8 cm vertical scar over the sternum that appears well healed. There are also four horizontal, roughly 2 cm wide incision markings with some surrounding eschar. CARDIOVASCULAR: Borderline tachycardiac rate, regular rhythm. There is a 2/6 systolic murmur heard best over the second parasternal intercostal space. Capillary refill between 2 and 3 seconds. RESPIRATORY: There are mild to moderate bilateral bibasilar crackles. There is no wheezing or rhonchi appreciated. Slightly diminished breath sounds bilaterally. Breathing room air. Symmetric chest expansion. No accessory muscle use. Speaking full sentences. GASTROINTESTINAL: There is a colostomy bag in place in the left lower quadrant with some brownish-green stool. The ostomy site appears to have well vascularized tissue. There is a midline incision running approximately 15-20 cm with overlying river. The incision appears to be well-healing with good scabbing. There is no dehiscence. There is no significant induration or foul-smelling odor. No significant erythema. There is no rigidity appreciated. Normoactive bowel sounds throughout with some high-pitched sounds at times. Obese and nondistended. EXTREMITIES: There is 1-2+ pitting edema of the right lower extremity and trace pitting edema of the left lower extremity. Skin is dry on both feet and lower extremities with some areas of coarseness. 2+ radial pulses bilaterally. NEUROLOGIC: Alert and oriented x3. No focal deficits appreciated. Nondysarthric speech. LABORATORIES: CBC - WBC 16.2, hemoglobin 8.2, hematocrit 25.1, platelet count 279,000. CMP - Sodium 131, potassium 4.5, chloride 95, bicarb 32, BUN 24, creatinine 6.64, glucose 75, lactic acid of 1.1, total bilirubin of 0.3, calcium of 8.1, AST of 11, ALT of 9, alkaline phosphatase of 91, total protein of 4.4, albumin of 1.8. Initial blood cultures from 10/08 are showing a preliminary result of no growth after 48 hours. There was fluid, abscess that was drawn on today's CT-guided procedure. Both the aerobic and anaerobic cultures are pending. Initial gram stain shows a few white blood cells with a few epithelial cells and no organisms seen. IMAGIN10/08/20, abdomen and pelvis CT with documented impression of "mild diffuse ascites, some edema throughout the abdominal fat, may reflect diffuse peritonitis. There is a loculated fluid collection in the left flank consistent with a peritoneal abscess measuring 4.5 x 3.9 x 8.9 cm. No evidence of free air. Left lower quadrant colostomy. No evidence of bowel obstruction. 10/08/20, chest x-ray with documented impression of "CHF pattern with vascular congestion, mild interstitial edema. Small bilateral effusions, left greater than right." 10/10, abscess drained, needle placement ultrasound showing a 10 Kiswahili pigtail catheter placed in the left lower quadrant under ultrasound guidance. The patient underwent hemodialysis today with three liters removed. Midnight to midnight Is and Os through last evening were intake of 1860 mL, output of 365 mL with a net positive balance of 1495 mL. IMPRESSION AND PLAN: Diverticular abscess with secondary to peritonitis from recent perforated diverticulitis. initial blood cultures have had no growth after 48 hours. The patient received 10 days of IV meropenem as well as two days of IV linezolid and one day of IV Zosyn during previous admission earlier this month. He had been discharged on oral linezolid, levofloxacin and metronidazole for the peritoneal culture which grew Klebsiella, Serratia, and Bifidobacterium species as well as the abdominal culture that grew VRE Enterococcus faecium. The patient underwent a CT-guided abscess during today and apparently a very small amount, approximately 2 mL was removed. At this point, the patient continues to have increasing leukocytosis, having gone from 12,000 to 16,000 today. The leukocytosis is most likely secondary to still poor control of the infectious source. Since the source is the peritoneal abscess and very little pus has been removed to this point may need reimaging and more drainage the patient was on day three of Flagyl and Linezolid IV, and day two of q48 hr dosing of levofloxacin. point, we stopped both the metronidazole and levofloxacin and started Zosyn. This way, we can have a single agent covering for all the peritoneal fluid cultures (the Klebsiella, Serratia and Bifidobacterium). Also, we will continue with the Linezolid for the abdominal E. faecium VRE. We will continue to monitor for drainage amount from the pigtail catheter as well as his white count. Lactic acid has been around 1 over the last three values. MTDD
[2020-10-11] MEDS: ISOSORBIDE MON. (IMDUR) 30 MG XR TAB PO SCH ×2 (08:55→20:04)
[2020-10-11] MEDS: ASPIRIN 81MG ENTERIC TABLET PO SCH (08:55)
[2020-10-11] MEDS: ATORVASTATIN 20 MG TAB PO SCH (08:56)
[2020-10-11] MEDS: DOCUSATE SODIUM 100MG CAPSULE PO SCH ×2 (08:56→20:04)
[2020-10-11] MEDS: ONDANSETRON 4MG/2ML VIAL IV PRN (10:32)
--- NOTE | 2020-10-11 13:08 | IPNPDOC ---
Date Seen The patient was seen on 10/11/20. Progress Note SUBJECTIVE: Stopped D5W due to improving BS, encouraging to advance diet. Abscess cx pending. WBC slightly improved. H/H lower, transfusing one unit PRBC. Denies incr N/V/D, shortness of breath, chest pain. OBJECTIVE: PHYSICAL EXAMINATION: VS:: Please see below. CONSTITUTIONAL: NAD, AAO x 3 EYES: PERRLA, EOM intact HENT, MOUTH: Normocephalic, atraumatic, moist mucous membranes NECK: SUPPLE, no JVD, no lymphadenopathy, no carotid bruit CV: Regular rate and rhythm, S1S2 normal, no murmurs/rubs/gallops CHEST: Right side chest dialysis catheter in place RESPIRATORY: Clear to auscultation bilaterally, no rales/rhonchi/wheezes GI: Colostomy bag in LLQ, stoma appears pink, healthy,liquid stool in bag. Tenderness on palpation of LUQ, LLQ, suprapubic areas 5/10 on pain scale. BS positive in 4 quadrants, mild distension, no guarding, no organomegaly : Deferred MUSCULOSKELETAL: Normal ROM. No cyanosis, clubbing, swelling, joint deformity, +2 pitting lower extremity edema up to thighs INTEGUMENTARY: large substernal scar on chest, well healing with multiple scabs. Large vertical incision in abdomen, healing well. Intact, no rashes, no lesions, no erythema NEUROLOGIC: Cranial Nerves II-XII are intact, no focal deficits PSYCHIATRIC: Mood and affect are normal LABORATORY DATA: Please see below MICROBIOLOGY: Abscess GS: FEW EPITHELIAL CELLS, FEW WBCS, NO ORGANISMS SEEN Abscess culture: pending 09/22/20: + peritoneal dialysis catheter with E. faecium (sensitive to zyvox) 09/22/20: VRE + abd culture (sensitive to zyvox) 09/18/20: peritoneal fluid cx + for Klebsiella pneumoniae, serratia and bifidobacterium (sensitive to levofloxacin) BCx NG to date UA ordered but he does not normally make a lot of urine IMAGING: CXR: CHF pattern with vascular congestion and mild interstitial edema. Small bilateral effusions, left greater than right. CT abd/pelvis 10/08/20: Mild diffuse ascites. Some edema throughout the abdominal fat may reflect diffuse peritonitis. There is a loculated fluid collection in the left flank consistent with a peritoneal abscess. 4.5 x 3.9 x 8.9 cm. No evidence of free air. Left lower quadrant colostomy. No evidence of bowel obstruction. CT abd/pelvis 09/22/20 (from prior admisssion): Increased pneumoperitoneum and ascites. Peritoneal dialysis catheter remains in place. There is a new fluid and air collection in the left flank adjacent to and inflamed segment of descending colon suggesting localized perforation and early abscess formation, 5.1 x 3.5 by 6.6 cm. The proximal colon remains stool filled and dilated. ASSESSMENT: 70-year-old male with past medical history of recent perforated diverticulitis status post exploratory laparotomy with sigmoid colectomy and formation of end colostomy 09/22/2020 (hospitalization 09/18/), CAD status post CABG , ESRD on hemodialysis, diabetes type 2, GERD, hypertension, hyperlipidemia, EZEQUIEL on CPAP admitted to hospitalist service with surgery consulted for abdominal peritonitis, peritoneal abscess, sepsis. PLAN: Peritoneal abscess (4.5 x 3.9 x 8.9 cm) s/p CT drainage 10/10/20, ? peritonitis with resolved sepsis -S/p recent hospitalization for perforated diverticulitis s/p ex lap, sigmoid colectomy and colostomy placement complicated by peritonitis. -WBC 11.4, afebrile, improving abd pain, LA wnl -CT abd/pelvis this admission is above -Micro from last admission above -BCx this admission NG to date -Per surgery, no surgery at this time. -F/u Abscess culture. -Advance diet as tolerated -C/w Linezolid, Zosyn, tramadol, morphine PRN, zofran PRN -General surgery consulted (Dr. Krueger) , ID following Hypoglycemia likely 2/2 to sepsis and decreased PO intake-improving slowly -Hx of DM type II on glimiperide, lantus HS at home -BS 115-160 -Advancing diet as tolerated- not currently restricting diet -D10W stopped, dextrose PRN Acute on chronic FADUMO -H/H dropped 7.4/22.9, getting 1 unit PRBC today -Occult blood neg -S/p 3 units PRBC last admission -C/w Iron supplementation when taking PO -F/u post transfusion H/H, Daily CBC HTN, resolved urgency -BP 150's -Resume Amlodipine, minoxidil, BB but holding off on losartan until taking good PO today, if keeps down can consider reintroducing other meds over time (Minoxidil, Metoprolol, Irbesartan ) Pleural effusion on CXR -CXR: CHF pattern with vascular congestion and mild interstitial edema. Small bilateral effusions, left greater than right. -Currently 95% on RA. Currently denies SOB, chest pain -Likely Hx of CHF with known CAD s/p CABG and s/s of fluid overload. -Monitor closely -Fluid management with nephrology, HD ESRD on HD -Increased lower ext edema/swelling -Took off 3 L at HD -Nephrology on consultation CAD s/p CABG x 5 vessel -Recently completed at [facility] -C/w Atorvastatin, ASA 81, imdur, CCB, BB. DLP -c/w Atorvastatin and ASA 81 EZEQUIEL -Allow home CPAP use Chronic back pain - Moderate central spinal stenosis L2-L3, severe central spinal stenosis L3-L4 and L4-L5. Bulging annulus L5-S1 - tramadol, morphine IV for pain GERD -PPI PO, sucralfate PO DVT prophylaxis -TEDs/Sequentials. Heparin SC DISPOSITION: No surgical need at this time, surgery to follow. Inpatient in ICU currently, ID following. TOTAL AMOUNT OF ICU TIME SPENT CARING FOR PATIENT : 30 min VS, I&O, 24H, [facility] Vital Signs/I&O Vital Signs Date Time Temp Pulse Resp B/P (MAP) Pulse Ox O2 Delivery O2 Flow Rate FiO2 10/11/20 12:41 98.0 91 22 158/79 95 Room Air 10/11/20 12:00 2.0 I&O- Last 24 Hours up to 6 AM 10/11/20 06:00 Intake Total 2690 ml Output Total 3775 ml Balance -1085 ml Laboratory Data 24H LABS Laboratory Tests 2 10/10/20 14:55: Bedside Glucose (Misc Panel) 76L 10/10/20 17:17: Bedside Glucose (Misc Panel) 89 10/10/20 19:20: Bedside Glucose (Misc Panel) 106 10/10/20 21:29: Bedside Glucose (Misc Panel) 161H 10/10/20 23:29: Bedside Glucose (Misc Panel) 115 10/11/20 01:48: Bedside Glucose (Misc Panel) 135H 10/11/20 04:35: Nucleated Red Blood Cells % (auto) 0.0, Anion Gap 5L, Glomerular Filtration Rate 13.9L, Calcium Level 8.0L, Total Bilirubin 0.2, Aspartate Amino Transf (AST/SGOT) 10, Alanine Aminotransferase (ALT/SGPT) 7L, Alkaline Phosphatase 85, Total Protein 4.2L, Albumin 1.7L, Albumin/Globulin Ratio 0.7 10/11/20 12:04: Bedside Glucose (Misc Panel) 153H CBC/BMP Laboratory Tests 10/11/20 04:35 Microbiology Microbiology 10/11/20 Stool Occult Blood ([place]) - Final, Complete 10/10/20 Gram Stain - Final, Resulted 10/10/20 Abscess Culture, Resulted Pending 10/10/20 Anaerobic Culture, Received Pending 10/08/20 Blood Culture - Preliminary, Resulted No Growth after 72 hours. All specime... 10/08/20 Blood Culture - Preliminary, Resulted No Growth after 72 hours. All specime... Current Medications Current Medications Medications (Trade) Dose Ordered Sig/Rafita Route PRN Reason Start Time Stop Time Status Last Admin Dose Admin Amlodipine Besylate (Norvasc) 10 mg DAILY PO 10/10/20 12:30 10/11/20 08:56 Aspirin (Ecotrin) 81 mg DAILY PO 10/10/20 09:00 10/11/20 08:55 Atorvastatin Calcium (Lipitor) 80 mg DAILY PO 10/10/20 09:00 10/11/20 08:56 Dextrose (Dextrose 50%) 25 ml ASDIRECTED PRN IV SEE LABEL COMMENTS 10/08/20 14:00 10/09/20 08:59 Dextrose (Dextrose 50%) 25 ml STAT STAT IV 10/08/20 11:25 10/08/20 11:28 DC 10/08/20 11:40 Dextrose/Sodium Chloride 1,000 ml @ 50 mls/hr Q20H IV 10/09/20 00:25 10/10/20 08:08 DC 10/10/20 00:22 Dextrose/Sodium Chloride 1,000 ml @ 70 mls/hr [id number] IV 10/10/20 09:00 10/11/20 10:16 DC 10/11/20 04:31 Docusate Sodium (Colace) 100 mg BID PO 10/10/20 09:00 10/11/20 08:56 Glucagon (Glucagon) 1 mg ASDIRECTED PRN SC SEE LABEL COMMENTS 10/08/20 14:00 10/09/20 05:22 Glucose (Glucose) 16 GM ASDIRECTED PRN PO SEE LABEL COMMENTS 10/08/20 14:00 Home Med (Med Rec Complete!) ASDIRECTED XX 10/08/20 14:30 10/08/20 14:35 DC Hydralazine HCl (Apresoline) 10 mg Q6HP PRN IV SEE PROTOCOL 10/08/20 14:50 10/10/20 00:07 Isosorbide Mononitrate (Imdur) 60 mg BID PO 10/10/20 21:00 10/11/20 08:55 Lactobacillus Acidophilus (Bacid) 1 ea BIDWM PO 10/10/20 18:00 10/11/20 07:27 Levofloxacin 250 mg/IV Miscellaneous Supplies 50 ml @ 50 mls/hr Q48H IV 10/10/20 15:00 10/10/20 15:22 DC 10/10/20 15:04 Linezolid 600 mg/ IV Miscellaneous Supplies 300 ml @ 150 mls/hr Q12H IV 10/09/20 01:00 10/11/20 12:23 Metronidazole 500 mg/IV Miscellaneous Supplies 100 ml @ 100 mls/hr Q8H IV 10/08/20 14:00 10/10/20 15:22 DC 10/10/20 15:04 Morphine Sulfate (Morphine Sulfate Inj) 1 mg Q4H PRN IV SEVERE PAIN (PS 8-10) 10/08/20 13:20 10/09/20 20:47 Morphine Sulfate (Morphine Sulfate Inj) 2 mg Q6H PRN IV SEVERE PAIN (PS 8-10) 10/08/20 13:20 10/11/20 10:31 DC 10/11/20 05:56 Ondansetron HCl (ZOFRAN INJection) 4 mg Q8HP PRN IV NAUSEA OR VOMITING 10/10/20 10:45 10/11/20 10:32 Pantoprazole Sodium (Protonix) 40 mg Q24H IV 10/08/20 14:00 10/10/20 15:04 Piperacillin Sod/ Tazobactam Sod 4.5 gm/Dextrose 50 ml @ 50 mls/hr Q12H IV 10/10/20 17:00 10/11/20 04:31 Sucralfate (Carafate) 1 gm ACHS PO 10/10/20 12:00 10/11/20 12:22 Tramadol HCl (Ultram) 50 mg Q4HP PRN PO MODERATE PAIN (PS 5-7) 10/11/20 10:30 Allergies Coded Allergies: codeine (Verified Adverse Reaction, Mild, SKIN CRAWLS, 07/03/19) Jeanna Andino MD Oct 11, 2020 13:08
[2020-10-11] MEDS ORDERED: MIRALAX *UNIT DOSE* 17GM PACKET PO PRN (13:15)
--- NOTE | 2020-10-11 13:30 | IPN ---
PROGRESS NOTE DATE: 10/11/2020 SUBJECTIVE: Mr. Dooley is seen this morning on his bedside in the Intensive Care Unit. He underwent ultrasound guided drainage of his abdominal fluid collection yesterday and the drain has so far drained about 400 ml of fluid per nursing record. The patient denies any nausea or vomiting, however his oral intake has been poor. He did not like the hospital food. He denies any dyspnea or chest pain. He was dialyzed yesterday and were able to remove 3 liters of fluid with dialysis. OBJECTIVE: VITAL SIGNS: Temperature is 98.2 degrees Fahrenheit, heart rate is 92 per minute and respiratory rate is 18 per minute. Blood pressure 133/65 mmHg and oxygen saturation 97% on 2 liters of oxygen. HEENT: His head is atraumatic. NECK: Neck veins are difficult to be assessed. HEART: Heart sounds are regular. LUNGS: Lungs sound clear to auscultation. Dialysis catheter on right upper chest is intact. Sternotomy incision is nicely healing. ABDOMEN: Soft, his colostomy is functioning. Bowel sounds are normal. EXTREMITIES: Without any cyanosis or clubbing. He has 1+ edema on both legs. NEUROLOGIC: He is awake, alert and grossly intact. LABORATORY DATA: Today's labs showed a WBC count down to 11.4, hemoglobin 7.4 and hematocrit 22.9. Sodium 132, potassium 4.5, CO2 28, BUN 14 and creatinine 4.5. Glucose is 149. PROBLEMS: 1. Endstage renal disease. Patient was dialyzed yesterday and next dialysis will be scheduled for tomorrow. At present, no emergent need for dialysis today. 2. Recurrent hypoglycemia, this has improved and the patient is otherwise starting to eat. We will stop his IV D and W and continue to monitor his blood sugars. 3. Hyponatremia. The sodium level is also improved with dialysis yesterday. Now, that his IV fluid is being stopped, that will help with further correction of his hyponatremia. 4. Anemia. His anemia has worsened but no obvious blood loss noted. Patient is going to have 1 unit of packed RBCs today and will consider to transfuse him another unit tomorrow during dialysis. 5. Peritonitis with intraabdominal fluid collection. Patient had an ultrasound guided drainage done yesterday and remains on antibiotics. He is currently afebrile and cultures are pending. 6. Hypertension. Blood pressure seems reasonably well-controlled and no changes in antihypertensive medications are being made.
[2020-10-11] MEDS: METOPROLOL TART 50 MG TAB PO SCH ×2 (14:59→20:04)
[2020-10-11] MEDS: minoxidiL 2.5 MG TAB PO SCH (15:00)
[2020-10-11] MEDS: PANTOPRAZOLE 40MG TAB (PROTONIX) PO SCH (15:01)
[2020-10-11] MEDS: CINACALCET 30 MG TAB (SENSIPAR) PO SCH (15:06)
[2020-10-11] MEDS: traMADol 50 MG TAB PO PRN (15:08)
[2020-10-11 17:40] LABS: C REACTIVE PROTEIN QUANTITATIV 10.2 MG/DL (0.00-0.30)
[2020-10-11] MEDS: (RENVELA) SEVELAMER **CARBONate** 800 MG TAB PO SCH (17:44)
[2020-10-11] MEDS: FERROUS GLUCONATE 324 MG TAB PO SCH (20:03)
[2020-10-12] VITALS (10 sets, daily range): BP systolic 137–160; BP diastolic 67–84
[2020-10-12] MEDS: LINEZOLID 600 MG in IV 1 EA IV SCH ×2 (00:08→13:57)
[2020-10-12] MEDS: traMADol 50 MG TAB PO PRN ×2 (00:08→04:00)
[2020-10-12] MEDS: PIPERACILLIN/TAZOBACTAM SOD 4.5 GM in D5W MINI-BAG PLUS 50 ML IV SCH ×2 (04:56→18:04)
[2020-10-12 05:26] LABS: HEMATOCRIT 28.8 % (42.0-52.0); HEMOGLOBIN 9.2 g/dl (13.5-17.5); MEAN CORPUSCULAR HEMOGLOBIN 28.1 pg (27.0-33.0); MEAN CORPUSCULAR HGB CONC 31.9 g/dl (32.0-36.5); MEAN CORPUSCULAR VOLUME 88.1 fl (80.0-96.0); PLATELET COUNT, AUTOMATED 294 10^3/uL (150-450); RED BLOOD COUNT 3.27 10^6/uL (4.30-6.10); WHITE BLOOD COUNT 12.5 10^3/uL (4.0-10.0)
[2020-10-12 05:54] LABS: ALBUMIN 1.9 GM/DL (3.2-5.2); BILIRUBIN,TOTAL 0.4 MG/DL (0.2-1.0); CALCIUM LEVEL 8.4 MG/DL (8.8-10.2); CREATININE FOR GFR 5.55 MG/DL (0.70-1.30); GLOMERULAR FILTRATION RATE 10.9 (>49); MAGNESIUM LEVEL 1.8 MG/DL (1.8-2.4); PHOSPHORUS LEVEL 3.1 MG/DL (2.5-4.9); POTASSIUM SERUM 5.1 MEQ/L (3.5-5.1); TOTAL PROTEIN 5.4 GM/DL (6.4-8.2)
[2020-10-12] MEDS: SUCRALFATE 1 GM TAB PO SCH ×4 (07:26→21:54)
[2020-10-12] MEDS: LACTOBACILLUS ACIDOPHILUS CAP (BACID) PO SCH ×2 (07:50→18:04)
[2020-10-12] MEDS: (RENVELA) SEVELAMER **CARBONate** 800 MG TAB PO SCH ×3 (07:51→18:04)
[2020-10-12] MEDS ORDERED: SLF 3 ML SYR IV PRN (08:50)
[2020-10-12] MEDS: ATORVASTATIN 20 MG TAB PO SCH (08:52)
[2020-10-12] MEDS: PANTOPRAZOLE 40MG TAB (PROTONIX) PO SCH (08:52)
[2020-10-12] MEDS: DOCUSATE SODIUM 100MG CAPSULE PO SCH ×2 (08:53→21:52)
[2020-10-12] MEDS: FERROUS GLUCONATE 324 MG TAB PO SCH ×2 (08:53→21:54)
[2020-10-12] MEDS: CINACALCET 30 MG TAB (SENSIPAR) PO SCH (09:00)
[2020-10-12] MEDS: METOPROLOL TART 50 MG TAB PO SCH ×2 (09:00→21:54)
[2020-10-12] MEDS: ISOSORBIDE MON. (IMDUR) 30 MG XR TAB PO SCH ×2 (09:00→21:53)
[2020-10-12] MEDS: ASPIRIN 81MG ENTERIC TABLET PO SCH (09:00)
[2020-10-12] MEDS: minoxidiL 2.5 MG TAB PO SCH (09:00)
--- NOTE | 2020-10-12 09:32 | IPN ---
INFECTIOUS DISEASE PROGRESS NOTE DATE: 10/11/2020 SUBJECTIVE: Isidro was seen and examined in his ICU bed this afternoon by the Infectious Disease Service. He underwent a 1 unit transfusion of packed red blood cells earlier this afternoon. He reports continuing to feel somewhat weak with mild to moderate left lower quadrant abdominal pain. He is eating and drinking without any issues and maintains a decent appetite. He did have one episode earlier today where he did not get to his bedside urinal in time. Otherwise, he has had no issues micturating. Isidro denies any current or overnight fever, chills, or night sweats. He denies any chest pain, palpitations, nausea, or vomiting. Isidro does report having some mild conversational dyspnea, otherwise he has no shortness of breath at rest nor pleuritic chest pain. PHYSICAL EXAMINATION: VITALS: Temperature 98.0, heart rate of 92, respiratory rate of 22, blood pressure 142/73, SpO2 of 92% on room air. GENERAL: Older gentleman lying in bed. He continues to appear pale. He has a hemodialysis tunneled catheter in his right upper chest, a colostomy bag in his left lower quadrant, and a pigtail catheter draining from the left flank. He is alert and oriented x3. HEENT: The patient's face appears pale with conjunctival pallor. Normocephalic, atraumatic with non-injected, anicteric sclera. ORAL CAVITY: Mucous membranes slightly dry with no pharyngeal erythema or exudate appreciated. CHEST: No chest wall tenderness. There is a tunneled hemodialysis catheter in the right upper chest. There is also the draining pigtail catheter over the left flank with approximately 20 to 30 ml of visible yellow colored fluid drained. There is a well-healed vertical scar over the sternum as well as some horizontal incisions that are scabbed over just inferior to the sternal incision scar. CARDIOVASCULAR: Regular rate, regular rhythm. There remains a 2/6 systolic murmur heard best over the right second intercostal space. There are 2+ radial pulses bilaterally. RESPIRATORY: Diminished breath sounds bilaterally with some faint bibasilar inspiratory crackles. Symmetric chest expansion. Breathing room air. Does have some mild dyspnea when talking for extended periods during our exam. No wheezing or rhonchi appreciated, breathing room air. GASTROINTESTINAL: Abdomen is soft with mild tenderness over the left lower quadrant. There remains a colostomy bag in place in the left lower quadrant with visible brown-green stool. The ostomy site itself shows good vascularized tissue. There remains a long midline incision overlying the abdomen and the river from yesterday had been removed. The incision appears to be healing well with no significant induration, erythema, or dehiscence. No rigidity was appreciated. The patient had hypoactive bowel sounds that were high-pitched at times in all quadrants. Abdomen is obese. EXTREMITIES: The right lower extremity pitting edema appears somewhat improved today versus yesterday's exam and there remains some trace pitting edema of the left lower extremity. Skin is quite dry with areas of coarseness over both feet. NEUROLOGIC: The patient is alert and oriented x3. Non-dysarthric speech with no focal deficits appreciated. LABORATORIES: CBC - WBC 11.4, hemoglobin 7.4, hematocrit 22.9, platelet count of 265,000. CMP Sodium of 132, potassium of 4.5, chloride 99, bicarbonate 28, BUN 14, creatinine of 4.51, glucose of 149, calcium 8.0, total bilirubin of 0.2, AST of 10, ALT 7, alkaline phosphatase 85, C-reactive protein of 10.2, total protein of 4.2, and albumin of 1.7. Microbiology Both initial blood cultures from 10/08 continue to show no growth after 72 hours. There is a pending anaerobic culture from the abscess fluid from yesterday's CT guided drain procedure. There also is a pending aerobic abscess culture from the same abscess fluid from yesterday's drain with a final gram stain showing no organism seen with few WBCs and few epithelial cells. A stool occult final interpretation from today (10/11) is negative. The patient did get 1 unit of transfused leukocyte reduced packed red blood cells today. A portable chest x-ray was obtained this morning showing essentially unchanged congestive heart failure pattern in comparison to the previous study three days ago on 10/08. IMPRESSION AND PLAN: 1. Peritoneal abscess secondary to peritonitis with recent perforated diverticulitis. -At the time of our evaluation yesterday we were informed that only 2 ml was drained from yesterday's CT guided abscess procedure. Encouraging to note that patient subsequently had 300 ml drained through the pigtail catheter through midnight last night and has drained an additional 120 ml since. The patient continues on intravenous Linezolid and Zosyn. The Linezolid is covering for his VRE enterococcus faecium that grew during his previous admission this month and the Zosyn covers all of the peritoneal fluid cultures of Klebsiella, Serratia and Bifidobacterium that grew during the previous admission as well. In addition to the encouraging increased drainage from the pigtail catheter, the patient remained afebrile overnight and his white count, while still elevated, is decreased today. Both abscess culture results from 10/10 remain pending at this time. Once those results become available, we will likely de-escalate patient's antimicrobial therapy. Should the patient's condition worsens and/or he becomes febrile or develop abdominal pain, we recommend re-imaging to assess if the pigtail catheter is in the most optimal spot to be draining the peritoneal abscess. MTDD
[2020-10-12] MEDS ORDERED: DARBEPOETIN 200MCG/0.4ML *DIALYSIS* SYRINGE (J0882 PER 1MCG) IV SCH (12:00)
--- NOTE | 2020-10-12 12:49 | IPN ---
PROGRESS NOTE DATE: 10/12/2020 SUBJECTIVE: Mr. Dooley is seen this morning during hemodialysis. He is feeling better today and denies any dyspnea or chest pain. His oral intake is improving. No further hypoglycemia noticed since I.V. fluid was stopped yesterday. Patient has been transferred out of the Intensive Care Unit. PHYSICAL EXAMINATION: VITALS: Temp 97.4 degrees Fahrenheit, heart rate 78 per minute, respiratory rate 20 per minute, blood pressure 160/84 mmHg and oxygen saturation 96% on 2 liters of oxygen. HEENT: Head is atraumatic. Neck is supple and JVD not abnormally elevated. Dialysis catheter in right internal jugular vein is intact. LUNGS: Clear to auscultation. HEART: Sounds are regular. ABDOMEN: Soft and nontender. Colostomy is functioning. EXTREMITIES: Without any cyanosis or clubbing. He has trace of edema on his legs. NEUROLOGIC: He is awake, alert and oriented x3. LABORATORY STUDIES: Today's labs show WBC 12.5, hemoglobin 9.2, hematocrit 28.8, platelets 294,000. Sodium 130, potassium 5.1, BUN 19, creatinine 5.55, calcium 8.4 and glucose 136. PROBLEMS: 1. End-stage renal disease: Patient is being dialyzed and he is tolerating dialysis treatment well. 2. Hyponatremia: This is related to end-stage renal disease and I.V. fluids given due to hypoglycemia. His sodium level is likely to improve with dialysis today. 3. Hypertension and hypovolemia: Volume status improved with 3 liters of fluid removed last time. We are removing another 3 liters today. Blood pressure seems to be doing well and continue with current antihypertensive medications. 4. Anemia: His anemia improved with transfusion of just 1 unit of packed RBC's yesterday. At this point, he does not need further transfusion. We will continue with weekly dose of Aranesp, which will be started with dialysis. 5. Intraabdominal fluid collection: Patient had it drained under ultrasound guidance. Clear fluid is still draining in the bag. He remains on antibiotics.
--- NOTE | 2020-10-12 13:24 | IPNPDOC ---
Date Seen The patient was seen on 10/12/20. Progress Note SUBJECTIVE: BS holding without D5W, appetite still poor. Abscess cx NG, WBC 12.5. S/p 1 unit PRBC, corrected appropriately. On 2 L NC, denies incr N/V/D, shortness of breath, chest pain. OBJECTIVE: PHYSICAL EXAMINATION: VS:: Please see below. CONSTITUTIONAL: NAD, resting in bed AAO x 3 EYES: PERRLA, EOM intact HENT, MOUTH: Normocephalic, atraumatic, moist mucous membranes NECK: SUPPLE, no JVD, no lymphadenopathy, no carotid bruit CV: Regular rate and rhythm, S1S2 normal, no murmurs/rubs/gallops CHEST: Right side chest dialysis catheter in place RESPIRATORY: Clear to auscultation bilaterally, no rales/rhonchi/wheezes GI: Colostomy bag in LLQ, stoma appears pink, healthy,liquid stool in bag. Decreased tenderness on palpation of LUQ, LLQ, suprapubic areas 3-4/10 on pain scale. Pigtail catheter in place with bag, yellow nonpurulent fluid <20 mL. BS positive in 4 quadrants, no distension, no guarding, no organomegaly : Deferred MUSCULOSKELETAL: Normal ROM. No cyanosis, clubbing, swelling, joint deformity, +2 pitting lower extremity edema up to thighs INTEGUMENTARY: large substernal scar on chest, well healing with multiple scabs. Large vertical incision in abdomen, healing well. Intact, no rashes, no lesions, no erythema NEUROLOGIC: Cranial Nerves II-XII are intact, no focal deficits PSYCHIATRIC: Mood and affect are normal LABORATORY DATA: Please see below MICROBIOLOGY: Abscess GS: FEW EPITHELIAL CELLS, FEW WBCS, NO ORGANISMS SEEN Abscess anaerobic and aerobic culture: NG 09/22/20: + peritoneal dialysis catheter with E. faecium (sensitive to zyvox) 09/22/20: VRE + abd culture (sensitive to zyvox) 09/18/20: peritoneal fluid cx + for Klebsiella pneumoniae, serratia and bifidobacterium (sensitive to levofloxacin) BCx NG to date UA ordered but he does not normally make a lot of urine IMAGING: CXR: CHF pattern with vascular congestion and mild interstitial edema. Small bilateral effusions, left greater than right. CT abd/pelvis 10/08/20: Mild diffuse ascites. Some edema throughout the abdominal fat may reflect diffuse peritonitis. There is a loculated fluid collection in the left flank consistent with a peritoneal abscess. 4.5 x 3.9 x 8.9 cm. No evidence of free air. Left lower quadrant colostomy. No evidence of bowel obstruction. CT abd/pelvis 09/22/20 (from prior admisssion): Increased pneumoperitoneum and ascites. Peritoneal dialysis catheter remains in place. There is a new fluid and air collection in the left flank adjacent to and inflamed segment of descending colon suggesting localized perforation and early abscess formation, 5.1 x 3.5 by 6.6 cm. The proximal colon remains stool filled and dilated. ASSESSMENT: 70-year-old male with past medical history of recent perforated diverticulitis status post exploratory laparotomy with sigmoid colectomy and formation of end colostomy 09/22/2020 (hospitalization ), CAD status post CABG , ESRD on hemodialysis, diabetes type 2, GERD, hypertension, hyperlipidemia, EZEQUIEL on CPAP admitted to hospitalist service with surgery consulted for abdominal peritonitis, peritoneal abscess, sepsis. PLAN: Peritoneal abscess (4.5 x 3.9 x 8.9 cm) s/p CT drainage 10/10/20 with pigtail catheter placement, ? peritonitis with resolved sepsis -S/p recent hospitalization for perforated diverticulitis s/p ex lap, sigmoid colectomy and colostomy placement complicated by peritonitis. -WBC 12.5, afebrile, improving abd pain -CT abd/pelvis this admission is above -Micro from last admission above -BCx this admission NG to date -Per surgery, no surgery at this time. -Advance diet as tolerated -C/w Linezolid, Zosyn, tramadol, morphine PRN, zofran PRN. With new abscess culture results, will see if ID will want to deescalate further -General surgery , ID following Hypoglycemia likely 2/2 to sepsis and decreased PO intake-improving slowly -Hx of DM type II on glimiperide, lantus HS at home -BS holding without D5W -Advancing diet as tolerated, poor po intake -Dextrose PRN Acute on chronic FADUMO -S/p1 unit PRBC 10/11/20, H/H 7.4/22.9--> 9.2/28 -Occult blood neg -C/w Iron supplementation when taking PO -F/u Daily CBC HTN -BP 150-160 -To take 3.5 L off today at HD, s/s of fluid overload still persist -C/w Amlodipine, minoxidil, BB, and reintroduced ARB Pleural effusion on CXR -CXR: CHF pattern with vascular congestion and mild interstitial edema. Small bilateral effusions, left greater than right. -Currently 95% on RA-2 l NC. Currently denies SOB, chest pain -Likely Hx of CHF with known CAD s/p CABG and s/s of fluid overload. -Monitor closely -Fluid management with nephrology, HD ESRD on HD -Increased lower ext edema/swelling -Taking off 3.5 L today -Nephrology on consultation CAD s/p CABG x 5 vessel -Recently completed at [facility] -C/w Atorvastatin, ASA 81, imdur, CCB, BB. DLP -c/w Atorvastatin and ASA 81 EZEQUIEL -Allow home CPAP use Chronic back pain - Moderate central spinal stenosis L2-L3, severe central spinal stenosis L3-L4 and L4-L5. Bulging annulus L5-S1 - tramadol, morphine IV for pain GERD -PPI PO, sucralfate PO DVT prophylaxis -TEDs/Sequentials. Heparin SC DISPOSITION: ID, surgery following. PT/OT ordered today. VS, I&O, 24H, Fishbone Vital Signs/I&O Vital Signs Date Time Temp Pulse Resp B/P (MAP) Pulse Ox O2 Delivery O2 Flow Rate FiO2 10/12/20 08:53 78 160/84 10/12/20 08:30 97.4 22 96 Nasal Cannula 2.0 I&O- Last 24 Hours up to 6 AM 10/12/20 06:00 Intake Total 2370 ml Output Total 315 ml Balance 2055 ml Laboratory Data 24H LABS Laboratory Tests 2 10/11/20 17:24: Bedside Glucose (Misc Panel) 164H 10/12/20 00:12: Bedside Glucose (Misc Panel) 140H 10/12/20 02:04: Bedside Glucose (Misc Panel) 110 10/12/20 04:57: Nucleated Red Blood Cells % (auto) 0.0, Anion Gap 6L, Glomerular Filtration Rate 10.9L, Calcium Level 8.4L, Phosphorus Level 3.1, Magnesium Level 1.8, Total Bilirubin 0.4#, Aspartate Amino Transf (AST/SGOT) 12, Alanine Aminotransferase (ALT/SGPT) 8L, Alkaline Phosphatase 96, Total Protein 5.4#L, Albumin 1.9L, Albumin/Globulin Ratio 0.5 CBC/BMP Laboratory Tests 10/12/20 04:57 Microbiology Microbiology 10/11/20 Stool Occult Blood ([place]) - Final, Complete 10/10/20 Gram Stain - Final, Complete 10/10/20 Abscess Culture - Final, Complete 10/10/20 Anaerobic Culture - Final, Complete 10/08/20 Blood Culture - Preliminary, Resulted No Growth after 72 hours. All specime... 10/08/20 Blood Culture - Preliminary, Resulted No Growth after 72 hours. All specime... Current Medications Current Medications Medications (Trade) Dose Ordered Sig/Rafita Route PRN Reason Start Time Stop Time Status Last Admin Dose Admin Amlodipine Besylate (Norvasc) 10 mg DAILY PO 10/10/20 12:30 10/12/20 08:53 Aspirin (Ecotrin) 81 mg DAILY PO 10/10/20 09:00 10/11/20 08:55 Atorvastatin Calcium (Lipitor) 80 mg DAILY PO 10/10/20 09:00 10/12/20 08:52 Cinacalcet (Sensipar) 30 mg DAILY PO 10/11/20 09:00 10/11/20 15:06 Darbepoetin Russell (Aranesp (Dialysis Use)) 200 mcg HD IV 10/12/20 12:00 10/12/20 12:42 Dextrose (Dextrose 50%) 25 ml ASDIRECTED PRN IV SEE LABEL COMMENTS 10/08/20 14:00 10/09/20 08:59 Dextrose (Dextrose 50%) 25 ml STAT STAT IV 10/08/20 11:25 10/08/20 11:28 DC 10/08/20 11:40 Dextrose/Sodium Chloride 1,000 ml @ 50 mls/hr Q20H IV 10/09/20 00:25 10/10/20 08:08 DC 10/10/20 00:22 Dextrose/Sodium Chloride 1,000 ml @ 70 mls/hr [id number] IV 10/10/20 09:00 10/11/20 10:16 DC 10/11/20 04:31 Docusate Sodium (Colace) 100 mg BID PO 10/10/20 09:00 10/12/20 08:53 Ferrous Gluconate (Fergon) 324 mg BID PO 10/11/20 21:00 10/12/20 08:53 Glucagon (Glucagon) 1 mg ASDIRECTED PRN SC SEE LABEL COMMENTS 10/08/20 14:00 10/09/20 05:22 Glucose (Glucose) 16 GM ASDIRECTED PRN PO SEE LABEL COMMENTS 10/08/20 14:00 Home Med (Med Rec Complete!) ASDIRECTED XX 10/08/20 14:30 10/08/20 14:35 DC Hydralazine HCl (Apresoline) 10 mg Q6HP PRN IV SEE PROTOCOL 10/08/20 14:50 10/10/20 00:07 Isosorbide Mononitrate (Imdur) 60 mg BID PO 10/10/20 21:00 10/11/20 20:04 Lactobacillus Acidophilus (Bacid) 1 ea BIDWM PO 10/10/20 18:00 10/11/20 17:44 Levofloxacin 250 mg/IV Miscellaneous Supplies 50 ml @ 50 mls/hr Q48H IV 10/10/20 15:00 10/10/20 15:22 DC 10/10/20 15:04 Linezolid 600 mg/ IV Miscellaneous Supplies 300 ml @ 150 mls/hr Q12H IV 10/09/20 01:00 10/12/20 00:08 Metoprolol Tartrate (Lopressor) 50 mg BID PO 10/11/20 09:00 10/11/20 20:04 Metronidazole 500 mg/IV Miscellaneous Supplies 100 ml @ 100 mls/hr Q8H IV 10/08/20 14:00 10/10/20 15:22 DC 10/10/20 15:04 Minoxidil (Loniten) 5 mg DAILY PO 10/11/20 09:00 10/11/20 15:00 Morphine Sulfate (Morphine Sulfate Inj) 1 mg Q4H PRN IV SEVERE PAIN (PS 8-10) 10/08/20 13:20 10/09/20 20:47 Morphine Sulfate (Morphine Sulfate Inj) 2 mg Q6H PRN IV SEVERE PAIN (PS 8-10) 10/08/20 13:20 10/11/20 10:31 DC 10/11/20 05:56 Ondansetron HCl (ZOFRAN INJection) 4 mg Q8HP PRN IV NAUSEA OR VOMITING 10/10/20 10:45 10/11/20 10:32 Pantoprazole Sodium (Protonix) 40 mg DAILY PO 10/11/20 09:00 10/12/20 08:52 Pantoprazole Sodium (Protonix) 40 mg Q24H IV 10/08/20 14:00 10/11/20 13:14 DC 10/10/20 15:04 Piperacillin Sod/ Tazobactam Sod 4.5 gm/Dextrose 50 ml @ 50 mls/hr Q12H IV 10/10/20 17:00 10/12/20 04:56 Polyethylene Glycol (Miralax) 1 pkt BID PRN PO CONSTIPATION 10/11/20 13:15 Sevelamer Carbonate (Renvela) 800 mg WM PO 10/11/20 18:00 10/11/20 17:44 Sodium Chloride (Saline Lock Flush) 2 ml ASDIRECTED PRN IV SEE LABEL COMMENTS 10/12/20 08:50 Sodium Chloride (Saline Lock Flush) 2 ml SLF IV 10/12/20 14:00 Sucralfate (Carafate) 1 gm ACHS PO 10/10/20 12:00 10/12/20 07:26 Tramadol HCl (Ultram) 50 mg Q4HP PRN PO MODERATE PAIN (PS 5-7) 10/11/20 10:30 10/12/20 04:00 Allergies Coded Allergies: codeine (Verified Adverse Reaction, Mild, SKIN CRAWLS, 07/03/19) Jeanna Andino MD Oct 12, 2020 13:24
[2020-10-12] MEDS: SLF 3 ML SYR IV SCH ×2 (13:57→21:55)
[2020-10-12] MEDS: IRBESARTAN 150MG TAB PO SCH (15:26)
--- NOTE | 2020-10-12 16:29 | IPN ---
PROGRESS NOTE DATE: 10/11/2020 HISTORY: Patient is 19 days postoperative from exploratory laparotomy for perforated diverticulum in a patient with peritoneal dialysis. His peritoneal dialysis (PD) catheter was removed, and a colostomy was performed after resecting the perforated segment of colon. He returned to the hospital several days after discharge complaining of some left flank pain. He was having issues also with hypoglycemia. He underwent a percutaneous drain placement on October 10 using ultrasound guidance in the x-ray department. Only 2 mL was aspirated at the time of placement, but he had approximately 300 mL return overnight into the morning of October 11. He has had only a small amount of watery looking fluid drain since then. Vital signs show that he has been afebrile over the last 24 hours. His pulse has generally been in the 90s, and his blood pressure has been a little up at times into the high 150s but generally has been okay. Intake and output show that he had 3 liters removed at hemodialysis on October 10. He had 300 mL out from his drain yesterday with a small amount this morning. PHYSICAL EXAMINATION: The patient appears somewhat more comfortable and more alert today than he has. He reports less discomfort was identified the abdomen. His colostomy continues to function appropriately, though it has not had much out today. Physical exam shows that his abdomen is flat and soft. His colostomy on the left has a small amount of stool in the bag, and the ostomy itself is pink and viable. There is a small-bore catheter in the left flank with a small amount, perhaps 10 mL, of nearly clear fluid in the bag. He does seem to have less tenderness in the lateral abdomen than he did when he presented. LABORATORY STUDIES: Show that his white count on October 11 is 11 with a hemoglobin of 7, hematocrit 23, and a platelet count of 265,000. Chemistry profile showed sodium 132, potassium 4.5, chloride 99, CO2 of 28, creatinine of 4.51 and a BUN of 14. His total protein is 4.2 with an albumin of 1.7. IMPRESSION: Patient appears to be doing somewhat better with decreased discomfort and less tenderness in the left flank. Initially the report from radiology was that only 2 mL of fluid were aspirated on placement of the drain in the abscess, but he had 300 mL out later. The collection of fluid that we had identified as an abscess did not seem large enough to lead to a drainage of 300 mL. It may be that this collection was just a lobulation off of some larger volumes of free fluid within the abdomen and not a true abscess. He has cultures pending. Dr. Hutton was also seeing the patient when I saw him, and we agreed that if he continues to improve, then we would not need any further imaging, but if there was concern about him not improving, then it may be reasonable to repeat a CT scan to ensure that the catheter is actually in the appropriate fluid collection. MICHAEL
[2020-10-13] VITALS (7 sets, daily range): BP systolic 141–181; BP diastolic 71–91
[2020-10-13] MEDS: LINEZOLID 600 MG in IV 1 EA IV SCH (01:50)
[2020-10-13] MEDS: PIPERACILLIN/TAZOBACTAM SOD 4.5 GM in D5W MINI-BAG PLUS 50 ML IV SCH ×2 (05:21→18:13)
[2020-10-13] MEDS: SLF 3 ML SYR IV SCH ×3 (05:21→20:52)
[2020-10-13 06:04] LABS: HEMATOCRIT 28.1 % (42.0-52.0); MEAN CORPUSCULAR HEMOGLOBIN 28.4 pg (27.0-33.0); MEAN CORPUSCULAR VOLUME 88.6 fl (80.0-96.0); PLATELET COUNT, AUTOMATED 271 10^3/uL (150-450); RED BLOOD COUNT 3.17 10^6/uL (4.30-6.10); WHITE BLOOD COUNT 10.2 10^3/uL (4.0-10.0)
[2020-10-13 06:27] LABS: ALBUMIN 1.8 GM/DL (3.2-5.2); BILIRUBIN,TOTAL 0.3 MG/DL (0.2-1.0); CALCIUM LEVEL 8.6 MG/DL (8.8-10.2); CREATININE FOR GFR 4.21 MG/DL (0.70-1.30); GLOMERULAR FILTRATION RATE 15.1 (>49); POTASSIUM SERUM 4.3 MEQ/L (3.5-5.1); TOTAL PROTEIN 5.3 GM/DL (6.4-8.2)
[2020-10-13] MEDS: FERROUS GLUCONATE 324 MG TAB PO SCH ×2 (10:46→20:49)
[2020-10-13] MEDS: (RENVELA) SEVELAMER **CARBONate** 800 MG TAB PO SCH ×3 (10:47→18:13)
[2020-10-13] MEDS: IRBESARTAN 150MG TAB PO SCH (10:47)
[2020-10-13] MEDS: ISOSORBIDE MON. (IMDUR) 30 MG XR TAB PO SCH ×2 (10:47→20:51)
[2020-10-13] MEDS: CINACALCET 30 MG TAB (SENSIPAR) PO SCH (10:47)
[2020-10-13] MEDS: METOPROLOL TART 50 MG TAB PO SCH ×2 (10:48→20:50)
[2020-10-13] MEDS: ASPIRIN 81MG ENTERIC TABLET PO SCH (10:48)
[2020-10-13] MEDS: PANTOPRAZOLE 40MG TAB (PROTONIX) PO SCH (10:48)
[2020-10-13] MEDS: SUCRALFATE 1 GM TAB PO SCH ×4 (10:48→20:49)
[2020-10-13] MEDS: minoxidiL 2.5 MG TAB PO SCH (10:49)
[2020-10-13] MEDS: ATORVASTATIN 20 MG TAB PO SCH (10:49)
[2020-10-13] MEDS: DOCUSATE SODIUM 100MG CAPSULE PO SCH ×2 (10:49→20:49)
[2020-10-13] MEDS: LINEZOLID 600MG TABLET (ZYVOX) PO SCH ×2 (10:49→22:17)
[2020-10-13] MEDS: LACTOBACILLUS ACIDOPHILUS CAP (BACID) PO SCH ×2 (10:52→18:13)
--- NOTE | 2020-10-13 12:12 | IPNPDOC ---
Text Note Date of Service The patient was seen on 10/13/20. NOTE Gen. surgery. Dr. Bruno The patient is a 70-year-old male hospitalized from 09/18-10/06/20 with peritonitis and perforated diverticulitis status post exploratory laparotomy with sigmoid colectomy and formation of end colostomy 09/22/[address] Bruno. During that admission was taken off peritoneal dialysis and placed on hemodialysis, using PermCath for dialysis access. The patient was admitted 10/08/20 with abdominal pain with CT abdomen showing some free fluid in the upper abdomen and bilateral pleural effusions. There was a localized fluid collection just lateral to the colostomy with suggestion of small abscess, S/P IR placement of drainage tube 10/10/20. Afebrile, VSS General. Awake and alert, NAD. Abdomen. Soft, non distended, colostomy with stool in bag. No TTP. drain bag with scant amount of clear fluid. WBC 10.2 Hgb 9.0 Plt 271 Assessment/plan Perforated diverticulitis status post exploratory laparotomy with sigmoid colectomy and formation of end colostomy 09/22/[address] Bruno. Surgical sites are C/D/I. river have been removed. There is no surrounding erythema, no drainage, no signs of infection. Output noted from colostomy. Localized fluid collection just lateral to the colostomy with suggestion of small abscess. S/P IR drainage of the fluid collection and placement of drain tube 10/10/20. Abx as per ID. Only scant amount of clear fluid in drain bag today. The patient is reviewed and examined as per Dr. Bruno this morning. From surgical standpoint the patient would be okay for discharge when medically cleared, antibiotics as per ID. Plan for one-week follow-up with Dr. Bruno in the office with plan to remove drainage tube at the office follow-up. VS,Fishbone, I+O VS, Fishbone, I+O Laboratory Tests 10/13/20 05:16 Vital Signs Date Time Temp Pulse Resp B/P (MAP) Pulse Ox O2 Delivery O2 Flow Rate FiO2 10/13/20 10:47 169/86 10/13/20 08:00 98.8 91 20 94 Nasal Cannula 2.0 I&O- Last 24 Hours up to 6 AM 10/13/20 06:00 Intake Total 1250 ml Output Total 3130 ml Balance -1880 ml Safia Dumont Oct 13, 2020 12:12
--- NOTE | 2020-10-13 13:36 | IPN ---
PROGRESS NOTE DATE: 10/13/2020 SUBJECTIVE: Mr. Dooley is seen this morning on his bedside. He is still feeling weak and tired. He is laying in the bed without any acute distress. He denies any abdominal pain and is tolerating his diet well. He was dialyzed yesterday and he tolerated the dialysis very well. OBJECTIVE: VITAL SIGNS: Temperature is 98.8 degrees Fahrenheit, heart rate is 90 per minute and respiratory rate is 20 per minute. Blood pressure 169/86 mmHg and oxygen saturation 94% on 2 liters of oxygen. HEAD AND NECK: His head is atraumatic, neck is supple. JVD is difficult to be assessed. Dialysis catheter is present in the right internal jugular vein. HEART: Heart sounds are regular. LUNGS: Clear to auscultation. ABDOMEN: Soft and nontender. The colostomy is functioning in the left lower quadrant. EXTREMITIES: No cyanosis or clubbing. He has 1+ edema on lower legs. NEUROLOGIC: He is awake and without any focal deficit. LABORATORY DATA: Today's labs showed a WBC count of 10.2, hemoglobin 9.0 and hematocrit 28.1, platelets are 271,000. Sodium is 131, potassium 4.3, CO2 27, BUN 13 and creatinine 4.21. PROBLEMS: 1. Endstage renal disease. Patient was dialyzed yesterday and the next dialysis will be scheduled for tomorrow. 2. Hyponatremia, mild hyponatremia persists and is related to endstage renal disease. This will be corrected gradually with hemodialysis. No other urgent intervention is indicated. 3. Anemia, his anemia is stable following initial transfusion. We will continue with weekly dose of Aranesp. 4. Intraabdominal fluid collection following colon resection for peritonitis and diverticulitis. The patient had ultrasound guided drainage done and seems to be clinically improving. He is afebrile and remains on antibiotics. 5. Hypertension. Blood pressure is somewhat high today and his antihypertensives will be the same. He is on metoprolol, minoxidil, amlodipine, and isosorbide. 6. Generalized weakness and deconditioning. Patient is likely to require some rehab prior to discharge.
[2020-10-13] MEDS: traMADol 50 MG TAB PO PRN (14:06)
[2020-10-13 15:29] LABS: C REACTIVE PROTEIN QUANTITATIV 8.88 MG/DL (0.00-0.30)
[2020-10-13] MEDS ORDERED: SENNA 8.6 MG TAB (SENOKOT) PO PRN (15:40)
[2020-10-13] MEDS ORDERED: ACETAMINOPHEN TAB 650MG DOSE (2X325MG) PO PRN (15:50)
--- NOTE | 2020-10-13 15:51 | IPNPDOC ---
Date Seen The patient was seen on 10/13/20. Progress Note SUBJECTIVE: Us of abdomen ordered to further look into drain placement and for persistent abscess. WBC further improved. Slightly improved appetite. Remains on 2 L NC, denies fevers, incr N/V/D, shortness of breath, chest pain. OBJECTIVE: PHYSICAL EXAMINATION: VS:: Please see below. CONSTITUTIONAL: NAD, resting in bed AAO x 3 EYES: PERRLA, EOM intact HENT, MOUTH: Normocephalic, atraumatic, moist mucous membranes, NC in place NECK: SUPPLE, no JVD, no lymphadenopathy, no carotid bruit CV: Regular rate and rhythm, S1S2 normal, no murmurs/rubs/gallops CHEST: Right side chest dialysis catheter in place RESPIRATORY: Clear to auscultation bilaterally, no rales/rhonchi/wheezes GI: Colostomy bag in LLQ, stoma appears pink, healthy,liquid stool in bag. Decreased tenderness on palpation of LUQ, LLQ, suprapubic areas 2/10 on pain scale. Pigtail catheter in place with no fluid in bag. BS positive in 4 quadrants, no distension, no guarding, no organomegaly : Deferred MUSCULOSKELETAL: Normal ROM. No cyanosis, clubbing, swelling, joint deformity, +2 pitting lower extremity edema up to thighs INTEGUMENTARY: large substernal scar on chest, well healing with multiple scabs. Large vertical incision in abdomen, healing well. Intact, no rashes, no lesions, no erythema NEUROLOGIC: Cranial Nerves II-XII are intact, no focal deficits PSYCHIATRIC: Mood and affect are normal LABORATORY DATA: Please see below MICROBIOLOGY: Abscess GS: FEW EPITHELIAL CELLS, FEW WBCS, NO ORGANISMS SEEN Abscess anaerobic and aerobic culture: NG 09/22/20: + peritoneal dialysis catheter with E. faecium (sensitive to zyvox) 09/22/20: VRE + abd culture (sensitive to zyvox) 09/18/20: peritoneal fluid cx + for Klebsiella pneumoniae, serratia and bifidobacterium (sensitive to levofloxacin) BCx NG to date UA ordered but he does not normally make a lot of urine IMAGING: US abdomen pending CXR 10/11/20: CHF pattern essentially unchanged CXR admission: CHF pattern with vascular congestion and mild interstitial edema. Small bilateral effusions, left greater than right. CT abd/pelvis 10/08/20: Mild diffuse ascites. Some edema throughout the abdominal fat may reflect diffuse peritonitis. There is a loculated fluid collection in the left flank consistent with a peritoneal abscess. 4.5 x 3.9 x 8.9 cm. No evidence of free air. Left lower quadrant colostomy. No evidence of bowel obstruction. CT abd/pelvis 09/22/20 (from prior admisssion): Increased pneumoperitoneum and ascites. Peritoneal dialysis catheter remains in place. There is a new fluid and air collection in the left flank adjacent to and inflamed segment of descending colon suggesting localized perforation and early abscess formation, 5.1 x 3.5 by 6.6 cm. The proximal colon remains stool filled and dilated. ASSESSMENT: 70-year-old male with past medical history of recent perforated diverticulitis status post exploratory laparotomy with sigmoid colectomy and formation of end colostomy 09/22/2020 (hospitalization ), CAD status post CABG , ESRD on hemodialysis, diabetes type 2, GERD, hypertension, hyperlipidemia, EZEQUIEL on CPAP admitted to hospitalist service with surgery consulted for abdominal peritonitis, peritoneal abscess, sepsis. PLAN: Peritoneal abscess (4.5 x 3.9 x 8.9 cm) s/p CT drainage 10/10/20 with pigtail catheter placement, ? peritonitis with resolved sepsis -S/p recent hospitalization for perforated diverticulitis s/p ex lap, sigmoid colectomy and colostomy placement complicated by peritonitis. -WBC 10.2, afebrile, improving abd pain -Micro from last admission above -BCx this admission NG to date -Per surgery, no surgery at this time. -US abd ordered today to confirm no residual abscess and that pigtail catheter is in appropriate place. Will need to review this prior to taking out catheter (placed by [facility] under CT guidance) and transitioning to PO regimen for abx. -C/w current diet -C/w Linezolid, Zosyn, tramadol, morphine PRN, zofran PRN. -General surgery, ID following Hypoglycemia likely 2/2 to sepsis and decreased PO intake-resolved -Hx of DM type II on glimiperide, lantus HS at home -BS looking much more improved today -Currently on regular diet- would leave him on this until his BS stay consistently above 150 and has good intake. -Dextrose PRN Shortness of breath likely 2/2 to CHF, bilateral pleural effusions L>R -CXR admission: CHF pattern with vascular congestion and mild interstitial edema. Small bilateral effusions, left greater than right. -CXR 10/11/20: CHF pattern essentially unchanged -Currently 91-94% on RA-2 L NC. Attempting to wean down but have been unable to -Currently denies SOB, chest pain -Likely Hx of CHF with known CAD s/p CABG and s/s of fluid overload. -Monitor closely -Fluid management with nephrology, HD . Not currently on diuretics, does not make much urine. Acute on chronic FADUMO -S/p1 unit PRBC 10/11/20 -Occult blood neg -C/w Iron supplementation -F/u Daily CBC HTN -BP slightly more elevated today -Took 3 L off with HD 10/11/20 -Althought improving, s/s of fluid overload still persist -C/w Amlodipine, minoxidil, BB, ARB , HD on scheduled dates Acute on chronic physical deconditioning, weakness -PT: "demonstrates decreased functional mobility at this time. Pt. reports independence with occasional use of cane at baseline; however, since previous hospital stay has been using 4ww. Pt. currently ambulating 25ft CGA; reporting mild dizziness initially upon sitting and standing; mild instability noted. Recommending skilled physical therapy to improve strength, endurance and balance to promote improved independence; Pt. lives alone, however, reports daughter will be staying with him upon d/c to assist. Recommending home with services" -Attempted PT today but patient was not feeling well and postponed -C/w PT/OT, hopefully home with services ESRD on HD -Increased lower ext edema/swelling -Took 3 L off last session, goal was 3.5 but unable to pull more off -Nephrology on consultation CAD s/p CABG x 5 vessel -Denies symptoms -Recently completed at [facility] -C/w Atorvastatin, ASA 81, imdur, CCB, BB. DLP -C/w Atorvastatin and ASA 81 EZEQUIEL -Allow home CPAP use Chronic back pain - Moderate central spinal stenosis L2-L3, severe central spinal stenosis L3-L4 and L4-L5. Bulging annulus L5-S1 - tramadol, tylenol PRN GERD -PPI PO, sucralfate PO DVT prophylaxis -TEDs/Sequentials. Heparin SC DISPOSITION: ID, surgery following. PT/OT to continue working with patient. Attempted to call daughter Carolina at 3:15 PM, left voice mail. Goal is home with services if continues to improve. VS, I&O, 24H, Fishbone Vital Signs/I&O Vital Signs Date Time Temp Pulse Resp B/P (MAP) Pulse Ox O2 Delivery O2 Flow Rate FiO2 10/13/20 14:36 17 10/13/20 14:20 141/80 (100) 10/13/20 12:00 98.4 80 97 Nasal Cannula 2.0 I&O- Last 24 Hours up to 6 AM 10/13/20 06:00 Intake Total 1250 ml Output Total 3130 ml Balance -1880 ml Laboratory Data 24H LABS Laboratory Tests 2 10/12/20 18:27: Bedside Glucose (Misc Panel) 178H 10/12/20 21:58: Bedside Glucose (Misc Panel) 154H 10/13/20 05:16: Nucleated Red Blood Cells % (auto) 0.0, Anion Gap 4L, Glomerular Filtration Rate 15.1L, Calcium Level 8.6L, Total Bilirubin 0.3, Aspartate Amino Transf (AST/SGOT) 10, Alanine Aminotransferase (ALT/SGPT) 9L, Alkaline Phosphatase 93, C-Reactive Protein, Quantitative 8.88H, Total Protein 5.3L, Albumin 1.8L, Albumin/Globulin Ratio 0.5 CBC/BMP Laboratory Tests 10/13/20 05:16 Microbiology Microbiology 10/11/20 Stool Occult Blood ([place]) - Final, Complete 10/10/20 Gram Stain - Final, Complete 10/10/20 Abscess Culture - Final, Complete 10/10/20 Anaerobic Culture - Final, Complete 10/08/20 Blood Culture - Final, Complete NO GROWTH AFTER 5 DAYS 10/08/20 Blood Culture - Final, Complete NO GROWTH AFTER 5 DAYS Current Medications Current Medications Medications (Trade) Dose Ordered Sig/Rafita Route PRN Reason Start Time Stop Time Status Last Admin Dose Admin Amlodipine Besylate (Norvasc) 10 mg DAILY PO 10/10/20 12:30 10/13/20 10:47 Aspirin (Ecotrin) 81 mg DAILY PO 10/10/20 09:00 10/13/20 10:48 Atorvastatin Calcium (Lipitor) 80 mg DAILY PO 10/10/20 09:00 10/13/20 10:49 Cinacalcet (Sensipar) 30 mg DAILY PO 10/11/20 09:00 10/13/20 10:47 Darbepoetin Russell (Aranesp (Dialysis Use)) 200 mcg HD IV 10/12/20 12:00 10/12/20 12:42 Dextrose (Dextrose 50%) 25 ml ASDIRECTED PRN IV SEE LABEL COMMENTS 10/08/20 14:00 10/09/20 08:59 Dextrose (Dextrose 50%) 25 ml STAT STAT IV 10/08/20 11:25 10/08/20 11:28 DC 10/08/20 11:40 Dextrose/Sodium Chloride 1,000 ml @ 50 mls/hr Q20H IV 10/09/20 00:25 10/10/20 08:08 DC 10/10/20 00:22 Dextrose/Sodium Chloride 1,000 ml @ 70 mls/hr [id number] IV 10/10/20 09:00 10/11/20 10:16 DC 10/11/20 04:31 Docusate Sodium (Colace) 100 mg BID PO 10/10/20 09:00 10/13/20 10:49 Ferrous Gluconate (Fergon) 324 mg BID PO 10/11/20 21:00 10/13/20 10:46 Glucagon (Glucagon) 1 mg ASDIRECTED PRN SC SEE LABEL COMMENTS 10/08/20 14:00 10/09/20 05:22 Glucose (Glucose) 16 GM ASDIRECTED PRN PO SEE LABEL COMMENTS 10/08/20 14:00 Home Med (Med Rec Complete!) ASDIRECTED XX 10/08/20 14:30 10/08/20 14:35 DC Hydralazine HCl (Apresoline) 10 mg Q6HP PRN IV SEE PROTOCOL 10/08/20 14:50 10/10/20 00:07 Irbesartan (Avapro) 300 mg DAILY PO 10/12/20 09:00 10/13/20 10:47 Isosorbide Mononitrate (Imdur) 60 mg BID PO 10/10/20 21:00 10/13/20 10:47 Lactobacillus Acidophilus (Bacid) 1 ea BIDWM PO 10/10/20 18:00 10/13/20 10:52 Levofloxacin 250 mg/IV Miscellaneous Supplies 50 ml @ 50 mls/hr Q48H IV 10/10/20 15:00 10/10/20 15:22 DC 10/10/20 15:04 Linezolid (Zyvox) 600 mg BID PO 10/13/20 09:00 10/13/20 10:49 Linezolid 600 mg/ IV Miscellaneous Supplies 300 ml @ 150 mls/hr Q12H IV 10/09/20 01:00 10/13/20 09:32 DC 10/13/20 01:50 Metoprolol Tartrate (Lopressor) 50 mg BID PO 10/11/20 09:00 10/13/20 10:48 Metronidazole 500 mg/IV Miscellaneous Supplies 100 ml @ 100 mls/hr Q8H IV 10/08/20 14:00 10/10/20 15:22 DC 10/10/20 15:04 Minoxidil (Loniten) 5 mg DAILY PO 10/11/20 09:00 10/13/20 10:49 Miscellaneous (Unresolved Clarification Entry) SEE LABEL COMMENTS DAILY XX 10/13/20 09:00 10/13/20 10:08 DC Morphine Sulfate (Morphine Sulfate Inj) 1 mg Q4H PRN IV SEVERE PAIN (PS 8-10) 10/08/20 13:20 10/09/20 20:47 Morphine Sulfate (Morphine Sulfate Inj) 2 mg Q6H PRN IV SEVERE PAIN (PS 8-10) 10/08/20 13:20 10/11/20 10:31 DC 10/11/20 05:56 Ondansetron HCl (ZOFRAN INJection) 4 mg Q8HP PRN IV NAUSEA OR VOMITING 10/10/20 10:45 10/11/20 10:32 Pantoprazole Sodium (Protonix) 40 mg DAILY PO 10/11/20 09:00 10/13/20 10:48 Pantoprazole Sodium (Protonix) 40 mg Q24H IV 10/08/20 14:00 10/11/20 13:14 DC 10/10/20 15:04 Piperacillin Sod/ Tazobactam Sod 4.5 gm/Dextrose 50 ml @ 50 mls/hr Q12H IV 10/10/20 17:00 10/13/20 05:21 Polyethylene Glycol (Miralax) 1 pkt BID PRN PO CONSTIPATION 10/11/20 13:15 Sevelamer Carbonate (Renvela) 800 mg WM PO 10/11/20 18:00 10/13/20 13:50 Sodium Chloride (Saline Lock Flush) 2 ml ASDIRECTED PRN IV SEE LABEL COMMENTS 10/12/20 08:50 Sodium Chloride (Saline Lock Flush) 2 ml SLF IV 10/12/20 14:00 10/13/20 14:06 Sucralfate (Carafate) 1 gm ACHS PO 10/10/20 12:00 10/13/20 13:50 Tramadol HCl (Ultram) 50 mg Q4HP PRN PO MODERATE PAIN (PS 5-7) 10/11/20 10:30 10/13/20 14:06 Allergies Coded Allergies: codeine (Verified Adverse Reaction, Mild, SKIN CRAWLS, 07/03/19) Jeanna Andino MD Oct 13, 2020 15:51
--- NOTE | 2020-10-13 17:23 | REP ---
INDICATION: LEFT lower quad abscess follow up , no drainage in pigtail ?. COMPARISON: 10/10/2020 ultrasound, 10/08/2020 CT. TECHNIQUE: Real-time sonographic evaluation of left lower quadrant performed. FINDINGS: Complex fluid collection is noted once again in the left lower quadrant, containing the pigtail catheter, which is in good position. Multiple septations are seen within the fluid. The fluid collection has a maximum diameter of about 4 cm similar to the prior CT.. IMPRESSION: Left lower quadrant complex fluid collection contains multiple septations. The pigtail drainage catheter appears to be in good position within the fluid collection. The fact that the fluid is septated may be the reason that the remaining fluid is not draining. <Electronically signed by Robert Adames > 10/13/20 [id number]
[2020-10-13] MEDS ORDERED: DOCUSATE SODIUM 100MG CAPSULE PO SCH (21:00)
[2020-10-14 00:45] VITALS: BP 162/78
[2020-10-14 04:08] VITALS: BP 161/87
[2020-10-14] MEDS: PIPERACILLIN/TAZOBACTAM SOD 4.5 GM in D5W MINI-BAG PLUS 50 ML IV SCH ×2 (04:25→18:25)
[2020-10-14 05:38] LABS: HEMOGLOBIN 8.9 g/dl (13.5-17.5); MEAN CORPUSCULAR HEMOGLOBIN 28.3 pg (27.0-33.0); PLATELET COUNT, AUTOMATED 259 10^3/uL (150-450); RED BLOOD COUNT 3.14 10^6/uL (4.30-6.10); WHITE BLOOD COUNT 9.8 10^3/uL (4.0-10.0)
[2020-10-14] MEDS: SLF 3 ML SYR IV SCH ×3 (05:50→20:53)
[2020-10-14 06:12] LABS: ALBUMIN 1.9 GM/DL (3.2-5.2); BILIRUBIN,TOTAL 0.2 MG/DL (0.2-1.0); CALCIUM LEVEL 8.1 MG/DL (8.8-10.2); CREATININE FOR GFR 5.49 MG/DL (0.70-1.30); GLOMERULAR FILTRATION RATE 11.1 (>49); POTASSIUM SERUM 4.4 MEQ/L (3.5-5.1); TOTAL PROTEIN 4.7 GM/DL (6.4-8.2)
[2020-10-14] MEDS: ATORVASTATIN 20 MG TAB PO SCH (07:47)
[2020-10-14] MEDS: FERROUS GLUCONATE 324 MG TAB PO SCH ×2 (07:48→20:51)
[2020-10-14] MEDS: LINEZOLID 600MG TABLET (ZYVOX) PO SCH ×2 (07:48→20:51)
[2020-10-14] MEDS: LACTOBACILLUS ACIDOPHILUS CAP (BACID) PO SCH ×2 (07:48→18:26)
[2020-10-14] MEDS: DOCUSATE SODIUM 100MG CAPSULE PO SCH ×2 (07:48→20:53)
[2020-10-14] MEDS: PANTOPRAZOLE 40MG TAB (PROTONIX) PO SCH (07:48)
[2020-10-14] MEDS: (RENVELA) SEVELAMER **CARBONate** 800 MG TAB PO SCH ×3 (07:48→18:25)
[2020-10-14] MEDS: ISOSORBIDE MON. (IMDUR) 30 MG XR TAB PO SCH ×2 (07:49→20:53)
[2020-10-14] MEDS: ASPIRIN 81MG ENTERIC TABLET PO SCH (07:50)
[2020-10-14] MEDS: minoxidiL 2.5 MG TAB PO SCH (07:50)
[2020-10-14] MEDS: CINACALCET 30 MG TAB (SENSIPAR) PO SCH (07:50)
[2020-10-14] MEDS: SUCRALFATE 1 GM TAB PO SCH ×4 (07:51→20:53)
[2020-10-14] MEDS: METOPROLOL TART 50 MG TAB PO SCH ×2 (07:51→20:53)
[2020-10-14] MEDS: IRBESARTAN 150MG TAB PO SCH (07:51)
[2020-10-14 08:00] VITALS: BP 172/83
[2020-10-14] MEDS: ONDANSETRON 4MG/2ML VIAL IV PRN (08:03)
--- NOTE | 2020-10-14 08:37 | IPNPDOC ---
Text Note Date of Service The patient was seen on 10/14/20. NOTE SUBJECTIVE: Patient was in dialysis when he was seen and evaluated this morning. He reports that he did have a small episode of nausea and vomiting this morning after his morning pills, but otherwise his appetite seems to be improving slowly. He does not have any pain at this time. It sounds as though we will send him back to IR today for repositioning of his drain per recommendations from surgery since there are septations in his abscess/fluid collection. The abscess seems to be a sterile collection. He will likely remain inpatient for another few days for monitoring of the repositioning of the drain. Remains on 2 L NC, denies fevers, incr N/V/D, shortness of breath, chest pain. OBJECTIVE: PHYSICAL EXAMINATION: VS:: Please see below. CONSTITUTIONAL: NAD, resting in bed AAO x 3 EYES: PERRLA, EOM intact HENT, MOUTH: Normocephalic, atraumatic, moist mucous membranes, NC in place NECK: SUPPLE, no JVD, no lymphadenopathy, no carotid bruit CV: Regular rate and rhythm, S1S2 normal, no murmurs/rubs/gallops CHEST: Right side chest dialysis catheter in place RESPIRATORY: Clear to auscultation bilaterally, no rales/rhonchi/wheezes GI: Colostomy bag in LLQ, stoma appears pink, healthy,liquid stool in bag. Decreased tenderness on palpation of LUQ, LLQ, suprapubic areas 2/10 on pain scale. Pigtail catheter in place with no fluid in bag. BS positive in 4 quad rants, no distension, no guarding, no organomegaly : Deferred MUSCULOSKELETAL: Normal ROM. No cyanosis, clubbing, swelling, joint deformity, +2 pitting lower extremity edema up to thighs INTEGUMENTARY: large substernal scar on chest, well healing with multiple scabs. Large vertical incision in abdomen, healing well. Intact, no rashes, no lesions, no erythema NEUROLOGIC: Cranial Nerves II-XII are intact, no focal deficits PSYCHIATRIC: Mood and affect are normal LABORATORY DATA: Please see below ASSESSMENT: 70-year-old male with past medical history of recent perforated diverticulitis status post exploratory laparotomy with sigmoid colectomy and formation of end colostomy 09/22/2020 (hospitalization ), CAD status post CABG , ESRD on hemodialysis, diabetes type 2, GERD, hypertension, hyperlipidemia, EZEQUIEL on CPAP admitted to hospitalist service with surgery consulted for abdominal peritonitis, peritoneal abscess, sepsis. PLAN: Peritoneal abscess (4.5 x 3.9 x 8.9 cm) s/p CT drainage 10/10/20 with pigtail catheter placement, ? peritonitis with resolved sepsis -S/p recent hospitalization for perforated diverticulitis s/p ex lap, sigmoid colectomy and colostomy placement complicated by peritonitis. -WBC 10.2, afebrile, improving abd pain -Micro from last admission above -BCx this admission NG to date -Per surgery, no surgery at this time. -US abd ordered today to confirm no residual abscess and that pigtail catheter is in appropriate place. Will need to review this prior to taking out catheter (placed by [facility] under CT guidance) and transitioning to PO regimen for abx. -C/w current diet -C/w Linezolid, Zosyn, tramadol, morphine PRN, zofran PRN. -General surgery, ID following Hypoglycemia likely 2/2 to sepsis and decreased PO intake-resolved -Hx of DM type II on glimiperide, lantus HS at home -BS looking much more improved today -Currently on regular diet- would leave him on this until his BS stay consistently above 150 and has good intake. -Dextrose PRN Shortness of breath likely 2/2 to CHF, bilateral pleural effusions L>R -CXR admission: CHF pattern with vascular congestion and mild interstitial edema. Small bilateral effusions, left greater than right. -CXR 10/11/20: CHF pattern essentially unchanged -Currently 91-94% on RA-2 L NC. Attempting to wean down but have been unable to -Currently denies SOB, chest pain -Likely Hx of CHF with known CAD s/p CABG and s/s of fluid overload. -Monitor closely -Fluid management with nephrology, HD . Not currently on diuretics, does not make much urine. Acute on chronic FADUMO -S/p1 unit PRBC 10/11/20 -Occult blood neg -C/w Iron supplementation -F/u Daily CBC HTN -BP continues to be elevated -Althought improving, s/s of fluid overload still persist. Nephrology continues to try to remove as much fluid as safely possible via hemodialysis. Their input in this matter is greatly appreciated. -C/w Amlodipine, minoxidil, BB, ARB , HD on scheduled dates Acute on chronic physical deconditioning, weakness -PT: "demonstrates decreased functional mobility at this time. Pt. reports independence with occasional use of cane at baseline; however, since previous hospital stay has been using 4ww. Pt. currently ambulating 25ft CGA; reporting mild dizziness initially upon sitting and standing; mild instability noted. Recommending skilled physical therapy to improve strength, endurance and balance to promote improved independence; Pt. lives alone, however, reports daughter will be staying with him upon d/c to assist. Recommending home with services" -C/w PT/OT, hopefully home with services ESRD on HD -Persistent lower ext edema/swelling -Nephrology on consultation. CAD s/p CABG x 5 vessel -Denies symptoms -Recently completed at [facility] -C/w Atorvastatin, ASA 81, imdur, CCB, BB. DLP -C/w Atorvastatin and ASA 81 EZEQUIEL -Allow home CPAP use Chronic back pain - Moderate central spinal stenosis L2-L3, severe central spinal stenosis L3-L4 and L4-L5. Bulging annulus L5-S1 - tramadol, tylenol PRN GERD -PPI PO, sucralfate PO DVT prophylaxis -TEDs/Sequentials. Heparin SC DISPOSITION: ID, surgery following. PT/OT to continue working with patient. Likely will spend a few more days in the hospital after repositioning the drain today to monitor for output. Goal is home with services if continues to improve. VS,Fishbone, I+O VS, Fishbone, I+O Laboratory Tests 10/14/20 04:55 Vital Signs Date Time Temp Pulse Resp B/P (MAP) Pulse Ox O2 Delivery O2 Flow Rate FiO2 10/14/20 07:51 172/83 10/14/20 07:51 86 10/14/20 04:08 97.6 18 92 Nasal Cannula 2.0 I&O- Last 24 Hours up to 6 AM 10/14/20 05:59 Intake Total 1245 ml Output Total 200 ml Balance 1045 ml ZEV JORGENSEN DO Oct 14, 2020 08:37
--- NOTE | 2020-10-14 10:05 | IPN ---
PROGRESS NOTE DATE: 10/13/2020 Mr. Dooley was tired this afternoon but he had no major complaints. He was just sleepy. He has no nausea, vomiting, or diarrhea. He still has some abdominal pain, especially if you press on his left lower quadrant. His appetite is a little better. He remains on 2 liters nasal cannula. He has no fever, chills, shortness of breath, or chest pain. PHYSICAL EXAMINATION: Temperature is 97.9, pulse 83, respirations 18, blood pressure 150/71, oxygen saturation 94% on room air. Heart: Normal S1, S2, no murmurs, rubs, or gallops. Lungs: Clear, no wheezes, rales, or rhonchi. Chest wall right-sided hemodialysis catheter. Abdomen: Colostomy in left lower quadrant and tenderness just inferior to his colostomy where the abscess is localized, stoma is pink, liquid stool in the bag. In the left lower quadrant there is a drain without any fluid draining from the abscess where the pigtail is. Extremities: No clubbing, cyanosis, or edema. Skin: Substernal scar and chest wall scab. Vertical incision is also healed. LABORATORY DATA: Sodium 131, potassium 4.3, chloride 100, bicarbonate 27, BUN 13, creatinine 4.21, glucose 130, calcium 8.6, AST 10, ALT 9, alkaline phosphatase 93, white count 10.2, hemoglobin 9, hematocrit 28.1, platelets 271, CRP is 8.8 down from 10.2. Culture from the drain from the left lower quadrant abscess was no growth aerobically and anaerobically. Repeat ultrasound was done today to see if the abscess has improved in size but there is no improvement, it still measures about 4 cm in the left lower quadrant, it is septated with a complex fluid collection. IMPRESSION: 1. Intraabdominal abscess with a septated left lower quadrant collection. The pigtail drain is in the cavity but is not draining anything as it is septated. He is on IV Zosyn and by mouth linezolid which was switched today. Doing better. 2. End-stage renal disease on hemodialysis. His peritoneal catheter was removed last admission after he had complications of diverticulitis. PLAN: Continue with current antibiotics. Once ready for discharge, he could be switched back to levofloxacin and by mouth linezolid for 7-10 days. I am concerned that his ultrasound showed persistence with the abscess and even though the drain is in position I am concerned there is still a loculation that may need further intervention. Please make sure surgery is aware of the findings of the ultrasound.
[2020-10-14 12:30] VITALS: BP 159/75
[2020-10-14 13:57] LABS: INR 1.11; PROTHROMBIN TIME 14.5 SECONDS (12.5-14.3)
[2020-10-14] MEDS ORDERED: SODIUM BICARBONATE 8.4% INJ 50MEQ 50 ML VIAL As Ordered ONE (14:25)
[2020-10-14] MEDS ORDERED: LIDOCAINE 1% MDV 20ML VIAL As Ordered ONE (14:26)
[2020-10-14 16:00] VITALS: BP 163/83
--- NOTE | 2020-10-14 18:05 | REP ---
INDICATION: reposition or place new drain to persistent collection The patient has a history of seroma COMPARISON: None. TECHNIQUE: The procedure was performed by DELVIS Ha, under the direct supervision of Dr. Adames The risks and benefits of the procedure were explained to the patient and an informed consent was obtained both verbally and written. Directly prior to the start of the procedure a formal time-out was completed in the procedure room. Another seroma pocket was identified in the left lower quadrant and was localized using ultrasound guidance. The skin was prepped and draped in a sterile fashion. Ten ML of buffered lidocaine was used as a local anesthetic. Using ultrasound guidance a 10-Palau[place] multi side-hole pigtail catheter was inserted using trocar technique. FINDINGS: One hundred ten mL of seroma fluid was withdrawn, and 100 mL was sent to the laboratory for further analysis. The catheter was sutured in place, a sterile dressing was applied, and a drainage bag was attached. The patient tolerated the procedure well and there were no immediate complications. After the appropriate amount of monitored convalescence, the patient was discharged from the department. IMPRESSION: Ten [place] pigtail catheter placement under ultrasound guidance. <Electronically signed by Kayley Tran > 10/14/20 1615 <Electronically signed by Robert Adames > 10/14/20 [id number]
--- NOTE | 2020-10-14 18:25 | IPN ---
NEPHROLOGY PROGRESS NOTE DATE: 10/14/2020 SUBJECTIVE: Mr. Dooley is seen this morning during hemodialysis. He is feeling about the same and denies any new complaints. He has no dyspnea or chest pain. He denies any abdominal pain and colostomy is functioning. He had been afebrile. Left-sided abdominal drain is draining small amount of clear fluid. PHYSICAL EXAMINATION: Temperature 97.2 degrees Fahrenheit, heart rate 82 per minute, respiratory rate 18 per minute, blood pressure 142/70 mmHg, oxygen saturation 96% on room air. HEAD: Atraumatic. NECK: Supple and jugular venous distention (JVD) is not abnormally elevated. Dialysis catheter in right internal jugular vein is without any signs of infection. HEART SOUNDS: Regular. LUNGS: Clear to auscultation. ABDOMEN: Soft and nontender. Colostomy is functioning in left lower quadrant. Drain in left abdomen is also present. EXTREMITIES: Without any cyanosis or clubbing. Minimal edema is noticed on the lower extremities. NEUROLOGIC: He is awake, alert and at his baseline mentation without a focal deficit. LABORATORY DATA: Today's labs show a WBC count 9.8, hemoglobin 8.9 and hematocrit 27, platelets 259. Sodium 139, potassium 4.4, CO2 24, BUN 17, creatinine 5.49. Total protein 4.7, albumin 1.9. PROBLEMS: 1. End-stage renal disease. Patient is currently being dialyzed with hemodialysis. He is tolerating his dialysis treatment well. His BUN has been quite low due to poor oral intake of protein. 2. Hyponatremia. This is related to end-stage renal disease and intravenous (IV) fluids given earlier. Now his sodium level has been stable and likely to improve with the dialysis. No other intervention will be needed. 3. Anemia. Anemia has been stable and will continue to manage with dialysis. He was given just 1 unit of packed red blood cells on October 11, 2020. 4. Hypertension. Blood pressure seems to be doing well and we will continue with current antihypertensive medications. 5. Generalized weakness and deconditioning. Patient is likely to require rehabilitation prior to discharge. 6. Recurrent hypoglycemia. This was related to poor oral intake and insulin. His insulin has been on hold and his hypoglycemia has resolved. His oral intake is gradually improving. 7. Intraabdominal fluid collection. Patient had an ultrasound-guided drainage done and remains on antibiotics. He is currently afebrile.
[2020-10-14 20:00] VITALS: BP 120/70
[2020-10-14] MEDS: traMADol 50 MG TAB PO PRN (20:52)
[2020-10-15] VITALS (7 sets, daily range): BP systolic 141–195; BP diastolic 69–90
[2020-10-15] MEDS: SLF 3 ML SYR IV SCH ×3 (04:13→21:35)
[2020-10-15] MEDS: PIPERACILLIN/TAZOBACTAM SOD 4.5 GM in D5W MINI-BAG PLUS 50 ML IV SCH ×2 (04:13→17:14)
[2020-10-15 06:45] LABS: HEMATOCRIT 29.4 % (42.0-52.0); HEMOGLOBIN 9.4 g/dl (13.5-17.5); MEAN CORPUSCULAR HEMOGLOBIN 28.1 pg (27.0-33.0); PLATELET COUNT, AUTOMATED 243 10^3/uL (150-450); RED BLOOD COUNT 3.34 10^6/uL (4.30-6.10); WHITE BLOOD COUNT 8.9 10^3/uL (4.0-10.0)
[2020-10-15 07:00] LABS: CALCIUM LEVEL 8.2 MG/DL (8.8-10.2); CREATININE FOR GFR 4.44 MG/DL (0.70-1.30); GLOMERULAR FILTRATION RATE 14.2 (>49); PHOSPHORUS LEVEL 3.2 MG/DL (2.5-4.9); POTASSIUM SERUM 4.4 MEQ/L (3.5-5.1)
[2020-10-15] MEDS: SUCRALFATE 1 GM TAB PO SCH ×4 (08:00→21:33)
[2020-10-15] MEDS: PANTOPRAZOLE 40MG TAB (PROTONIX) PO SCH (08:00)
[2020-10-15] MEDS: CINACALCET 30 MG TAB (SENSIPAR) PO SCH (08:00)
[2020-10-15] MEDS: (RENVELA) SEVELAMER **CARBONate** 800 MG TAB PO SCH ×3 (08:00→17:14)
[2020-10-15] MEDS: FERROUS GLUCONATE 324 MG TAB PO SCH ×2 (08:00→21:34)
[2020-10-15] MEDS: ASPIRIN 81MG ENTERIC TABLET PO SCH (08:00)
[2020-10-15] MEDS: LACTOBACILLUS ACIDOPHILUS CAP (BACID) PO SCH ×2 (08:00→17:14)
[2020-10-15] MEDS: LINEZOLID 600MG TABLET (ZYVOX) PO SCH ×2 (08:00→21:33)
[2020-10-15] MEDS: IRBESARTAN 150MG TAB PO SCH (08:01)
[2020-10-15] MEDS: ATORVASTATIN 20 MG TAB PO SCH (08:02)
[2020-10-15] MEDS: minoxidiL 2.5 MG TAB PO SCH (08:02)
[2020-10-15] MEDS: METOPROLOL TART 50 MG TAB PO SCH ×2 (08:02→21:33)
[2020-10-15] MEDS: ISOSORBIDE MON. (IMDUR) 30 MG XR TAB PO SCH ×2 (08:03→21:34)
[2020-10-15] MEDS: DOCUSATE SODIUM 100MG CAPSULE PO SCH ×2 (08:03→21:34)
--- NOTE | 2020-10-15 15:19 | IPNPDOC ---
Text Note Date of Service The patient was seen on 10/15/20. NOTE SUBJECTIVE: And patient is somewhat somnolent when INR the room, but he is easily awakened. He does not have any complaints at this time. He has not had any recurrent episodes of vomiting. He remains afebrile overnight. He has been weaned off of oxygen entirely and is saturating well on room air. He only asks when he will be able to go home. OBJECTIVE: PHYSICAL EXAMINATION: VS:: Please see below. CONSTITUTIONAL: NAD, resting in bed AAO x 3 EYES: PERRLA, EOM intact HENT, MOUTH: Normocephalic, atraumatic, moist mucous membranes, NC in place NECK: SUPPLE, no JVD, no lymphadenopathy, no carotid bruit CV: Regular rate and rhythm, S1S2 normal, no murmurs/rubs/gallops CHEST: Right side chest dialysis catheter in place RESPIRATORY: Clear to auscultation bilaterally, no rales/rhonchi/wheezes GI: Colostomy bag in LLQ, stoma appears pink, healthy. Pigtail catheter in place with minimal serosanguineous fluid in bag at this time. BS positive in 4 quadrants, no distension, no guarding, no organomegaly : Deferred MUSCULOSKELETAL: Normal ROM. No cyanosis, clubbing, swelling, joint deformity, +2 pitting lower extremity edema up to thighs INTEGUMENTARY: large substernal scar on chest, well healing with multiple scabs. Large vertical incision in abdomen, healing well. Intact, no rashes, no lesions, no erythema NEUROLOGIC: Cranial Nerves II-XII are intact, no focal deficits PSYCHIATRIC: Mood and affect are normal ASSESSMENT: 70-year-old male with past medical history of recent perforated diverticulitis status post exploratory laparotomy with sigmoid colectomy and formation of end colostomy 09/22/2020 (hospitalization ), CAD status post CABG , ESRD on hemodialysis, diabetes type 2, GERD, hypertension, hyperlipidemia, EZEQUIEL on CPAP admitted to hospitalist service with surgery consulted for abdominal peritonitis, peritoneal abscess, sepsis. PLAN: Peritoneal abscess (4.5 x 3.9 x 8.9 cm) s/p CT drainage 10/10/20 with pigtail catheter placement, ? peritonitis with resolved sepsis -S/p recent hospitalization for perforated diverticulitis s/p ex lap, sigmoid colectomy and colostomy placement complicated by peritonitis. -WBC now within normal limits, afebrile, improving abd pain -BCx this admission NG to date -Per surgery, no surgery at this time. -C/w current diet -C/w Linezolid, Zosyn, tramadol, zofran PRN. -General surgery, ID following Hypoglycemia likely 2/2 to sepsis and decreased PO intake -resolved -Hx of DM type II on glimiperide, lantus HS at home -Continue regular diet -Dextrose PRN Shortness of breath likely 2/2 to CHF, bilateral pleural effusions L>R -Weaned off of oxygen today -denies SOB, chest pain -Likely Hx of CHF with known CAD s/p CABG and s/s of fluid overload. -Fluid management with nephrology via HD . Not currently on diuretics, does not make much urine. Acute on chronic FADUMO -S/p1 unit PRBC 10/11/20 -Occult blood neg -C/w Iron supplementation -F/u Daily CBC HTN -BP continues to be elevated -Althought improving, s/s of fluid overload still persist. Nephrology continues to try to remove as much fluid as safely possible via hemodialysis. Their input in this matter is greatly appreciated. -C/w Amlodipine, minoxidil, BB, ARB , HD on scheduled dates Acute on chronic physical deconditioning, weakness -PT recommending home with services -C/w PT/OT, hopefully home with services ESRD on HD -Persistent lower ext edema/swelling -Nephrology on consultation. CAD s/p CABG x 5 vessel -Denies symptoms -Recently completed at [facility] -C/w Atorvastatin, ASA 81, imdur, CCB, BB. DLP -C/w Atorvastatin and ASA 81 EZEQUIEL -Allow home CPAP use Chronic back pain - Moderate central spinal stenosis L2-L3, severe central spinal stenosis L3-L4 and L4-L5. Bulging annulus L5-S1 - tramadol, tylenol PRN GERD -PPI PO, sucralfate PO DVT prophylaxis -TEDs/Sequentials. Heparin SC DISPOSITION: ID, surgery following. PT/OT to continue working with patient. Drain did put out a little bit more in the last 24 hours. Case discussed with surgery and they feel that it would be okay if he were discharged home with the drain, and they can manage it as an outpatient. Will request a home safety eval from physical therapy tomorrow morning. VS,Fishbone, I+O VS, Fishbone, I+O Laboratory Tests 10/15/20 06:25 Vital Signs Date Time Temp Pulse Resp B/P (MAP) Pulse Ox O2 Delivery O2 Flow Rate FiO2 10/15/20 12:00 98.2 75 18 141/69 (93) 94 Room Air 10/14/20 20:00 2.0 I&O- Last 24 Hours up to 6 AM 10/15/20 05:59 Intake Total 990 ml Output Total 3090 ml Balance -2100 ml ZEV JORGENSEN DO Oct 15, 2020 15:19
[2020-10-16] MEDS: traMADol 50 MG TAB PO PRN (04:46)
[2020-10-16] MEDS: PIPERACILLIN/TAZOBACTAM SOD 4.5 GM in D5W MINI-BAG PLUS 50 ML IV SCH ×2 (05:40→17:52)
[2020-10-16] MEDS: SLF 3 ML SYR IV SCH ×3 (05:41→22:26)
[2020-10-16 05:45] VITALS: BP 164/84
[2020-10-16] MEDS: SUCRALFATE 1 GM TAB PO SCH ×4 (06:45→22:25)
[2020-10-16 06:56] LABS: HEMATOCRIT 28.4 % (42.0-52.0); HEMOGLOBIN 9.2 g/dl (13.5-17.5); MEAN CORPUSCULAR HEMOGLOBIN 28.2 pg (27.0-33.0); MEAN CORPUSCULAR HGB CONC 32.4 g/dl (32.0-36.5); MEAN CORPUSCULAR VOLUME 87.1 fl (80.0-96.0); PLATELET COUNT, AUTOMATED 230 10^3/uL (150-450); RED BLOOD COUNT 3.26 10^6/uL (4.30-6.10); WHITE BLOOD COUNT 8.5 10^3/uL (4.0-10.0)
[2020-10-16 07:11] LABS: CALCIUM LEVEL 8.4 MG/DL (8.8-10.2); CREATININE FOR GFR 5.73 MG/DL (0.70-1.30); GLOMERULAR FILTRATION RATE 10.6 (>49); PHOSPHORUS LEVEL 3.2 MG/DL (2.5-4.9); POTASSIUM SERUM 4.5 MEQ/L (3.5-5.1)
[2020-10-16] MEDS: ISOSORBIDE MON. (IMDUR) 30 MG XR TAB PO SCH ×2 (08:28→22:25)
[2020-10-16] MEDS: ASPIRIN 81MG ENTERIC TABLET PO SCH (08:28)
[2020-10-16] MEDS: FERROUS GLUCONATE 324 MG TAB PO SCH ×2 (08:28→22:25)
[2020-10-16] MEDS: LINEZOLID 600MG TABLET (ZYVOX) PO SCH ×2 (08:28→22:26)
[2020-10-16] MEDS: LACTOBACILLUS ACIDOPHILUS CAP (BACID) PO SCH ×2 (08:28→17:52)
[2020-10-16] MEDS: PANTOPRAZOLE 40MG TAB (PROTONIX) PO SCH (08:29)
[2020-10-16] MEDS: METOPROLOL TART 50 MG TAB PO SCH ×2 (08:29→22:25)
[2020-10-16] MEDS: (RENVELA) SEVELAMER **CARBONate** 800 MG TAB PO SCH ×3 (08:29→17:52)
[2020-10-16] MEDS: ATORVASTATIN 20 MG TAB PO SCH (08:29)
[2020-10-16] MEDS: DOCUSATE SODIUM 100MG CAPSULE PO SCH ×2 (08:29→22:25)
[2020-10-16] MEDS: CINACALCET 30 MG TAB (SENSIPAR) PO SCH (08:29)
[2020-10-16] MEDS ORDERED: LINE1TAB6 PO (10:25)
[2020-10-16] MEDS ORDERED: LEVO500T3 PO (10:25)
--- NOTE | 2020-10-16 10:27 | IPN ---
NEPHROLOGY PROGRESS NOTE DATE: 10/15/2020 SUBJECTIVE: Patient is seen and examined at the bedside today morning. He is afebrile, hemodynamically stable. He was dialyzed yesterday. He tolerated the procedure well; 2.5 liters of fluid was removed. He also went to interventional radiology (IR) yesterday and he got another drain placed in the abscess collection in the abdomen. He continues to be on intravenous (IV) antibiotics. OBJECTIVE: VITAL SIGNS: Temperature 97.8 degrees Fahrenheit, blood pressure 144/82, pulse 81, respiratory rate 18, saturating 95% on room air. INTAKE AND OUTPUT: There is no urine output recorded. Weight in the bed scale is 89.4 kg. Ultrafiltration was 2.5 liters yesterday. PHYSICAL EXAMINATION: GENERAL: Patient is awake, alert, oriented times three, laying in bed in no apparent distress.. HEAD AND NECK EXAM: Extraocular muscles intact. Pupils equally round and reactive to light. Mucous membranes are moist. Neck is supple. There is no jugular venous distention (JVD). He has a right tunneled internal jugular (IJ) hemodialysis catheter. CARDIOVASCULAR: S1, S2. Regular rate. There is 1+ edema of the bilateral lower extremities. RESPIRATORY: Chest is clear to auscultation bilaterally. Bilateral equal air entry. No rales or rhonchi. ABDOMEN: Soft. Positive bowel sounds. Left lower quadrant colostomy was noted. He also has drains in the left lower quadrant of the abdomen. MUSCULOSKELETAL: No clubbing or cyanosis. Pulses are 2+. CENTRAL NERVOUS SYSTEM (PRISON GUARD): No focal deficits. Power is 5/5 in all extremities. LABORATORY REVIEW: CBC showed a WBC 8.9, hemoglobin 9.4, platelets 243. BMP showed sodium 135, potassium 4.4, chloride 102, bicarbonate 26, BUN 14, creatinine 4.4, albumin 2. IMAGING: Patient got another drain placed in the abdomen at persistent collection. CURRENT INPATIENT MEDICATIONS: Patient's medications were all reviewed by myself. He continues to be on intravenous (IV) Zosyn. No other significant change in the medications today. ASSESSMENT AND PLAN: 1. End-stage renal disease. Patient was dialyzed yesterday. Next hemodialysis will be done on Saturday morning. 2. Intraabdominal fluid collection. Patient has two drains now. He is currently on intravenous (IV) Zosyn. Doses are adjusted for his renal failure. 3. Hypertension. Blood pressure is controlled with the current regimen. 4. Anemia of end-stage renal disease. Patient is currently on Aranesp. Hemoglobin is stable and improving. 5. Secondary hyperparathyroidism. Continue current dose of Sensipar 30 mg by mouth daily.
[2020-10-16] MEDS: IRBESARTAN 150MG TAB PO SCH (10:56)
[2020-10-16] MEDS: minoxidiL 2.5 MG TAB PO SCH (10:57)
[2020-10-16 14:00] VITALS: BP 152/90
--- NOTE | 2020-10-16 15:39 | IPNPDOC ---
Text Note Date of Service The patient was seen on 10/16/20. NOTE SUBJECTIVE: Patient is reclined in bed when I entered the room today. He is awake and alert. He is anxious to go home at this time. He does not have any pain or shortness of breath at this time. No additional complaints. OBJECTIVE: PHYSICAL EXAMINATION: VS:: Please see below. CONSTITUTIONAL: NAD, resting in bed AAO x 3 EYES: PERRLA, EOM intact HENT, MOUTH: Normocephalic, atraumatic, moist mucous membranes, NC in place NECK: SUPPLE, no JVD, no lymphadenopathy, no carotid bruit CV: Regular rate and rhythm, S1S2 normal, no murmurs/rubs/gallops CHEST: Right side chest dialysis catheter in place RESPIRATORY: Clear to auscultation bilaterally, no rales/rhonchi/wheezes GI: Colostomy bag in LLQ, stoma appears pink, healthy. Two drains in LLQ with minimal serosanguineous fluid in bag at this time, it doesn't look like he has drained much since yesterday. BS positive in 4 quadrants, no distension, no guarding, no organomegaly MUSCULOSKELETAL: Normal ROM. No cyanosis, clubbing, swelling, joint deformity, +2 pitting lower extremity edema up to thighs INTEGUMENTARY: large substernal scar on chest, well healing with multiple scabs. Large vertical incision in abdomen, healing well. Intact, no rashes, no lesions, no erythema NEUROLOGIC: Cranial Nerves II-XII are intact, no focal deficits PSYCHIATRIC: Mood and affect are normal ASSESSMENT: 70-year-old male with past medical history of recent perforated diverticulitis status post exploratory laparotomy with sigmoid colectomy and formation of end colostomy 09/22/2020 (hospitalization ), CAD sta tus post CABG , ESRD on hemodialysis, diabetes type 2, GERD, hypertension, hyperlipidemia, EZEQUIEL on CPAP admitted to hospitalist service with surgery consulted for abdominal peritonitis, peritoneal abscess, sepsis. PLAN: Peritoneal abscess (4.5 x 3.9 x 8.9 cm) s/p CT drainage 10/10/20 with pigtail catheter placement, ? peritonitis with resolved sepsis -S/p recent hospitalization for perforated diverticulitis s/p ex lap, sigmoid colectomy and colostomy placement complicated by peritonitis. -WBC now within normal limits, afebrile, improving abd pain -BCx this admission NG to date -Per surgery, no surgery at this time. -C/w current diet -C/w Linezolid, Zosyn, tramadol, zofran PRN. -General surgery, ID following Hypoglycemia likely 2/2 to sepsis and decreased PO intake -resolved -Hx of DM type II on glimiperide, lantus HS at home -Continue regular diet -Dextrose PRN Shortness of breath likely 2/2 to CHF, bilateral pleural effusions L>R -No longer requiring oxygen, saturating well on room air -denies SOB, chest pain -Likely Hx of CHF with known CAD s/p CABG and s/s of fluid overload. -Fluid management with nephrology via HD . Not currently on diuretics, does not make much urine. Acute on chronic FADUMO -S/p1 unit PRBC 10/11/20 -Occult blood neg -C/w Iron supplementation -F/u Daily CBC HTN -BP continues to be elevated -Although improving, s/s of fluid overload still persist. Nephrology continues to try to remove as much fluid as safely possible via hemodialysis. Their input in this matter is greatly appreciated. -C/w Amlodipine, minoxidil, BB, ARB , HD on scheduled dates Acute on chronic physical deconditioning, weakness -PT recommending home with services -C/w PT/OT, hopefully home with services ESRD on HD -Persistent lower ext edema/swelling -Nephrology on consultation. CAD s/p CABG x 5 vessel -Denies symptoms -Recently completed at [facility] -C/w Atorvastatin, ASA 81, imdur, CCB, BB. DLP -C/w Atorvastatin and ASA 81 EZEQUIEL -Allow home CPAP use Chronic back pain - Moderate central spinal stenosis L2-L3, severe central spinal stenosis L3-L4 and L4-L5. Bulging annulus L5-S1 - tramadol, tylenol PRN GERD -PPI PO, sucralfate PO DVT prophylaxis -TEDs/Sequentials. Heparin SC DISPOSITION: Patient passed home safety eval with physical therapy today, plan is to discharge him tomorrow after dialysis. He will be sent home with levo floxacin 750 mg every 48 hours after dialysis, and linezolid 600 mg by mouth twice a day, both for 8 days. VS,Fishbone, I+O VS, Fishbone, I+O Laboratory Tests 10/16/20 06:41 Vital Signs Date Time Temp Pulse Resp B/P (MAP) Pulse Ox O2 Delivery O2 Flow Rate FiO2 10/16/20 14:00 98.2 77 20 152/90 (110) 98 Room Air 10/14/20 20:00 2.0 I&O- Last 24 Hours up to 6 AM 10/16/20 06:00 Intake Total 1490 ml Output Total 300 ml Balance 1190 ml ZEV JORGENSEN DO Oct 16, 2020 15:39
[2020-10-16 22:00] VITALS: BP 162/84
[2020-10-17] MEDS: PIPERACILLIN/TAZOBACTAM SOD 4.5 GM in D5W MINI-BAG PLUS 50 ML IV SCH (05:11)
[2020-10-17] MEDS: SLF 3 ML SYR IV SCH ×2 (05:13→14:00)
[2020-10-17 06:00] VITALS: BP 178/82
[2020-10-17 06:48] LABS: HEMATOCRIT 28.4 % (42.0-52.0); HEMOGLOBIN 9.4 g/dl (13.5-17.5); MEAN CORPUSCULAR HEMOGLOBIN 28.5 pg (27.0-33.0); MEAN CORPUSCULAR HGB CONC 33.1 g/dl (32.0-36.5); MEAN CORPUSCULAR VOLUME 86.1 fl (80.0-96.0); PLATELET COUNT, AUTOMATED 221 10^3/uL (150-450); WHITE BLOOD COUNT 8.6 10^3/uL (4.0-10.0)
[2020-10-17 07:39] LABS: CREATININE FOR GFR 6.6 MG/DL (0.70-1.30); PHOSPHORUS LEVEL 3.2 MG/DL (2.5-4.9); POTASSIUM SERUM 4.7 MEQ/L (3.5-5.1)
--- NOTE | 2020-10-17 08:42 | IPN ---
"PROGRESS NOTE DATE: 10/16/2020 SUBJECTIVE: The patient was seen and examined at the bedside today morning. He is afebrile, hemodynamically stable. Tomorrow is the patient's regular day of dialysis. He was cleared by physical therapy to be discharged home. He is currently on IV antibiotics. OBJECTIVE: VITAL SIGNS: Temperature 98.2 degrees Fahrenheit, blood pressure 152/90, pulse 77, respiratory rate 20, saturating 98% on room air. INTAKE AND OUTPUT: There is no urine output recorded. Weight in the bed scale is 89.4 kg. PHYSICAL EXAMINATION: GENERAL: Patient is awake, alert, oriented times three, lying in bed in no apparent distress.. HEAD AND NECK EXAM: Extraocular muscles intact. Pupils equally round and reactive to light. He has a right IJ tunneled hemodialysis catheter. CARDIOVASCULAR: S1, S2. Regular rate. No edema of the bilateral lower extremities. RESPIRATORY: Chest is clear to auscultation bilaterally. Bilateral equal air entry. No rales or rhonchi. ABDOMEN: Soft. He has a colostomy in the left lower quadrant. He also has two drains in that area and old surgical scars are visible. MUSCULOSKELETAL: No clubbing or cyanosis. Pulses are 2+. He has 2+ edema bilateral lower extremities. CENTRAL NERVOUS SYSTEM (FLOORWORKER): No focal deficits. Power is 5/5 in all extremities. LABORATORY REVIEW: CBC showed a WBC of 8.5, hemoglobin 9.2, platelets 230. BMP showed sodium 132, potassium 4.5, chloride 100, bicarbonate 21, BUN 20, creatinine 5.7, calcium 8.4, phosphorus 3.2, albumin 2. CURRENT INPATIENT MEDICATIONS: Patient's medications were all reviewed by myself. There is no significant change in the medications. He continues to be on oral Zyvox and IV Zosyn. ASSESSMENT AND PLAN: 1. End-stage renal disease. The patient's regular dialysis days are Saturday, Saturday, Saturday. He will be dialyzed tomorrow morning according to his regular schedule. 2. Intraabdominal fluid collection. He is currently on intravenous Zosyn and oral Zyvox, and as per Infectious Disease recommendations he will be discharged home on oral Levaquin once he is ready to be discharged along with oral Zyvox. 3. Hypertension. Blood pressure is controlled with the current dose of Amlodipine, Irbesartan, isosorbide and metoprolol along with minoxidil. Continue current regimen. 4. Anemia and end-stage renal disease. Hemoglobin level is 9.2 which is slightly suboptimal. However, the patient is receiving Aranesp at dialysis. 5. Secondary hyperparathyroidism. Continue current dose of Sensipar 30 mg by mouth daily. 6. Disposition: The patient is optimized from a Nephrology standpoint to be discharged home tomorrow. | MTDD"
[2020-10-17] MEDS: (RENVELA) SEVELAMER **CARBONate** 800 MG TAB PO SCH ×2 (09:15→12:29)
[2020-10-17] MEDS: CINACALCET 30 MG TAB (SENSIPAR) PO SCH (09:15)
[2020-10-17] MEDS: DOCUSATE SODIUM 100MG CAPSULE PO SCH (09:16)
[2020-10-17] MEDS: METOPROLOL TART 50 MG TAB PO SCH (09:16)
[2020-10-17] MEDS: ASPIRIN 81MG ENTERIC TABLET PO SCH (09:17)
[2020-10-17] MEDS: IRBESARTAN 150MG TAB PO SCH (09:17)
[2020-10-17] MEDS: FERROUS GLUCONATE 324 MG TAB PO SCH (09:17)
[2020-10-17] MEDS: ISOSORBIDE MON. (IMDUR) 30 MG XR TAB PO SCH (09:17)
[2020-10-17] MEDS: LINEZOLID 600MG TABLET (ZYVOX) PO SCH (09:17)
[2020-10-17] MEDS: PANTOPRAZOLE 40MG TAB (PROTONIX) PO SCH (09:18)
[2020-10-17] MEDS: LACTOBACILLUS ACIDOPHILUS CAP (BACID) PO SCH (09:18)
[2020-10-17] MEDS: ATORVASTATIN 20 MG TAB PO SCH (09:18)
[2020-10-17] MEDS: SUCRALFATE 1 GM TAB PO SCH ×2 (09:18→12:29)
[2020-10-17 09:19] VITALS: BP 168/86
[2020-10-17] MEDS: minoxidiL 2.5 MG TAB PO SCH (09:19)
--- NOTE | 2020-10-17 12:46 | IPNPDOC ---
Subjective CC/HPI The patient is a 70-year-old male admitted with a reason for visit of Abscess Peritoneal Peritonitis. Events since last encounter SUBJECTIVE: Mr. Dooley was seen and examined at the bedside this morning. He reports feeling somewhat tired and lethargic today. He did work with physical therapy and was found to need home with services. His abdominal drains continue to drain fluid that is light yellow. The plan for today is for him to be discharged to the outpatient dialysis center for his hemodialysis this afternoon. He denies any worsened abdominal pain, nausea/vomiting/diarrhea or any pain. OBJECTIVE: PHYSICAL EXAM: VITAL SIGNS: see below GENERAL: alert and oriented, in no apparent distress, pleasant and conversant in full sentences. HEENT: PERRL, EOMI, Oral mucous membranes are moist without lesions. NECK: The patient has no noted JVD. No adenopathy is appreciated. No thyromegaly CHEST/LUNGS: Lungs are clear bilaterally without rhonchi, rales, or wheezes. There is no subcutaneous air appreciated. There is no tenderness to the chest wall. HEART:Regular rate and rhythm. No murmurs, rubs, or gallops are appreciated. Distal pulses are 2+. No carotid bruits appreciated. ABDOMEN: Soft, nontender, and nondistended. Bowel sounds are positive. No organomegaly is appreciated. No masses are appreciated. There are no peritoneal signs. There is no Salineno sign. Abdominal drains (x2) are present, draining clear yellow urine. Colostomy bag is present in the left lower quadrant draining dark green liquid stool EXTREMITIES: No peripheral edema. There is no focal long bone tenderness or deformity. SKIN: The patients skin is warm and dry, without rashes or lesions. PSYCHIATRIC: AAO x 3, normal mood/affect NEUROLOGIC: No obvious focal deficits IMAGING: No new imaging This is a 70 YO M with history of ESRD on HD M/W/F, DM2, HTN, CAD, EZEQUIEL who presented with recent history peritonitis found to have perforated viscous s/p colon resection and now colostomy further complicated by intraabdominal fluid collection and worsened renal disease, now resolved. 1. ESRD on HD M/W/F: -Patient will be discharged to the outpatient dialysis center today for his dialysis. -No major electrolyte abnormalities this morning 2. Intraabdominal fluid collection s/p peritonitis: -s/p Zosyn and oral Zyvox, per ID -d/c home on oral Levaquin 3. HTN: -BP currently controlled on Amlodipine, Irbesartan, Isosorbide, Metoprolol and Minoxidil 4. Anemia of Chronic kidney disease: Hgb today 9.4 -Continue Aranesp with HD 5. Secondary hyperparathyroidism: -Continue Sensipar daily Disposition: Cleared from a Nephrology standpoint. Please have him follow up in the Nephrology clinic. Constitutional: Reports: Fatigue, Lethargy; Denies: Weight Loss Eyes: Denies: Pain, Vision change, Conjunctivae inflammation, Eyelid inflammation, Redness, Other ENT: Denies: Head Aches, Ear Pain, Dysphagia, Sinus Congestion, Post Nasal Drip, Sore Throat, Epistaxis, Other Symptoms Skin: Denies: Rash, Lesions, Jaundice, Bruising, Itching, Dry, Breakdown, Nail Changes, Other Pulmonary: Denies: Dyspnea, Cough, Pleuritic Chest Pain, Other Symptoms Cardiovascular: Reports: Edema; Denies: Chest Pain, Palpitations, Orthopnea, Paroxysmal Noc. Dyspnea, Lt Headedness, Other Symptoms Gastrointestinal: Denies: Nausea, Vomiting, Abdominal Pain, Diarrhea, Constipation, Melena, Hematochezia, Other Symptoms Genitourinary: Denies: Dysuria, Frequency, Incontinence, Hematuria, Retention, Other Symptoms Hematologic: Denies: Bruising, Bleeding Excessively, Petecchia, Purpura, Enlarged Lymph Nodes, Other Hematologic Endocrine: Denies: Polydipsia, Polyphagia, Polyuria, Heat Intolerance, Cold Intolerance, Other Endocrine Sx Musculoskeletal: Denies: Neck Pain, Back Pain, Shoulder Pain, Arm Pain, Hand P ain, Leg Pain, Foot Pain, Joint Pain, Muscle Pain, Spasms, Other Symptoms Neurological: Denies: Weakness, Numbness, Incoordination, Change in speech, Confusion, Seizures, Other Symptoms Psych: Denies: Mood Normal, Anxiety, Depression, Memory Issues, Thoughts of Self Harm, Anger, Thoughts of Harming Other, Other Psych VS, I&O, 24H, Fishbone Vital Signs/I&O Vital Signs Date Time Temp Pulse Resp B/P (MAP) Pulse Ox O2 Delivery O2 Flow Rate FiO2 10/17/20 09:19 168/86 10/17/20 09:18 86 10/17/20 06:00 98.0 18 97 Room Air 10/14/20 20:00 2.0 I&O- Last 24 Hours up to 6 AM 10/17/20 06:00 Intake Total 2700 ml Output Total 430 ml Balance 2270 ml Laboratory Data 24H LABS Laboratory Tests 2 10/16/20 16:38: Bedside Glucose (Misc Panel) 138H 10/16/20 19:32: Bedside Glucose (Misc Panel) 159H 10/17/20 05:54: Bedside Glucose (Misc Panel) 122H 10/17/20 06:23: Nucleated Red Blood Cells % (auto) 0.2H, Anion Gap 11, Glomerular Filtration Rate 9.0L, Calcium Level 8.0L, Phosphorus Level 3.2, Albumin 2.0L 10/17/20 11:27: Bedside Glucose (Misc Panel) 154H CBC/BMP Laboratory Tests 10/17/20 06:23 Microbiology Microbiology 10/14/20 Gram Stain - Final, Complete 10/14/20 Abscess Culture - Final, Complete Enterococcus Faecium (Vre) Yeast Like Organism 10/14/20 Anaerobic Culture - Final, Complete 10/11/20 Stool Occult Blood ([place]) - Final, Complete 10/10/20 Gram Stain - Final, Complete 10/10/20 Abscess Culture - Final, Complete 10/10/20 Anaerobic Culture - Final, Complete 10/08/20 Blood Culture - Final, Complete NO GROWTH AFTER 5 DAYS 10/08/20 Blood Culture - Final, Complete NO GROWTH AFTER 5 DAYS GME ATTESTATION GME ATTESTATION My faculty preceptor for this patient encounter was physically present during the encounter and was fully available. All aspects of the patient interview, examination, medical decision making process, and medical care plan development were reviewed and approved by the faculty preceptor. The faculty preceptor is aware and concurs with the plan as stated in the body of this note and will attest to such by his/her cosignature. Attending Note Attending Note Pt was seen with the resident today AM. one of the abdominal drains still draining, other one with no output. Afebrile and cleared PT. A/P ESRD on HD Recent Colostomy for colonic perforation, now with persistent abdominal fluid collection. Anemia in ESRD Sec Hyperparathyroidism Colostomy Status cont oral abx on DC. HD as outpatient in the evening today. Follow up with surgery as outpatient. AMBREEN adjustment as per protocol during HD rounds. NAKUL HERNANDEZ MD Oct 17, 2020 12:36 FREDDIE CHAMBERS MD Oct 17, 2020 20:20
[2020-10-17 14:00] VITALS: BP 148/83
--- NOTE | 2020-10-17 19:32 | DS.PDOC ---
Discharge Summary General Date of Admission Oct 08, 2020 at 13:16 Date of Discharge 10/17/2020 Discharge Summary PRIMARY CARE PHYSICIAN: Laureen DOUGLASS ATTENDING AT TIME OF DISCHARGE: Dr. Robert Jorgensen, DO DISCHARGE DIAGNOS(E)S: Peritonitis Peritoneal abscess Sepsis Hypoglycemia Hypertensive urgency Pleural effusion Iron deficiency anemia End-stage renal disease on hemodialysis Diabetes mellitus type 2 GERD Hypertension Hyperlipidemia Obstructive sleep apnea on chronic CPAP Lobular liver Benign prostatic hyperplasia Constipation Colonic diverticulosis Spinal stenosis with chronic back pain HPI & HOSPITAL COURSE: The patient was recently hospitalized for perforated diverticulitis status post exploratory laparotomy with sigmoid colectomy and formation of end colostomy, went home for only 2-3 days, and then return back to the hospital for this admission because of increasing abdominal pain and hyperglycemia. Upon admission a CT scan of the abdomen and pelvis showed mild diffuse ascites, diffuse peritonitis, and they peritoneal abscess which was increased in size when compared to prior CT scan. A CT-guided drain was placed in his peritoneal abscess, and his peritonitis was treated with levofloxacin, Flagyl, linezolid, which was later switched over to linezolid and Zosyn by infectious disease. Blood cultures were negative during this admission. An ultrasound was ordered to confirm if there were residual abscess in the location of the drain, and in fact there was, therefore a second drain was placed, and this did drain for the subsequent few days. This drainage has now slowed down. The patient's white count trended down and has been normal for the past few days. He has been afebrile this entire admission. Initially the abscess drainage was found to be sterile with no growth. On placement of the second drain was found that he has multidrug resistant enterococcus faecium (VRE) that is only sensitive to linezolid. Patient continued to receive hemodialysis 3 times a week under the guidance of nephrology He has now passed the physical therapy home safety eval, and has been stable medically for the past few days. He does appear stable for discharge at this time. PHYSICAL EXAMINATION ON DISCHARGE: GENERAL: Awake, alert, oriented 3. He is in no acute distress at this time. CARDIOVASCULAR EXAMINATION: Regular rate and rhythm, with no rubs, gallops, or murmur. RESPIRATORY EXAMINATION: Clear to auscultation bilaterally with no wheezes, rales, or rhonchi. ABDOMINAL EXAMINATION: Soft, nontender, nondistended. Bowel sounds present. EXTREMITIES: No clubbing or edema noted. 2+ pulses in the radial bilaterally. DISPOSITION: Home with services DISCHARGE INSTRUCTIONS: Follow-up with surgical team within 7-10 days for reevaluation of drain some, and possible removal. Follow-up with his [employer] scoreboard operator at dialysis this afternoon. Recommend renal diet. Activity as tolerated. If symptoms return, or if you experience worsening of your symptoms, please call your doctor or return to the emergency department. Vital Signs/I&Os Vital Signs Date Time Temp Pulse Resp B/P (MAP) Pulse Ox O2 Delivery O2 Flow Rate FiO2 10/17/20 14:00 97.9 73 16 148/83 (104) 96 Room Air 10/14/20 20:00 2.0 I&O- Last 24 Hours up to 6 AM 10/17/20 05:59 Intake Total 2400 ml Output Total 430 ml Balance 1970 ml Laboratory Data Labs 24H Laboratory Tests 2 10/17/20 05:54: Bedside Glucose (Misc Panel) 122H 10/17/20 06:23: Nucleated Red Blood Cells % (auto) 0.2H, Anion Gap 11, Glomerular Filtration Rate 9.0L, Calcium Level 8.0L, Phosphorus Level 3.2, Albumin 2.0L 10/17/20 11:27: Bedside Glucose (Misc Panel) 154H CBC/BMP Laboratory Tests 10/17/20 06:23 FSBS Laboratory Tests Test 10/17/20 05:54 10/17/20 11:27 Range/Units Bedside Glucose (Misc Panel) 122 154 80-115 MG/DL Microbiology Microbiology 10/14/20 Gram Stain - Final, Complete 10/14/20 Abscess Culture - Final, Complete Enterococcus Faecium (Vre) Yeast Like Organism 10/14/20 Anaerobic Culture - Final, Complete 10/11/20 Stool Occult Blood ([place]) - Final, Complete 10/10/20 Gram Stain - Final, Complete 10/10/20 Abscess Culture - Final, Complete 10/10/20 Anaerobic Culture - Final, Complete 10/08/20 Blood Culture - Final, Complete NO GROWTH AFTER 5 DAYS 10/08/20 Blood Culture - Final, Complete NO GROWTH AFTER 5 DAYS Discharge Medications Scheduled Amlodipine Besylate (Amlodipine Besylate) 10 Mg Tablet, 10 MG PO DAILY, (Reported) Aspirin (Aspirin EC) 81 Mg Tablet.dr, 81 MG PO DAILY, (Reported) Atorvastatin Calcium (Atorvastatin Calcium) 80 Mg Tablet, 80 MG PO DAILY, (Reported) Cinacalcet (Sensipar) 30 Mg Tablet, 30 MG PO DAILY, (Reported) Docusate Sodium (Dok) 100 Mg Capsule, 100 MG PO BID, (Reported) Ergocalciferol (Vitamin D2) (Vitamin D2) 50,000 Units Cap, 50,000 UNITS PO Q2WK, (Reported) TAKES ON FRIDAYS Ferrous Gluconate (Ferrous Gluconate) 324 Mg Tablet, 324 MG PO BID, (Reported) Glimepiride (Glimepiride) 4 Mg Tablet, 4 MG PO BID, (Reported) Insulin Glargine,Hum.rec.anlog (Lantus Solostar) 100 Unit/Ml Inj, 18 UNITS SC QHS, (Reported) IF NEEDED DUE TO DIALYSIS Irbesartan (Irbesartan) 300 Mg Tablet, 300 MG PO DAILY, (Reported) Isosorbide Mononitrate (Isosorbide Mononitrate ER) 30 Mg Tab.er.24h, 60 MG PO BI D, (Reported) L.acidoph/L.bulg/B.bif/S.therm (Ave-Bid Caplet) 1 Each Tablet, 1 TAB PO BIDWM, (Reported) Levofloxacin (Levofloxacin) 500 Mg Tablet, 500 MG PO Q2D Take after Dialysis Linezolid (Linezolid) 600 Mg Tablet, 600 MG PO BID On dialysis days: Take second dose after dialysis Loratadine (Loratadine) 10 Mg Tablet, 10 MG PO Q2D, (Reported) Metoprolol Tartrate (Lopressor) 50 Mg Tablet, 50 MG PO BID, (Reported) Minoxidil (Minoxidil) 2.5 Mg Tablet, 5 MG PO DAILY, (Reported) Pantoprazole Sodium (Pantoprazole Sodium) 40 Mg Tablet.dr, 40 MG PO DAILY, (R eported) Patiromer Calcium Sorbitex (Veltassa) 8.4 Gm Powd.pack, 8.4 GM PO DAILY, (Reported) Sevelamer Carbonate (Renvela) 800 Mg Tab, 800 MG PO TID, (Reported) WITH MEALS Sucralfate (Sucralfate) 1 Gm Tablet, 1 GM PO ACHS, (Reported) Vit A/Vit C/Vit E/Zinc/Copper (Preservision Areds Softgel) 1 Each Capsule, 1 CAP PO DAILY, (Reported) Scheduled PRN Oxycodone HCl/Acetaminophen (Oxycodone-Acetaminophen 5-325) 1 Each Tablet, 1 TAB PO Q4H PRN for PAIN, (Reported) Polyethylene Glycol 3350 (Polyethylene Glycol 3350) 17 Gm Powd.pack, 17 GM PO BID PRN for CONSTIPATION, (Reported) Sennosides/Docusate Sodium (Senna Plus Tablet) 1 Each Tablet, 2 TAB PO BID PRN for CONSTIPATION, (Reported) Allergies Coded Allergies: codeine (Verified Adverse Reaction, Mild, SKIN CRAWLS, 07/03/19) ROBERT JORGENSEN DO Oct 17, 2020 19:32
== END 2020-10-17 15:50 | disposition home health service (06) | DRG 871 ==
LOC: EDBD 10:39 → M ED 10:39 → EDSEX 10:39 → M ED INP 13:16 → ENRESERV 14:17 → M PCU 15:15 → M ICU 10-09 07:14 → M PCU 10-12 07:38 → M MS5PR 10-15 16:24
PROVIDERS: ADMIT Internal Medicine; ATTEND Neuromusculoskeletal Medicine & OMM
PROC: 30233N1 Transfusion of Nonautologous Red Blood Cells into Peripheral Vein, Percutaneous Approach (ICD-10-PCS; 2020-10-08)
PROC: 0W9G30Z Drainage of Peritoneal Cavity with Drainage Device, Percutaneous Approach (ICD-10-PCS; 2020-10-10)
PROC: 5A1D70Z Performance of Urinary Filtration, Intermittent, Less than 6 Hours Per Day (ICD-10-PCS; principal; 2020-10-10 15:00)
PROC: 0W9G30Z Drainage of Peritoneal Cavity with Drainage Device, Percutaneous Approach (ICD-10-PCS; 2020-10-14)
DX: A41.9 Sepsis, unspecified organism (principal); K65.1 Peritoneal abscess; N18.6 End stage renal disease; J90 Pleural effusion, not elsewhere classified; E87.1 Hypo-osmolality and hyponatremia; N25.81 Secondary hyperparathyroidism of renal origin; I12.0 Hypertensive chronic kidney disease with stage 5 chronic kidney disease or end stage renal disease; I25.10 Atherosclerotic heart disease of native coronary artery without angina pectoris; E11.22 Type 2 diabetes mellitus with diabetic chronic kidney disease; K21.9 Gastro-esophageal reflux disease without esophagitis; E78.5 Hyperlipidemia, unspecified; G47.33 Obstructive sleep apnea (adult) (pediatric); M48.061 Spinal stenosis, lumbar region without neurogenic claudication; E11.649 Type 2 diabetes mellitus with hypoglycemia without coma; I16.0 Hypertensive urgency; D63.1 Anemia in chronic kidney disease; K59.00 Constipation, unspecified; Z95.1 Presence of aortocoronary bypass graft; Z99.2 Dependence on renal dialysis; Z20.822 Contact with and (suspected) exposure to COVID-19; Z90.49 Acquired absence of other specified parts of digestive tract; Z87.891 Personal history of nicotine dependence; Z93.3 Colostomy status; Z79.4 Long term (current) use of insulin; Z79.82 Long term (current) use of aspirin; Z79.899 Other long term (current) drug therapy; Z88.5 Allergy status to narcotic agent

== ENCOUNTER → 2020-10-21 | Outpatient (CLI) | payer MEDICARE, OTHER ==
[~2020-10-21] MED LIST changes: +ASPI81TA26 PO; +METR-265 PO; +PANT-23 PO; +POLY1POW38 PO; +SUCR1TAB56 PO
--- NOTE | 2020-10-21 14:19 | REP ---
INDICATION: EDEMA. COMPARISON: Portable chest dated 10/11/2020. TECHNIQUE: Upright PA and lateral chest. FINDINGS: There are bilateral pleural effusions, not significantly changed. The lung lo are otherwise clear. The cardiac margins are obscured, cardiac size cannot be determined. Sternotomy wires and right IJ dual lumen central venous catheter are again identified, unchanged. IMPRESSION: There is no significant interval change. <Electronically signed by Robert Chowdary > 10/21/20 [id number]
== END ==
LOC: M ADAMS 12:52
PROVIDERS: ATTEND Family Medicine
DX: J90 Pleural effusion, not elsewhere classified (principal); R60.9 Edema, unspecified
CPT/HCPCS: 71046; G0463

== ENCOUNTER → 2020-10-25 | Outpatient (CLI) | payer MEDICARE, OTHER ==
--- NOTE | 2020-10-25 17:29 | REP ---
INDICATION: LOCALIZED EDEMA, US 1ST THEN LABS COMPARISON: None. TECHNIQUE: Real time compression and duplex Doppler interrogation of the bilateral lower extremity deep venous system is performed. FINDINGS: Bilaterally, the common femoral, superficial femoral and popliteal veins are fully compressible with transducer pressure and demonstrate normal spontaneous and phasic flow, without evidence of deep venous thrombosis. IMPRESSION: No evidence of deep venous thrombosis of the bilateral lower extremity femoral popliteal venous system. <Electronically signed by Robert Adames > 10/25/20 [id number]
== END ==
LOC: M RAD 16:46
PROVIDERS: ATTEND Physician Assistant
DX: R60.0 Localized edema (principal); K57.30 Diverticulosis of large intestine without perforation or abscess without bleeding

== ENCOUNTER → 2020-10-25 | Outpatient (CLI) | payer MEDICARE, OTHER ==
[2020-10-25 18:33] LABS: BASO # 0.1 10^3/uL (0.0-0.2); BASO % 0.7 % (0.0-1.0); EOS # 0.3 10^3/uL (0.0-0.5); HEMATOCRIT 27.2 % (42.0-52.0); HEMOGLOBIN 8.6 g/dl (13.5-17.5); LYMPH # 0.6 10^3/uL (1.5-5.0); MEAN CORPUSCULAR HEMOGLOBIN 27.8 pg (27.0-33.0); MEAN CORPUSCULAR HGB CONC 31.6 g/dl (32.0-36.5); MONO # 1.1 10^3/uL (0.0-0.8); MONO % 13.5 % (2.0-8.0); NEUTROPHILS # 6.1 10^3/uL (1.5-8.5); NEUTROPHILS % 73.8 % (36.0-66.0); PLATELET COUNT, AUTOMATED 108 10^3/uL (150-450); RED BLOOD COUNT 3.09 10^6/uL (4.30-6.10); WHITE BLOOD COUNT 8.3 10^3/uL (4.0-10.0)
== END ==
LOC: M LAB 16:50
PROVIDERS: ATTEND Surgery
DX: K57.30 Diverticulosis of large intestine without perforation or abscess without bleeding (principal)

== ENCOUNTER → 2020-12-08 | Outpatient (REF) | payer MEDICARE, OTHER | LOC: M SFHCADAM 13:42 | PROVIDERS: ATTEND Physician Assistant Medical | DX: R97.20 Elevated prostate specific antigen [PSA] (principal) ==

== ENCOUNTER → 2020-12-22 | Outpatient (CLI) | payer MEDICARE, OTHER | LOC: M LAB 14:55 | PROVIDERS: ATTEND Internal Medicine Nephrology | DX: N18.6 End stage renal disease (principal); D63.1 Anemia in chronic kidney disease ==

== ENCOUNTER 2020-12-23 06:58 | Outpatient (CLI) | payer MEDICARE, OTHER ==
[2020-12-23] VITALS (11 sets, daily range): BP systolic 136–232; BP diastolic 80–107
[~2020-12-23] VITALS: Ht 172.7 cm; Wt 89.4 kg
[2020-12-23] MEDS ORDERED: diphenhydrAMINE 25MG CAP PO SCH (07:00)
[2020-12-23] MEDS ORDERED: ACETAMINOPHEN 325 MG TAB PO ONE (07:00)
[2020-12-23] MEDS ORDERED: FUROSEMIDE 40MG/4ML VIAL (J1940) IV ONE (13:00)
[2020-12-23] MEDS ORDERED: **hydrALAZINE** 50 MG TAB PO ONE (14:00)
== END 2020-12-23 15:30 | disposition home or self-care (01) ==
LOC: M INFU 06:58
PROVIDERS: ATTEND Internal Medicine Nephrology
DX: D64.9 Anemia, unspecified (principal); Z88.6 Allergy status to analgesic agent
CPT/HCPCS: 36430; 96374; J1940; P9016

== ENCOUNTER 2021-02-13 08:00 | Inpatient (IN) | payer MEDICARE, OTHER ==
[~2021-02-13] VITALS: Ht 172.7 cm; Wt 82.0 kg
[~2021-02-13 08:00] MED LIST changes: +ERGO500029 PO; -VITA50005 PO
[2021-02-13] MEDS ORDERED: ASPIRIN 81 MG CHEW TABLET PO ONE (08:50)
[2021-02-13] MEDS: NITROGLYCERIN 0.4 MG SUBL TABLET SL PRN ×3 (08:56→09:20)
[2021-02-13] MEDS ORDERED: GI COCKTAIL 50ML BTL(HYOSCYAMINE/MAALOX/LIDOCAINE VISCOUS)(1:3:1) PO ONE (09:05)
[2021-02-13 09:29] LABS: INR 0.97; PROTHROMBIN TIME 13.3 SECONDS (12.7-14.5)
[2021-02-13 09:30] LABS: PARTIAL THROMBOPLASTIN TIME 37.2 SECONDS (25.9-37.0)
[2021-02-13 09:33] LABS: BASO # 0.1 10^3/uL (0.0-0.2); BASO % 0.5 % (0.0-1.0); EOS # 0.5 10^3/uL (0.0-0.5); EOS % 3.7 % (0.0-3.0); HEMOGLOBIN 12.2 g/dl (13.5-17.5); LYMPH # 0.8 10^3/uL (1.5-5.0); LYMPH % 6.2 % (24.0-44.0); MEAN CORPUSCULAR HEMOGLOBIN 29.1 pg (27.0-33.0); MEAN CORPUSCULAR HGB CONC 32.1 g/dl (32.0-36.5); MEAN CORPUSCULAR VOLUME 90.7 fl (80.0-96.0); MONO % 7.3 % (2.0-8.0); NEUTROPHILS # 10.6 10^3/uL (1.5-8.5); NEUTROPHILS % 81.6 % (36.0-66.0); PLATELET COUNT, AUTOMATED 218 10^3/uL (150-450); RED BLOOD COUNT 4.19 10^6/uL (4.30-6.10)
[2021-02-13 09:40] LABS: CALCIUM LEVEL 10.4 MG/DL (8.8-10.2); CREATININE FOR GFR 8.56 MG/DL (0.70-1.30); GLOMERULAR FILTRATION RATE 6.6 (>49); POTASSIUM SERUM 6.4 MEQ/L (3.5-5.1)
[2021-02-13] MEDS ORDERED: DEXTROSE 50% 50 ML SYRINGE IV STA (09:44)
[2021-02-13 09:45] LABS: ALBUMIN 4.2 GM/DL (3.2-5.2); BILIRUBIN,DIRECT 0.2 MG/DL (0.0-0.2); BILIRUBIN,TOTAL 0.5 MG/DL (0.2-1.0); THYROID STIMULATING HORMONE 3.46 uIU/ML (0.358-3.740); TOTAL PROTEIN 7.3 GM/DL (6.4-8.2)
[2021-02-13] MEDS ORDERED: CALCIUM GLUCONATE 1,000 MG in D5W MINI-BAG PLUS 100 ML IV ONE (09:45)
[2021-02-13] MEDS ORDERED: IPRATROPIUM 0.5MG/ALBUTEROL 2.5MG INH SOL UD 3ML (DUONEB) NEB ONE (09:45)
[2021-02-13] MEDS ORDERED: SOD POLYSTYRENE SULFONATE SUSP 15 GM/60 ML UD PO ONE (09:45)
[2021-02-13] MEDS ORDERED: HumuLIN R (REGULAR) INSULIN (NovoLIN R) **100U/ML** PER UNIT IV ONE (09:45)
[2021-02-13] MEDS ORDERED: ISOVUE-370 76% 100ML VIAL As Ordered ONE (10:06)
--- NOTE | 2021-02-13 10:14 | REP ---
INDICATION: CHEST PAIN. COMPARISON: 10/21/2020 as well as other prior exams. TECHNIQUE: Single portable AP view of the chest was performed. FINDINGS: The previously noted left pleural effusion has significantly improved, with possibly mild residual left pleural fluid or thickening. There is mild patchy atelectasis or infiltrate in the left lung base. There is no definite infiltrate in the right lung. The heart is upper limits of normal in size. There is calcification of the thoracic aorta. The mediastinal silhouette is unchanged. There are multiple sternal wires present. There is a right MediPort catheter with the tip in the superior vena cava. IMPRESSION: Improved left pleural effusion with possibly mild residual. There is mild patchy atelectasis or infiltrate left lung base. <Electronically signed by Robert Adames > 02/13/21 [id number]
[2021-02-13] MEDS ORDERED: FUROSEMIDE 100MG/10ML VIAL (J1940) IV ONE (10:15)
--- NOTE | 2021-02-13 11:12 | REP ---
INDICATION: chest/abd pain - hemodialysis pt;due today;will call [facility]. COMPARISON: 09/18/2020. TECHNIQUE: CT angiogram chest performed following the intravenous administration of 100 cc of Isovue 370. Sagittal and coronal reconstruction images are performed. FINDINGS: Lungs: There are scattered interstitial fibrotic changes bilaterally. There is mild patchy atelectasis or infiltrate in the left lower lobe. This has mildly improved since the prior exam. Mediastinum: No adenopathy. Pulmonary arteries: No evidence of pulmonary embolism. [place]aly: No adenopathy. Axilla: No adenopathy. Pleura: There is a mild to moderate left pleural effusion. This has slightly increased since the prior study. There is a tiny right effusion. Heart: Not enlarged. Thoracic aorta: No aneurysm or dissection. Visualized osseous structures: There are degenerative changes of the spine without compression deformity. Multiple sternal wires are present. There is an old left rib fracture. There is bilateral gynecomastia. IMPRESSION: No CT evidence of pulmonary embolism. Mild patchy atelectasis or infiltrate left lower lobe has mildly improved since the prior exam. Mild to moderate left pleural effusions slightly increased since the prior exam. Tiny right effusion. <Electronically signed by Robert Adames > 02/13/21 [id number]
--- NOTE | 2021-02-13 11:25 | REP ---
INDICATION: chest/abd pain - hemodialysis pt;due today;will call [facility] COMPARISON: 10/08/2020. TECHNIQUE: CT Scan of the abdomen and pelvis was performed with intravenous administration of 100 cc of Isovue 370, without oral contrast. Sagittal and coronal reconstruction images are performed. FINDINGS: Liver: Normal Gallbladder: Grossly unremarkable. Spleen: Normal. Adrenals: Normal. Pancreas: Normal. Kidneys: There are multiple bilateral renal cysts and bilateral renal atrophy. There is no hydronephrosis bilaterally. Small and large bowel: There is colostomy again noted just to the left of midline at the level of the pelvis. Free fluid: There is mild perihepatic fluid.. Abdominal aorta: No aneurysm or dissection. Adenopathy: None. Appendix: Prior appendectomy. Osseous structures: There are degenerative changes of the spine without compression deformity. Pelvis: No mass. IMPRESSION: Mild perihepatic fluid. No acute findings. <Electronically signed by Robert Adames > 02/13/21 [id number]
[2021-02-13 12:37] LABS: CREATININE FOR GFR 8.93 MG/DL (0.70-1.30); GLOMERULAR FILTRATION RATE 6.3 (>49); POTASSIUM SERUM 6.6 MEQ/L (3.5-5.1)
[2021-02-13] MEDS ORDERED: GLIP5TAB20 PO (13:14)
[2021-02-13] MEDS ORDERED: METO200T28 PO (13:14)
[2021-02-13] MEDS ORDERED: TOBR0.3S37 OU (13:14)
[2021-02-13] MEDS ORDERED: PANT40TA29 PO (13:14)
[2021-02-13] MEDS ORDERED: MINO10TA PO (13:14)
[2021-02-13] MEDS ORDERED: ONDA4TAB6 PO (13:14)
[2021-02-13] MEDS ORDERED: ACUL0.5S OU (13:14)
[2021-02-13] MEDS ORDERED: PREDOPD OU (13:14)
--- NOTE | 2021-02-13 13:19 | CR ---
CONSULTATION DATE: 02/13/2021 REFERRING PHYSICIAN: Dr. Adames REASON FOR CONSULTATION: Hyperkalemia in this gentleman with end-stage renal disease. HISTORY OF PRESENT ILLNESS: Mr. Dooley is a 70-year-old gentleman with known history of end-stage renal disease, coronary artery disease artery, status post CABG recently, history of diverticulitis with diverticular rupture, status post colon resection and colostomy. He also has longstanding hypertension and diabetes. The patient presented to emergency room this morning with chest pain and also some abdominal discomfort. He was found to hyperkalemia with potassium level 6.4. The patient is due for dialysis today. I was called about potential need for a CT angiogram and dialysis. He already had a CT angiogram done after our telephone conversation and it did not show any pulmonary embolus. His initial troponin was negative and a repeat troponin has also come back negative at 0.02. The patient is seen in the emergency room he is likely to be admitted for further management of his problems and need for dialysis. PAST MEDICAL AND SURGICAL HISTORY: 1. Hypertension. 2. Diabetes. 3. Coronary artery disease, status post CABG. 4. End-stage renal disease, currently on hemodialysis. 5. History of obstructive sleep apnea. 6. History of gastroesophageal reflux disease. 7. History of diverticulitis with diverticular rupture, status post colon resection and colostomy. 8. History of spinal stenosis. 9. History of BPH. 10. Anemia. 11. Hyperlipidemia. PAST SURGICAL HISTORY: 1. Coronary artery bypass surgery. 2. History of hiatal hernia repair. 3. History of appendectomy. 4. History of peritoneal dialysis catheter placement and removal. 5. History of colon resection and colostomy. HOME MEDICATIONS: 1. Amlodipine 10 mg daily. 2. Aspirin 81 mg daily. 3. Atorvastatin 80 mg daily. 4. Cinacalcet 30 mg daily. 5. Colace 100 mg b.i.d. 6. Vitamin D 50,000 units once every two weeks. 7. Ferrous gluconate 324 mg b.i.d. 8. Lantus insulin 18 units daily. 9. Humalog insulin per sliding scale. 10. Irbesartan 300 mg daily. 11. Isosorbide 60 mg b.i.d. 12. Loratadine 10 mg as needed for allergies. 13. Metoprolol 50 mg b.i.d. 14. Carafate 1 gm four times a day. 15. Multivitamin one tablet daily. ALLERGIES: he has allergY TO CODEINE. PERSONAL AND SOCIAL HISTORY: Patient is , He lives by himself now. Denies any alcohol or drug use. FAMILY HISTORY: Noncontributory. REVIEW OF SYSTEMS: Patient denies any fever or chills. Ears, nose and throat are unremarkable. Cardiovascular system: As per history of present illness. He presented with upper chest pain this morning and shortness of breath. CT angiogram was negative for pulmonary embolus and troponin has been negative x2. He was given nitroglycerin and chest pain has improved. Respiratory system is significant for obstructive sleep apnea. He denies any cough or hemoptysis. GI system is significant for gastroesophageal reflux disease. He denies any vomiting. His colostomy has been functioning well. system is negative for dysuria or hematuria. Musculoskeletal system is negative for leg edema. He denies any recent acute gout attacks. Endocrine system is significant for type 2 diabetes and secondary hyperparathyroidism. Hematological system is significant for anemia of chronic kidney disease. He is not on any long-term anticoagulation. Neurological system is negative for seizures or stroke. PHYSICAL EXAM: Temperature 98 degrees Fahrenheit, heart is 54 per minute and respiratory rate 18 per minute. Blood pressure 196/89 mmHg and oxygen saturation 100%. Head is atraumatic. Neck: Supple and JVD not abnormally elevated. There are no oral thrush ulcers. Heart sounds are regular and lung sounds clear to auscultation. He had a Permacath present in his right internal jugular vein. Abdomen is soft and bowel sounds are normal. Colostomy is functioning. Extremities without any cyanosis or clubbing. Neurologically he is awake, alert and at his baseline mentation. LABORATORY DATA: WBC count 13.0, hemoglobin 12.2 and hematocrit 38.0. Platelets 218. Sodium 130, potassium 6.4, CO2 26, chloride 94, BUN 72 and creatinine 8.56. Glucose 120 and calcium 10.4. proBNP level is 16, 687. INR 0.97. CT angiogram negative for any pulmonary embolus. CT scan of abdomen and pelvis is also negative for any significant abnormality. His colostomy is functioning. Chest x-ray done in the emergency room did show improved left pleural effusion, mild patchy atelectasis or infiltrated, left lung base. PROBLEMS: 1. Hyperkalemia and this is related to dietary noncompliance in the setting of end-stage renal disease. We will arrange for dialysis as soon as a decision about his admission is made. We will dialyze him with 1.0 mEq potassium bath and that will correct his hyperkalemia. 2. End-stage renal disease. The patient is due for his regular dialysis treatment today and we will make arrangements for dialysis in the hospital. 3. Hypertension. His blood pressure is high today, most likely related to chest pain and not taking his morning dose of medications. Generally, his blood pressure has been well controlled on current medications and I would recommend to resume all his home medications. 4. Congestive heart failure. He does have elevated BNP level and probably mildly volume overloaded. Chest x-ray did not show any significant congestion or pleural effusion. We will remove about two liters of fluid and then we will have to correct his BNP level. Thank you for involving me in the care of Mr. Dooley. I will follow him here in the hospital.
--- NOTE | 2021-02-13 13:25 | REP ---
INDICATION: elev lfts, abnormal ct. COMPARISON: None. TECHNIQUE: Real-time sonographic evaluation of right upper quadrant performed. FINDINGS: The gallbladder demonstrates no evidence of intraluminal sludge or calculi, or pericholecystic fluid. There is diffuse gallbladder wall thickening up to 6 mm. There is no intrahepatic or extrahepatic biliary dilatation, common bile duct measures 4 mm in maximum diameter. The liver demonstrates homogeneous echotexture with no gross mass. The pancreas is not well visualized due to overlying bowel gas. The right kidney demonstrates no hydronephrosis, with a normal size of 10.2 cm in length. Multiple renal cysts are present, the largest is in the mid aspect laterally 5.9 x 4.8 x 4.2 cmno free fluid is seen. IMPRESSION: Diffuse gallbladder wall thickening without evidence of gallstones. No free fluid visualized. No biliary dilatation. Multiple right renal cysts. <Electronically signed by Robert Adames > 02/13/21 [id number]
[2021-02-13 13:40] LABS: RSV AMPLIFICATION NEGATIVE (NEGATIVE)
[2021-02-13] MEDS ORDERED: ASPI325T57 PO (14:04)
[2021-02-13] MEDS ORDERED: ISOS1TAB35 PO (14:39)
[2021-02-13] MEDS ORDERED: ASPI81TA26 PO (14:39)
[2021-02-13] MEDS ORDERED: HOME MED LIST COMPLETE! XX SCH (14:45)
[2021-02-13] MEDS ORDERED: GLUCOSE 4GM CHEW TABLET PO PRN (15:00)
[2021-02-13] MEDS ORDERED: GLUCAGON INJ 1MG VIAL SC PRN (15:00)
[2021-02-13] MEDS ORDERED: MIRALAX *UNIT DOSE* 17GM PACKET PO PRN (15:00)
[2021-02-13] MEDS ORDERED: DEXTROSE 50% 50 ML SYRINGE IV PRN (15:00)
[2021-02-13] MEDS ORDERED: PILL CUTTER 1 EACH XX PRN (15:35)
--- NOTE | 2021-02-13 16:14 | HPEPDOC ---
General Date of Admission Feb 13, 2021 at 12:15 Date of Service: Feb 13, 2021 Chief Complaint The patient is a 70-year-old male admitted with a reason for visit of Esrd,Fluid Overload,Hyperkalemia. History of Present Illness Mr. 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 Around 1AM, he woke up with substernal chest discomfort. It progressively worsened and peaked at 5AM. It was a chest pressure that felt heavy. Rated 7/10. Worse with breathing. Activity and rest did not affect the pressure. He came to the ED for evaluation. He was given full dose aspirin and Troponin was negative x2. Otherwise, while here, he was initially hypertensive with SBP in the 200s and lab work was significant for a potassium of 6.4 and creatinine of 8.56. EKG had peaked T-waves, so he was given calcium gluconate and insulin and glucose. He was also given Lasix and Kayexalate. Repeat potassium was still elevated at 6.6. Patient denies eating anything different or eating foods high in potassium such as bananas, potatoes, or spinach. Later on, it was found out he was drinking milk and eating peanut butter. ED provider contacted nephrology, Dr. Ortiz, who will take the patient to dialysis right away. Patient will be admitted for hyperkalemia and fluid overload. Home Medications Scheduled Amlodipine Besylate (Amlodipine Besylate) 10 Mg Tablet, 10 MG PO DAILY, (Reported) Aspirin (Aspirin EC) 81 Mg Tablet.dr, 81 MG PO DAILY, (Reported) Atorvastatin Calcium (Atorvastatin Calcium) 80 Mg Tablet, 80 MG PO DAILY, (Reported) Cinacalcet (Sensipar) 30 Mg Tablet, 30 MG PO DAILY, (Reported) Docusate Sodium (Dok) 100 Mg Capsule, 100 MG PO BID, (Reported) Ferrous Gluconate (Ferrous Gluconate) 324 Mg Tablet, 324 MG PO BID, (Reported) Glipizide (Glipizide ER) 5 Mg Tab.er.24, 5 MG PO DAILY, (Reported) Insulin Glargine,Hum.rec.anlog (Lantus Solostar) 100 Unit/Ml Inj, 18 UNITS SC QHS, (Reported) IF NEEDED DUE TO DIALYSIS Irbesartan (Irbesartan) 300 Mg Tablet, 300 MG PO DAILY, (Reported) Isosorbide Mononitrate (Isosorbide Mononitrate ER) 30 Mg Tab.er.24h, 60 MG PO 4XWK, (Reported) 60 MG PO BID ON , , SAT, SAT Isosorbide Mononitrate (Isosorbide Mononitrate ER) 30 Mg Tab.er.24h, 30 MG PO 3XW, (Reported) 30 MG PO QAM- SAT, SAT, SAT Isosorbide Mononitrate (Isosorbide Mononitrate ER) 30 Mg Tab.er.24h, 60 MG PO 3XW, (Reported) 60 MG PO QHS- SAT, SAT, SAT L.acidoph/L.bulg/B.bif/S.therm (Ave-Bid Caplet) 1 Each Tablet, 1 TAB PO BIDWM, (Reported) Loratadine (Loratadine) 10 Mg Tablet, 10 MG PO QHS, (Reported) Metoprolol Succinate (Metoprolol Succinate) 200 Mg Tab.er.24h, 200 MG PO DAILY, (Reported) Minoxidil (Minoxidil) 10 Mg Tablet, 5 MG PO DAILY, (Reported) Pantoprazole Sodium (Pantoprazole Sodium) 40 Mg Tablet.dr, 40 MG PO DAILY, (Reported) Vit A/Vit C/Vit E/Zinc/Copper (Preservision Areds Softgel) 1 Each Capsule, 1 CAP PO DAILY, (Reported) Scheduled PRN Ondansetron (Ondansetron Odt) 4 Mg Tab.rapdis, 4 MG PO Q6H PRN for NAUSEA OR VOMITING, (Reported) Polyethylene Glycol 3350 (Polyethylene Glycol 3350) 17 Gm Powd.pack, 17 GM PO BID PRN for CONSTIPATION, (Reported) Allergies Coded Allergies: codeine (Verified Adverse Reaction, Mild, SKIN CRAWLS, 07/03/19) Past Medical History Medical History 1. Hypertension 2. Hyperlipidemia 3. Diabetes mellitus type 2 complicated with neuropathy 4. ESRD on dialysis Saturday, Saturday, Saturday 5. Anemia of chronic disease 6. Vitamin D deficiency 7. Macular degeneration 8. Left shoulder OA 9. Agent orange exposure 10. EZEQUIEL 11. BPH Surgical History 1. Appendectomy 2. Hiatal hernia 3. Tonsillectomy 4. EGD with gastric biopsy demonstrating chronic inflammation and slight surface hyperplastic features 5. Colonoscopy 6. Heart bypass 08/31/20 7. Colostomy 09/2020 Family History Father: at 57 yo, history of CAD Mother: at 80 yo, history of breast cancer and heavy drinker Social History * Smoker: cigar (Smoked for 15 years, quit 10 years ago) Alcohol: Denies Drugs: denies A-FIB/CHADSVASC A-FIB History Current/History of A-Fib/PAF?: No Review of Systems Constitutional: Denies: Chills, Fever Eyes: Denies: Pain ENT: Denies: Sore Throat Skin: Denies: Rash Pulmonary: Reports: Dyspnea, Pleuritic Chest Pain; Denies: Cough Cardiovascular: Reports: Chest Pain (resolved now) Gastrointestinal: Reports: Nausea (intermittent), Abdominal Pain (No pain, but has tenderness) Genitourinary: Reports: Other Symptoms (makes a little urine) Hematologic: Denies: Bruising Neurological: Reports: Other Symptoms (neuropathy of feet) Psych: Denies: Anxiety, Depression Physical Examination General Exam: Positive: Alert, Cooperative Eye Exam: Positive: EOMI ENT Exam: Positive: Atraumatic Neck Exam: Positive: Supple Chest Exam: Positive: Clear to auscultation Heart Exam: Positive: Bradycardic, Regular Rhythm Abdomen Exam: Positive: Normal bowel sounds, Soft, Other (Colostomy bag present with brown stool) Extremity Exam: Negative: Edema Neuro Exam: Positive: Normal Speech Psych Exam: Positive: Mental status NL, Mood NL Vital Signs Vital Signs Date Time Temp Pulse Resp B/P (MAP) Pulse Ox O2 Delivery O2 Flow Rate FiO2 02/13/21 14:16 186/87 (120) 02/13/21 14:15 54 97 02/13/21 08:00 97.3 22 Room Air Laboratory Data Labs 24H Laboratory Tests 2 02/13/21 08:51: Immature Granulocyte % (Auto) 0.7, Neutrophils (%) (Auto) 81.6H, Lymphocytes (%) (Auto) 6.2L, Monocytes (%) (Auto) 7.3, Eosinophils (%) (Auto) 3.7H, Basophils (%) (Auto) 0.5, Neutrophils # (Auto) 10.6H, Lymphocytes # (Auto) 0.8L, Monocytes # (Auto) 1.0H, Eosinophils # (Auto) 0.5, Basophils # (Auto) 0.1, Nucleated Red Blood Cells % (auto) 0.0, Prothrombin Time 13.3, Prothromb Time International Ratio 0.97, Activated Partial Thromboplast Time 37.2, Anion Gap 10, Glomerular Filtration Rate 6.6L, Calcium Level 10.4H, Total Bilirubin 0.5, Direct Bilirubin 0.2, Aspartate Amino Transf (AST/SGOT) 55H, Alanine Aminotransferase (ALT/SGPT) 86H, Alkaline Phosphatase 131H, WM-Nif-K-Type Natriuretic Peptide 66730I, Total Protein 7.3, Albumin 4.2, Albumin/Globulin Ratio 1.4, Lipase 152, Thyroid Stimulating Hormone (TSH) 3.460, Free Thyroxine 1.00 02/13/21 08:52: POC Troponin I (Misc) 0.00 02/13/21 11:32: Anion Gap 9, Glomerular Filtration Rate 6.3L, Calcium Level 10.0 02/13/21 11:53: POC Troponin I (Misc) 0.02 02/13/21 12:45: Coronavirus (COVID-19)(PCR) NEGATIVE, Influenza Type A (RT-PCR) NEGATIVE, Influenza Type B (RT-PCR) NEGATIVE, Respiratory Syncytial Virus (PCR) NEGATIVE CBC/BMP Laboratory Tests 02/13/21 08:51 02/13/21 11:32 Assessment/Plan Mr. 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 Patient initially presented with chest pain, but troponin x2 were negative. Chest pain was pleuritic, so possibly secondary to fluid overload. Patient will be taken to dialysis for his hyperkalemia. Most likely from dietary non-compliance. Plan / VTE VTE Prophylaxis Ordered?: Yes Plan Plan 1. Severe hyperkalemia -Secondary to dietary non-compliance -EKG had peaked T-waves. Patient was given calcium gluconate and glucose and insulin. Patient also given Lasix and Kayexalate -Nephrology consulted, recommendations appreciated -Dialysis today 2. ESRD on dialysis MW -Nephrology consulted, recommendations appreciated -Cinacalcet 3. Hypertension -Continue amlodipine, irbesartan, Imdur regimen, Toprol XL, minoxidil 4. CAD s/p CABG -On admission, there was pleuritic chest pain. No chest pain now -Troponin x2 negative -Continue aspirin, atorvastatin, irbesartan, Imdur regimen, Toprol XL -Continue PRN nitroglycerin 5. Anemia of chronic disease -Continue ferrous gluconate 6. DM type 2 -Continue Levemir 18u qHS -Start sliding scale and hypoglycemic protocol 7. Colostomy -Continue bowel regimen 8. GERD -Continue pantoprazole 9. DVT ppx -SCD and TEDs Disposition: Pending clinical improvement LILA SHAH DO Feb 13, 2021 16:14
[2021-02-13] MEDS: HumaLOG INSULIN (NovoLOG) PER UNIT SC SCH (17:30)
[2021-02-13 18:30] VITALS: BP 168/85
[2021-02-13] MEDS: LACTOBACILLUS ACIDOPHILUS CAP (BACID) PO SCH (18:42)
[2021-02-13] MEDS: DOCUSATE SODIUM 100MG CAPSULE PO SCH (19:48)
[2021-02-13] MEDS: FERROUS GLUCONATE 324 MG TAB PO SCH (19:49)
--- NOTE | 2021-02-13 19:54 | ECGEPIP ---
[facility] - ED Test Date: 2021-02-13 Pat Name: KRISTIN MCCOY Department: Room: - Gender: Male Hospitalist: mikki : 1950 Requested By: Javed Friedman Order Number: [id number] Reading MD: Bisi Bedolla Measurements Intervals [place] Rate: 52 P: 53 MI: 158 QRS: -41 QRSD: 88 T: 78 QT: 436 QTc: 405 Interpretive Statements Sinus bradycardia Possible Left atrial enlargement Left axis deviation NSTTW abnormalities decreased rate 10/08/20 Electronically Signed on 02-13-2021 19:54:20 EDT by Bisi Bedolla
--- NOTE | 2021-02-13 19:56 | ECGEPIP ---
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
[2021-02-13 20:00] VITALS: BP 138/68
[2021-02-13] MEDS ORDERED: ISOSORBIDE MON. (IMDUR) 60 MG XR TAB PO SCH (21:00)
[2021-02-13] MEDS ORDERED: LORATADINE 10 MG TAB PO SCH (21:00)
[2021-02-13] MEDS ORDERED: HumaLOG INSULIN (NovoLOG) PER UNIT SC SCH (21:00)
[2021-02-13] MEDS ORDERED: LEVEMIR (INSULIN DETEMIR) 1 UNITS/0.01ML SC SCH (21:00)
[2021-02-14] VITALS: BP 128/63
[2021-02-14 04:00] VITALS: BP 144/65
[2021-02-14 04:09] LABS: HEMATOCRIT 30.8 % (42.0-52.0); HEMOGLOBIN 10.3 g/dl (13.5-17.5); MEAN CORPUSCULAR HEMOGLOBIN 29.7 pg (27.0-33.0); MEAN CORPUSCULAR HGB CONC 33.4 g/dl (32.0-36.5); MEAN CORPUSCULAR VOLUME 88.8 fl (80.0-96.0); PLATELET COUNT, AUTOMATED 208 10^3/uL (150-450); RED BLOOD COUNT 3.47 10^6/uL (4.30-6.10); WHITE BLOOD COUNT 7.4 10^3/uL (4.0-10.0)
[2021-02-14] MEDS: HumaLOG INSULIN (NovoLOG) PER UNIT SC SCH ×2 (07:30→12:00)
[2021-02-14 07:34] LABS: ALBUMIN 3.5 GM/DL (3.2-5.2); BLOOD UREA NITROGEN 33 MG/DL (7-18); CALCIUM LEVEL 9.3 MG/DL (8.8-10.2); CARBON DIOXIDE LEVEL 28 MEQ/L (21-32); CHLORIDE LEVEL 99 MEQ/L (98-107); GLOMERULAR FILTRATION RATE 10.2 (>49); GLUCOSE, FASTING 51 MG/DL (70-100); PHOSPHORUS LEVEL 5.2 MG/DL (2.5-4.9); POTASSIUM SERUM 4.3 MEQ/L (3.5-5.1); SODIUM LEVEL 134 MEQ/L (136-145)
[2021-02-14] MEDS: LACTOBACILLUS ACIDOPHILUS CAP (BACID) PO SCH (08:00)
[2021-02-14] MEDS: DOCUSATE SODIUM 100MG CAPSULE PO SCH (08:17)
[2021-02-14] MEDS: FERROUS GLUCONATE 324 MG TAB PO SCH (08:17)
[2021-02-14 08:51] VITALS: BP 141/74
[2021-02-14] MEDS ORDERED: OCUVITE 1 TAB PO SCH (09:00)
[2021-02-14] MEDS ORDERED: PANTOPRAZOLE 40MG TAB (PROTONIX) PO SCH (09:00)
[2021-02-14] MEDS ORDERED: ATORVASTATIN 20 MG TAB PO SCH (09:00)
[2021-02-14] MEDS ORDERED: ASPIRIN 81MG ENTERIC TABLET PO SCH (09:00)
[2021-02-14] MEDS ORDERED: IRBESARTAN 150MG TAB PO SCH (09:00)
[2021-02-14] MEDS ORDERED: CINACALCET 30 MG TAB (SENSIPAR) PO SCH (09:00)
[2021-02-14] MEDS ORDERED: METOPROLOL SUCC (TopROL XL) 100MG *XL* TAB PO SCH (09:00)
[2021-02-14] MEDS ORDERED: ISOSORBIDE MON. (IMDUR) 60 MG XR TAB PO SCH ×2 (09:00→21:00)
[2021-02-14] MEDS ORDERED: ISOSORBIDE MON. (IMDUR) 30 MG XR TAB PO SCH ×2 (09:00→21:00)
[2021-02-14 09:16] LABS: HEPATITIS B SURFACE ANTIGEN NEGATIVE (NEGATIVE)
[2021-02-14 09:19] VITALS: BP 141/74
--- NOTE | 2021-02-14 10:24 | IPNPDOC ---
Subjective Date Seen The patient was seen on 02/14/21. Subjective Chief Complaint/HPI Patient was seen and examined at bedside this morning. Presently, he denies chest pain, shortness of breath, abdominal pain, nausea, vomiting, and problems with bowel movements. Endorses feeling back to his baseline and wants to go home. Overnight, no acute events were reported Other systems 10 point review of system is negative except for what is noted in the subjective text Objective Physical Examination General Exam: Positive: Alert, Cooperative, No Acute Distress; Negative: Mild Distress Eye Exam: Positive: PERRLA, Conjunctiva & lids normal, EOMI ENT Exam: Positive: Atraumatic, Mucous membr. moist/pink, Pharynx Normal Neck Exam: Positive: Supple; Negative: JVD, thyromegaly Chest Exam: Positive: Clear to auscultation, Normal air movement; Negative: Rales, Wheezing Heart Exam: Positive: Rate Normal, Bradycardic, Regular Rhythm; Negative: Tachycardic Telemetry: Positive: No significant arrhythmia; Negative: Tachycardia Abdomen Exam: Positive: Normal bowel sounds, Soft, Other (Colostomy bag present with brown stool. Healthy tissue around ostomy site.); Negative: BS Hyperactive, BS Hypoactive, Tenderness, Hepatospenomegaly Extremity Exam: Positive: Normal pulses; Negative: Clubbing, Cyanosis, Edema Neuro Exam: Positive: Normal Speech Psych Exam: Positive: Mental status NL, Mood NL Assessment /Plan Plan/VTE VTE Prophylaxis Ordered?: Yes Plan #Electrolyte abnormality -Presented with hyperkalemia requiring temporizing measures and subsequently emergent dialysis due to EKG changes. Potassium back to acceptable levels following dialysis. He is scheduled to continue with his regular dialysis sessions, the next one on 02/15/2021. #ESRD -Fluid overloaded state now resolved. Tolerated emergent dialysis well. To continue with his regular dialysis sessions, next one is 02/15/2021 and has been scheduled by nephrology team. #Atypical chest pain -Pleuritic in nature. This has resolved by the time patient was evaluated in emergency room department. EKG showed no acute ST changes and troponins were negative; low suspicion for ACS. #Transaminitis -Possibly secondary to hepatic congestion. Have asked patient to follow-up with his primary care physician for a repeat liver function tests in 1 week's time. #Diabetes mellitus type 2 -Noted to be hypoglycemic in the a.m. In the ambulatory setting he takes Lantus as well as glimepiride. At the time of discharge his Lantus has been decreased to 10 unit and his glipizide is being held in the setting of his end-stage renal disease. He is instructed to follow-up with his primary care physician for further management of his diabetes. At the time of discharge 123 mg/dL and he was asymptomatic and displayed no signs of hypoglycemia. #Hypertension -Continue with ambulatory amlodipine, irbesartan, Imdur, Toprol, and minoxidil #Coronary disease -Continue with medical management of coronary artery disease, without new changes during his hospitalization. #Colostomy -Tissue around colostomy site is healthy in appearance and there was acceptable output appreciated. Continue with regular colostomy care. #GERD -Continue PPI therapy. #DVT -SCD VS, I&O, 24H, Fishbone Vital Signs/I&O Vital Signs Date Time Temp Pulse Resp B/P (MAP) Pulse Ox O2 Delivery O2 Flow Rate FiO2 02/14/21 09:19 68 141/74 02/14/21 08:51 96.9 18 98 02/14/21 04:00 Room Air I&O- Last 24 Hours up to 6 AM 02/14/21 06:00 Intake Total 590 ml Output Total 2700 ml Balance -2110 ml Laboratory Data 24H LABS Laboratory Tests 2 02/13/21 11:32: Anion Gap 9, Glomerular Filtration Rate 6.3L, Calcium Level 10.0 02/13/21 11:53: POC Troponin I (Misc) 0.02 02/13/21 12:45: Coronavirus (COVID-19)(PCR) NEGATIVE, Influenza Type A (RT-PCR) NEGATIVE, Influenza Type B (RT-PCR) NEGATIVE, Respiratory Syncytial Virus (PCR) NEGATIVE 02/13/21 18:36: Bedside Glucose (Misc Panel) 73L 02/13/21 20:08: Bedside Glucose (Misc Panel) 101 02/14/21 03:31: Nucleated Red Blood Cells % (auto) 0.0, Anion Gap 7L, Glomerular Filtration Rate 10.2L, Calcium Level 9.3, Phosphorus Level 5.2H, Albumin 3.5, Hepatitis B Surface Antigen NEGATIVE 02/14/21 07:39: Bedside Glucose (Misc Panel) 43L 02/14/21 08:07: Bedside Glucose (Misc Panel) 73L CBC/BMP Laboratory Tests 02/13/21 11:32 02/14/21 03:31 CAROLINA LAL M.D. Feb 14, 2021 10:24
[2021-02-14] MEDS ORDERED: LANTINJ4 SC (11:30)
[2021-02-14 11:55] VITALS: BP 164/75
--- NOTE | 2021-02-14 12:12 | IPN ---
PROGRESS NOTE DATE: 02/14/2021 SUBJECTIVE: Mr. Dooley is seen this morning on his bedside. He is feeling well and denies any recurrence of chest pain. His dyspnea has improved. He is eating well and denies any nausea or vomiting. His colostomy is functioning very well. He was dialyzed yesterday and he tolerated his dialysis treatment well. OBJECTIVE: VITAL SIGNS: Temperature is 96.9 degrees Fahrenheit, heart rate is 60 per minute and respiratory rate is 18 per minute. Blood pressure is 141/74 mmHg and oxygen saturation 98% on room air. HEAD: Atraumatic. NECK: Supple without JVD or thyroid enlargement. CHEST: Hemodialysis catheter in right upper chest is without any signs of infection. HEART: Heart sounds are regular. LUNGS: Clear to auscultation. ABDOMEN: Soft and nontender. Bowel sounds are normal. Colostomy is functioning in the left lower quadrant. EXTREMITIES: Without any cyanosis or clubbing. NEUROLOGIC: He is awake, alert and at his baseline mentation without a focal deficit. Today's labs showed a WBC count of 7.4, hemoglobin 10.3 and hematocrit 30.8, platelets are 208,000. Sodium 134, potassium is 4.3, CO2 28, BUN 33 and creatinine 5.9. His glucose was 51 this morning and calcium 9.3. Phosphorus was 5.2. Fingerstick blood sugar is 123 at 10:46 a.m. while at 8 o'clock it was 73. PROBLEMS: 1. Chest pain, most likely patient had muscular pain. His troponins were negative x2. He did not have any recurrence of pain. 2. Hyperkalemia, potassium level has corrected with dialysis. No further intervention is needed. 3. Endstage renal disease, patient was dialyzed yesterday and his next dialysis is due for February 15. He can be dialyzed as an outpatient tomorrow. 4. Congestive heart failure. Volume status is improved with hemodialysis and 2.5 liters of fluid was removed yesterday. He is feeling good now and oxygenating well on room air. 5. Hypertension. Blood pressure is reasonably well-controlled. He should resume his chronic antihypertensive medication at home. 6. Disposition. From a renal standpoint, patient can be discharged to home today and follow-up in the outpatient clinic. He is going to be scheduled for next dialysis tomorrow.
--- NOTE | 2021-02-14 19:56 | DS.PDOC ---
Discharge Summary General Date of Admission Feb 13, 2021 at 12:15 Date of Discharge 02/14/2021 Attending Physician: A Discharge Summary Mr. Dooley presented to the emergency department at [facility] on 02/13/2021 with complaints of chest pain. He has a history of type 2 diabetes mellitus complic ated with neuropathy, CAD status post CABG x5 in August 2020, ESRD on dialysis (Saturday, Saturday, and Saturday. In the emergency department he was noted to be hyperkalemic with EKG changes. He was also noted to be fluid overloaded on exam. He was given temporizing measures and scheduled for emergent dialysis, which he tolerated well. Subsequently, he continued with regular dialysis sessions and was followed by the nephrology team throughout hospitalization His chest pain was pleuritic in nature and had resolved by the time of admission. His troponins were negative x2. He is encouraged to continue with his ambulatory medications including aspirin, atorvastatin, irbesartan, Imdur regimen, and metoprolol XL; as well as nitroglycerin as needed. He is noted to have elevated LFTs. This is likely due to his fluid overloaded state. However, he was asked to follow-up with his primary care physician for repeat renal function tests as he is on atorvastatin 80 mg. There was also adjustments made to his diabetic medications as he is found to be hypoglycemic. His glipizide has been discontinued in the setting of end-stage renal disease, and his Lantus was decreased. He is asked again to follow-up with his primary care physician for management of his diabetes. At the time of discharge, patient was asymptomatic. He was encouraged to stay compliant with a low-salt diet and with fluid restrictions. He is to follow-up with his primary meter tester polyphase, and line closer upon discharge. Was also asked to follow-up with his primary care physician. Vital Signs/I&Os Vital Signs Date Time Temp Pulse Resp B/P (MAP) Pulse Ox O2 Delivery O2 Flow Rate FiO2 02/14/21 09:19 68 141/74 02/14/21 08:51 96.9 18 98 02/14/21 04:00 Room Air I&O- Last 24 Hours up to 6 AM 02/14/21 06:00 Intake Total 590 ml Output Total 2700 ml Balance -2110 ml Laboratory Data Labs 24H Laboratory Tests 2 02/13/21 11:53: POC Troponin I (Misc) 0.02 02/13/21 12:45: Coronavirus (COVID-19)(PCR) NEGATIVE, Influenza Type A (RT-PCR) NEGATIVE, Influenza Type B (RT-PCR) NEGATIVE, Respiratory Syncytial Virus (PCR) NEGATIVE 02/13/21 18:36: Bedside Glucose (Misc Panel) 73L 02/13/21 20:08: Bedside Glucose (Misc Panel) 101 02/14/21 03:31: Nucleated Red Blood Cells % (auto) 0.0, Anion Gap 7L, Glomerular Filtration Rate 10.2L, Calcium Level 9.3, Phosphorus Level 5.2H, Albumin 3.5, Hepatitis B Surface Antigen NEGATIVE 02/14/21 07:39: Bedside Glucose (Misc Panel) 43L 02/14/21 08:07: Bedside Glucose (Misc Panel) 73L 02/14/21 10:46: Bedside Glucose (Misc Panel) 123H 02/14/21 11:13: Lab Scanned Report Miscellaneous Lab CBC/BMP Laboratory Tests 02/14/21 03:31 FSBS Laboratory Tests Test 02/13/21 18:36 02/13/21 20:08 02/14/21 07:39 02/14/21 08:07 Range/Units Bedside Glucose (Misc Panel) 73 101 43 73 80-115 MG/DL Test 02/14/21 10:46 Range/Units Bedside Glucose (Misc Panel) 123 80-115 MG/DL Discharge Medications Scheduled Amlodipine Besylate (Amlodipine Besylate) 10 Mg Tablet, 10 MG PO DAILY, (Reported) Aspirin (Aspirin EC) 81 Mg Tablet.dr, 81 MG PO DAILY, (Reported) Atorvastatin Calcium (Atorvastatin Calcium) 80 Mg Tablet, 80 MG PO DAILY, (Re ported) Cinacalcet (Sensipar) 30 Mg Tablet, 30 MG PO DAILY, (Reported) Docusate Sodium (Dok) 100 Mg Capsule, 100 MG PO BID, (Reported) Ferrous Gluconate (Ferrous Gluconate) 324 Mg Tablet, 324 MG PO BID, (Reported) Insulin Glargine,Hum.rec.anlog (Lantus Solostar) 100 Unit/Ml Inj, 10 UNITS SC QHS IF NEEDED DUE TO DIALYSIS Irbesartan (Irbesartan) 300 Mg Tablet, 300 MG PO DAILY, (Reported) Isosorbide Mononitrate (Isosorbide Mononitrate ER) 30 Mg Tab.er.24h, 60 MG PO 4XWK, (Reported) 60 MG PO BID ON , TH, SAT, SUN Isosorbide Mononitrate (Isosorbide Mononitrate ER) 30 Mg Tab.er.24h, 30 MG PO 3XW, (Reported) 30 MG PO QAM- SAT, SAT, SAT Isosorbide Mononitrate (Isosorbide Mononitrate ER) 30 Mg Tab.er.24h, 60 MG PO 3XW, (Reported) 60 MG PO QHS- SAT, SAT, SAT L.acidoph/L.bulg/B.bif/S.therm (Ave-Bid Caplet) 1 Each Tablet, 1 TAB PO BIDWM, (Reported) Loratadine (Loratadine) 10 Mg Tablet, 10 MG PO QHS, (Reported) Metoprolol Succinate (Metoprolol Succinate) 200 Mg Tab.er.24h, 200 MG PO DAILY, (Reported) Minoxidil (Minoxidil) 10 Mg Tablet, 5 MG PO DAILY, (Reported) Pantoprazole Sodium (Pantoprazole Sodium) 40 Mg Tablet.dr, 40 MG PO DAILY, (Reported) Vit A/Vit C/Vit E/Zinc/Copper (Preservision Areds Softgel) 1 Each Capsule, 1 CAP PO DAILY, (Reported) Scheduled PRN Ondansetron (Ondansetron Odt) 4 Mg Tab.rapdis, 4 MG PO Q6H PRN for NAUSEA OR VOMITING, (Reported) Polyethylene Glycol 3350 (Polyethylene Glycol 3350) 17 Gm Powd.pack, 17 GM PO BID PRN for CONSTIPATION, (Reported) Allergies Coded Allergies: codeine (Verified Adverse Reaction, Mild, SKIN CRAWLS, 07/03/19) CAROLINA LAL M.D. Feb 14, 2021 11:36
[2021-02-15] MEDS ORDERED: ISOSORBIDE MON. (IMDUR) 30 MG XR TAB PO SCH (09:00)
== END 2021-02-14 14:30 | disposition home or self-care (01) | DRG 682 ==
LOC: M ED 08:00 → M ED INP 12:15 → ENRESERV 13:55 → M PCU 17:23
PROVIDERS: ADMIT Internal Medicine; ATTEND Internal Medicine
PROC: 5A1D70Z Performance of Urinary Filtration, Intermittent, Less than 6 Hours Per Day (ICD-10-PCS; principal; 2021-02-13)
DX: I12.0 Hypertensive chronic kidney disease with stage 5 chronic kidney disease or end stage renal disease (principal); N18.6 End stage renal disease; E11.22 Type 2 diabetes mellitus with diabetic chronic kidney disease; E11.42 Type 2 diabetes mellitus with diabetic polyneuropathy; I25.10 Atherosclerotic heart disease of native coronary artery without angina pectoris; Z95.5 Presence of coronary angioplasty implant and graft; Z99.2 Dependence on renal dialysis; Z79.82 Long term (current) use of aspirin; Z79.4 Long term (current) use of insulin; Z79.899 Other long term (current) drug therapy; Z20.822 Contact with and (suspected) exposure to COVID-19; Z88.5 Allergy status to narcotic agent; E78.5 Hyperlipidemia, unspecified; D63.1 Anemia in chronic kidney disease; E55.9 Vitamin D deficiency, unspecified; M19.012 Primary osteoarthritis, left shoulder; G47.33 Obstructive sleep apnea (adult) (pediatric); N40.0 Benign prostatic hyperplasia without lower urinary tract symptoms; Z77.29 Contact with and (suspected) exposure to other hazardous substances; Z87.891 Personal history of nicotine dependence; E87.5 Hyperkalemia; Z91.11 Patient's noncompliance with dietary regimen; K21.9 Gastro-esophageal reflux disease without esophagitis; E87.8 Other disorders of electrolyte and fluid balance, not elsewhere classified; R07.89 Other chest pain; R74.01 Elevation of levels of liver transaminase levels; Z93.3 Colostomy status

== ENCOUNTER → 2021-02-21 | Outpatient (REF) | payer MEDICARE, OTHER ==
[~2021-02-21] MED LIST changes: +ACUL0.5S OU; +ASPI325T57 PO; +DOK1CAP4 PO; -DOK1CAP7 PO; +GLIP5TAB20 PO; +METO200T28 PO; +MINO10TA PO; +PREDOPD OU; +TOBR0.3S37 OU
[2021-02-21 17:53] LABS: ALBUMIN 3.8 GM/DL (3.2-5.2); BILIRUBIN,DIRECT 0.1 MG/DL (0.0-0.2); BILIRUBIN,TOTAL 0.4 MG/DL (0.2-1.0); TOTAL PROTEIN 6.5 GM/DL (6.4-8.2)
== END ==
LOC: M SFHCADAM 11:55
PROVIDERS: ATTEND Physician Assistant Medical
DX: R79.89 Other specified abnormal findings of blood chemistry (principal)

== ENCOUNTER 2021-02-24 15:40 | Emergency (ER) | payer MEDICARE, OTHER ==
[~2021-02-24] VITALS: Ht 172.7 cm; Wt 83.9 kg
[2021-02-24 20:32] VITALS: BP 178/78
== END 2021-02-24 20:33 | disposition home or self-care (01) ==
LOC: M ED 15:40
DX: K94.09 Other complications of colostomy (principal); I12.0 Hypertensive chronic kidney disease with stage 5 chronic kidney disease or end stage renal disease; N18.6 End stage renal disease; E11.9 Type 2 diabetes mellitus without complications; E78.00 Pure hypercholesterolemia, unspecified; G62.9 Polyneuropathy, unspecified; G47.30 Sleep apnea, unspecified; K21.9 Gastro-esophageal reflux disease without esophagitis; N40.0 Benign prostatic hyperplasia without lower urinary tract symptoms; Z79.899 Other long term (current) drug therapy; Z79.82 Long term (current) use of aspirin

== ENCOUNTER → 2021-05-18 | Outpatient (CLI) | payer MEDICARE, OTHER ==
--- NOTE | 2021-05-18 16:24 | REP ---
INDICATION: ESRD COMPARISON: 03/11/2018. TECHNIQUE: Real time compression and duplex Doppler evaluation of the Bilateral upper extremity deep venous system is performed. FINDINGS: The Bilateral subclavian, jugular, axillary, brachial, basilic and right cephalic veins are fully compressible where accessible with transducer pressure, and demonstrate no intraluminal thrombus and normal venous waveforms. There is no evidence of deep venous thrombosis. There is partial thrombosis of the left cephalic vein at the antecubital fossa. The right brachial artery bifurcates at the proximal to mid humerus into the radial and ulnar arteries. Right: Basilic vein size (mm)/ Cephalic vein size (mm) Upper humerus: 4/3 Lower humerus:4/3 Upper forearm: 3/2 Lower forearm/wrist: 3/3 Median cubital:1 Right arterial structures: Peak systolic velocity (cm/s)/waveform/size (mm) Axillary: 104.1/triphasic/9 Brachial: Early bifurcation at the level of the proximal to mid humerus. Triphasic. Radial: 77.7/triphasic/4 Ulnar:99.5/triphasic/6 Left: Basilic vein size (mm)/ Cephalic vein size (mm) Upper humerus: 6/2 Lower humerus:5/3 Upper forearm: 3/2 Lower forearm/wrist:2/2 Left arterial structures: Peak systolic velocity (cm/s)/waveform/size (mm) Axillary: 83.8/triphasic/7 Brachial: 82.3/triphasic/6 Radial: 80.8/triphasic/4 Ulnar: 50.6/triphasic/5 IMPRESSION: No evidence of deep venous thrombosis of the Bilateral upper extremity deep vein system. There is partial thrombosis of the left cephalic vein at the antecubital fossa. Arterial and venous sizes are given above. <Electronically signed by Robert Adames > 05/18/21 [id number]
== END ==
LOC: M RAD 13:56
PROVIDERS: ATTEND Surgery Vascular Surgery
DX: N18.6 End stage renal disease (principal); I82.622 Acute embolism and thrombosis of deep veins of left upper extremity

== ENCOUNTER → 2022-02-02 | Outpatient (CLI) | payer MEDICARE, OTHER ==
[~2022-02-02] MED LIST changes: -LEVO500T3 PO; +LEVO500T4 PO; +LOSA100T45; -LOSA100T50
[2022-02-02 13:10] LABS: CREATININE FOR GFR 4.06 MG/DL (0.70-1.30); GLOMERULAR FILTRATION RATE 15.7 (>49)
== END ==
LOC: M LAB 11:25
DX: E87.5 Hyperkalemia (principal)

== ENCOUNTER 2022-05-02 10:18 | Inpatient (IN) | payer MEDICARE, OTHER ==
[~2022-05-02] VITALS: Ht 165.1 cm; Wt 86.4 kg
[~2022-05-02 10:18] MED LIST changes: +LEVO1TAB39 PO; -LEVO500T4 PO
[2022-05-02] MEDS ORDERED: MORPHINE 4 MG/ML 1ML VIAL/SYRINGE IV ONE (11:25)
[2022-05-02] MEDS ORDERED: ONDANSETRON 4MG 2ML VIAL IV ONE (11:25)
[2022-05-02] MEDS ORDERED: ISOVUE-370 76% 100ML VIAL As Ordered ONE ×2 (11:26→13:53)
[2022-05-02 12:17] LABS: BASO # 0.1 10^3/uL (0.0-0.2); BASO % 0.8 % (0.0-1.0); EOS # 0.3 10^3/uL (0.0-0.5); EOS % 3.6 % (0.0-3.0); HEMATOCRIT 27.5 % (42.0-52.0); HEMOGLOBIN 9.1 g/dl (13.5-17.5); LYMPH # 0.8 10^3/uL (1.5-5.0); LYMPH % 7.9 % (24.0-44.0); MEAN CORPUSCULAR HEMOGLOBIN 30.2 pg (27.0-33.0); MEAN CORPUSCULAR HGB CONC 33.1 g/dl (32.0-36.5); MEAN CORPUSCULAR VOLUME 91.4 fl (80.0-96.0); MONO # 1.1 10^3/uL (0.0-0.8); MONO % 11.5 % (2.0-8.0); NEUTROPHILS # 7.2 10^3/uL (1.5-8.5); NEUTROPHILS % 75.5 % (36.0-66.0); PLATELET COUNT, AUTOMATED 297 10^3/uL (150-450); RED BLOOD COUNT 3.01 10^6/uL (4.30-6.10); WHITE BLOOD COUNT 9.5 10^3/uL (4.0-10.0)
[2022-05-02 12:33] LABS: INR 1.08; PROTHROMBIN TIME 14.2 SECONDS (12.5-14.5)
[2022-05-02 12:34] LABS: PARTIAL THROMBOPLASTIN TIME 33.7 SECONDS (24.8-34.2)
[2022-05-02 12:52] LABS: ALBUMIN 4.1 GM/DL (3.2-5.2); BILIRUBIN,DIRECT 0.2 MG/DL (0.0-0.2); BILIRUBIN,TOTAL 0.7 MG/DL (0.2-1.0); TOTAL PROTEIN 7.4 GM/DL (6.4-8.2)
[2022-05-02] MEDS ORDERED: GLIP5TAB20 PO (13:23)
[2022-05-02] MEDS ORDERED: APAP325T4 PO (13:23)
[2022-05-02] MEDS ORDERED: ISOS1TAB35 PO (13:23)
[2022-05-02] MEDS ORDERED: LANTINJ4 SC (13:23)
[2022-05-02] MEDS ORDERED: HOME MED LIST COMPLETE! XX SCH (13:25)
[2022-05-02] MEDS ORDERED: DOXYCYCLINE HYCLATE 100MG TABLET PO ONE (15:05)
[2022-05-02] MEDS ORDERED: PIPERACILLIN/TAZOBACTAM SOD 4.5 GM in D5W MINI-BAG PLUS 50 ML IV ONE (15:05)
[2022-05-02] MEDS ORDERED: GLUCOSE 4GM CHEW TABLET PO PRN (15:50)
[2022-05-02] MEDS ORDERED: ONDANSETRON 4MG ORAL DISINTEGRATING TAB PO PRN (15:50)
[2022-05-02] MEDS ORDERED: DEXTROSE 50% 50 ML SYRINGE IV PRN (15:50)
[2022-05-02] MEDS ORDERED: GLUCAGON INJ 1MG VIAL SC PRN (15:50)
[2022-05-02 17:40] LABS: HEMATOCRIT 24.1 % (42.0-52.0); HEMOGLOBIN 7.8 g/dl (13.5-17.5)
[2022-05-02 18:01] LABS: CALCIUM LEVEL 9.4 MG/DL (8.8-10.2); CREATININE FOR GFR 4.6 MG/DL (0.70-1.30); GLOMERULAR FILTRATION RATE 13.6 (>49)
[2022-05-02] MEDS: INSULIN LISPRO (NovoLOG) PER UNIT SC SCH ×2 (20:38→20:43)
[2022-05-02] MEDS: LEVEMIR (INSULIN DETEMIR) 1 UNITS/0.01ML SC SCH (20:43)
[2022-05-02] MEDS: oxyBUTYnin 5 MG TAB PO SCH (21:06)
[2022-05-02] MEDS: ISOSORBIDE MON. (IMDUR) 30MG XR TAB PO SCH (21:06)
[2022-05-02] MEDS: ATORVASTATIN 20 MG TAB PO SCH (21:06)
[2022-05-02] MEDS: PANTOPRAZOLE 40MG TAB (PROTONIX) PO SCH (21:06)
[2022-05-02] MEDS: LORATADINE 10 MG TAB PO SCH (21:06)
[2022-05-02 21:35] VITALS: BP 148/64
[2022-05-02] MEDS: CINACALCET 30 MG TAB (SENSIPAR) PO SCH (21:50)
[2022-05-02] MEDS ORDERED: PIPERACILLIN/TAZOBACTAM SOD 3.375 GM in D5W MINI-BAG PLUS 50 ML IV SCH (22:00)
[2022-05-02] MEDS: OCUVITE 1 TAB PO SCH (22:11)
[2022-05-02] MEDS: PIPERACILLIN/TAZOBACTAM SOD 2.25 GM in D5W MINI-BAG PLUS 50 ML IV SCH (23:09)
[2022-05-02 23:35] VITALS: BP 164/58
[2022-05-02 23:36] LABS: HEMATOCRIT 22.1 % (42.0-52.0); HEMOGLOBIN 7.2 g/dl (13.5-17.5)
[2022-05-03] VITALS (13 sets, daily range): BP systolic 123–168; BP diastolic 52–75
[2022-05-03 06:57] LABS: BASO # 0.1 10^3/uL (0.0-0.2); EOS # 0.2 10^3/uL (0.0-0.5); EOS % 3.2 % (0.0-3.0); HEMATOCRIT 24.6 % (42.0-52.0); HEMOGLOBIN 7.8 g/dl (13.5-17.5); LYMPH # 0.7 10^3/uL (1.5-5.0); LYMPH % 9.9 % (24.0-44.0); MEAN CORPUSCULAR HEMOGLOBIN 29.4 pg (27.0-33.0); MEAN CORPUSCULAR HGB CONC 31.7 g/dl (32.0-36.5); MEAN CORPUSCULAR VOLUME 92.8 fl (80.0-96.0); MONO % 13.9 % (2.0-8.0); NEUTROPHILS # 4.9 10^3/uL (1.5-8.5); NEUTROPHILS % 71.6 % (36.0-66.0); PLATELET COUNT, AUTOMATED 243 10^3/uL (150-450); RED BLOOD COUNT 2.65 10^6/uL (4.30-6.10); WHITE BLOOD COUNT 6.9 10^3/uL (4.0-10.0)
[2022-05-03 07:17] LABS: CALCIUM LEVEL 8.9 MG/DL (8.8-10.2); CREATININE FOR GFR 5.75 MG/DL (0.70-1.30); GLOMERULAR FILTRATION RATE 10.5 (>49); MAGNESIUM LEVEL 1.9 MG/DL (1.8-2.4); PHOSPHORUS LEVEL 4.2 MG/DL (2.5-4.9); POTASSIUM SERUM 4.9 MEQ/L (3.5-5.1)
[2022-05-03] MEDS: CINACALCET 30 MG TAB (SENSIPAR) PO SCH (08:02)
[2022-05-03] MEDS: PIPERACILLIN/TAZOBACTAM SOD 2.25 GM in D5W MINI-BAG PLUS 50 ML IV SCH (08:02)
[2022-05-03] MEDS: PANTOPRAZOLE 40MG TAB (PROTONIX) PO SCH (08:02)
[2022-05-03] MEDS: oxyBUTYnin 5 MG TAB PO SCH ×2 (08:02→21:26)
[2022-05-03] MEDS: OCUVITE 1 TAB PO SCH (08:03)
[2022-05-03] MEDS: INSULIN LISPRO (NovoLOG) PER UNIT SC SCH ×4 (08:03→20:59)
[2022-05-03] MEDS: ISOSORBIDE MON. (IMDUR) 30MG XR TAB PO SCH ×2 (08:03→21:26)
[2022-05-03] MEDS ORDERED: amLODIPine 5 MG TAB PO ONE (12:00)
[2022-05-03] MEDS: IRBESARTAN 150MG TAB PO SCH (14:05)
[2022-05-03 18:34] LABS: HEMATOCRIT 26.6 % (42.0-52.0); HEMOGLOBIN 8.6 g/dl (13.5-17.5)
[2022-05-03] MEDS: LEVEMIR (INSULIN DETEMIR) 1 UNITS/0.01ML SC SCH (20:59)
[2022-05-03] MEDS ORDERED: METOPROLOL SUCC (TopROL XL) 100MG *XL* TAB PO SCH (21:00)
[2022-05-03] MEDS: LORATADINE 10 MG TAB PO SCH (21:26)
[2022-05-03] MEDS: ATORVASTATIN 20 MG TAB PO SCH (21:26)
[2022-05-04] VITALS (7 sets, daily range): BP systolic 138–178; BP diastolic 60–82
[2022-05-04 00:12] LABS: HEMATOCRIT 26.1 % (42.0-52.0); HEMOGLOBIN 8.5 g/dl (13.5-17.5)
[2022-05-04 05:50] LABS: BASO # 0.1 10^3/uL (0.0-0.2); BASO % 0.8 % (0.0-1.0); EOS # 0.6 10^3/uL (0.0-0.5); EOS % 7.3 % (0.0-3.0); HEMATOCRIT 27.4 % (42.0-52.0); HEMOGLOBIN 8.6 g/dl (13.5-17.5); LYMPH # 0.8 10^3/uL (1.5-5.0); LYMPH % 10.2 % (24.0-44.0); MEAN CORPUSCULAR HEMOGLOBIN 28.7 pg (27.0-33.0); MEAN CORPUSCULAR HGB CONC 31.4 g/dl (32.0-36.5); MEAN CORPUSCULAR VOLUME 91.3 fl (80.0-96.0); MONO # 1.1 10^3/uL (0.0-0.8); MONO % 13.8 % (2.0-8.0); NEUTROPHILS # 5.1 10^3/uL (1.5-8.5); NEUTROPHILS % 67.4 % (36.0-66.0); PLATELET COUNT, AUTOMATED 217 10^3/uL (150-450); WHITE BLOOD COUNT 7.6 10^3/uL (4.0-10.0)
[2022-05-04] MEDS ORDERED: amLODIPine 5 MG TAB PO ONE (06:00)
[2022-05-04] MEDS: oxyBUTYnin 5 MG TAB PO SCH ×2 (06:00→20:28)
[2022-05-04] MEDS: PANTOPRAZOLE 40MG TAB (PROTONIX) PO SCH (06:00)
[2022-05-04 06:27] LABS: CALCIUM LEVEL 9.2 MG/DL (8.8-10.2); CREATININE FOR GFR 7.5 MG/DL (0.70-1.30); GLOMERULAR FILTRATION RATE 7.7 (>49); PHOSPHORUS LEVEL 4.5 MG/DL (2.5-4.9); POTASSIUM SERUM 5.1 MEQ/L (3.5-5.1)
[2022-05-04] MEDS ORDERED: SODIUM CHLORIDE 0.9% 1000ML IV PRN (07:00)
[2022-05-04] MEDS: INSULIN LISPRO (NovoLOG) PER UNIT SC SCH ×4 (07:30→20:01)
[2022-05-04] MEDS ORDERED: propofoL 200 MG/20 ML VIAL As Ordered ONE (11:24)
[2022-05-04] MEDS ORDERED: LIDOCAINE 2% 100MG/5ML SDV (FOR ANES.) As Ordered ONE (11:24)
[2022-05-04] MEDS ORDERED: fentaNYL 100 MCG/2 ML INJECTION As Ordered ONE ×2 (11:25→15:12)
[2022-05-04] MEDS ORDERED: MIDAZOLAM INJ 2MG/2ML VIAL (J2250 PER 1MG) As Ordered ONE (11:25)
[2022-05-04] MEDS: ISOSORBIDE MON. (IMDUR) 30MG XR TAB PO SCH ×2 (12:30→20:28)
[2022-05-04] MEDS: IRBESARTAN 150MG TAB PO SCH (12:30)
[2022-05-04] MEDS: OCUVITE 1 TAB PO SCH (12:30)
[2022-05-04] MEDS: CINACALCET 30 MG TAB (SENSIPAR) PO SCH (12:31)
[2022-05-04] MEDS ORDERED: ceFAZolin 1GM VIAL (J0690 PER 500MG) As Ordered ONE (15:01)
[2022-05-04] MEDS ORDERED: ONDANSETRON 4MG 2ML VIAL As Ordered ONE (15:11)
[2022-05-04] MEDS ORDERED: ONDANSETRON 4MG 2ML VIAL IV PRN (15:30)
[2022-05-04] MEDS ORDERED: LR 1,000 ML IV SCH (15:30)
[2022-05-04] MEDS ORDERED: fentaNYL 100 MCG/2 ML INJECTION IV PRN (15:30)
[2022-05-04] MEDS ORDERED: MORPHINE 2 MG/ML 1ML VIAL IV PRN (15:30)
[2022-05-04] MEDS ORDERED: oxyCODONE 5MG TAB PO PRN (15:30)
[2022-05-04] MEDS ORDERED: PILL CUTTER 1 EACH XX PRN (18:50)
[2022-05-04] MEDS: LEVEMIR (INSULIN DETEMIR) 1 UNITS/0.01ML SC SCH ×2 (20:01→20:03)
[2022-05-04] MEDS: ATORVASTATIN 20 MG TAB PO SCH (20:27)
[2022-05-04] MEDS: DOXYCYCLINE HYCLATE 100MG TABLET PO SCH (20:28)
[2022-05-04] MEDS: LORATADINE 10 MG TAB PO SCH (20:28)
[2022-05-04] MEDS ORDERED: CEFUROXIME 500 MG TAB PO ONE (21:00)
[2022-05-04] MEDS ORDERED: METOPROLOL SUCC (TopROL XL) 100MG *XL* TAB PO SCH (21:00)
[2022-05-05 04:00] VITALS: BP 145/68
[2022-05-05 05:37] LABS: HEMATOCRIT 27.8 % (42.0-52.0); HEMOGLOBIN 9.1 g/dl (13.5-17.5); MEAN CORPUSCULAR HEMOGLOBIN 29.7 pg (27.0-33.0); MEAN CORPUSCULAR HGB CONC 32.7 g/dl (32.0-36.5); MEAN CORPUSCULAR VOLUME 90.8 fl (80.0-96.0); PLATELET COUNT, AUTOMATED 208 10^3/uL (150-450); RED BLOOD COUNT 3.06 10^6/uL (4.30-6.10); WHITE BLOOD COUNT 8.4 10^3/uL (4.0-10.0)
[2022-05-05 06:05] LABS: CREATININE FOR GFR 5.54 MG/DL (0.70-1.30); GLOMERULAR FILTRATION RATE 10.9 (>49)
[2022-05-05 07:30] VITALS: BP 170/80
[2022-05-05] MEDS: INSULIN LISPRO (NovoLOG) PER UNIT SC SCH (08:41)
[2022-05-05] MEDS: CINACALCET 30 MG TAB (SENSIPAR) PO SCH (08:42)
[2022-05-05] MEDS: IRBESARTAN 150MG TAB PO SCH (08:42)
[2022-05-05] MEDS: OCUVITE 1 TAB PO SCH (08:42)
[2022-05-05] MEDS: PANTOPRAZOLE 40MG TAB (PROTONIX) PO SCH (08:43)
[2022-05-05] MEDS: oxyBUTYnin 5 MG TAB PO SCH (08:43)
[2022-05-05] MEDS: DOXYCYCLINE HYCLATE 100MG TABLET PO SCH (08:43)
[2022-05-05] MEDS: ISOSORBIDE MON. (IMDUR) 30MG XR TAB PO SCH (08:43)
[2022-05-05] MEDS ORDERED: CEFU50TA PO (10:51)
[2022-05-05] MEDS ORDERED: DOXY100T PO (10:51)
[2022-05-05] MEDS ORDERED: CEFUROXIME 500 MG TAB PO SCH (21:00)
[2022-05-06] MEDS ORDERED: DOXY100T PO (19:57)
[2022-05-06] MEDS ORDERED: MINO2.5T PO (19:57)
[2022-05-06] MEDS ORDERED: CEFU1TAB20 PO (19:57)
== END 2022-05-05 12:28 | disposition home or self-care (01) | DRG 662 ==
LOC: M ED 10:18 → M ED INP 15:43 → ENRESERV 20:48 → M PCU 21:36
PROVIDERS: ADMIT Internal Medicine; ATTEND Internal Medicine
PROC: 30233N1 Transfusion of Nonautologous Red Blood Cells into Peripheral Vein, Percutaneous Approach (ICD-10-PCS; 2022-05-03)
PROC: 5A1D70Z Performance of Urinary Filtration, Intermittent, Less than 6 Hours Per Day (ICD-10-PCS; 2022-05-04)
PROC: 0TCD8ZZ Extirpation of Matter from Urethra, Via Natural or Artificial Opening Endoscopic (ICD-10-PCS; 2022-05-04)
PROC: B246ZZZ Ultrasonography of Right and Left Heart (ICD-10-PCS; 2022-05-04)
PROC: 0W3R8ZZ Control Bleeding in Genitourinary Tract, Via Natural or Artificial Opening Endoscopic (ICD-10-PCS; principal; 2022-05-04 15:00)
DX: T83.83XA Hemorrhage due to genitourinary prosthetic devices, implants and grafts, initial encounter (principal); N18.6 End stage renal disease; J18.9 Pneumonia, unspecified organism; I12.0 Hypertensive chronic kidney disease with stage 5 chronic kidney disease or end stage renal disease; D62 Acute posthemorrhagic anemia; E78.5 Hyperlipidemia, unspecified; E11.42 Type 2 diabetes mellitus with diabetic polyneuropathy; E11.22 Type 2 diabetes mellitus with diabetic chronic kidney disease; Z99.2 Dependence on renal dialysis; D63.1 Anemia in chronic kidney disease; E55.9 Vitamin D deficiency, unspecified; H35.30 Unspecified macular degeneration; M19.012 Primary osteoarthritis, left shoulder; G47.33 Obstructive sleep apnea (adult) (pediatric); N40.0 Benign prostatic hyperplasia without lower urinary tract symptoms; Z77.098 Contact with and (suspected) exposure to other hazardous, chiefly nonmedicinal, chemicals; Z90.49 Acquired absence of other specified parts of digestive tract; Z95.5 Presence of coronary angioplasty implant and graft; F17.290 Nicotine dependence, other tobacco product, uncomplicated; R91.8 Other nonspecific abnormal finding of lung field; I25.10 Atherosclerotic heart disease of native coronary artery without angina pectoris; K21.9 Gastro-esophageal reflux disease without esophagitis; Z20.822 Contact with and (suspected) exposure to COVID-19; Z79.82 Long term (current) use of aspirin; Z79.4 Long term (current) use of insulin; Z79.899 Other long term (current) drug therapy; Z88.5 Allergy status to narcotic agent; M48.00 Spinal stenosis, site unspecified

== ENCOUNTER 2022-05-06 17:51 | Inpatient (IN) | payer MEDICARE, OTHER ==
[~2022-05-06] VITALS: Ht 170.2 cm; Wt 75.5 kg
[~2022-05-06 17:51] MED LIST changes: +APAP325T4 PO; +CEFU50TA PO; +DOXY100T PO
[2022-05-06] MEDS ORDERED: IPRATROPIUM 0.5MG/ALBUTEROL 2.5MG INH SOL UD 3ML (DUONEB) NEB ONE (18:25)
[2022-05-06 18:33] LABS: ABG BASE EXCESS -9.4 (-2.0-2.0); ABG HCO3 17.9 MEQ/L (22.0-26.0); ABG O2 SATURATION 93.6 % (95.0-99.0); ABG PARTIAL PRESSURE CO2 44.4 mmHg (35.0-45.0); ABG PARTIAL PRESSURE O2 83.8 mmHg (75.0-100.0); ABG STANDARD HCO3 16.9 MEQ/L (22.0-26.0); ABG TOTAL CO2 19.3 MEQ/L (23.0-31.0)
[2022-05-06 18:34] LABS: ABG pH (ARTERIAL) 7.224 UNITS (7.350-7.450)
[2022-05-06] MEDS ORDERED: FUROSEMIDE 40MG/4ML VIAL (J1940) IV ONE (18:35)
[2022-05-06 18:39] LABS: BASO # 0.1 10^3/uL (0.0-0.2); BASO % 0.5 % (0.0-1.0); EOS # 0.4 10^3/uL (0.0-0.5); EOS % 2.6 % (0.0-3.0); HEMATOCRIT 33.8 % (42.0-52.0); LYMPH # 0.6 10^3/uL (1.5-5.0); LYMPH % 4.1 % (24.0-44.0); MEAN CORPUSCULAR HEMOGLOBIN 29.5 pg (27.0-33.0); MEAN CORPUSCULAR HGB CONC 32.5 g/dl (32.0-36.5); MEAN CORPUSCULAR VOLUME 90.6 fl (80.0-96.0); MONO # 1.2 10^3/uL (0.0-0.8); MONO % 8.5 % (2.0-8.0); NEUTROPHILS % 83.3 % (36.0-66.0); PLATELET COUNT, AUTOMATED 260 10^3/uL (150-450); RED BLOOD COUNT 3.73 10^6/uL (4.30-6.10); WHITE BLOOD COUNT 14.4 10^3/uL (4.0-10.0)
[2022-05-06 18:51] LABS: INR 1.17; PROTHROMBIN TIME 15.1 SECONDS (12.5-14.5)
[2022-05-06 18:52] LABS: PARTIAL THROMBOPLASTIN TIME 35.6 SECONDS (24.8-34.2)
[2022-05-06] MEDS ORDERED: MEROPENEM INJ 1 GM in IV 1 EA IV ONE (18:55)
[2022-05-06 19:02] LABS: CK-MB VALUE MASS 2.3 NG/ML (<3.6); MB/CK RELATIVE INDEX 1.62 (< OR =4)
[2022-05-06 19:24] LABS: BILIRUBIN,DIRECT 0.2 MG/DL (0.0-0.2); BILIRUBIN,TOTAL 0.8 MG/DL (0.2-1.0); CALCIUM LEVEL 9.4 MG/DL (8.8-10.2); CREATININE FOR GFR 8.48 MG/DL (0.70-1.30); FREE T4 1.32 NG/DL (0.76-1.46); GLOMERULAR FILTRATION RATE 6.7 (>42); POTASSIUM SERUM 5.5 MEQ/L (3.5-5.1); THYROID STIMULATING HORMONE 3.02 uIU/ML (0.358-3.740)
[2022-05-06] MEDS ORDERED: ALBUTEROL SULFATE 2.5 MG/0.5 ML INH NEB SOLN NEB PRN (19:45)
[2022-05-06] MEDS ORDERED: GLUCAGON INJ 1MG VIAL SC PRN (19:45)
[2022-05-06] MEDS ORDERED: DEXTROSE 50% 50 ML SYRINGE IV PRN (19:45)
[2022-05-06] MEDS ORDERED: GLUCOSE 4GM CHEW TABLET PO PRN (19:45)
[2022-05-06] MEDS ORDERED: MINO2.5T PO (19:57)
[2022-05-06] MEDS ORDERED: CEFU1TAB20 PO (19:57)
[2022-05-06] MEDS ORDERED: DOXY100T PO (19:57)
[2022-05-06] MEDS ORDERED: HOME MED LIST COMPLETE! XX SCH (20:00)
[2022-05-06] MEDS ORDERED: SODIUM CHLORIDE 0.9% 1000ML IV PRN (20:50)
[2022-05-06] MEDS: ATORVASTATIN 20 MG TAB PO SCH (21:00)
[2022-05-06] MEDS: METOPROLOL SUCC (TopROL XL) 100MG *XL* TAB PO SCH (21:00)
[2022-05-06] MEDS ORDERED: HEPARIN SOD (PORCINE) 5000UNITS/ML 1ML VIAL/SYRINGE SC SCH (21:00)
[2022-05-06] MEDS: DOXYCYCLINE HYCLATE 100MG TABLET PO SCH (21:00)
[2022-05-06] MEDS: ISOSORBIDE MON. (IMDUR) 30MG XR TAB PO SCH (21:00)
[2022-05-06 21:30] VITALS: BP 144/79
[2022-05-06 22:00] VITALS: BP 141/75
[2022-05-06 23:00] VITALS: BP 110/65
[2022-05-06] MEDS: IPRATROPIUM 0.5MG/ALBUTEROL 2.5MG INH SOL UD 3ML (DUONEB) NEB SCH (23:29)
[2022-05-06] MEDS ORDERED: HEPARIN SOD (PORCINE) 5000UNITS/ML 1ML VIAL/SYRINGE IV PRN (23:40)
[2022-05-07] VITALS (60 sets, daily range): BP systolic 110–159; BP diastolic 56–89; O2SAT 96–98
[2022-05-07 00:37] LABS: HEMATOCRIT 32.2 % (42.0-52.0); HEMOGLOBIN 10.4 g/dl (13.5-17.5); MEAN CORPUSCULAR HEMOGLOBIN 29.1 pg (27.0-33.0); MEAN CORPUSCULAR HGB CONC 32.3 g/dl (32.0-36.5); MEAN CORPUSCULAR VOLUME 89.9 fl (80.0-96.0); PLATELET COUNT, AUTOMATED 225 10^3/uL (150-450); RED BLOOD COUNT 3.58 10^6/uL (4.30-6.10)
[2022-05-07] MEDS ORDERED: ASPIRIN 81 MG CHEW TABLET PO ONE (01:00)
[2022-05-07] MEDS: NITROGLYCERIN/D5W 100MCG/ML 25 MG in IV 1 EA IV SCH ×2 (01:08→09:13)
[2022-05-07] MEDS: HEPARIN DRIP 25,000 UNITS in IV 1 EA IV SCH ×2 (01:16→18:47)
[2022-05-07 05:53] LABS: ABG BASE EXCESS -1.5 (-2.0-2.0); ABG HCO3 22.9 MEQ/L (22.0-26.0); ABG O2 SATURATION 97.6 % (95.0-99.0); ABG PARTIAL PRESSURE CO2 36.8 mmHg (35.0-45.0); ABG STANDARD HCO3 23.2 MEQ/L (22.0-26.0); ABG pH (ARTERIAL) 7.411 UNITS (7.350-7.450)
[2022-05-07] MEDS: INSULIN LISPRO (NovoLOG) PER UNIT SC SCH ×5 (06:00→20:20)
[2022-05-07 06:11] LABS: HEMATOCRIT 25.9 % (42.0-52.0); HEMOGLOBIN 8.5 g/dl (13.5-17.5)
[2022-05-07 06:56] LABS: CALCIUM LEVEL 8.8 MG/DL (8.8-10.2); CREATININE FOR GFR 5.68 MG/DL (0.70-1.30); GLOMERULAR FILTRATION RATE 10.6 (>42); PHOSPHORUS LEVEL 5.1 MG/DL (2.5-4.9); POTASSIUM SERUM 4.6 MEQ/L (3.5-5.1)
[2022-05-07] MEDS: IPRATROPIUM 0.5MG/ALBUTEROL 2.5MG INH SOL UD 3ML (DUONEB) NEB SCH ×4 (07:11→20:56)
[2022-05-07] MEDS: IRBESARTAN 150MG TAB PO SCH (08:12)
[2022-05-07] MEDS: PANTOPRAZOLE 40MG TAB (PROTONIX) PO SCH (08:13)
[2022-05-07] MEDS: ASPIRIN 81MG ENTERIC TABLET PO SCH (08:13)
[2022-05-07] MEDS: ISOSORBIDE MON. (IMDUR) 30MG XR TAB PO SCH ×2 (08:14→20:20)
[2022-05-07] MEDS: DOXYCYCLINE HYCLATE 100MG TABLET PO SCH ×2 (09:54→20:20)
[2022-05-07] MEDS: CINACALCET 30 MG TAB (SENSIPAR) PO SCH (09:54)
[2022-05-07 10:07] LABS: HEMATOCRIT 26.1 % (42.0-52.0); HEMOGLOBIN 8.4 g/dl (13.5-17.5)
[2022-05-07] MEDS ORDERED: SODIUM CHLORIDE 0.9% 1000ML IV PRN (10:40)
[2022-05-07] MEDS ORDERED: HEPARIN SOD (PORCINE) 5000UNITS/ML 1ML VIAL/SYRINGE SC SCH (14:00)
[2022-05-07] MEDS: cefTRIAXone SOD 1 GM in D5W MINI-BAG PLUS 50 ML IV SCH (19:36)
[2022-05-07] MEDS: LEVEMIR (INSULIN DETEMIR) 1 UNITS/0.01ML SC SCH (20:19)
[2022-05-07] MEDS: ATORVASTATIN 20 MG TAB PO SCH (20:21)
[2022-05-07] MEDS: METOPROLOL SUCC (TopROL XL) 100MG *XL* TAB PO SCH (20:21)
[2022-05-08] VITALS (7 sets, daily range): BP systolic 139–175; BP diastolic 63–83
[2022-05-08 05:50] LABS: BASO # 0.1 10^3/uL (0.0-0.2); BASO % 0.7 % (0.0-1.0); EOS # 0.7 10^3/uL (0.0-0.5); EOS % 8.8 % (0.0-3.0); HEMATOCRIT 26.4 % (42.0-52.0); HEMOGLOBIN 8.8 g/dl (13.5-17.5); LYMPH # 0.8 10^3/uL (1.5-5.0); LYMPH % 9.3 % (24.0-44.0); MEAN CORPUSCULAR HEMOGLOBIN 29.7 pg (27.0-33.0); MEAN CORPUSCULAR HGB CONC 33.3 g/dl (32.0-36.5); MEAN CORPUSCULAR VOLUME 89.2 fl (80.0-96.0); MONO # 0.9 10^3/uL (0.0-0.8); MONO % 11.7 % (2.0-8.0); NEUTROPHILS # 5.5 10^3/uL (1.5-8.5); NEUTROPHILS % 68.9 % (36.0-66.0); PLATELET COUNT, AUTOMATED 228 10^3/uL (150-450); RED BLOOD COUNT 2.96 10^6/uL (4.30-6.10)
[2022-05-08 06:34] LABS: ABG BASE EXCESS 0.8 (-2.0-2.0); ABG HCO3 24.5 MEQ/L (22.0-26.0); ABG O2 SATURATION 90.5 % (95.0-99.0); ABG PARTIAL PRESSURE CO2 35.3 mmHg (35.0-45.0); ABG PARTIAL PRESSURE O2 54.7 mmHg (75.0-100.0); ABG STANDARD HCO3 25.1 MEQ/L (22.0-26.0); ABG TOTAL CO2 25.6 MEQ/L (23.0-31.0); ABG pH (ARTERIAL) 7.459 UNITS (7.350-7.450)
[2022-05-08 07:01] LABS: BILIRUBIN,TOTAL 0.5 MG/DL (0.2-1.0); CALCIUM LEVEL 9.2 MG/DL (8.8-10.2); CREATININE FOR GFR 4.3 MG/DL (0.70-1.30); GLOMERULAR FILTRATION RATE 14.6 (>42); POTASSIUM SERUM 4.3 MEQ/L (3.5-5.1); TOTAL PROTEIN 6.2 GM/DL (6.4-8.2)
[2022-05-08] MEDS: INSULIN LISPRO (NovoLOG) PER UNIT SC SCH ×4 (07:24→20:19)
[2022-05-08] MEDS: PANTOPRAZOLE 40MG TAB (PROTONIX) PO SCH (08:04)
[2022-05-08] MEDS: ISOSORBIDE MON. (IMDUR) 30MG XR TAB PO SCH ×2 (08:05→20:18)
[2022-05-08] MEDS: CINACALCET 30 MG TAB (SENSIPAR) PO SCH (08:05)
[2022-05-08] MEDS: IRBESARTAN 150MG TAB PO SCH (08:05)
[2022-05-08] MEDS: ASPIRIN 81MG ENTERIC TABLET PO SCH (08:05)
[2022-05-08] MEDS: DOXYCYCLINE HYCLATE 100MG TABLET PO SCH (08:05)
[2022-05-08] MEDS: IPRATROPIUM 0.5MG/ALBUTEROL 2.5MG INH SOL UD 3ML (DUONEB) NEB SCH ×4 (08:21→21:48)
[2022-05-08] MEDS: HEPARIN DRIP 25,000 UNITS in IV 1 EA IV SCH (14:24)
[2022-05-08] MEDS: LEVEMIR (INSULIN DETEMIR) 1 UNITS/0.01ML SC SCH (20:16)
[2022-05-08] MEDS: ATORVASTATIN 20 MG TAB PO SCH (20:17)
[2022-05-08] MEDS: METOPROLOL SUCC (TopROL XL) 100MG *XL* TAB PO SCH (20:18)
[2022-05-08] MEDS: cefTRIAXone SOD 1 GM in D5W MINI-BAG PLUS 50 ML IV SCH (20:19)
[2022-05-09] VITALS: BP 141/65
[2022-05-09 04:00] VITALS: BP 146/67
[2022-05-09 04:23] LABS: BASO # 0.1 10^3/uL (0.0-0.2); BASO % 0.8 % (0.0-1.0); EOS # 0.8 10^3/uL (0.0-0.5); EOS % 11.4 % (0.0-3.0); HEMATOCRIT 27.5 % (42.0-52.0); HEMOGLOBIN 8.8 g/dl (13.5-17.5); LYMPH # 0.8 10^3/uL (1.5-5.0); LYMPH % 11.4 % (24.0-44.0); MEAN CORPUSCULAR HEMOGLOBIN 29.1 pg (27.0-33.0); MEAN CORPUSCULAR VOLUME 91.1 fl (80.0-96.0); MONO # 0.9 10^3/uL (0.0-0.8); MONO % 12.1 % (2.0-8.0); NEUTROPHILS # 4.6 10^3/uL (1.5-8.5); NEUTROPHILS % 63.8 % (36.0-66.0); PLATELET COUNT, AUTOMATED 242 10^3/uL (150-450); RED BLOOD COUNT 3.02 10^6/uL (4.30-6.10); WHITE BLOOD COUNT 7.3 10^3/uL (4.0-10.0)
[2022-05-09 05:02] LABS: ALBUMIN 2.9 GM/DL (3.2-5.2); BILIRUBIN,TOTAL 0.3 MG/DL (0.2-1.0); CALCIUM LEVEL 9.2 MG/DL (8.8-10.2); CREATININE FOR GFR 6.18 MG/DL (0.70-1.30); GLOMERULAR FILTRATION RATE 9.6 (>42); MAGNESIUM LEVEL 1.9 MG/DL (1.8-2.4); POTASSIUM SERUM 4.1 MEQ/L (3.5-5.1); TOTAL PROTEIN 6.4 GM/DL (6.4-8.2)
[2022-05-09] MEDS: INSULIN LISPRO (NovoLOG) PER UNIT SC SCH ×2 (06:40→12:00)
[2022-05-09] MEDS: CINACALCET 30 MG TAB (SENSIPAR) PO SCH (06:41)
[2022-05-09] MEDS: IRBESARTAN 150MG TAB PO SCH (06:42)
[2022-05-09] MEDS: ASPIRIN 81MG ENTERIC TABLET PO SCH (06:43)
[2022-05-09] MEDS: PANTOPRAZOLE 40MG TAB (PROTONIX) PO SCH (06:44)
[2022-05-09] MEDS: ISOSORBIDE MON. (IMDUR) 30MG XR TAB PO SCH (06:44)
[2022-05-09] MEDS: IPRATROPIUM 0.5MG/ALBUTEROL 2.5MG INH SOL UD 3ML (DUONEB) NEB SCH ×2 (07:27→11:01)
[2022-05-09] MEDS ORDERED: SODIUM CHLORIDE 0.9% 1000ML IV PRN (07:35)
[2022-05-09 08:00] VITALS: BP 139/61
[2022-05-09] MEDS ORDERED: ATOR80TA59 PO (11:24)
[2022-05-09] MEDS ORDERED: ASPI81TA26 PO (11:24)
[2022-05-09] MEDS ORDERED: METO200T28 PO (11:24)
[2022-05-09] MEDS ORDERED: ISOS1TAB35 PO (11:24)
[2022-05-09] MEDS ORDERED: PROA1AER2 INH (11:24)
[2022-05-09] MEDS ORDERED: IRBE300T7 PO (11:24)
== END 2022-05-09 16:39 | disposition home or self-care (01) | DRG 189 ==
LOC: M ED 17:51 → M ED INP 19:41 → M ICU 20:57
PROVIDERS: ADMIT Internal Medicine Pulmonary Disease; ATTEND Family Medicine
PROC: 5A1D70Z Performance of Urinary Filtration, Intermittent, Less than 6 Hours Per Day (ICD-10-PCS; principal; 2022-05-06)
DX: J96.01 Acute respiratory failure with hypoxia (principal); N18.6 End stage renal disease; J81.0 Acute pulmonary edema; I21.A1 Myocardial infarction type 2; I13.2 Hypertensive heart and chronic kidney disease with heart failure and with stage 5 chronic kidney disease, or end stage renal disease; I16.1 Hypertensive emergency; N39.0 Urinary tract infection, site not specified; N25.81 Secondary hyperparathyroidism of renal origin; I50.9 Heart failure, unspecified; Z90.49 Acquired absence of other specified parts of digestive tract; D63.1 Anemia in chronic kidney disease; G47.33 Obstructive sleep apnea (adult) (pediatric); R97.20 Elevated prostate specific antigen [PSA]; K57.90 Diverticulosis of intestine, part unspecified, without perforation or abscess without bleeding; I27.20 Pulmonary hypertension, unspecified; E11.22 Type 2 diabetes mellitus with diabetic chronic kidney disease; N40.0 Benign prostatic hyperplasia without lower urinary tract symptoms; M19.90 Unspecified osteoarthritis, unspecified site; E87.70 Fluid overload, unspecified; E87.5 Hyperkalemia; E78.2 Mixed hyperlipidemia; H35.30 Unspecified macular degeneration; Z99.2 Dependence on renal dialysis; Z98.42 Cataract extraction status, left eye; Z87.891 Personal history of nicotine dependence; Z95.1 Presence of aortocoronary bypass graft; Z79.82 Long term (current) use of aspirin; Z79.4 Long term (current) use of insulin; Z79.899 Other long term (current) drug therapy

== ENCOUNTER → 2022-07-31 | Outpatient (REF) | payer MEDICARE, OTHER ==
[~2022-07-31] MED LIST changes: +CEFU1TAB20 PO; +PROA1AER2 INH
[2022-07-31 16:20] LABS: CHOLESTEROL RISK RATIO 2.63 (<5); HDL CHOLESTEROL 36.1 MG/DL (>40); LDL CHOLESTEROL 34.1 MG/DL (<100)
== END ==
LOC: M SFHCADAM 11:14
PROVIDERS: ATTEND Physician Assistant Medical
DX: E11.22 Type 2 diabetes mellitus with diabetic chronic kidney disease (principal); R97.20 Elevated prostate specific antigen [PSA]

== ENCOUNTER → 2022-08-23 | Outpatient (CLI) | payer MEDICARE, OTHER ==
[~2022-08-23] MED LIST changes: +ISOVUE-370 76% 100ML VIAL As Ordered ONE
== END ==
LOC: M RAD 10:43
PROVIDERS: ATTEND Nurse Practitioner Family
DX: K86.2 Cyst of pancreas (principal); J91.8 Pleural effusion in other conditions classified elsewhere; N28.1 Cyst of kidney, acquired; N32.89 Other specified disorders of bladder; N40.0 Benign prostatic hyperplasia without lower urinary tract symptoms
CPT/HCPCS: 74178; Q9967

== ENCOUNTER → 2022-09-14 | Outpatient (REF) | payer OTHER ==
[~2022-09-14] MED LIST changes: -ISOVUE-370 76% 100ML VIAL As Ordered ONE
== END ==
LOC: M LAB REF 20:05
PROVIDERS: ATTEND Urology
DX: R97.20 Elevated prostate specific antigen [PSA] (principal)

== ENCOUNTER → 2022-12-17 | Outpatient (REF) | payer MEDICARE, OTHER ==
[~2022-12-17] MED LIST changes: -LOSA100T45; +LOSA100T46
[2022-12-17 18:20] LABS: BASO # 0.1 10^3/uL (0.0-0.2); EOS # 0.3 10^3/uL (0.0-0.5); EOS % 5.4 % (0.0-3.0); HEMATOCRIT 36.6 % (42.0-52.0); HEMOGLOBIN 11.7 g/dl (13.5-17.5); LYMPH # 0.6 10^3/uL (1.5-5.0); LYMPH % 11.4 % (24.0-44.0); MEAN CORPUSCULAR HEMOGLOBIN 30.4 pg (27.0-33.0); MEAN CORPUSCULAR VOLUME 95.1 fl (80.0-96.0); MONO # 0.7 10^3/uL (0.0-0.8); MONO % 13.7 % (2.0-8.0); NEUTROPHILS # 3.3 10^3/uL (1.5-8.5); NEUTROPHILS % 67.5 % (36.0-66.0); PLATELET COUNT, AUTOMATED 161 10^3/uL (150-450); RED BLOOD COUNT 3.85 10^6/uL (4.30-6.10); WHITE BLOOD COUNT 4.8 10^3/uL (4.0-10.0)
[2022-12-17 18:21] LABS: ALBUMIN 4.4 G/DL (3.2-5.2); BILIRUBIN,TOTAL 0.3 MG/DL (0.3-1.2); CALCIUM LEVEL 9.1 MG/DL (8.3-10.6); CREATININE FOR GFR 4.57 MG/DL (0.70-1.30); GLOMERULAR FILTRATION RATE 13.6 (>42); POTASSIUM SERUM 5.2 MMOL/L (3.5-5.1); TOTAL PROTEIN 6.7 G/DL (5.7-8.2)
[2022-12-17 18:23] LABS: THYROID STIMULATING HORMONE 3.01 uIU/ML (0.55-4.78)
[2022-12-17 18:25] LABS: TOTAL 25(OH) VITAMIN D 26.6 NG/ML (20.0-100.0)
== END ==
LOC: M SFHCADAM 13:37
PROVIDERS: ATTEND Physician Assistant Medical
DX: R97.20 Elevated prostate specific antigen [PSA] (principal); E11.22 Type 2 diabetes mellitus with diabetic chronic kidney disease; Z79.899 Other long term (current) drug therapy

== ENCOUNTER → 2023-02-07 | Outpatient (REF) | payer MEDICARE ==
[2023-02-07 13:46] LABS: CREATININE FOR GFR 5.81 MG/DL (0.70-1.30); GLOMERULAR FILTRATION RATE 10.3 (>42)
== END ==
LOC: M LABDRWAD 12:44
PROVIDERS: ATTEND Otolaryngology
DX: H91.90 Unspecified hearing loss, unspecified ear (principal)

== ENCOUNTER → 2023-02-14 | Outpatient (CLI) | payer MEDICARE | LOC: M PLAIMG 10:34 | PROVIDERS: ATTEND Physician Assistant Medical | DX: H90.A21 Sensorineural hearing loss, unilateral, right ear, with restricted hearing on the contralateral side (principal) ==

== ENCOUNTER → 2023-06-04 | Outpatient (CLI) | payer MEDICARE, OTHER ==
[~2023-06-04] MED LIST changes: +CLOP75TA2 PO; +CLOP75TA99 PO; +FURO80TA2 PO; +LORA-1041 PO; -LORA-674 PO; +MECL-209 PO; -MECL1TAB31 PO; +NITR0.4S14
== END ==
LOC: M PLALAB 09:43 → M PLAIMG 09:43
PROVIDERS: ATTEND Internal Medicine Nephrology
DX: Z49.02 Encounter for fitting and adjustment of peritoneal dialysis catheter (principal)

== ENCOUNTER 2023-08-13 06:02 | Day surgery (SDC) | payer MEDICARE, OTHER ==
[~2023-08-13] VITALS: Ht 172.7 cm; Wt 86.6 kg
[~2023-08-13 06:02] MED LIST changes: -HYDR-3911; +HYDR50TA46; +IRBE300T25 PO; -IRBE300T7 PO
[2023-08-13] MEDS ORDERED: ceFAZolin SOD 2 GM in IV 1 EA IV ONE (06:30)
[2023-08-13] MEDS ORDERED: LIDOCAINE 2% 100MG/5ML SDV (FOR ANES.) As Ordered ONE (06:55)
[2023-08-13] MEDS ORDERED: ONDANSETRON 4MG 2ML VIAL As Ordered ONE (06:55)
[2023-08-13] MEDS ORDERED: propofoL 200 MG/20 ML VIAL As Ordered ONE (06:55)
[2023-08-13] MEDS ORDERED: fentaNYL 100 MCG/2 ML INJECTION As Ordered ONE (06:58)
[2023-08-13] MEDS ORDERED: MIDAZOLAM INJ 2MG/2ML VIAL As Ordered ONE (06:58)
[2023-08-13] MEDS: D5W/0.2% SODIUM CHLORIDE 1,000 ML IV SCH (07:01)
[2023-08-13] MEDS: CelecoXIB 400 MG CAP PO ONE (07:01)
[2023-08-13] MEDS ORDERED: HEPARIN SOD (PORCINE) 5000UNITS/ML 1ML VIAL/SYRINGE As Ordered ONE (07:09)
[2023-08-13] MEDS ORDERED: ACETAMINOPHEN 1000MG 100ML IV BAG As Ordered ONE (08:05)
[2023-08-13] MEDS ORDERED: ePHEDrine SULFATE 25 MG/5 ML(5MG/ML) SYRINGE As Ordered ONE (08:12)
[2023-08-13] MEDS: LIDOCAINE 1% MDV 20ML VIAL As Ordered ONE (08:16)
[2023-08-13] MEDS ORDERED: fentaNYL 100 MCG/2 ML INJECTION IV PRN (08:45)
[2023-08-13] MEDS ORDERED: oxyCODONE 5MG TAB PO PRN (08:45)
[2023-08-13] MEDS ORDERED: ONDANSETRON 4MG 2ML VIAL IV PRN (08:45)
[2023-08-13] MEDS ORDERED: NORCO, ANEXSIA 5/325MG TABLET (HYDROcodone/ACETAMINOPHEN) PO PRN (10:05)
[2023-08-13 10:30] VITALS: BP 180/71; TEMP 97.5; O2SAT 98
== END 2023-08-13 10:50 | disposition home or self-care (01) ==
LOC: M SDC 06:02
PROVIDERS: ATTEND Surgery
DX: T85.691A Other mechanical complication of intraperitoneal dialysis catheter, initial encounter (principal); I12.0 Hypertensive chronic kidney disease with stage 5 chronic kidney disease or end stage renal disease; E11.22 Type 2 diabetes mellitus with diabetic chronic kidney disease; N18.6 End stage renal disease; Z99.2 Dependence on renal dialysis; Y82.8 Other medical devices associated with adverse incidents; E11.40 Type 2 diabetes mellitus with diabetic neuropathy, unspecified; Z79.899 Other long term (current) drug therapy; E78.00 Pure hypercholesterolemia, unspecified; Z95.5 Presence of coronary angioplasty implant and graft; Z95.1 Presence of aortocoronary bypass graft; Z90.49 Acquired absence of other specified parts of digestive tract; Y92.9 Unspecified place or not applicable
CPT/HCPCS: 36415; 49422; 84132; 88300; 93005; J0131; J0665; J1100; J2250; J2405; J3010

== ENCOUNTER → 2023-12-05 | Outpatient (CLI) | payer MEDICARE, OTHER ==
[~2023-12-05] MED LIST changes: +METO200T15 PO; -METO200T28 PO; +ONDA-282 PO; -ONDA4TAB6 PO
== END ==
LOC: M SLEEP 20:00
PROVIDERS: ATTEND Nurse Practitioner Family
DX: G47.33 Obstructive sleep apnea (adult) (pediatric) (principal)

== ENCOUNTER → 2023-12-11 | Outpatient (CLI) | payer MEDICARE, OTHER ==
[~2023-12-11] MED LIST changes: -ONDA-282 PO; +ONDA4TAB6 PO
== END ==
LOC: M RAD 09:48
PROVIDERS: ATTEND Physician Assistant Medical
DX: I77.1 Stricture of artery (principal); G62.9 Polyneuropathy, unspecified; R09.89 Other specified symptoms and signs involving the circulatory and respiratory systems

== ENCOUNTER 2024-02-05 17:44 | Emergency (ER) | payer MEDICARE, OTHER ==
[~2024-02-05] VITALS: Ht 172.7 cm; Wt 86.4 kg
[2024-02-05 17:44] VITALS: BP 150/68; TEMP 97.4; O2SAT 99
[~2024-02-05 17:44] MED LIST changes: +ONDA-282 PO; -ONDA4TAB6 PO
[2024-02-05 18:53] LABS: BASO % 0.6 % (0.0-1.0); EOS # 0.4 10^3/uL (0.0-0.5); EOS % 8.3 % (0.0-3.0); HEMATOCRIT 26.9 % (42.0-52.0); HEMOGLOBIN 8.8 g/dl (13.5-17.5); LYMPH # 0.6 10^3/uL (1.5-5.0); LYMPH % 12.1 % (24.0-44.0); MEAN CORPUSCULAR HEMOGLOBIN 30.4 pg (27.0-33.0); MEAN CORPUSCULAR HGB CONC 32.7 g/dl (32.0-36.5); MEAN CORPUSCULAR VOLUME 93.1 fl (80.0-96.0); MONO # 0.7 10^3/uL (0.0-0.8); MONO % 14.1 % (2.0-8.0); NEUTROPHILS # 3.2 10^3/uL (1.5-8.5); NEUTROPHILS % 64.1 % (36.0-66.0); PLATELET COUNT, AUTOMATED 231 10^3/uL (150-450); RED BLOOD COUNT 2.89 10^6/uL (4.30-6.10)
[2024-02-05 19:20] LABS: ALBUMIN 3.9 G/DL (3.2-5.2); BILIRUBIN,DIRECT 0.1 MG/DL (<0.4); BILIRUBIN,TOTAL 0.4 MG/DL (0.3-1.2); CK-MB VALUE MASS 3.3 NG/ML (<3.6); MB/CK RELATIVE INDEX 6.34 (< OR =4); TOTAL PROTEIN 6.5 G/DL (5.7-8.2)
[2024-02-05 19:22] LABS: THYROID STIMULATING HORMONE 3.047 uIU/ML (0.55-4.78)
== END 2024-02-05 20:34 | disposition left against medical advice (07) ==
LOC: M ED 17:44
DX: Z53.21 Procedure and treatment not carried out due to patient leaving prior to being seen by health care provider (principal)